=== PATIENT | female | born 1970 | race Caucasian/White ===

== ENCOUNTER 2016-11-01 11:40 | Inpatient (IN) ==
[2016-11-01] MEDS ORDERED: Ondansetron 4 MG/2 ML VIAL IVP PRN (13:09)
[2016-11-01] MEDS ORDERED: Naloxone 0.4 MG/ML INJ IVP PRN (13:14)
[2016-11-01] MEDS: Fenofibrate 54 MG TABLET PO SCH (13:34)
[2016-11-01] MEDS: Nitroglycerin 0.4 MG TAB.SUBL SL PRN ×3 (13:58→21:02)
[2016-11-01] MEDS ORDERED: *HR* Morphine 2 MG/ML SYRINGE IVP ONE (14:39)
--- NOTE | 2016-11-01 14:51 | Internal Med History&Physical ---
<Sandor Gonzalez - Last Filed: 11/01/16 16:11> Date of Encounter: 11/01/16 Time of Encounter: 13:30 Assessment and Plan (1) Unstable angina pectoris Current visit: Yes Status: Acute Patient presents with chief complaint of chest pain. Patient states that she has chest pain daily for the past month that is intermittent and typically relieved with nitroglycerin. She describes it as usually being a dull ache that is central in her chest. This morning, she reports the pain became much worse with one episode of vomiting and she became diaphoretic. She reports taking two aspirin and a nitroglycerin that did not help. She reports the pain does not radiate. She states that the pain is like her previous MIs but is more severe. 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 Troponins trended x3. Continuous cardiac telemetry ordered. Nitroglycerin protocol PRN ordered. EV echocardiogram ordered. Cardiology consult ordered and discussed with Dr. Thompson who will see the patient. We will continue aspirin therapy as well as patient's antihypertensive and anti-hyperlipidemic medications. Patient to be monitored closely. (2) Stool guaiac positive Current visit: Yes Status: Acute Patient presents with report of diarrhea yesterday that she reports was entirely black and watery. Patient's current Hgb is 8.9 and Hct is 29.7. Stool guaiac test positive. Gastroenterology consult ordered and discussed with Dr. Meier who will see the patient. Will monitor patient for signs of bleeding. Will use bilateral SCDs for DVT prophylaxis instead of Heparin. (3) Anemia Current visit: Yes Status: Acute Patient presents with acute anemia and report of episodic diarrhea yesterday with melena. Patient's current Hgb is 8.9 and Hct is 29.7. Type and screen ordered. Fecal occult test is positive for guaiac, but rectal exam is negative for blood. Gastroenterology consult ordered and discussed with Dr. Meier who will see the patient. Will monitor patient's follow-up labs and output for signs of bleeding. Qualifiers: Anemia type: unspecified type Qualified Code(s): D64.9 - Anemia, unspecified (4) Hyperkalemia Current visit: Yes Status: Acute Patient presents with acute hyperkalemia. Potassium level is currently 5.0. Will monitor patient's potassium on follow-up labs and consider administering one-time dose of Lasix to reduce potassium. Patient placed on continuous cardiac telemetry to monitor her rhythm. (5) Leukocytosis Current visit: Yes Status: Acute Patient presents with acute leukocytosis. Patient's current WBC is 16.8. Patient reports she was seen in the [facility] urgent care October 22 and diagnosed with bronchitis and sent home with Z-Sonny, steroid shot, Tessalon Perles, guaifenesin. Patient states symptoms did not resolve. Blood cultures, sputum cultures, and urine cultures ordered. Timed lactic acid ordered. We will monitor patient for increased signs of infection and consider administering IV antibiotics based on results of cultures. Qualifiers: Leukocytosis type: unspecified Qualified Code(s): D72.829 - Elevated white blood cell count, unspecified (6) SOB (shortness of breath) Current visit: Yes Status: Acute Patient presents with acute SOB accompanied by current chest pain. Will continue patient's albuterol sulfate inhaler. Supplemental O2 with titration if SPO2 less than 92% and continuous SPO2 monitoring ordered. DuoNebs Q4 PRN. Continuous cardiac telemetry ordered. (7) COPD (chronic obstructive pulmonary disease) Current visit: Yes Status: Chronic Patient presents with history of chronic obstructive pulmonary disease. Will continue patient's albuterol sulfate inhaler. Supplemental O2 with titration if SPO2 less than 92% and continuous SPO2 monitoring ordered. DuoNebs Q4 PRN. Qualifiers: COPD type: unspecified COPD Qualified Code(s): J44.9 - Chronic obstructive pulmonary disease, unspecified (8) HLD (hyperlipidemia) Current visit: Yes Status: Chronic Patient presents with history of chronic hyperlipidemia. Lipid panel ordered. Will continue patient's Lipitor. Qualifiers: Hyperlipidemia type: pure hypercholesterolemia Qualified Code(s): E78.00 - Pure hypercholesterolemia, unspecified; E78.0 - Pure hypercholesterolemia (9) HTN (hypertension) Current visit: Yes Status: Chronic Patient presents with history of chronic hypertension. Will continue patient's losartan and Lopressor. Monitor patient and vital signs. Qualifiers: Hypertension type: essential hypertension Qualified Code(s): I10 - Essential (primary) hypertension (10) DVT prophylaxis Current visit: Yes Status: Acute Patient be placed on DVT prophylaxis due to admission protocol and current bedrest status. Pharmacologic DVT prophylaxis contraindicated due to patient's report of diarrhea with melena yesterday and positive fecal occult guaiac test. SCDs ordered bilaterally for LEs. Internal Medicine - H&P: HPI Chief complaint: Chest pain Admitted From: Emergency Dept Plans for Post Hospital Care: Home History of present illness: Ms. Finch is a 46 year old female who presents from the ED with chief complaint of chest pain. Patient states that she has chest pain daily for the past month that is intermittent and typically relieved with nitroglycerin. She describes it as usually being a dull ache that is central in her chest. This morning, she reports the pain became much worse with one episode of vomiting and she became diaphoretic. She reports taking two aspirin and a nitroglycerin that did not help. She reports the pain does not radiate. She states that the pain is like her previous MIs but is more severe. 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 She is a current smoker and reports that she smokes 10 cigarettes a day. She states that she is SOB with the pain. She also reports bilateral numbness and tingling in her LEs for the past two weeks when she stands for long periods of time. She also presents with a cough that she states was diagnosed as bronchitis at [facility] urgent care on October 22 and she was sent home with a steroid shot, a Z-Sonny, Tessalon Perles, and guaifenesin. She states her symptoms have not improved regarding the bronchitis and that she produces green sputum early in the a.m. Ms. Finch also reports she was constipated for approximately 4 days and then had watery diarrhea that was black yesterday. Fecal occult test is positive for guaiac but no active bleeding is present on exam in ED.Patient has a medical history of COPD, HLD, HTN, NJ and angioplasty with placement of 4 stents, and GERD. Patient is at high risk for cardiac event based on her history of previous NJ, current angina, and cardiac risk factors of HLD and HTN. She also currently has leukocytosis with WBC of 16.8 from initial labs. She will be admitted as inpatient with orders for nitroglycerin protocol PRN, EKG stat, echocardiogram, troponin trending x3, continuous cardiac telemetry and supplemental O2. Cardiology consult ordered and discussed with Dr. Thompson. Orders also placed for blood, sputum, and urine cultures as well as timed lactic acids to monitor leukocytosis and infection. Gastroenterology consult ordered and discussed with Dr. Meier who will see the patient as well. Type and screen ordered stat. Will also monitor patient for signs of bleeding in stool. Patient to be monitored closely. Time spent with patient >40 minutes. Past Med Surg Social Fam HX - Past Medical History Source: patient Medical history: COPD, hyperlipidemia, hypertension, myocardial infarction Psychiatric history: anxiety - Social History Smoking Status: Current every day smoker Packs per day: 10 cigarettes a day Smokeless Tobacco Status: No Alcohol use: occasionally Drug use: none Occupational status: employed Current living situation: Home, With Family Activity Level: Independent ambulation Recent Out of Country Travel Within the Last 8 Weeks: No Exposure or Possible Exposure to Illness During Travel: No - Family History Mother Adopted: Yes Internal Medicine - H&P: Meds Albuterol Sulfate [Albuterol Inhaler] 1 puff IH PRN PRN 11/01/16 [History] Aspirin [Lo-Dose Aspirin EC] 81 mg PO DAILY 11/01/16 [History] Atorvastatin [Lipitor] 80 mg PO HS 11/01/16 [History] Budesonide/Formoterol 80/4.5 [Symbicort 80/4.5] 1 puff IH BID 11/01/16 [History ] Buspirone HCl [Buspar] 15 mg PO BID 11/01/16 [History] Cetirizine HCl 10 mg PO DAILY 11/01/16 [History] Clopidogrel [Plavix] 75 mg PO DAILY 11/01/16 [History] Diclofenac Sodium [Voltaren] 50 mg PO Q8HR 11/01/16 [History] FLUoxetine HCl [PROzac] 20 mg PO DAILY 11/01/16 [History] Fenofibrate 150 mg PO DAILY 11/01/16 [History] Fluticasone Propionate Nasal [Flonase] 120 spray NS BID 11/01/16 [History] Losartan Potassium [Cozaar] 50 mg PO DAILY 11/01/16 [History] Metoprolol [Lopressor] 25 mg PO DAILY 11/01/16 [History] Allergies Penicillins Adverse Reaction (Verified 02/03/15 08:11) Hives All Systems PM: A 10-system review of systems was performed and is negative for pertinent findings except as documented above in the HPI. - Constitutional Constitutional: no chills, no fever(s), no night sweats - EENT Eyes: no change in vision, no discharge, no pain, no photophobia Ears: no ear discharge, no ear pain, no tinnitus Nose, mouth and throat: no dysphagia, no nasal discharge, no neck pain, no sore throat - Breasts Breasts: as per HPI - Cardiovascular Cardiovascular ROS IM: as per HPI, chest pain, diaphoresis, dyspnea, dyspnea on exertion - Respiratory Respiratory: as per HPI, cough, dyspnea, change in phlegm color (Green in a.m.) - Gastrointestinal Gastrointestinal: as per HPI, diarrhea, melena, no abdominal pain, no hematemesis, no hematochezia, no nausea, no vomiting - Genitourinary Genitourinary: no change in urinary stream, no dysuria, no flank pain, no hematuria Menstruation: as per HPI - Musculoskeletal Musculoskeletal ROS IM: as per HPI, numbness, tingling (LEs bilaterally) - Integumentary Integumentary IM: no rash, no unusual bruising - Neurological Neurological ROS: as per HPI, numbness (Bilateral LEs), tingling, no confusion, no convulsions, no focal weakness, no tremor(s) - Psychiatric Psychiatric: as per HPI - Endocrine Endocrine IM: as per HPI - Hematologic/Lymphatic Hematologic/Lymphatic: as per HPI, other (Recent melena in diarrhea yesterday) - Allergic/Immunologic Allergic/Immunologic: as per HPI - Constitutional Vitals: Temp Pulse Resp BP Pulse Ox 97.7 F 64 17 104/56 94 11/01/16 12:50 11/01/16 12:50 11/01/16 12:50 11/01/16 12:50 11/01/16 12:50 General appearance: Present: cooperative, A&O X 3, pleasant, obese, severe distress, answers questions appropriately - Head Head exam: Present: atraumatic, normocephalic - Eye Eye exam: Present: PERRL, conjuntiva pink, sclera anicteric Pupils: Present: PERRL - ENT ENT exam: Present: normal exam, normal external ear exam - Neck Neck exam general surgery: Present: normal inspection, supple, trachea midline. Absent: lymphadenopathy - Respiratory Respiratory exam: Present: decreased breath sounds, CTAB. Absent: accessory muscle use, rales, rhonchi, wheezes - Cardiovascular Cardiovascular exam: Present: RRR, +S1, +S2. Absent: diastolic murmur, gallop, rubs, systolic murmur - GI/Abdominal GI/Abdominal exam: Present: normal bowel sounds, soft, no peritoneal signs. Absent: distended, tenderness - Rectal Rectal exam: Present: deferred - Additional comments: exam deferred. - Extremities Exam Extremities exam: Present: warm, radial pulses palpable and symetrical. Absent : calf tenderness, cyanotic, pedal edema - Back Exam Back exam: Present: normal inspection - Neurological Exam Neurological exam: Present: CN II-XII intact, oriented X3, no focal deficits. Absent: pronater drift, facial droop, speech deficit - Psychiatric Psychiatric exam: Present: anxious - Skin Skin exam: Present: dry, intact Internal Med - H&P Results - EKG Data EKG shows normal: sinus rhythm Rate: normal - EKG Data Prior EKG available for review: yes When compared to previous EKG: there is no significant change Interpretation IM: normal EKG EKG comments: 11/01/16 15:48 EKG dated 11/01/16 at 14:38:40 shows sinus rhythm and normal ECG. EKG dated 11/01/16 at 14:39:14 shows sinus rhythm and normal ECG. - Diagnostic Studies Chest x-ray Additional comments: 1-View CXR dated 11/01/16 from [facility] shows mild prominence of the pulmonary vasculature could be seen with pulmonary arterial hypertension. <Steven Chauhan - Last Filed: 11/01/16 17:27> Date of Encounter: 11/01/16 Internal Medicine - H&P: HPI History of present illness: Ms. Finch is a 46 year old female All Systems PM: A 10-system review of systems was performed and is negative for pertinent findings except as documented above in the HPI. - Constitutional Vitals: Temp Pulse Resp BP Pulse Ox 97.1 F L 64 16 92/60 93 11/01/16 15:09 11/01/16 15:09 11/01/16 15:09 11/01/16 15:09 11/01/16 15:09 Internal Med - H&P Results - Labs Labs: Cardiac Enzymes 11/01/16 11/01/16 Range/Units 13:20 13:23 Troponin I 0.02 0.02 (0-0.03) ng/mL - Attending Attestation I have seen and examined the patient at around 16:15. I have discussed about the patient with Sandor Gonzalez NP. I have reviewed the orders and the note. Patient is a 46-year-old female with a past history of COPD, hyperlipidemia, hypertension, coronary artery disease status post stents and is also a chronic smoker. Transferred from [place] ED. Patient presents with complaints of upper respiratory symptoms. She will been treated with antibiotics for bronchitis. Patient complaining of worsening cough and also some chest discomfort. Patient also complains of diarrhea and dark stool. She states she also had a dental procedure done recently and seems to have pain and infection at the site. Patient initially presented to [place] ED with chest pain. There was concern for unstable angina. Initial evaluation revealed a normal EKG negative troponin and chest x-ray is also normal. Fecal Hemoccult is positive. Patient does have anemia which seems to be new onset at this time and will need evaluation. GI bleed will need to be investigated further. General surgery consult. I believe patient's primary problem at this time will be GI bleed and anemia. On examination patient is awake and alert. Not in distress. Able to provide HISTORY. No family members at bedside. Patient has been transferred from [facility] for chest pain to rule out ACS. EKG will be repeated and troponin to be trended. Continue current medications. Patient has been explained about her condition and plan of care. Understood and agreed. No one else questions. CODE STATUS full code.
[2016-11-01] MEDS ORDERED: Ipratropium/Albuterol Neb 3 ML IH PRN (15:28)
[2016-11-01] MEDS ORDERED: *HR* Heparin 5,000 UNIT/ML VIAL SQ SCH (16:00)
--- NOTE | 2016-11-01 16:35 | Cardiology Consult Note ---
<Shahida Scott - Last Filed: 11/01/16 17:10> Date of Encounter: 11/01/16 Time of Encounter: 16:20 Assessment and Plan (1) Chest pain Current Visit: Yes Status: Acute Atypical chest pain symptoms--worsens with cough, deep breathing. Troponin negative x3, ECG without ischemic changes. Pain free upon exam. Pain is likely pleuritic in etiology. Known hx of CAD s/p PCI--continue home CV medications. Recommend TTE, if no significant findings anticipate sign-off from Cardiology. Qualifiers: Chest pain type: chest pain on breathing Qualified Code(s): R07.1 - Chest pain on breathing (2) Anemia Current Visit: Yes Status: Acute Reports "dark black" loose stools. Occult blood positive. HgB 8.9. Defer further mgmt to primary service. Qualifiers: Anemia type: unspecified type Qualified Code(s): D64.9 - Anemia, unspecified (3) Stool guaiac positive Current Visit: Yes Status: Acute plan as above. Discussion w patient/family: The assessment and plan as outlined above was discussed with the patient and/or family members who expressed understanding and agreement. All questions were answered. Thank you for involving us in the care of your patient. Please call with any questions. The patient will be discussed and reviewed with Dr. Thompson; changes to be made accordingly. History of Present Illness Consult date: 11/01/16 Requesting physician: Steven Chauhan Consult reason: Chest pain Chief complaint: Fatigue, chest pain History of present illness: Ms. Finch is a 46 year old female with PMHx significant for CAD s/p PCI, tobacco use, HTN, HLD who presented to the ED with 2 week history of worsening URI symptoms. She reports she initially went to urgent care 2 weeks ago and was treated for bronchitis--was given z-pack and steroids. At that time reported right sided chest discomfort that worsened with cough and deep breathing. Symptoms improved for several days until worsened 3-4 days ago. She continued to have right sided pleuritic chest discomfort in addition to GI upset--reports frequent episodes of "dark black stool." This morning she reports chest fullness with severe headache which was similar, not as severe, to prior [place] and then called EMS. She took NTG tabs which did not improve pain. Troponin negative x1 at [place] ED and again negative at [facility]. No ischemic ECG changes noted. Occult stool positive, WBC 16.8, HgB 8.9. Prior CV testing: [facility] 06/2014: s/p successful PTCA/JANELLE to mRCA; otherwise patent stents and mild, non-obstructive CAD TTE 07/11/14: LVEF 60%, inferior wall segmental abnormalities, moderate diastolic dysfunction of the left ventricle with elevated filling pressures, mildly enlarged left atrial size, normal right ventricular size and function, no significant valvular dysfunction although valves were not optimally visualized.The apical inferior, mid inferior septal and basal inferior septal lee were hypokinetic, the mid inferior and basal inferior lee were akinetic. Past Med Surg Social Fam HX - Past Medical History Attestation: Yes The following information was validated with the patient. Source: patient, old records reviewed Medical history: COPD, coronary artery disease, hyperlipidemia, hypertension, myocardial infarction Psychiatric history: anxiety - Past Surgical History Surgical History: angioplasty/stent - Social History Smoking Status: Current every day smoker Packs per day: 10 cigarettes a day Smokeless Tobacco Status: No Alcohol use: occasionally Drug use: none - Family History Mother Adopted: Yes Medications and Allergies Albuterol Sulfate [Albuterol Inhaler] 1 puff IH PRN PRN 11/01/16 [History] Aspirin [Lo-Dose Aspirin EC] 81 mg PO DAILY 11/01/16 [History] Atorvastatin [Lipitor] 80 mg PO HS 11/01/16 [History] Budesonide/Formoterol 80/4.5 [Symbicort 80/4.5] 1 puff IH BID 11/01/16 [History ] Buspirone HCl [Buspar] 15 mg PO BID 11/01/16 [History] Cetirizine HCl 10 mg PO DAILY 11/01/16 [History] Clopidogrel [Plavix] 75 mg PO DAILY 11/01/16 [History] Diclofenac Sodium [Voltaren] 50 mg PO Q8HR 11/01/16 [History] FLUoxetine HCl [PROzac] 20 mg PO DAILY 11/01/16 [History] Fenofibrate 150 mg PO DAILY 11/01/16 [History] Fluticasone Propionate Nasal [Flonase] 120 spray NS BID 11/01/16 [History] Losartan Potassium [Cozaar] 50 mg PO DAILY 11/01/16 [History] Metoprolol [Lopressor] 25 mg PO DAILY 11/01/16 [History] Allergies Penicillins Adverse Reaction (Verified 02/03/15 08:11) Hives All Systems Review: A 10-system review of systems was performed and is negative for pertinent findings except as documented above in the HPI. - Cardiovascular Cardiovascular: as per HPI Physical Examination Vital Signs, Last 4 Hours Temp Pulse Resp BP Pulse Ox 11/01/16 15:09 97.1 F L 64 16 92/60 93 11/01/16 12:50 97.7 F 64 17 104/56 94 General: Conversant, No Apparent Distress, Other (ill appearing) HEENT: Atraumatic, Normocephaly, Mucus Membranes Moist Cardiac: Reg Rate and Rhythm, Normal S1 and S2 Lungs: Normal Breath Sounds Neuro: Alert and responsive Abdomen: Soft Skin: No rashes noted on visualized skin Musculoskeletal: No Chest Wall Tenderness Extremities: Normal Pulses, Other (mild BLE edema, non-pitting) Results Lab Results 11/01/16 11/01/16 11/01/16 13:20 13:23 13:23 Troponin I 0.02 0.02 B-Natriuretic Peptide 321 H Active Medications Albuterol Sulfate (Albuterol Inhaler) 1 puff IH Q6H PRN PRN Reason: short of breat Stop: 05/03/17 13:16 Albuterol/Ipratropium (Duoneb) 3 ml IH [id number] PRN; Protocol PRN Reason: Shortness Of Breath/Wheezing Stop: 05/03/17 15:29 Aspirin (Aspirin) 81 mg PO DAILY [facility] Stop: 05/04/17 09:01 Atorvastatin Calcium (Lipitor) 40 mg PO HS [facility] Stop: 05/03/17 21:01 Atorvastatin Calcium (Lipitor) 80 mg PO HS [facility] Stop: 05/03/17 21:01 Budesonide/Formoterol Fumarate (Symbicort) 1 puff IH BIDR [facility] PRN Reason: Protocol Stop: 05/03/17 22:01 Buspirone HCl (Buspar) 15 mg PO BID [facility] Stop: 05/03/17 21:01 Clopidogrel Bisulfate (Plavix) 75 mg PO DAILY [facility] Stop: 05/03/17 13:16 Last Admin: 11/01/16 13:33 Dose: Not Given Famotidine (Pepcid) 20 mg PO BID [facility] Stop: 05/03/17 21:01 Fenofibrate (Tricor) 162 mg PO DAILY [facility] Stop: 05/03/17 13:16 Last Admin: 11/01/16 13:34 Dose: Not Given Fluoxetine HCl (Prozac) 20 mg PO DAILY [facility] PRN Reason: Protocol Stop: 05/04/17 09:01 Fluticasone Propionate (Flonase) 50 mcg NS BID [facility] PRN Reason: Protocol Stop: 05/03/17 21:01 Losartan Potassium (Cozaar) 50 mg PO DAILY [facility] Stop: 05/04/17 09:01 Metoprolol Tartrate (Lopressor) 25 mg PO DAILY [facility] Stop: 05/04/17 09:01 Morphine Sulfate (Morphine Sulfate) 2 mg IVP Q2H PRN PRN Reason: Chest Pain Stop: 05/03/17 13:10 Naloxone HCl (Narcan) 0.4 mg IVP Q2MIN PRN PRN Reason: Opioid Reversal Stop: 05/03/17 13:15 Nitroglycerin (Nitroglycerin) 0.4 mg SL Q5MIN PRN PRN Reason: Chest Pain Stop: 05/03/17 13:10 Last Admin: 11/01/16 13:58 Dose: 0.4 mg Ondansetron HCl (Zofran) 4 mg IVP Q6HR PRN; Protocol PRN Reason: Nausea Stop: 05/03/17 13:10 Last Admin: 11/01/16 14:40 Dose: 4 mg - Imaging and Cardiology Echo: report reviewed Cardiac cath: report reviewed - EKG Interpretation EKG results cardiology: personally reviewed Consult Discharge Plan - Plan Referrals: Danyell Meek CNP [Primary Care Provider] - <Zaria Thompson - Last Filed: 11/01/16 17:44> Date of Encounter: 11/01/16 Assessment and Plan Discussion w patient/family: The assessment and plan as outlined above was discussed with the patient and/or family members who expressed understanding and agreement. All questions were answered. Thank you for involving us in the care of your patient. Please call with any questions. History of Present Illness History of present illness: Ms. Finch is a 46 year old female All Systems Review: A 10-system review of systems was performed and is negative for pertinent findings except as documented above in the HPI. Physical Examination Vital Signs, Last 4 Hours Temp Pulse Resp BP Pulse Ox 11/01/16 15:09 97.1 F L 64 16 92/60 93 Results Lab Results 11/01/16 11/01/16 11/01/16 13:20 13:23 13:23 Troponin I 0.02 0.02 B-Natriuretic Peptide 321 H - Attending Attestation I examined this patient and my medical decision-making was reviewed with the SKIING INSTRUCTOR/PA/Advanced Practice Nurse/Resident Physician. I agree with the documented findings, disposition and treatment plan. Ms. Finch presents with chest pain thought secondary to bronchitis. Her troponins have been negative and ECG is without concerning findings. Furthermore, she complains of black stools recently and guiac is positive and Hgb is 8.9. Will defer to primary service for management. No further cardiac testing is warranted. Will sign off. Please call with questions.
[2016-11-01] MEDS: Levofloxacin 500 MG/100 ML 500 MG/100 ML BAG IVPB SCH (19:33)
[2016-11-01] MEDS: Budesonide/Formoterol 80/4.5 MDI IH SCH (20:07)
[2016-11-01] MEDS: Ipratropium/Albuterol Neb 3 ML IH SCH (20:07)
[2016-11-01 20:17] LABS: Bilirubin,Urine Small (Negative); Blood,Urine Negative (Negative); Clarity,Urine Cloudy (Clear); Color,Urine Dark Yellow (Yellow); Glucose,Urine (UA) Normal (Normal); Ketones,Urine Negative (Negative); Leukocyte Esterase,Urine Negative (Negative); Nitrite,Urine Negative (Negative); PH,Urine 5.5 pH Units (5.0-8.0); Protein,Urine Trace mg/dL (Neg-Trace); Specific Gravity,Urine 1.022 (1.010-1.025); Urobilinogen,Urine Normal (Normal)
[2016-11-01 20:20] LABS: Bacteria,Urine None Seen per hpf (None-Few); Hyaline Casts,Urine Few per lpf (None-Few); Squamous Epithelial Cell,Urine Many per lpf (None-Few); WBC,Urine 0-3 per hpf (0-3)
[2016-11-01] MEDS: Famotidine 20 MG TABLET PO SCH (20:22)
[2016-11-01 20:23] LABS: Amphetamine Screen,Urine Negative ng/mL (Cutoff=1000); Barbiturate Screen,Urine Negative ng/mL (Cutoff=200); Benzodiazepines Screen,Urine Negative ng/mL (Cutoff=200); Cannabinoid Screen,Urine Positive ng/mL (Cutoff = 50); Cocaine Screen,Urine Negative ng/mL (Cutoff= 300); Opiate Screen,Urine Positive ng/mL (Cutoff=300); Phencyclidine Screen,Urine Negative ng/mL (Cutoff=25)
[2016-11-01] MEDS: Fluticasone Propionate Nasal 50 MCG/SPRAY BOTTLE NS SCH (20:23)
[2016-11-01] MEDS ORDERED: Perflutren Lipid Microsphere 1.3 ML in 0.9 % Sodium Chloride 8.7 ML IVP ONE (21:04)
[2016-11-01] MEDS: Acetaminophen/Butalbital/CaffeineTABLET PO PRN (21:09)
[2016-11-02] MEDS: Ipratropium/Albuterol Neb 3 ML IH SCH ×7 (00:13→23:42)
[2016-11-02 01:12] LABS: Basophils % 0.6 %; Monocytes % 9.8 %
[2016-11-02 01:13] LABS: Basophils # 0.1 K/mcL (0.0-0.2); Eosinophils # 0.2 K/mcL (0.0-0.6); Eosinophils % 1.4 %; Hematocrit 29.8 % (35.3-44.9); Hemoglobin 8.5 g/dL (11.5-15.4); Immature Granulocytes % 2.3 % (0-4); Lymphocytes # 2.2 K/mcL (0.6-4.6); Lymphocytes % 15.2 %; Mean Corpuscular HGB Conc 28.5 g/dL (31.6-35.5); Mean Corpuscular Hemoglobin 26.2 pg (28.0-33.3); Mean Platelet Volume 10.5 fL (9.4-12.4); Monocytes # 1.4 K/mcL (0.0-1.3); Neutrophils # 10.3 K/mcL (1.6-8.9); Nucleated Red Blood Cells 3.4 /100 WBC (0); Platelet Count 338 K/mcL (140-400); Red Blood Count 3.24 M/mcL (3.82-4.97); Red Cell Distribution Width 17.4 % (11.5-14.5); Segmented Neutrophils % 70.7 %
[2016-11-02 01:15] LABS: Alanine Aminotransferase 66 Units/L (0-55); Albumin 2.9 g/dL (3.5-5.0); Albumin/Globulin Ratio 0.7 (1.1-2.2); Alkaline Phosphatase 85 Units/L (38-126); Aspartate Amino Transferase 75 Units/L (5-34); BUN/Creatinine Ratio 25 (6-26); Bilirubin,Total 0.3 mg/dL (0.2-1.2); Blood Urea Nitrogen 19 mg/dL (7-20); Calcium 8.7 mg/dL (8.6-10.8); Carbon Dioxide 30 mEq/L (19-29); Chloride 100 mEq/L (98-109); Globulin 4.2 g/dL (2.4-3.5); Glucose 110 mg/dL (70-99); Magnesium 1.8 mg/dL (1.6-2.6); Osmolality,Calculated 281 (280-300); Potassium 5.2 mEq/L (3.5-4.5); Sodium 134 mEq/L (136-145); Total Protein 7.1 g/dL (6.0-8.3); eGFR For African Americans > 60 (> 60); eGFR For Non-African Americans > 60 (> 60)
[2016-11-02] MEDS: MetroNIDAZOLE 500 MG/100 ML 500 MG/100 ML BAG IVPB SCH ×4 (01:15→22:51)
[2016-11-02] MEDS: Nicotine 14 MG PATCH.TD24 TD SCH ×2 (01:15→08:40)
[2016-11-02 01:31] LABS: Platelet Estimate Normal (Normal); Polychromasia 2+ (Not Present)
[2016-11-02 01:32] LABS: Anisocytosis 1+ (Not Present); Hypochromasia Present (Not Present)
[2016-11-02] MEDS: Nitroglycerin 0.4 MG TAB.SUBL SL PRN ×2 (07:33→07:39)
[2016-11-02] MEDS ORDERED: Nitroglycerin 1 INCH/GM PACKET TP ONE (07:49)
[2016-11-02] MEDS: *HR* Morphine 2 MG/ML SYRINGE IVP PRN (07:53)
[2016-11-02] MEDS ORDERED: GI Cocktail 40 ML EACH PO ONE (07:58)
[2016-11-02] MEDS: Budesonide/Formoterol 80/4.5 MDI IH SCH ×2 (08:23→19:52)
[2016-11-02] MEDS ORDERED: Polyethylene Glycol 3350 255 GM POWDER PO ONE ×2 (08:35→17:00)
[2016-11-02 08:37] LABS: Hematocrit 30.9 % (35.3-44.9); Hemoglobin 8.6 g/dL (11.5-15.4); Immature Platelets 5.5 % (1.1-6.1); Mean Corpuscular HGB Conc 27.8 g/dL (31.6-35.5); Mean Corpuscular Hemoglobin 25.5 pg (28.0-33.3); Mean Corpuscular Volume 91.7 fL (83.0-100.0); Mean Platelet Volume 10.3 fL (9.4-12.4); Red Blood Count 3.37 M/mcL (3.82-4.97); Red Cell Distribution Width 17.4 % (11.5-14.5)
[2016-11-02] MEDS: Famotidine 20 MG TABLET PO SCH ×2 (08:40→21:31)
[2016-11-02] MEDS: Fenofibrate 54 MG TABLET PO SCH (08:40)
[2016-11-02] MEDS: Aspirin 81 MG TAB.CHEW PO SCH (08:40)
[2016-11-02 09:03] LABS: Alanine Aminotransferase 71 Units/L (0-55); Albumin 2.9 g/dL (3.5-5.0); Albumin/Globulin Ratio 0.7 (1.1-2.2); Alkaline Phosphatase 86 Units/L (38-126); Aspartate Amino Transferase 87 Units/L (5-34); BUN/Creatinine Ratio 22 (6-26); Bilirubin,Total 0.3 mg/dL (0.2-1.2); Blood Urea Nitrogen 14 mg/dL (7-20); Calcium 9.1 mg/dL (8.6-10.8); Carbon Dioxide 31 mEq/L (19-29); Chloride 96 mEq/L (98-109); Globulin 4.3 g/dL (2.4-3.5); Glucose 97 mg/dL (70-99); Osmolality,Calculated 278 (280-300); Potassium 4.9 mEq/L (3.5-4.5); Sodium 134 mEq/L (136-145); Total Protein 7.2 g/dL (6.0-8.3); eGFR For African Americans > 60 (> 60); eGFR For Non-African Americans > 60 (> 60)
[2016-11-02] MEDS: FLUoxetine 20 MG CAPSULE PO SCH (09:37)
[2016-11-02] MEDS: Fluticasone Propionate Nasal 50 MCG/SPRAY BOTTLE NS SCH ×2 (10:59→21:58)
[2016-11-02] MEDS: Acetaminophen/Butalbital/CaffeineTABLET PO PRN ×2 (12:35→18:54)
--- NOTE | 2016-11-02 13:05 | Internal Med Progress Note ---
Date of Encounter: 11/02/16 Time of Encounter: 08:00 - Assessment and plan (1) Chest pain Current Visit: Yes Status: Acute Assessment and plan: Pt with significant substernal chest discomfort. Troponin has been negative. EKG now is nonacute. Nitro not a lot of help. Morphine give with some relief. Card at bedside to see. Will give GI cocktail as well. Add PPI. Surg eval for endo. Qualifiers: Chest pain type: precordial pain Qualified Code(s): R07.2 - Precordial pain (2) Anemia Current Visit: Yes Status: Suspected Assessment and plan: Suspect she has chronic bleeding from GI tract (? esophagus). Surg consulted. PPI ordered. Qualifiers: Anemia type: iron deficiency Iron deficiency anemia type: chronic blood loss Qualified Code(s): D50.0 - Iron deficiency anemia secondary to blood loss (chronic) (3) HTN (hypertension) Current Visit: Yes Status: Chronic Assessment and plan: Continue meds to control. Qualifiers: Hypertension type: essential hypertension Qualified Code(s): I10 - Essential (primary) hypertension (4) COPD (chronic obstructive pulmonary disease) Current Visit: Yes Status: Chronic Assessment and plan: Supportive care. Qualifiers: COPD type: emphysema Emphysema type: centrilobular Qualified Code(s): J43.2 - Centrilobular emphysema (5) HLD (hyperlipidemia) Current Visit: Yes Status: Chronic Assessment and plan: Continue meds. Qualifiers: Hyperlipidemia type: pure hypercholesterolemia Qualified Code(s): E78.00 - Pure hypercholesterolemia, unspecified; E78.0 - Pure hypercholesterolemia (6) Leukocytosis Current Visit: Yes Status: Acute Assessment and plan: Most likely reactive. No sign of infection at this time. Qualifiers: Leukocytosis type: leukemoid reaction Qualified Code(s): D72.823 - Leukemoid reaction - Subjective Interval history: Ms. Finch is currently in observation for acute chest pain and anemia. She is moderate to high risk due to potential for worsening cardiac status. Ms. Finch awoke with significant chest discomfort this AM. It was tight in her midchest/epigastrium. Radiated up neck to head. Arms feel tingly. No diarrhea. No dyspnea currently. No fever or chills. - Constitutional Vitals: Temp Pulse Resp BP Pulse Ox 98.2 F 80 16 108/72 90 07/08/17 11:26 11/02/16 11:26 11/02/16 11:26 11/02/16 11:26 11/02/16 11:26 General appearance: Present: cooperative, A&O X 3, pleasant, obese, severe distress, answers questions appropriately Exam: Very uncomfortable and restless in bed. Having a lot of chest discomfort. - Head Head exam: Present: normocephalic - Eye Eye exam: Present: EOMI, conjuntiva pink - ENT ENT exam: Present: mucous membranes moist - Respiratory Respiratory exam: Present: CTAB. Absent: rales, rhonchi, wheezes - Cardiovascular Cardiovascular exam: Present: RRR, systolic murmur. Absent: tachycardia - GI/Abdominal GI/Abdominal exam: Present: soft, tenderness Additional comments: ? epigastric discomfort on exam. No peritoneal signs. - Extremities Exam Extremities exam: Present: warm. Absent: tenderness - Neurological Exam Neurological exam: Present: alert, oriented X3 - Psychiatric Psychiatric exam: Present: anxious - Skin Skin exam: Present: dry, warm. Absent: rash Internal Medicine: Result - Labs CBC & Chem 7: 11/02/16 08:08 11/02/16 08:08 Labs: Short CBC 11/02/16 11/02/16 Range/Units 00:53 08:08 WBC 14.5 H 14.0 H (4.3-11.1) K/mcL Hgb 8.5 L 8.6 L (11.5-15.4) g/dL Hct 29.8 L 30.9 L (35.3-44.9) % Plt Count 338 372 (140-400) K/mcL Neutrophils # 10.3 H (1.6-8.9) K/mcL BMP 11/02/16 11/02/16 00:53 08:08 Sodium 134 L 134 L Potassium 5.2 H 4.9 H Chloride 100 96 L Carbon Dioxide 30 H 31 H BUN 19 14 Creatinine 0.75 0.65 Glucose 110 H 97 Calcium 8.7 9.1 Cardiac Enzymes 11/01/16 11/01/16 11/01/16 Range/Units 13:20 13:23 21:11 Troponin I 0.02 0.02 0.02 (0-0.03) ng/mL 11/02/16 11/02/16 Range/Units 00:53 08:08 Troponin I 0.02 0.03 (0-0.03) ng/mL Liver Function 11/02/16 11/02/16 Range/Units 00:53 08:08 Total Bilirubin 0.3 0.3 (0.2-1.2) mg/dL AST 75 H 87 H (5-34) Units/L ALT 66 H 71 H (0-55) Units/L Alkaline Phosphatase 85 86 (38-126) Units/L Albumin 2.9 L 2.9 L (3.5-5.0) g/dL Urine 11/01/16 Range/Units 20:05 Urine Color Dark Yellow (Yellow) Urine Clarity Cloudy A (Clear) Urine pH 5.5 (5.0-8.0) pH Units Ur Specific [place] 1.022 (1.010-1.025) Urine Protein Trace (Neg-Trace) mg/dL Urine Glucose (UA) Normal (Normal) mg/dL Consult Discharge Plan - Plan Referrals: Danyell Meek, CHRYSTAL [Primary Care Provider] -
--- NOTE | 2016-11-02 13:18 | General Surgery Consult Note ---
Date of Encounter: 11/02/16 Time of Encounter: 11:00 Assessment and Plan (1) Anemia Current Visit: Yes Status: Acute clears today, bowel prep today npo at midnight for egd/colonoscopy tomorrow Qualifiers: Anemia type: other cause Other causes of anemia: other cause, not classified Qualified Code(s): D64.89 - Other specified anemias (2) Hematemesis Current Visit: Yes Status: Acute will plan EGD with anesthesia, risks and benefits discussed and she wishes to proceed Qualifiers: Nausea presence: with nausea Qualified Code(s): K92.0 - Hematemesis; R11.0 - Nausea (3) Melena Current Visit: Yes Status: Acute will plan colonoscopy with anesthesia, risks and benefits discussed and she wishes to proceed History of Present Illness Consult date: 11/02/16 Reason for consult: endoscopy History of present illness: Patient is a 46 yo female who comes in yesterday to the ED with complains of nausea and emesis with dark hematemesis. She also had been constipated about a week ago and then began having black diarrhea stools. She has no abdominal pain but does have epigastric/chest pain. She has been seen by cardiology. She has never had any endoscopy before. No fevers, chills or night sweats. No previous rectal bleeding. She was adopted and therefore doesnt know any family medical history. She denies anything but rare heartburn or reflux. No recent weight loss. She was found to be anemic with a Hb 8.6 Past Med Surg Social [facility] HX - Past Medical History Source: patient Medical history: COPD, coronary artery disease, hyperlipidemia, hypertension, myocardial infarction (x2) Psychiatric history: anxiety - Past Surgical History Surgical History: angioplasty/stent (x4 stents), other (tubal ligation, laparoscopic) - Social History Smoking Status: Current every day smoker Packs per day: 10 cigarettes a day Smokeless Tobacco Status: No Alcohol use: occasionally Drug use: none - Family History Mother Adopted: Yes Medications and Allergies Albuterol Sulfate [Albuterol Inhaler] 1 puff IH PRN PRN 11/01/16 [History] Aspirin [Lo-Dose Aspirin EC] 81 mg PO DAILY 11/01/16 [History] Atorvastatin [Lipitor] 80 mg PO HS 11/01/16 [History] Budesonide/Formoterol 80/4.5 [Symbicort 80/4.5] 1 puff IH BID 11/01/16 [History ] Buspirone HCl [Buspar] 15 mg PO BID 11/01/16 [History] Cetirizine HCl 10 mg PO DAILY 11/01/16 [History] Clopidogrel [Plavix] 75 mg PO DAILY 11/01/16 [History] Diclofenac Sodium [Voltaren] 50 mg PO Q8HR 11/01/16 [History] FLUoxetine HCl [PROzac] 20 mg PO DAILY 11/01/16 [History] Fenofibrate 150 mg PO DAILY 11/01/16 [History] Fluticasone Propionate Nasal [Flonase] 120 spray NS BID 11/01/16 [History] Losartan Potassium [Cozaar] 50 mg PO DAILY 11/01/16 [History] Metoprolol [Lopressor] 25 mg PO DAILY 11/01/16 [History] Allergies Penicillins Adverse Reaction (Verified 02/03/15 08:11) Hives Review of Systems All systems PM: reviewed and no additional remarkable complaints except as stated All systems PM: A 10-system review of systems was performed and is negative for pertinent findings except as documented above in the HPI. General Surgery Exam Initial Vital Signs Temp Pulse Resp BP Pulse Ox 97.7 F 64 17 104/56 94 11/01/16 12:50 11/01/16 12:50 11/01/16 12:50 11/01/16 12:50 11/01/16 12:50 - General physical appearance well developed, well nourished, no distress, obese - Eyes PERRL, normal ocular movement - ENT normal mucosa, normocephalic - Neck trachea midline - Respiratory normal expansion, clear to auscultation - Cardiovascular Cardiovascular exam: Present: RRR, no murmurs/rubs/gallops - Abdomen Abdomen general surgery: Present: bowel sounds present, soft, non tender - Integumentary Integumentary general surgery: Present: warm and dry, no abnormal pigmentation - Neurologic Present: CN 2-12 grossly intact - Musculoskeletal Present: normal gait, normal posture - Psychiatric Psychiatric general surgery: Present: A&Ox3, speech is normal Exam Initial Vital Signs Temp Pulse Resp BP Pulse Ox 97.7 F 64 17 104/56 94 11/01/16 12:50 11/01/16 12:50 11/01/16 12:50 11/01/16 12:50 11/01/16 12:50 Results - Labs 11/02/16 08:08 11/02/16 08:08 Short CBC 11/02/16 11/02/16 Range/Units 08:08 00:53 WBC 14.0 H 14.5 H (4.3-11.1) K/mcL Hgb 8.6 L 8.5 L (11.5-15.4) g/dL Hct 30.9 L 29.8 L (35.3-44.9) % Plt Count 372 338 (140-400) K/mcL Neutrophils # 10.3 H (1.6-8.9) K/mcL BMP 11/02/16 11/02/16 Range/Units 08:08 00:53 Sodium 134 L 134 L (136-145) mEq/L Potassium 4.9 H 5.2 H (3.5-4.5) mEq/L Chloride 96 L 100 (98-109) mEq/L Carbon Dioxide 31 H 30 H (19-29) mEq/L BUN 14 19 (7-20) mg/dL Creatinine 0.65 0.75 (0.57-1.11) mg/dL Glucose 97 110 H (70-99) mg/dL Calcium 9.1 8.7 (8.6-10.8) mg/dL Cardiac Enzymes 11/02/16 11/02/16 11/01/16 Range/Units 08:08 00:53 21:11 Troponin I 0.03 0.02 0.02 (0-0.03) ng/mL 11/01/16 11/01/16 Range/Units 13:23 13:20 Troponin I 0.02 0.02 (0-0.03) ng/mL Liver Function 11/02/16 11/02/16 Range/Units 08:08 00:53 Total Bilirubin 0.3 0.3 (0.2-1.2) mg/dL AST 87 H 75 H (5-34) Units/L ALT 71 H 66 H (0-55) Units/L Alkaline Phosphatase 86 85 (38-126) Units/L Albumin 2.9 L 2.9 L (3.5-5.0) g/dL Urine 11/01/16 Range/Units 20:05 Urine Color Dark Yellow (Yellow) Urine Clarity Cloudy A (Clear) Urine pH 5.5 (5.0-8.0) pH Units Ur Specific [place] 1.022 (1.010-1.025) Urine Protein Trace (Neg-Trace) mg/dL Urine Glucose (UA) Normal (Normal) mg/dL Vital Signs Temp Pulse Resp BP Pulse Ox 11/02/16 11:26 98.2 F 80 16 108/72 90 11/02/16 08:23 16 99 11/02/16 07:21 97.6 F 70 16 137/55 90 11/02/16 04:40 98.4 F 82 16 113/72 95 11/02/16 04:25 16 91 11/02/16 00:14 15 92 11/01/16 23:51 98.2 F 80 16 113/72 93 11/01/16 23:28 98.3 F 83 22 127/80 91 11/01/16 20:07 17 86 11/01/16 19:48 98.0 F 73 15 114/66 94 11/01/16 15:09 97.1 F L 64 16 92/60 93 Intake and Output 11/01/16 11/02/16 11/02/16 23:59 07:59 15:59 Intake Total 100 / 100 Balance 100 / 100 Intake: IV Fluids 100 / 100 Flagyl Premix 500 MG/100 100 / 100 ML 500 mg In 100 ml @ 100 mls/hr IVPB Q8HR FORMERLY [facility], 1928–1983 Rx# :[id number] Other: Weight 95.3 kg Blood Glucose* 100 Consult Discharge Plan - Plan Referrals: Danyell Meek, CHRYSTAL [Primary Care Provider] -
[2016-11-02 14:01] LABS: Hematocrit 28.4 % (35.3-44.9); Hemoglobin 8.3 g/dL (11.5-15.4)
[2016-11-02] MEDS: Levofloxacin 500 MG/100 ML 500 MG/100 ML BAG IVPB SCH (19:23)
[2016-11-02] MEDS ORDERED: Ibuprofen 400 MG TABLET PO ONE (22:15)
[2016-11-03] MEDS: Ipratropium/Albuterol Neb 3 ML IH SCH ×6 (03:25→23:35)
[2016-11-03 03:52] LABS: Hematocrit 30.1 % (35.3-44.9); Hemoglobin 8.3 g/dL (11.5-15.4); Mean Corpuscular HGB Conc 27.6 g/dL (31.6-35.5); Mean Corpuscular Hemoglobin 25.2 pg (28.0-33.3); Mean Corpuscular Volume 91.5 fL (83.0-100.0); Platelet Count 360 K/mcL (140-400); Red Blood Count 3.29 M/mcL (3.82-4.97); Red Cell Distribution Width 17.3 % (11.5-14.5)
[2016-11-03 04:06] LABS: BUN/Creatinine Ratio 16 (6-26); Blood Urea Nitrogen 9 mg/dL (7-20); Calcium 8.7 mg/dL (8.6-10.8); Carbon Dioxide 33 mEq/L (19-29); Chloride 100 mEq/L (98-109); Glucose 83 mg/dL (70-99); Magnesium 1.7 mg/dL (1.6-2.6); Osmolality,Calculated 282 (280-300); Potassium 4.5 mEq/L (3.5-4.5); Sodium 137 mEq/L (136-145); eGFR For African Americans > 60 (> 60); eGFR For Non-African Americans > 60 (> 60)
[2016-11-03] MEDS: Acetaminophen/Butalbital/CaffeineTABLET PO PRN (07:42)
[2016-11-03] MEDS: Nicotine 14 MG PATCH.TD24 TD SCH (07:42)
[2016-11-03] MEDS: Fenofibrate 54 MG TABLET PO SCH (07:42)
[2016-11-03] MEDS: Famotidine 20 MG TABLET PO SCH ×2 (07:42→19:43)
[2016-11-03] MEDS: Aspirin 81 MG TAB.CHEW PO SCH (07:42)
[2016-11-03] MEDS: FLUoxetine 20 MG CAPSULE PO SCH (07:43)
[2016-11-03] MEDS: MetroNIDAZOLE 500 MG/100 ML 500 MG/100 ML BAG IVPB SCH ×2 (07:43→17:25)
[2016-11-03] MEDS: Fluticasone Propionate Nasal 50 MCG/SPRAY BOTTLE NS SCH ×2 (07:43→23:00)
[2016-11-03] MEDS: Budesonide/Formoterol 80/4.5 MDI IH SCH ×2 (07:55→19:48)
[2016-11-03] MEDS ORDERED: Simethicone 40 MG/0.6 ML MLS IR ONE (08:54)
[2016-11-03] MEDS ORDERED: Tetracaine/Benzocaine/Butamben 200MG/SPRAY (100SPY/BOT) MM ONE (08:54)
--- NOTE | 2016-11-03 09:04 | Anesthesia Evaluation PreOp ---
Date of Encounter: 11/03/16 Time of Encounter: 09:00 - Past History Planned Operation: Double Endo Cardiac History: CO, HTN, Hyperlipidemia, Cardiac Stent (Stent X 4 last one 2014 ) Pulmonary History: Smoker, COPD WHEEL ROLLER History: Denies Any Significant HX Other Medical History: Denies Any Significant HX Anesthesia History: No Prior Anesthetic Complications Alcohol Use: occasionally Drug use: none Medications and Allergies Albuterol Sulfate [Albuterol Inhaler] 1 puff IH PRN PRN 11/01/16 [History] Aspirin [Lo-Dose Aspirin EC] 81 mg PO DAILY 11/01/16 [History] Atorvastatin [Lipitor] 80 mg PO HS 11/01/16 [History] Budesonide/Formoterol 80/4.5 [Symbicort 80/4.5] 1 puff IH BID 11/01/16 [History ] Buspirone HCl [Buspar] 15 mg PO BID 11/01/16 [History] Cetirizine HCl 10 mg PO DAILY 11/01/16 [History] Clopidogrel [Plavix] 75 mg PO DAILY 11/01/16 [History] Diclofenac Sodium [Voltaren] 50 mg PO Q8HR 11/01/16 [History] FLUoxetine HCl [PROzac] 20 mg PO DAILY 11/01/16 [History] Fenofibrate 150 mg PO DAILY 11/01/16 [History] Fluticasone Propionate Nasal [Flonase] 120 spray NS BID 11/01/16 [History] Losartan Potassium [Cozaar] 50 mg PO DAILY 11/01/16 [History] Metoprolol [Lopressor] 25 mg PO DAILY 11/01/16 [History] Allergies Penicillins Adverse Reaction (Verified 02/03/15 08:11) Hives - Meds/Allergy Pre-op Review Medications Reviewed: Yes Allergies Reviewed: Yes Beta Blockers on Current Med List: No Anesthesia Results - Labs 11/03/16 03:20 11/03/16 03:20 - Imaging EKG: report reviewed (SR) Additional studies: LVEF 55% Anesthesia Exam O2 Sat Weight 95 kg O2 Sat by Pulse Oximetry 91 O2 Sat by Pulse Oximetry 90 O2 Sat by Pulse Oximetry 92 O2 Sat by Pulse Oximetry 59 O2 Sat by Pulse Oximetry 94 O2 Sat by Pulse Oximetry 96 O2 Sat by Pulse Oximetry 90 O2 Sat by Pulse Oximetry 93 O2 Sat by Pulse Oximetry 96 O2 Sat by Pulse Oximetry 77 O2 Sat by Pulse Oximetry 93 O2 Sat by Pulse Oximetry 90 Vital Signs Temp Pulse Resp BP Pulse Ox 97.7 F 64 17 104/56 94 11/01/16 12:50 11/01/16 12:50 11/01/16 12:50 11/01/16 12:50 11/01/16 12:50 Height: 5'4 Weight: 209 lbs NPO (# of Hours): MN Pain Scale: 0 - HEENT Pupil (Motor): Pupils equal, EOMI Mallampati: III Teeth: Normal Oral Opening: Less than or equal to 3 - WHEEL ROLLER LOC: Oriented WHEEL ROLLER Motor: Normal RUE, Normal LUE, Normal RLE, Normal LLE, Normal Face WHEEL ROLLER Sensory: Normal: RUE, LUE, RLE, LLE, Face - Cardiac Rhythm: Regular Murmur: None JVD: No Carotid Bruit: No - Pulmonary Breath Sounds: bilateral Clear Respiratory Effort: Symmetrical Anesthesia Assess/Plan ASA Score: 3 (CAD COPD) Modified Megan Scale for Level of Consciousness: Cooperative, oriented, and tranquil Anesthetic Plan: MAC Monitoring Plan: Standard Monitors Recovery Plan: Other (Discussed MAC, agrees to proceed)
--- NOTE | 2016-11-03 10:22 | Anesthesia Evaluation Post Op ---
Date of Encounter: 11/03/16 Time of Encounter: 10:25 - Vital Signs Vital Signs: O2 Sat Weight 95 kg O2 Sat by Pulse Oximetry 91 O2 Sat by Pulse Oximetry 91 O2 Sat by Pulse Oximetry 90 O2 Sat by Pulse Oximetry 92 O2 Sat by Pulse Oximetry 59 O2 Sat by Pulse Oximetry 94 O2 Sat by Pulse Oximetry 96 O2 Sat by Pulse Oximetry 90 O2 Sat by Pulse Oximetry 93 O2 Sat by Pulse Oximetry 96 O2 Sat by Pulse Oximetry 77 O2 Sat by Pulse Oximetry 93 O2 Sat by Pulse Oximetry 90 Vital Signs Temp Pulse Resp BP Pulse Ox 97.7 F 64 17 104/56 94 11/01/16 12:50 11/01/16 12:50 11/01/16 12:50 11/01/16 12:50 11/01/16 12:50 - Lungs Lungs: Clear Ascult./Percussion - Airway Airway: Non-obstructed - Cardiovascular Regular Rate - Mental Status Mental Status: Alert & Oriented, Answers Appropriately - Pain Pain Scale: 0 - Nausea Vomiting Nausea Vomiting: Not Present - Hydration Hydration: NPO - Discharge PostOp Status: Transfer Patient to floor
[2016-11-03] MEDS: Sucralfate 1 GM TABLET PO SCH ×2 (11:16→17:25)
[2016-11-03] MEDS: *HR* OxyCODONE/APAP 5/325 TABLET PO PRN ×2 (13:05→19:43)
--- NOTE | 2016-11-03 17:47 | Internal Med Progress Note ---
Date of Encounter: 11/03/16 Time of Encounter: 16:00 - Assessment and plan (1) Acute respiratory failure with hypoxia Current Visit: Yes Status: Acute Assessment and plan: May be due to anemia versus COPD. Currently on oxygen supplementation. Will wean as able. May need transfusion as well. (2) Chest pain Current Visit: Yes Status: Acute Assessment and plan: Appears to be doing better. Continue GI meds. Qualifiers: Chest pain type: precordial pain Qualified Code(s): R07.2 - Precordial pain (3) Ulcerated colon Current Visit: Yes Status: Acute (4) Gastric ulcer Current Visit: Yes Status: Acute Qualifiers: Gastric ulcer chronicity: acute Gastric ulcer complication status: without hemorrhage or perforation Qualified Code(s): K25.3 - Acute gastric ulcer without hemorrhage or perforation (5) Anemia Current Visit: Yes Status: Suspected Assessment and plan: Appears to be do to muliple colon ulcers as well as gastric ulcer. H/H stable but may benefit from transfusion due to hypoxia. Qualifiers: Anemia type: iron deficiency Iron deficiency anemia type: chronic blood loss Qualified Code(s): D50.0 - Iron deficiency anemia secondary to blood loss (chronic) (6) HTN (hypertension) Current Visit: Yes Status: Chronic Assessment and plan: Continue meds to control. Qualifiers: Hypertension type: essential hypertension Qualified Code(s): I10 - Essential (primary) hypertension (7) COPD (chronic obstructive pulmonary disease) Current Visit: Yes Status: Chronic Assessment and plan: Not wheezing but very dyspneic and hypoxic. Continue oxygen. Qualifiers: COPD type: emphysema Emphysema type: centrilobular Qualified Code(s): J43.2 - Centrilobular emphysema (8) HLD (hyperlipidemia) Current Visit: Yes Status: Chronic Assessment and plan: Continue meds. Qualifiers: Hyperlipidemia type: pure hypercholesterolemia Qualified Code(s): E78.00 - Pure hypercholesterolemia, unspecified; E78.0 - Pure hypercholesterolemia (9) Leukocytosis Current Visit: Yes Status: Resolved Assessment and plan: Most likely reactive. No sign of infection at this time. Qualifiers: Leukocytosis type: leukemoid reaction Qualified Code(s): D72.823 - Leukemoid reaction - Subjective Interval history: Ms. Finch is currently in observation for acute chest pain and anemia. She is moderate to high risk due to potential for worsening cardiac status. Ms. Finch was seen post endoscopy. She was found to have multiple ulcerations. Biopsies were taken. She is having some discomfort on the R side near hepatic flexure. Also very dyspneic when up in room and saturation drops. Chest pain appears to have resolved. No diarrhea or bleeding noted. - Constitutional Vitals: Temp Pulse Resp BP Pulse Ox 98.2 F 72 18 126/86 91 11/03/16 09:14 11/03/16 09:14 11/03/16 15:39 11/03/16 09:14 11/03/16 15:39 General appearance: Present: cooperative, A&O X 3, pleasant, obese, answers questions appropriately - Head Head exam: Present: normocephalic - Eye Eye exam: Present: EOMI, conjuntiva pink - ENT ENT exam: Present: mucous membranes moist - Respiratory Respiratory exam: Absent: rales, rhonchi, wheezes - Cardiovascular Cardiovascular exam: Present: RRR, systolic murmur. Absent: tachycardia - GI/Abdominal GI/Abdominal exam: Present: soft, tenderness, no peritoneal signs - Extremities Exam Extremities exam: Present: warm. Absent: tenderness - Neurological Exam Neurological exam: Present: alert, oriented X3, no focal deficits - Psychiatric Psychiatric exam: Present: normal affect, normal mood - Skin Skin exam: Present: dry, warm. Absent: rash Internal Medicine: Result - Labs CBC & Chem 7: 11/03/16 03:20 11/03/16 03:20 Labs: Short CBC 11/03/16 Range/Units 03:20 WBC 11.0 (4.3-11.1) K/mcL Hgb 8.3 L (11.5-15.4) g/dL Hct 30.1 L (35.3-44.9) % Plt Count 360 (140-400) K/mcL BMP 11/03/16 03:20 Sodium 137 Potassium 4.5 Chloride 100 Carbon Dioxide 33 H BUN 9 Creatinine 0.58 Glucose 83 Calcium 8.7 - Impressions Impressions Abdomen/Pelvis CT 11/03/16 12:40 IMPRESSION: Trace right pleural effusion with medial right lower lobe, lingular and right middle lobe airspace disease, atelectasis or pneumonia. Mid to distal transverse colitis, infectious or inflammatory. Trace free fluid in the pelvis. D/ / Rachel Bullard Cha, MD / Rachel Bullard Cha, MD Interpreting Provider: Rachel Bullard Cha, MD Consult Discharge Plan - Plan Referrals: Danyell Meek CNP [Primary Care Provider] -
[2016-11-03] MEDS: Levofloxacin 500 MG/100 ML 500 MG/100 ML BAG IVPB SCH (18:41)
[2016-11-04] MEDS: Ipratropium/Albuterol Neb 3 ML IH SCH ×5 (04:09→19:56)
[2016-11-04] MEDS ORDERED: *HR* Morphine 2 MG/ML SYRINGE IVP ONE (05:12)
[2016-11-04 05:13] LABS: Hematocrit 33.6 % (35.3-44.9); Hemoglobin 9.7 g/dL (11.5-15.4); Mean Corpuscular HGB Conc 28.9 g/dL (31.6-35.5); Mean Corpuscular Hemoglobin 25.8 pg (28.0-33.3); Mean Corpuscular Volume 89.4 fL (83.0-100.0); Mean Platelet Volume 10.2 fL (9.4-12.4); Platelet Count 409 K/mcL (140-400); Red Blood Count 3.76 M/mcL (3.82-4.97); Red Cell Distribution Width 17.2 % (11.5-14.5)
[2016-11-04] MEDS ORDERED: *HR* Morphine 2 MG/ML SYRINGE ONE (05:15)
[2016-11-04] MEDS: MetroNIDAZOLE 500 MG/100 ML 500 MG/100 ML BAG IVPB SCH ×4 (05:20→23:38)
[2016-11-04] MEDS: *HR* Morphine 2 MG/ML SYRINGE IVP PRN ×5 (05:21→23:38)
[2016-11-04] MEDS: Sucralfate 1 GM TABLET PO SCH ×5 (05:21→20:30)
[2016-11-04 05:29] LABS: Alanine Aminotransferase 53 Units/L (0-55); Albumin/Globulin Ratio 0.7 (1.1-2.2); Alkaline Phosphatase 76 Units/L (38-126); Aspartate Amino Transferase 42 Units/L (5-34); BUN/Creatinine Ratio 13 (6-26); Bilirubin,Total 0.4 mg/dL (0.2-1.2); Blood Urea Nitrogen 9 mg/dL (7-20); Calcium 9.4 mg/dL (8.6-10.8); Carbon Dioxide 30 mEq/L (19-29); Chloride 97 mEq/L (98-109); Globulin 4.4 g/dL (2.4-3.5); Glucose 123 mg/dL (70-99); Magnesium 1.7 mg/dL (1.6-2.6); Osmolality,Calculated 280 (280-300); Potassium 3.9 mEq/L (3.5-4.5); Sodium 135 mEq/L (136-145); Total Protein 7.4 g/dL (6.0-8.3); eGFR For African Americans > 60 (> 60); eGFR For Non-African Americans > 60 (> 60)
[2016-11-04] MEDS: Aspirin 81 MG TAB.CHEW PO SCH (08:12)
[2016-11-04] MEDS: FLUoxetine 20 MG CAPSULE PO SCH (08:12)
[2016-11-04] MEDS: Fenofibrate 54 MG TABLET PO SCH (08:12)
[2016-11-04] MEDS: Nicotine 14 MG PATCH.TD24 TD SCH (08:13)
[2016-11-04] MEDS: Famotidine 20 MG TABLET PO SCH (08:13)
[2016-11-04] MEDS: Fluticasone Propionate Nasal 50 MCG/SPRAY BOTTLE NS SCH ×2 (08:14→23:42)
[2016-11-04] MEDS: *HR* OxyCODONE/APAP 5/325 TABLET PO PRN (09:05)
[2016-11-04] MEDS: Budesonide/Formoterol 160/4.5 MDI IH SCH ×2 (11:41→19:56)
--- NOTE | 2016-11-04 13:58 | General Surgery Progress Note ---
<Chacho Friedman - Last Filed: 11/04/16 15:56> Date of Encounter: 11/04/16 Time of Encounter: 13:53 - Assessment and Plan (1) Gastric ulcer Current Visit: Yes Status: Acute Awaiting pathology H. Pylori neg PPI BID for 30 days Carafate Regular diet tolerated well BM noted Pain is well controlled Will follow up with GI upon discharge for management of what is likely Chrons Disease Qualifiers: Gastric ulcer chronicity: acute Gastric ulcer complication status: without hemorrhage or perforation Qualified Code(s): K25.3 - Acute gastric ulcer without hemorrhage or perforation (2) Ulcerated colon Current Visit: Yes Status: Acute See above Subjective Patient reports: no new complaints, feels better (much), voiding w/o difficulty , flatus, bowel movement, afebrile Objective Vital Signs - Last 8 Hours Temp Pulse Resp BP Pulse Ox 11/04/16 11:41 16 95 11/04/16 11:16 97.9 F 79 16 106/58 95 11/04/16 06:59 98.7 F 80 18 136/78 98 Intake and Output 11/03/16 11/04/16 11/04/16 23:59 07:59 15:59 Intake Total 860 / 860 600 / 600 790 / 790 Balance 860 / 860 600 / 600 790 / 790 Intake: IV Fluids 100 / 100 Flagyl Premix 500 MG/100 100 / 100 ML 500 mg In 100 ml @ 100 mls/hr IVPB Q8HR [facility] Rx# :[id number] Oral 360 / 360 600 / 600 790 / 790 Free Water 400 / 400 Other: Meal Dinner Lunch Percent of Meal Consumed 100% 100% # Voids 2 1 Weight 95.6 kg Patient Weight 11/04/16 23:59 Weight 95.6 kg - General physical appearance no distress, obese - Eyes normal ocular movement - ENT normal mucosa - Neck Neck exam: trachea midline - Respiratory normal respiratory effort, clear to auscultation - Cardiovascular Cardiovascular exam: Present: RRR, no murmurs/rubs/gallops - Abdomen Abdomen: Present: bowel sounds present, soft Abdominal Tenderness: epigastic, RUQ, RLQ - Neurologic CN 2-12 grossly intact - Psychiatric oriented to time, oriented to person, oriented to place, speech is normal, memory intact - Labs 11/04/16 04:56 11/04/16 04:56 Short CBC 11/04/16 Range/Units 04:56 WBC 13.9 H (4.3-11.1) K/mcL Hgb 9.7 L (11.5-15.4) g/dL Hct 33.6 L (35.3-44.9) % Plt Count 409 H (140-400) K/mcL BMP 11/04/16 Range/Units 04:56 Sodium 135 L (136-145) mEq/L Potassium 3.9 (3.5-4.5) mEq/L Chloride 97 L (98-109) mEq/L Carbon Dioxide 30 H (19-29) mEq/L BUN 9 (7-20) mg/dL Creatinine 0.70 (0.57-1.11) mg/dL Glucose 123 H (70-99) mg/dL Calcium 9.4 (8.6-10.8) mg/dL Liver Function 11/04/16 Range/Units 04:56 Total Bilirubin 0.4 (0.2-1.2) mg/dL AST 42 H (5-34) Units/L ALT 53 (0-55) Units/L Alkaline Phosphatase 76 (38-126) Units/L Albumin 3.0 L (3.5-5.0) g/dL Vital Signs Temp Pulse Resp BP Pulse Ox 11/04/16 11:41 16 95 11/04/16 11:16 97.9 F 79 16 106/58 95 11/04/16 06:59 98.7 F 80 18 136/78 98 11/04/16 04:30 98.0 F 99 19 146/79 93 11/04/16 04:09 19 82 11/03/16 23:38 98.3 F 84 18 124/70 95 11/03/16 23:35 16 96 11/03/16 19:48 1 94 11/03/16 15:39 18 91 Intake and Output 11/03/16 11/04/16 11/04/16 23:59 07:59 15:59 Intake Total 860 / 860 600 / 600 790 / 790 Balance 860 / 860 600 / 600 790 / 790 Intake: IV Fluids 100 / 100 Flagyl Premix 500 MG/100 100 / 100 ML 500 mg In 100 ml @ 100 mls/hr IVPB Q8HR [facility] Rx# :[id number] Oral 360 / 360 600 / 600 790 / 790 Free Water 400 / 400 Other: Meal Dinner Lunch Percent of Meal Consumed 100% 100% # Voids 2 1 Weight 95.6 kg Patient Weight 11/04/16 23:59 Weight 95.6 kg Consult Discharge Plan - Plan Referrals: Danyell Meek, BELL HOLE DIGGER [Primary Care Provider] - (i was on hold for 15 minutes... nobody berry picker) <Cassie Meier - Last Filed: 11/05/16 23:13> Date of Encounter: 11/05/16 - Assessment and Plan (1) Anemia Current Visit: Yes Status: Acute Qualifiers: Anemia type: other cause Other causes of anemia: other cause, not classified Qualified Code(s): D64.89 - Other specified anemias (2) Hematemesis Current Visit: Yes Status: Acute Qualifiers: Nausea presence: with nausea Qualified Code(s): K92.0 - Hematemesis; R11.0 - Nausea (3) Melena Current Visit: Yes Status: Acute (4) Gastric ulcer Current Visit: Yes Status: Acute Qualifiers: Gastric ulcer chronicity: acute Gastric ulcer complication status: without hemorrhage or perforation Qualified Code(s): K25.3 - Acute gastric ulcer without hemorrhage or perforation (5) Ulcerated colon Current Visit: Yes Status: Acute saccharomyces, ANCA, fecal calprotectin -pending Hb stable Subjective Patient reports: tolerating a regular diet Objective Vital Signs - Last 8 Hours Temp Pulse Resp BP Pulse Ox 11/05/16 23:06 16 95 11/05/16 20:35 16 93 11/05/16 18:50 98.3 F 83 21 136/71 96 11/05/16 15:53 16 94 11/05/16 15:27 97.6 F 81 16 144/76 96 Intake and Output 11/05/16 11/05/16 11/05/16 07:59 15:59 23:59 Intake Total 350 / 350 880 / 880 300 / 300 Balance 350 / 350 880 / 880 300 / 300 Intake: IV Fluids 100 / 100 100 / 100 Flagyl Premix 500 MG/100 100 / 100 100 / 100 ML 500 mg In 100 ml @ 100 mls/hr IVPB Q8HR [facility] Rx# :[id number] Oral 250 / 250 780 / 780 300 / 300 Other: Meal Lunch Dinner Percent of Meal Consumed 100% 100% # Voids 1 Weight 89.539 kg Patient Weight 11/05/16 23:59 Weight 89.539 kg - General physical appearance well developed, well nourished, no distress - Eyes normal ocular movement - ENT normal mucosa, normocephalic - Neck Neck exam: trachea midline - Abdomen Abdomen: Present: bowel sounds present, soft, non tender (minimal) - Integumentary no growths - Neurologic CN 2-12 grossly intact - Musculoskeletal normal posture - Psychiatric oriented to time, oriented to person, memory intact - Labs 11/05/16 04:08 11/05/16 04:08 Diabetes panel 11/05/16 Range/Units 04:08 Sodium 133 L (136-145) mEq/L Potassium 4.5 (3.5-4.5) mEq/L Chloride 97 L (98-109) mEq/L Carbon Dioxide 27 (19-29) mEq/L BUN 12 (7-20) mg/dL Creatinine 0.72 (0.57-1.11) mg/dL Glucose 198 H (70-99) mg/dL Calcium 9.6 (8.6-10.8) mg/dL Calcium panel 11/05/16 Range/Units 04:08 Calcium 9.6 (8.6-10.8) mg/dL Pituitary panel 11/05/16 Range/Units 04:08 Sodium 133 L (136-145) mEq/L Potassium 4.5 (3.5-4.5) mEq/L Chloride 97 L (98-109) mEq/L Carbon Dioxide 27 (19-29) mEq/L BUN 12 (7-20) mg/dL Creatinine 0.72 (0.57-1.11) mg/dL Glucose 198 H (70-99) mg/dL Calcium 9.6 (8.6-10.8) mg/dL Adrenal panel 11/05/16 Range/Units 04:08 Sodium 133 L (136-145) mEq/L Potassium 4.5 (3.5-4.5) mEq/L Chloride 97 L (98-109) mEq/L Carbon Dioxide 27 (19-29) mEq/L BUN 12 (7-20) mg/dL Creatinine 0.72 (0.57-1.11) mg/dL Glucose 198 H (70-99) mg/dL Calcium 9.6 (8.6-10.8) mg/dL - Attending Attestation I examined this patient and my medical decision-making was reviewed with the ENVELOPE MACHINE OPERATOR/PA/Advanced Practice Nurse/Resident Physician. I agree with the documented findings, disposition and treatment plan as described except to the extent set forth below.
--- NOTE | 2016-11-04 14:55 | Internal Med Progress Note ---
Date of Encounter: 11/04/16 Time of Encounter: 09:00 - Assessment and plan (1) Acute respiratory failure with hypoxia Current Visit: Yes Status: Acute Assessment and plan: Continues to have some hypoxia with movement. Continuing to wean as possible. (2) Fracture of rib of right side Current Visit: Yes Status: Acute Assessment and plan: Appears to have acute fracture of R rib 8. Most likely related to coughing. Will need eval for osteoporosis after discharge. Pain control. Qualifiers: Encounter type: initial encounter Rib fracture type: single rib Fracture type: closed Qualified Code(s): S22.31XA - Fracture of one rib, right side, initial encounter for closed fracture (3) Pneumonia Current Visit: Yes Status: Suspected Assessment and plan: Pt with infiltrate R side. On IV abx of Levaquin (and Flagyl for GI) at this time. Qualifiers: Pneumonia type: due to Pneumococcus Laterality: right Lung location: lower lobe of lung Qualified Code(s): J13 - Pneumonia due to Streptococcus pneumoniae (4) Ulcerated colon Current Visit: Yes Status: Acute (5) Gastric ulcer Current Visit: Yes Status: Acute Qualifiers: Gastric ulcer chronicity: acute Gastric ulcer complication status: without hemorrhage or perforation Qualified Code(s): K25.3 - Acute gastric ulcer without hemorrhage or perforation (6) Anemia Current Visit: Yes Status: Suspected Assessment and plan: Most likely related to chronic blood loss. Continue to monitor. Qualifiers: Anemia type: iron deficiency Iron deficiency anemia type: chronic blood loss Qualified Code(s): D50.0 - Iron deficiency anemia secondary to blood loss (chronic) (7) HTN (hypertension) Current Visit: Yes Status: Chronic Assessment and plan: Continue meds to control. Qualifiers: Hypertension type: essential hypertension Qualified Code(s): I10 - Essential (primary) hypertension (8) COPD (chronic obstructive pulmonary disease) Current Visit: Yes Status: Chronic Assessment and plan: Not wheezing but very dyspneic and hypoxic. Continue oxygen. Qualifiers: COPD type: emphysema Emphysema type: centrilobular Qualified Code(s): J43.2 - Centrilobular emphysema (9) HLD (hyperlipidemia) Current Visit: Yes Status: Chronic Assessment and plan: Continue meds. Qualifiers: Hyperlipidemia type: pure hypercholesterolemia Qualified Code(s): E78.00 - Pure hypercholesterolemia, unspecified; E78.0 - Pure hypercholesterolemia - Subjective Interval history: Ms. Finch is currently in observation for acute chest pain and anemia. She is moderate to high risk due to potential for worsening cardiac status. Ms. Finch is still having a lot of pain on her R side. She is coughing more. No fever or chills. No diarrhea. Biopsies are pending. Had shower today and that helped. - Constitutional Vitals: Temp Pulse Resp BP Pulse Ox 97.9 F 79 16 106/58 95 11/04/16 11:16 11/04/16 11:16 11/04/16 11:41 11/04/16 11:16 11/04/16 11:41 General appearance: Present: cooperative, A&O X 3, pleasant, obese, answers questions appropriately - Head Head exam: Present: normocephalic - Eye Eye exam: Present: EOMI, conjuntiva pink - ENT ENT exam: Present: mucous membranes moist - Respiratory Respiratory exam: Present: decreased breath sounds Additional comments: Some scant wheeze and rales heard in R base area. - Cardiovascular Cardiovascular exam: Present: RRR. Absent: tachycardia - GI/Abdominal GI/Abdominal exam: Present: soft, no peritoneal signs. Absent: tenderness - Extremities Exam Extremities exam: Present: warm. Absent: tenderness - Neurological Exam Neurological exam: Present: alert, oriented X3, no focal deficits - Psychiatric Psychiatric exam: Present: normal affect, normal mood - Skin Skin exam: Present: dry, warm. Absent: rash Internal Medicine: Result - Labs CBC & Chem 7: 11/04/16 04:56 11/04/16 04:56 Labs: Short CBC 11/04/16 Range/Units 04:56 WBC 13.9 H (4.3-11.1) K/mcL Hgb 9.7 L (11.5-15.4) g/dL Hct 33.6 L (35.3-44.9) % Plt Count 409 H (140-400) K/mcL BMP 11/04/16 04:56 Sodium 135 L Potassium 3.9 Chloride 97 L Carbon Dioxide 30 H BUN 9 Creatinine 0.70 Glucose 123 H Calcium 9.4 Liver Function 11/04/16 Range/Units 04:56 Total Bilirubin 0.4 (0.2-1.2) mg/dL AST 42 H (5-34) Units/L ALT 53 (0-55) Units/L Alkaline Phosphatase 76 (38-126) Units/L Albumin 3.0 L (3.5-5.0) g/dL - Impressions Impressions Abdomen X-Ray 11/04/16 00:01 IMPRESSION: 1. No pneumoperitoneum. 2. Unremarkable bowel gas pattern. D/ / 11/04/2016 09:01:06 Suze Awan MD / moe Interpreting Provider: Suze Awan MD Ribs X-Ray 11/04/16 00:01 IMPRESSION: Mildly displaced fractures involving the right 8th rib. D/ / Arturo Chester MD / Arturo Chester MD Interpreting Provider: Arturo Chester MD Consult Discharge Plan - Plan Referrals: Danyell Meek, NUTRITION TEACHER [Primary Care Provider] - (i was on hold for 15 minutes... nobody grain picker)
--- NOTE | 2016-11-04 15:56 | Electrocardiograph Report ---
[address] [address] Test Date: 2016-11-01 Pat Name: Anusha Finch Department: 112 Room: 2A Gender: Steaming Cabinet Tender: NORBERTO : 1970 Requested By: Steven Chauhan Order Number: [id number] Reading MD: Xander Meza Measurements Intervals [place] Rate: 64 P: 54 HI: 181 QRS: 30 QRSD: 92 T: 39 QT: 398 QTc: 407 Interpretive Statements SINUS RHYTHM Electronically Signed On 11-04-2016 15:54:20 EDT by Xander Meza
[2016-11-04] MEDS: predniSONE 20 MG TABLET PO SCH (16:35)
[2016-11-04] MEDS: Levofloxacin 500 MG/100 ML 500 MG/100 ML BAG IVPB SCH (17:36)
[2016-11-04] MEDS: *HR* Heparin 5,000 UNIT/ML VIAL SQ SCH (17:37)
[2016-11-05] MEDS: Ipratropium/Albuterol Neb 3 ML IH SCH ×7 (00:45→23:05)
[2016-11-05] MEDS: *HR* Morphine 2 MG/ML SYRINGE IVP PRN ×5 (03:06→19:24)
[2016-11-05 04:23] LABS: Hemoglobin 9.8 g/dL (11.5-15.4)
[2016-11-05 04:24] LABS: Hematocrit 34.6 % (35.3-44.9); Mean Corpuscular HGB Conc 28.3 g/dL (31.6-35.5); Mean Corpuscular Hemoglobin 24.9 pg (28.0-33.3); Nucleated Red Blood Cells 0.8 /100 WBC (0); Platelet Count 488 K/mcL (140-400); Red Blood Count 3.93 M/mcL (3.82-4.97); Red Cell Distribution Width 16.8 % (11.5-14.5)
[2016-11-05 04:35] LABS: BUN/Creatinine Ratio 17 (6-26); Blood Urea Nitrogen 12 mg/dL (7-20); Calcium 9.6 mg/dL (8.6-10.8); Carbon Dioxide 27 mEq/L (19-29); Chloride 97 mEq/L (98-109); Glucose 198 mg/dL (70-99); Osmolality,Calculated 281 (280-300); Potassium 4.5 mEq/L (3.5-4.5); Sodium 133 mEq/L (136-145); eGFR For African Americans > 60 (> 60); eGFR For Non-African Americans > 60 (> 60)
[2016-11-05 05:00] LABS: Monocytes # 0.6 K/mcL (0.0-1.3); Neutrophils # 11.2 K/mcL (1.6-8.9)
[2016-11-05 05:01] LABS: Anisocytosis 1+ (Not Present); Hypochromasia Present (Not Present); Platelet Estimate Increased (Normal)
[2016-11-05] MEDS: *HR* Heparin 5,000 UNIT/ML VIAL SQ SCH ×2 (06:04→17:10)
[2016-11-05] MEDS: Budesonide/Formoterol 160/4.5 MDI IH SCH ×2 (08:00→20:34)
[2016-11-05] MEDS: Fenofibrate 54 MG TABLET PO SCH (08:18)
[2016-11-05] MEDS: predniSONE 20 MG TABLET PO SCH (08:18)
[2016-11-05] MEDS: Aspirin Enteric Coated 81 MG Tablet PO SCH (08:18)
[2016-11-05] MEDS: Nicotine 14 MG PATCH.TD24 TD SCH (08:19)
[2016-11-05] MEDS: FLUoxetine 20 MG CAPSULE PO SCH (08:19)
[2016-11-05] MEDS: Sucralfate 1 GM TABLET PO SCH ×4 (08:19→21:16)
[2016-11-05] MEDS: MetroNIDAZOLE 500 MG/100 ML 500 MG/100 ML BAG IVPB SCH ×3 (08:20→23:43)
[2016-11-05] MEDS: Fluticasone Propionate Nasal 50 MCG/SPRAY BOTTLE NS SCH ×2 (08:23→21:16)
--- NOTE | 2016-11-05 11:09 | General Surgery Progress Note ---
<Jacqueline Erickson Parvez - Last Filed: 11/05/16 11:13> Date of Encounter: 11/05/16 Time of Encounter: 11:00 - Assessment and Plan (1) Ulcerated colon Current Visit: Yes Status: Acute Pathology pending Labs pending for IBD work-up Continue regular diet as tolerated Steroid therapy started per hospitalist IV antibiotics- Levaquin and Flagyl Will need outpatient follow-up with gastroenterology (2) Gastric ulcer Current Visit: Yes Status: Acute Pathology pending H. pylori negative Continue PPI therapy BID for 30 days Continue Carafate QID for 30 days Continue regular diet as tolerated Qualifiers: Gastric ulcer chronicity: acute Gastric ulcer complication status: without hemorrhage or perforation Qualified Code(s): K25.3 - Acute gastric ulcer without hemorrhage or perforation (3) Fracture of rib of right side Current Visit: Yes Status: Acute Qualifiers: Encounter type: initial encounter Rib fracture type: single rib Fracture type: closed Qualified Code(s): S22.31XA - Fracture of one rib, right side, initial encounter for closed fracture (4) COPD (chronic obstructive pulmonary disease) Current Visit: Yes Status: Chronic Management per hospitalist Qualifiers: COPD type: emphysema Emphysema type: centrilobular Qualified Code(s): J43.2 - Centrilobular emphysema (5) Pneumonia Current Visit: Yes Status: Suspected Management per hospitalist IV Antibiotics- Levaquin Qualifiers: Pneumonia type: due to Pneumococcus Laterality: right Lung location: lower lobe of lung Qualified Code(s): J13 - Pneumonia due to Streptococcus pneumoniae Subjective Patient reports: no new complaints, feels better, still having pain, pain is less, tolerating a regular diet, voiding w/o difficulty, flatus, no bowel movement, afebrile Objective Vital Signs - Last 8 Hours Temp Pulse Resp BP Pulse Ox 11/05/16 08:00 18 92 11/05/16 06:58 97.5 F L 90 20 121/69 93 11/05/16 04:35 97.7 F 92 21 121/69 93 11/05/16 03:32 24 93 Intake and Output 11/04/16 11/05/16 11/05/16 23:59 07:59 15:59 Intake Total 780 / 780 350 / 350 540 / 540 Balance 780 / 780 350 / 350 540 / 540 Intake: IV Fluids 100 / 100 100 / 100 Flagyl Premix 500 MG/100 100 / 100 100 / 100 ML 500 mg In 100 ml @ 100 mls/hr IVPB Q8HR [facility] Rx# :[id number] Oral 680 / 680 250 / 250 540 / 540 Other: Meal Dinner Breakfast Percent of Meal Consumed 100% 100% # Voids 1 Weight 89.539 kg Patient Weight 11/05/16 23:59 Weight 89.539 kg - General physical appearance well developed, well nourished, no distress - Eyes normal ocular movement - ENT normal mucosa, atraumatic, normocephalic - Neck Neck exam: trachea midline - Respiratory normal respiratory effort, other (supplemental O2 via nasal cannula) - Cardiovascular Cardiovascular exam: Present: RRR - Abdomen Abdomen: Present: bowel sounds present, soft, tender (mildly) - Neurologic CN 2-12 grossly intact - Musculoskeletal normal gait, normal posture - Psychiatric oriented to time, oriented to person, oriented to place, speech is normal, memory intact - Labs 11/05/16 04:08 11/05/16 04:08 Diabetes panel 11/05/16 Range/Units 04:08 Sodium 133 L (136-145) mEq/L Potassium 4.5 (3.5-4.5) mEq/L Chloride 97 L (98-109) mEq/L Carbon Dioxide 27 (19-29) mEq/L BUN 12 (7-20) mg/dL Creatinine 0.72 (0.57-1.11) mg/dL Glucose 198 H (70-99) mg/dL Calcium 9.6 (8.6-10.8) mg/dL Calcium panel 11/05/16 Range/Units 04:08 Calcium 9.6 (8.6-10.8) mg/dL Pituitary panel 11/05/16 Range/Units 04:08 Sodium 133 L (136-145) mEq/L Potassium 4.5 (3.5-4.5) mEq/L Chloride 97 L (98-109) mEq/L Carbon Dioxide 27 (19-29) mEq/L BUN 12 (7-20) mg/dL Creatinine 0.72 (0.57-1.11) mg/dL Glucose 198 H (70-99) mg/dL Calcium 9.6 (8.6-10.8) mg/dL Adrenal panel 11/05/16 Range/Units 04:08 Sodium 133 L (136-145) mEq/L Potassium 4.5 (3.5-4.5) mEq/L Chloride 97 L (98-109) mEq/L Carbon Dioxide 27 (19-29) mEq/L BUN 12 (7-20) mg/dL Creatinine 0.72 (0.57-1.11) mg/dL Glucose 198 H (70-99) mg/dL Calcium 9.6 (8.6-10.8) mg/dL Consult Discharge Plan - Plan Referrals: Danyell Meek, AVIONICS SYSTEMS REPAIRER [Primary Care Provider] - (i was on hold for 15 minutes... nobody curing pickling packer) - Attending Attestation I examined this patient and my medical decision-making was reviewed with the BUSINESS RULES DEVELOPER/PA/Advanced Practice Nurse/Resident Physician. I agree with the documented findings, disposition and treatment plan as described except to the extent set forth below. <Cassie Meier - Last Filed: 11/05/16 23:14> Date of Encounter: 11/05/16 - Assessment and Plan (1) Anemia Current Visit: Yes Status: Acute Qualifiers: Anemia type: other cause Other causes of anemia: other cause, not classified Qualified Code(s): D64.89 - Other specified anemias (2) Hematemesis Current Visit: Yes Status: Acute Qualifiers: Nausea presence: with nausea Qualified Code(s): K92.0 - Hematemesis; R11.0 - Nausea (3) Melena Current Visit: Yes Status: Acute (4) Gastric ulcer Current Visit: Yes Status: Acute Qualifiers: Gastric ulcer chronicity: acute Gastric ulcer complication status: without hemorrhage or perforation Qualified Code(s): K25.3 - Acute gastric ulcer without hemorrhage or perforation (5) Ulcerated colon Current Visit: Yes Status: Acute Objective Vital Signs - Last 8 Hours Temp Pulse Resp BP Pulse Ox 11/05/16 23:06 16 95 11/05/16 20:35 16 93 11/05/16 18:50 98.3 F 83 21 136/71 96 11/05/16 15:53 16 94 11/05/16 15:27 97.6 F 81 16 144/76 96 Intake and Output 11/05/16 11/05/16 11/05/16 07:59 15:59 23:59 Intake Total 350 / 350 880 / 880 300 / 300 Balance 350 / 350 880 / 880 300 / 300 Intake: IV Fluids 100 / 100 100 / 100 Flagyl Premix 500 MG/100 100 / 100 100 / 100 ML 500 mg In 100 ml @ 100 mls/hr IVPB Q8HR [facility] Rx# :[id number] Oral 250 / 250 780 / 780 300 / 300 Other: Meal Lunch Dinner Percent of Meal Consumed 100% 100% # Voids 1 Weight 89.539 kg Patient Weight 11/05/16 23:59 Weight 89.539 kg - Labs 11/05/16 04:08 11/05/16 04:08 Diabetes panel 11/05/16 Range/Units 04:08 Sodium 133 L (136-145) mEq/L Potassium 4.5 (3.5-4.5) mEq/L Chloride 97 L (98-109) mEq/L Carbon Dioxide 27 (19-29) mEq/L BUN 12 (7-20) mg/dL Creatinine 0.72 (0.57-1.11) mg/dL Glucose 198 H (70-99) mg/dL Calcium 9.6 (8.6-10.8) mg/dL Calcium panel 11/05/16 Range/Units 04:08 Calcium 9.6 (8.6-10.8) mg/dL Pituitary panel 11/05/16 Range/Units 04:08 Sodium 133 L (136-145) mEq/L Potassium 4.5 (3.5-4.5) mEq/L Chloride 97 L (98-109) mEq/L Carbon Dioxide 27 (19-29) mEq/L BUN 12 (7-20) mg/dL Creatinine 0.72 (0.57-1.11) mg/dL Glucose 198 H (70-99) mg/dL Calcium 9.6 (8.6-10.8) mg/dL Adrenal panel 11/05/16 Range/Units 04:08 Sodium 133 L (136-145) mEq/L Potassium 4.5 (3.5-4.5) mEq/L Chloride 97 L (98-109) mEq/L Carbon Dioxide 27 (19-29) mEq/L BUN 12 (7-20) mg/dL Creatinine 0.72 (0.57-1.11) mg/dL Glucose 198 H (70-99) mg/dL Calcium 9.6 (8.6-10.8) mg/dL
--- NOTE | 2016-11-05 15:17 | Internal Med Progress Note ---
<Fletcher Pat - Last Filed: 11/05/16 17:23> Date of Encounter: 11/05/16 Time of Encounter: 09:00 - Assessment and plan (1) Ulcerated colon Current Visit: Yes Status: Acute Assessment and plan: - Colonoscopy on 11/03/16 found multiple ulcers in transverse colon, ascending colon, hepatic flexure, cecum and ileocecal valve. Biopsies taken and pathology report pending. - CT A/P on 11/03/16 found mid to distal transverse colitis, infectious or inflammatory. - Continue prednisone and will add mesalamine for possible Crohn's disease. - Continue Flagyl (since 11/02) for possible GI infection. - Continue to monitor. - Patient will likely need outpatient GI follow-up for further management. (2) Gastric ulcer Current Visit: Yes Status: Acute Assessment and plan: - EGD from 11/03/16 found non-bleeding gastric ulcer. - Maybe secondary to patient's Voltaren use at home. - Continue PPI IV BID and sucralfate. - Avoid NSAIDs use. Qualifiers: Gastric ulcer chronicity: acute Gastric ulcer complication status: without hemorrhage or perforation Qualified Code(s): K25.3 - Acute gastric ulcer without hemorrhage or perforation (3) Pneumonia Current Visit: Yes Status: Suspected Assessment and plan: - CT A?P on 11/03/16 shows trace right pleural effusion with medial right lower lobe, lingular and right middle lobe airspace disease, concerning for pneumonia. - Continue IV Levaquin (since 11/01). Qualifiers: Pneumonia type: due to Pneumococcus Laterality: right Lung location: lower lobe of lung Qualified Code(s): J13 - Pneumonia due to Streptococcus pneumoniae (4) Fracture of rib of right side Current Visit: Yes Status: Acute Assessment and plan: - Ribs X-ray on 11/04/16 shows mildly displaced fracture involving the right 8th rib. - Most likely related to coughing. - Continue prn pain medications. Will add lidocaine patch for more pain control. - Patient will need outpatient work-up for osteoporosis after discharge. Qualifiers: Encounter type: initial encounter Rib fracture type: single rib Fracture type: closed Qualified Code(s): S22.31XA - Fracture of one rib, right side, initial encounter for closed fracture (5) Anemia Current Visit: Yes Status: Suspected Assessment and plan: - Hgb 8.5 on admission. - Likely related to chronic blood loss from GI. - Stable at 9.8 today. - Continue to monitor. Qualifiers: Anemia type: iron deficiency Iron deficiency anemia type: chronic blood loss Qualified Code(s): D50.0 - Iron deficiency anemia secondary to blood loss (chronic) (6) HTN (hypertension) Current Visit: Yes Status: Chronic Assessment and plan: - BP within normal range. - Continue current antihypertensive regimen. Qualifiers: Hypertension type: essential hypertension Qualified Code(s): I10 - Essential (primary) hypertension - Subjective Interval history: No significant event noted overnight. Patient was seen and examined this morning. Patient still has some right rib pain but reports overall feeling and breathing better. Patient denies fever, chills, nausea, vomiting, diarrhea. - Constitutional Vitals: Temp Pulse Resp BP Pulse Ox 97.6 F 82 16 123/72 93 11/05/16 11:24 11/05/16 11:24 11/05/16 11:38 11/05/16 11:24 11/05/16 11:38 General appearance: Present: cooperative, A&O X 3, pleasant, obese, answers questions appropriately - Head Head exam: Present: atraumatic, normocephalic - Eye Eye exam: Present: EOMI, PERRL, conjuntiva pink, sclera anicteric - Neck Neck exam general surgery: Present: supple, trachea midline. Absent: lymphadenopathy - Respiratory Respiratory exam: Present: rales (right basilar), wheezes. Absent: accessory muscle use, rhonchi - Cardiovascular Cardiovascular exam: Present: RRR, +S1, +S2. Absent: diastolic murmur, gallop, rubs, systolic murmur - GI/Abdominal GI/Abdominal exam: Present: normal bowel sounds, soft, no peritoneal signs. Absent: distended, tenderness - Extremities Exam Extremities exam: Present: warm, radial pulses palpable and symetrical. Absent : calf tenderness, cyanotic, pedal edema - Neurological Exam Neurological exam: Present: CN II-XII intact, oriented X3, no focal deficits. Absent: pronater drift, facial droop, speech deficit - Skin Skin exam: Present: dry, intact, warm Internal Medicine: Result - Labs CBC & Chem 7: 11/05/16 04:08 11/05/16 04:08 Labs: Short CBC 11/05/16 Range/Units 04:08 WBC 14.0 H (4.3-11.1) K/mcL Hgb 9.8 L (11.5-15.4) g/dL Hct 34.6 L (35.3-44.9) % Plt Count 488 H (140-400) K/mcL Neutrophils # 11.2 H (1.6-8.9) K/mcL BMP 11/05/16 04:08 Sodium 133 L Potassium 4.5 Chloride 97 L Carbon Dioxide 27 BUN 12 Creatinine 0.72 Glucose 198 H Calcium 9.6 Consult Discharge Plan - Plan Referrals: Danyell Meek, SWIMMING PROFESSOR [Primary Care Provider] - (i was on hold for 15 minutes... nobody merchandise pickup/receiving associate) <Hubert Gaytan - Last Filed: 11/05/16 17:50> Date of Encounter: 11/05/16 - Constitutional Vitals: Temp Pulse Resp BP Pulse Ox 97.6 F 81 16 144/76 94 11/05/16 15:27 11/05/16 15:27 11/05/16 15:53 11/05/16 15:27 11/05/16 15:53 Internal Medicine: Result - Labs CBC & Chem 7: 11/05/16 04:08 11/05/16 04:08 Labs: Short CBC 11/05/16 Range/Units 04:08 WBC 14.0 H (4.3-11.1) K/mcL Hgb 9.8 L (11.5-15.4) g/dL Hct 34.6 L (35.3-44.9) % Plt Count 488 H (140-400) K/mcL Neutrophils # 11.2 H (1.6-8.9) K/mcL BMP 11/05/16 04:08 Sodium 133 L Potassium 4.5 Chloride 97 L Carbon Dioxide 27 BUN 12 Creatinine 0.72 Glucose 198 H Calcium 9.6 - Attending Attestation I examined this patient and my medical decision-making was reviewed with the Resident Physician on 11/05/16. I agree with the documented findings, disposition and treatment plan as described except to the extent set forth below. 41 F with Multiple non-bleeding gastric ulcers, colonic ulcers, Rib fracture and pneumonia In painful distress from Ri fracture, requiring IV opiates Send fasting gastrin level, rule out Z-E syndrome/VIPOmas, send Vit D level, start empiric treatment for Crohns , no GI attending available at this time, surgery is actively following Rest of details as in residents documentation
[2016-11-05] MEDS: Mesalamine 250 MG CAPSULE.ER PO SCH ×2 (15:54→21:16)
[2016-11-05] MEDS: *HR* OxyCODONE/APAP 5/325 TABLET PO PRN ×2 (17:21→23:43)
[2016-11-05] MEDS ORDERED: Levofloxacin 750 MG/150 ML 750 MG/150 ML BAG IVPB SCH (18:00)
[2016-11-06] MEDS: Ipratropium/Albuterol Neb 3 ML IH SCH ×6 (04:18→23:38)
[2016-11-06] MEDS: *HR* Heparin 5,000 UNIT/ML VIAL SQ SCH ×2 (05:31→16:51)
[2016-11-06] MEDS: *HR* Morphine 2 MG/ML SYRINGE IVP PRN ×2 (05:31→20:22)
[2016-11-06 05:55] LABS: Hematocrit 36.3 % (35.3-44.9); Hemoglobin 10.6 g/dL (11.5-15.4); Mean Corpuscular HGB Conc 29.2 g/dL (31.6-35.5); Mean Corpuscular Hemoglobin 25.4 pg (28.0-33.3); Mean Corpuscular Volume 86.8 fL (83.0-100.0); Mean Platelet Volume 10.1 fL (9.4-12.4); Platelet Count 559 K/mcL (140-400); Red Blood Count 4.18 M/mcL (3.82-4.97); Red Cell Distribution Width 17.1 % (11.5-14.5)
[2016-11-06 06:11] LABS: BUN/Creatinine Ratio 21 (6-26); Blood Urea Nitrogen 14 mg/dL (7-20); Calcium 9.5 mg/dL (8.6-10.8); Carbon Dioxide 28 mEq/L (19-29); Chloride 98 mEq/L (98-109); Glucose 140 mg/dL (70-99); Osmolality,Calculated 281 (280-300); Potassium 3.6 mEq/L (3.5-4.5); Sodium 134 mEq/L (136-145); eGFR For African Americans > 60 (> 60); eGFR For Non-African Americans > 60 (> 60)
[2016-11-06] MEDS: Budesonide/Formoterol 160/4.5 MDI IH SCH ×2 (07:49→19:53)
[2016-11-06] MEDS: MetroNIDAZOLE 500 MG/100 ML 500 MG/100 ML BAG IVPB SCH (08:29)
[2016-11-06] MEDS: Fenofibrate 54 MG TABLET PO SCH (08:30)
[2016-11-06] MEDS: Aspirin Enteric Coated 81 MG Tablet PO SCH (08:30)
[2016-11-06] MEDS: Sucralfate 1 GM TABLET PO SCH ×4 (08:30→20:23)
[2016-11-06] MEDS: FLUoxetine 20 MG CAPSULE PO SCH (08:30)
[2016-11-06] MEDS: Mesalamine 250 MG CAPSULE.ER PO SCH ×3 (08:31→16:51)
[2016-11-06] MEDS: Nicotine 14 MG PATCH.TD24 TD SCH (08:32)
[2016-11-06] MEDS: *HR* OxyCODONE/APAP 5/325 TABLET PO PRN ×3 (08:32→21:59)
[2016-11-06] MEDS: Fluticasone Propionate Nasal 50 MCG/SPRAY BOTTLE NS SCH ×2 (08:50→20:23)
[2016-11-06] MEDS ORDERED: *HR* Morphine 2 MG/ML SYRINGE IVP PRN (09:17)
[2016-11-06] MEDS: predniSONE 20 MG TABLET PO SCH (10:00)
[2016-11-06] MEDS ORDERED: Cholecalciferol (D-3) 1,000 UNIT TABLET PO SCH (12:30)
[2016-11-06] MEDS: Cholecalciferol (D-3) 1,000 UNIT TABLET PO SCH (12:54)
[2016-11-06] MEDS ORDERED: 0.9 % Sodium Chloride 500 ML IVC ONE (13:45)
--- NOTE | 2016-11-06 13:45 | Internal Med Progress Note ---
<Fletcher Pat - Last Filed: 11/06/16 14:02> Date of Encounter: 11/06/16 Time of Encounter: 10:30 - Assessment and plan (1) Ulcerated colon Current Visit: Yes Status: Acute Assessment and plan: - Colonoscopy on 11/03/16 found multiple ulcers in transverse colon, ascending colon, hepatic flexure, cecum and ileocecal valve. Biopsies taken and pathology report pending. - Differentials include NSAID use, IBD, infection. - CT A/P on 11/03/16 found mid to distal transverse colitis, infectious or inflammatory. - Continue prednisone and mesalamine for possible IBD. - Continue Flagyl (since 11/02) for possible GI infection. - Colon biopsies found ulcers with acute inflammatory exudate at ileocecal area & hepatic flexure and mild chronic inflammation at cecum. - Negative for MPO (P-ANCA) & SP3 (C-ANCA) antibodies. - Pending fecal calprotectin. - Will check gastrin to evaluate for gastrinonma - Continue to monitor. - Patient will need outpatient GI follow-up for further evaluation and management. (2) Gastric ulcer Current Visit: Yes Status: Acute Assessment and plan: - EGD from 11/03/16 found non-bleeding gastric ulcer. - Maybe secondary to patient's Voltaren use at home. - Negative for H. pylori - Stomach biopsy found mild chronic gastritis, negative for Helicobacter organisms - Continue PPI IV BID and sucralfate. - Avoid NSAIDs use. Qualifiers: Gastric ulcer chronicity: acute Gastric ulcer complication status: without hemorrhage or perforation Qualified Code(s): K25.3 - Acute gastric ulcer without hemorrhage or perforation (3) Vitamin D deficiency Current Visit: Yes Status: Acute Assessment and plan: - Serum 25-OH vitamin D total at 8. - Patient likely has associated osteoporosis which can contribute to patient's current right rib fracture. - Will start high dose vitamin D (50,000 unit/week), which patient will need 8 weeks before changing to vitamin D 1,000 mg daily. - Patient will need outpatient work-up for osteoporosis after discharge. (4) Fracture of rib of right side Current Visit: Yes Status: Acute Assessment and plan: - Ribs X-ray on 11/04/16 shows mildly displaced fracture involving the right 8th rib. - Most likely related to coughing with possible underlying osteoporosis (given significant vitamin D deficiency) - Continue prn pain medications and lidocaine patch. - Patient will need outpatient work-up for osteoporosis after discharge. Qualifiers: Encounter type: initial encounter Rib fracture type: single rib Fracture type: closed Qualified Code(s): S22.31XA - Fracture of one rib, right side, initial encounter for closed fracture (5) Pneumonia Current Visit: Yes Status: Suspected Assessment and plan: - CT A?P on 11/03/16 shows trace right pleural effusion with medial right lower lobe, lingular and right middle lobe airspace disease, concerning for pneumonia. - Continue Levaquin (since 11/01). Qualifiers: Pneumonia type: due to Pneumococcus Laterality: right Lung location: lower lobe of lung Qualified Code(s): J13 - Pneumonia due to Streptococcus pneumoniae (6) Anemia Current Visit: Yes Status: Suspected Assessment and plan: - Hgb 8.5 on admission. - Likely related to chronic blood loss from GI. - Hgb 10.6 today. - Continue to monitor. Qualifiers: Anemia type: iron deficiency Iron deficiency anemia type: chronic blood loss Qualified Code(s): D50.0 - Iron deficiency anemia secondary to blood loss (chronic) (7) HTN (hypertension) Current Visit: Yes Status: Chronic Assessment and plan: - BP within normal range. - Continue current antihypertensive regimen. Qualifiers: Hypertension type: essential hypertension Qualified Code(s): I10 - Essential (primary) hypertension - Subjective Interval history: No significant event noted overnight. Patient was seen and examined this morning. Patient reports more abdominal pain and gas today but denies hematochezia or melena. The lidocaine helps to relieve her right rib pain. Patient denies fever, chills, nausea, vomiting, diarrhea. - Constitutional Vitals: Temp Pulse Resp BP Pulse Ox 97.9 F 81 18 136/85 97 11/06/16 11:26 11/06/16 11:26 11/06/16 11:26 11/06/16 11:26 11/06/16 11:26 General appearance: Present: cooperative, A&O X 3, pleasant, obese, answers questions appropriately - Head Head exam: Present: atraumatic, normocephalic - Eye Eye exam: Present: EOMI, PERRL, conjuntiva pink, sclera anicteric - Neck Neck exam general surgery: Present: supple, trachea midline. Absent: lymphadenopathy - Respiratory Respiratory exam: Present: chest wall tenderness (Right lower rib), CTAB. Absent: accessory muscle use, rales, rhonchi, wheezes - Cardiovascular Cardiovascular exam: Present: RRR, +S1, +S2. Absent: diastolic murmur, gallop, rubs, systolic murmur - GI/Abdominal GI/Abdominal exam: Present: normal bowel sounds, soft, tenderness (Right-sided) , no peritoneal signs. Absent: distended - Extremities Exam Extremities exam: Present: warm, radial pulses palpable and symetrical. Absent : calf tenderness, cyanotic, pedal edema - Neurological Exam Neurological exam: Present: oriented X3, no focal deficits. Absent: pronater drift, facial droop, speech deficit - Skin Skin exam: Present: dry, intact, warm Internal Medicine: Result - Labs CBC & Chem 7: 11/06/16 05:38 11/06/16 05:38 Labs: Short CBC 11/06/16 Range/Units 05:38 WBC 20.5 H (4.3-11.1) K/mcL Hgb 10.6 L (11.5-15.4) g/dL Hct 36.3 (35.3-44.9) % Plt Count 559 H (140-400) K/mcL BMP 11/06/16 05:38 Sodium 134 L Potassium 3.6 Chloride 98 Carbon Dioxide 28 BUN 14 Creatinine 0.68 Glucose 140 H Calcium 9.5 Consult Discharge Plan - Plan Referrals: Danyell Meek, COMPUTER SYSTEMS MANAGER [Primary Care Provider] - 11/08/16 10:15 am () <Hubert Gaytan - Last Filed: 11/06/16 17:21> Date of Encounter: 11/06/16 - Constitutional Vitals: Temp Pulse Resp BP Pulse Ox 97.4 F L 81 20 131/75 93 11/06/16 15:06 11/06/16 15:06 11/06/16 15:27 11/06/16 15:06 11/06/16 15:27 Internal Medicine: Result - Labs CBC & Chem 7: 11/06/16 05:38 11/06/16 05:38 Labs: Short CBC 11/06/16 Range/Units 05:38 WBC 20.5 H (4.3-11.1) K/mcL Hgb 10.6 L (11.5-15.4) g/dL Hct 36.3 (35.3-44.9) % Plt Count 559 H (140-400) K/mcL BMP 11/06/16 05:38 Sodium 134 L Potassium 3.6 Chloride 98 Carbon Dioxide 28 BUN 14 Creatinine 0.68 Glucose 140 H Calcium 9.5 - Attending Attestation I examined this patient and my medical decision-making was reviewed with the Resident Physician on 11/06/16. I agree with the documented findings, disposition and treatment plan as described except to the extent set forth below. 41 F with Multiple non-bleeding gastric ulcers, colonic ulcers, Rib fracture and pneumonia No new complains today, reports improvement in pain and stool consistency has improved She has a worsening WBC today, possibly from steroids, she remains afebrile, she has no worsening respiratory/abdominal symptoms, her stool is formed and not watery. Work up for Crohns disease is negative so far, Negative for MPO (P-ANCA) & SP3 ( C-ANCA) antibodies, Pending fecal calprotectin.awaiting biopsy reports, fasting gastrin level has been sent, she is Vit D deficient Plan: Change antibiotics to oral, taper prednisone and morphine, continue mesalamine, Will need to follow up with GI as out-patient for these work up and biopsy reports Possible discharge a.m Rest of details as in residents documentation
[2016-11-06] MEDS: metroNIDAZOLE 500 MG TABLET PO SCH ×2 (14:49→20:23)
[2016-11-06] MEDS ORDERED: levoFLOXacin 750 MG TABLET PO SCH (18:00)
[2016-11-07] MEDS: *HR* OxyCODONE/APAP 5/325 TABLET PO PRN (05:13)
[2016-11-07] MEDS: *HR* Heparin 5,000 UNIT/ML VIAL SQ SCH (05:13)
[2016-11-07 07:00] LABS: Basophils # 0.1 K/mcL (0.0-0.2); Basophils % 0.6 %; Eosinophils # 0.2 K/mcL (0.0-0.6); Eosinophils % 1.2 %; Hematocrit 36.3 % (35.3-44.9); Hemoglobin 10.6 g/dL (11.5-15.4); Immature Granulocytes % 4.1 % (0-4); Lymphocytes # 3.1 K/mcL (0.6-4.6); Lymphocytes % 16.2 %; Mean Corpuscular HGB Conc 29.2 g/dL (31.6-35.5); Mean Corpuscular Hemoglobin 25.6 pg (28.0-33.3); Mean Corpuscular Volume 87.7 fL (83.0-100.0); Mean Platelet Volume 10.1 fL (9.4-12.4); Monocytes # 2.3 K/mcL (0.0-1.3); Monocytes % 11.8 %; Neutrophils # 12.8 K/mcL (1.6-8.9); Nucleated Red Blood Cells 0.2 /100 WBC (0); Platelet Count 564 K/mcL (140-400); Red Blood Count 4.14 M/mcL (3.82-4.97); Red Cell Distribution Width 17.2 % (11.5-14.5); Segmented Neutrophils % 66.1 %
[2016-11-07 07:17] LABS: BUN/Creatinine Ratio 26 (6-26); Blood Urea Nitrogen 17 mg/dL (7-20); Calcium 9.3 mg/dL (8.6-10.8); Carbon Dioxide 26 mEq/L (19-29); Chloride 100 mEq/L (98-109); Glucose 117 mg/dL (70-99); Osmolality,Calculated 281 (280-300); Potassium 3.4 mEq/L (3.5-4.5); Sodium 134 mEq/L (136-145); eGFR For African Americans > 60 (> 60); eGFR For Non-African Americans > 60 (> 60)
[2016-11-07] MEDS: Ipratropium/Albuterol Neb 3 ML IH SCH ×3 (07:44→11:19)
[2016-11-07] MEDS: Budesonide/Formoterol 160/4.5 MDI IH SCH (07:44)
[2016-11-07 07:46] VITALS: BP 136/76
[2016-11-07] MEDS: Sucralfate 1 GM TABLET PO SCH (08:22)
[2016-11-07] MEDS: Fenofibrate 54 MG TABLET PO SCH (08:22)
[2016-11-07] MEDS: predniSONE 20 MG TABLET PO SCH (08:22)
[2016-11-07] MEDS: FLUoxetine 20 MG CAPSULE PO SCH (08:23)
[2016-11-07] MEDS: Aspirin Enteric Coated 81 MG Tablet PO SCH (08:23)
[2016-11-07] MEDS: Cholecalciferol (D-3) 1,000 UNIT TABLET PO SCH (08:23)
[2016-11-07] MEDS: *HR* Morphine 2 MG/ML SYRINGE IVP PRN (08:23)
[2016-11-07] MEDS: Nicotine 14 MG PATCH.TD24 TD SCH (08:23)
[2016-11-07] MEDS: metroNIDAZOLE 500 MG TABLET PO SCH (08:24)
[2016-11-07] MEDS: Fluticasone Propionate Nasal 50 MCG/SPRAY BOTTLE NS SCH (08:32)
[2016-11-07] MEDS ORDERED: *HR* Propofol 200 MG/20 ML VIAL IVP ONE (09:36)
[2016-11-07] MEDS ORDERED: Lidocaine -MPF 2% 5 ML VIAL INFILT ONE (09:36)
--- NOTE | 2016-11-07 11:17 | Discharge Summary ---
<Fletcher Pat - Last Filed: 11/07/16 16:38> Date of Encounter: 11/07/16 Time of Encounter: 09:00 - Discharge Diagnosis (1) Ulcerated colon Priority: Primary Status: Acute (2) Gastric ulcer Priority: Primary Status: Acute Qualifiers: Gastric ulcer chronicity: acute Gastric ulcer complication status: without hemorrhage or perforation Qualified Code(s): K25.3 - Acute gastric ulcer without hemorrhage or perforation (3) Vitamin D deficiency Priority: Secondary Status: Acute (4) Fracture of rib of right side Priority: Secondary Status: Acute Qualifiers: Encounter type: initial encounter Rib fracture type: single rib Fracture type: closed Qualified Code(s): S22.31XA - Fracture of one rib, right side, initial encounter for closed fracture (5) Pneumonia Priority: Secondary Status: Suspected Qualifiers: Pneumonia type: due to Pneumococcus Laterality: right Lung location: lower lobe of lung Qualified Code(s): J13 - Pneumonia due to Streptococcus pneumoniae (6) Anemia Priority: Secondary Status: Suspected Qualifiers: Anemia type: iron deficiency Iron deficiency anemia type: chronic blood loss Qualified Code(s): D50.0 - Iron deficiency anemia secondary to blood loss (chronic) (7) HTN (hypertension) Priority: Secondary Status: Chronic Qualifiers: Hypertension type: essential hypertension Qualified Code(s): I10 - Essential (primary) hypertension - Discharge Medications Prescriptions: OxyCODONE/APAP 5/325 [Percocet 5/325 MG] 1 each PO Q6HR PRN #27 tab PRN Reason: Moderate Pain (4-6) Ergocalciferol (VITAMIN D2) [Vitamin D2] 50,000 unit PO QWEEK #7 capsule Lidocaine Patch [Lidoderm 5% patch] 1 each TP DAILY #7 patch metroNIDAZOLE [Flagyl] 500 mg PO TID #3 tab Omeprazole [PriLOSEC] 40 mg PO BID #60 cap predniSONE [PredniSONE] See Taper PO DAILY #18 tablet Sucralfate [Carafate] 1 gm PO QIDAC #30 oral.susp Home Medications: Albuterol Sulfate [Albuterol Inhaler] 1 puff IH PRN PRN 11/01/16 [History] Aspirin [Lo-Dose Aspirin EC] 81 mg PO DAILY 11/01/16 [History] Atorvastatin [Lipitor] 80 mg PO HS 11/01/16 [History] Budesonide/Formoterol 80/4.5 [Symbicort 80/4.5] 1 puff IH BID 11/01/16 [History ] Buspirone HCl [Buspar] 15 mg PO BID 11/01/16 [History] Cetirizine HCl 10 mg PO DAILY 11/01/16 [History] Clopidogrel [Plavix] 75 mg PO DAILY 11/01/16 [History] FLUoxetine HCl [Prozac] 20 mg PO DAILY 11/01/16 [History] Fenofibrate 150 mg PO DAILY 11/01/16 [History] Fluticasone Propionate Nasal [Flonase] 120 spray NS BID 11/01/16 [History] Losartan Potassium [Cozaar] 50 mg PO DAILY 11/01/16 [History] Metoprolol [Lopressor] 25 mg PO DAILY 11/01/16 [History] Ergocalciferol (VITAMIN D2) [Vitamin D2] 50,000 unit PO QWEEK #7 capsule [Rx] Lidocaine Patch [Lidoderm 5% patch] 1 each TP DAILY #7 patch 11/07/16 [Rx] Omeprazole [PriLOSEC] 40 mg PO BID #60 cap 11/07/16 [Rx] OxyCODONE/APAP 5/325 [Percocet 5/325 MG] 1 each PO Q6HR PRN #27 tab 11/07/16 [Rx ] Sucralfate [Carafate] 1 gm PO QIDAC #30 oral.susp 11/07/16 [Rx] metroNIDAZOLE [Flagyl] 500 mg PO TID #3 tab 11/07/16 [Rx] predniSONE [PredniSONE] See Taper PO DAILY #18 tablet 11/07/16 [Rx] Allergies/Adverse Reactions: Allergies Penicillins Adverse Reaction (Verified 02/03/15 08:11) Hives Date of admission: 11/04/16 17:18 Primary care physician: Danyell Meek Consults: 11/01/16 13:09 Consult to Cardiology [CONS] Routine Comment: Consulting Provider: Rossana Meadows Reason for Consult: Unstable angina Call Completed: No 11/02/16 08:08 Consult to Surgery [CONS] Routine Consulting Provider: Cassie Meier Reason for Consult: Probable GI bleed Discussed with Dr. Meier by admitting team yesterday and wrong consult put in Call Completed: Yes Discharging clinician: Fletcher Pat Anticipated date of discharge: 11/07/16 - Patient Status Disposition: Home, Self-Care Condition: Fair Functional capacity at discharge: independent ambulation Overall status at discharge: patient is progressing back to baseline - Discharge Instructions Follow Up With: [facility] [Provider Group] (within 2-3 weeks REQUEST SENT. OFFICE WILL CALL YOU.) Danyell Meek CNP [Primary Care Provider] - 11/08/16 10:15 am (Follow up for hospitalization, vitamin D deficiency and possible osteoporosis) Additional Instructions: Please discontinue Voltaren and avoid other NSAIDs such as ibuprofen or naproxen. Please continue prescribed omeprazole and Carafact for your GI ulcers and please follow up with [facility] within 2-3 weeks. Please take prednisone taper (30 mg daily x3, 20 mg daily x3, 10 mg daily x3). Please take prescribed Drisdol 50,000 unit qweek and follow up with your primary care provider within a week regarding your hospitalization, vitamin D deficiency and possible osteoporosis. You can use prescribed Percocet 5/325 (1 tablet q6H prn pain, 27 pills, no refill) and lidocaine patch for right rib pain. - Diet and Activity Activity: increase activity as tolerated Diet: advance to your usual diet Hospital course: Ms. Finch is a 46 year old female with PMH of COPD, HLD, HTN and history of NM s/p 4 stents placed in 2014. Patient presented with complaint of chest pain. Patient was noted to have leukocytosis (16.8), anemia (Hgb 8.9) and positive stool occult test in ED. Patient was admitted on 11/01/16 for concern of unstable angina and acute blood loss anemia from GI bleed. Per cardiology, the chest pain is likely pleuritic and unlikely cardiac given negative troponin x3, no ischemic change on EKG and normal echo (LVEF 55% on 11/01/16). Dr. Meier of [place] [facility] was consulted for scoping. EGD on 11/03/16 found an non-bleeding gastric ulcer and colonoscopy found multiple ulcers in transverse colon, ascending colon , hepatic flexure, cecum and ileocecal valve. PPI IV BID, Carafact and Flagyl were started. MPO (P-ANCA) & SP3 (C-ANCA) antibodies were checked for the concern of IBD but both tests came back negative. Per pathology reports, stomach biopsy has mild chronic gastritis but negative for H. pyroli. Colon ulcer biopsies suggest mostly acute inflammations. Patient likely has NSAID related mucosal injury given her PO Voltaren use at home. Patient was also found to have mildly displaced fracture of right 8th rib per X-ray on 11/04/16. The rib fracture is likely the result of persistent cough in the setting of possible underlying osteoporosis. Subsequent check on serum 25-OH vitamin D total is significantly low (8), suggestive of vitamin D deficiency and vitamin D supplement was initiated. Patient was also on steroid, bronchodilator and levofloxacin. since admission. Patient continues to improve clinically with right chest pain and abdominal pain better controlled. Given patient remains hemodynamically stable and desires to go home, will discharge patient home with one more day of Flagyl and prednisone taper (30 mg daily x3, 20 mg daily x3, 10 mg daily x3). Patient will continue omeprazole and Carafact for her GI ulcers and is instructed to discontinue PO Voltaren & avoid other NSAIDs. Patient will need to follow up with [facility] within 2-3 weeks. Prescription of Drisdol 50, 000 unit qweek is also given to patient and she will need to follow up with her PCP within a week regarding her hospitalization, vitamin D deficiency and possible osteoporosis. Patient can use prescribed Percocet 5/325 (1 tablet q6H prn pain, 27 pills, no refill) and lidocaine patch for right rib pain. Patient verbalized her understanding and agrees with the discharge plan. All questions answered. - Time Spent with Patient Total time spent providing and/or coordinating discharge services: Greater than 30 minutes - Constitutional Vitals: Temp Pulse Resp BP Pulse Ox 98.0 F 88 15 136/76 91 11/07/16 07:45 11/07/16 07:45 11/07/16 07:45 11/07/16 07:45 11/07/16 07:45 General appearance: Present: cooperative, A&O X 3, pleasant, obese, answers questions appropriately - Head Head exam: Present: atraumatic, normocephalic - Eye Eye exam: Present: EOMI, PERRL, conjuntiva pink, sclera anicteric - Neck Neck exam general surgery: Present: supple, trachea midline. Absent: lymphadenopathy - Respiratory Respiratory exam: Present: CTAB. Absent: accessory muscle use, rales, rhonchi, wheezes - Cardiovascular Cardiovascular exam: Present: RRR, +S1, +S2. Absent: diastolic murmur, gallop, rubs, systolic murmur - GI/Abdominal GI/Abdominal exam: Present: normal bowel sounds, soft, no peritoneal signs. Absent: distended, tenderness - Extremities Exam Extremities exam: Present: warm, radial pulses palpable and symetrical. Absent : calf tenderness, cyanotic, pedal edema - Neurological Exam Neurological exam: Present: CN II-XII intact, oriented X3, no focal deficits. Absent: pronater drift, facial droop, speech deficit - Skin Skin exam: Present: dry, intact <Hubert Gaytan T - Last Filed: 11/07/16 17:24> Date of Encounter: 11/07/16 Date of admission: 11/04/16 17:18 Primary care physician: Danyell Meek Consults: 11/01/16 13:09 Consult to Cardiology [CONS] Routine Comment: Consulting Provider: Rossana Meadows Reason for Consult: Unstable angina Call Completed: No 11/02/16 08:08 Consult to Surgery [CONS] Routine Consulting Provider: Cassie Meier Reason for Consult: Probable GI bleed Discussed with Dr. Meier by admitting team yesterday and wrong consult put in Call Completed: Yes Hospital course: Ms. Finch is a 46 year old female - Time Spent with Patient Total time spent providing and/or coordinating discharge services: - Constitutional Vitals: Temp Pulse Resp BP Pulse Ox 98.0 F 88 15 136/76 91 11/07/16 07:45 11/07/16 07:45 11/07/16 07:45 11/07/16 07:45 11/07/16 07:45 - Attending Attestation I examined this patient and my medical decision-making was reviewed with the Resident Physician on 11/07/16. I agree with the documented findings, disposition and treatment plan as described except to the extent set forth below. 41 F with Multiple non-bleeding gastric ulcers, colonic ulcers, Rib fracture and pneumonia No new complains today, reports improvement in pain and stool consistency has improved. Willing to be discharged home Physical exam unremarkable Labs and Imaging reviewed Leukocytosis slightly improved. Work up for Crohns disease is negative so far, Negative for MPO (P-ANCA) & SP3 (C-ANCA) antibodies, Biopsy shows ulcers are acute and possibly due to infection or NSAIDS, Plan: Stable for discharge home with PCP and GI appointments, steroid taper, complete levolfox and flagyl po. Rest of details as in residents documentation
[2016-11-08 08:16] LABS: Saccharomyces cerevisiae IgA 13.4 Units (0.0-24.9)
== END 2016-11-07 12:08 | disposition home or self-care (01) | DRG 254 ==
LOC: 2ANU → SUATTDRO 11-04 17:18
PROVIDERS: ADMIT Internal Medicine; ATTEND Internal Medicine
PROC: ENDOEBX (2016-11-03 09:00)
PROC: ENDOCBX (2016-11-03 09:00)

== ENCOUNTER 2016-12-02 16:21 | Observation (INO) ==
[2016-12-02] MEDS ORDERED: 0.9 % Sodium Chloride 500 ML IVC ONE (17:12)
[2016-12-02] MEDS ORDERED: *HR* Morphine 2 MG/ML SYRINGE IVP ONE (17:37)
[2016-12-02] MEDS ORDERED: Ipratropium/Albuterol Neb 3 ML IH ONE (17:37)
--- NOTE | 2016-12-02 17:39 | Emergency Department Note ---
START Narrative - START START: I examined this patient and my medical decision-making was reviewed with the Resident Physician. I agree with the documented findings, disposition and treatment plan as described except to the extent set forth below. 46-year-old female presents To the emergency room for abdominal pain. Patient states she is recently and diagnosed with colitis. She is unsure if it was also of colitis or Crohn's. She was been unable to see [facility] a doctor's been out of town. We will do a cardiac and GI workup here in the ER. Would need to do a repeat CT scan abdomen and pelvis to see if the colitis has cleared or if it has worsened.
[2016-12-02] MEDS ORDERED: *HR* LORazepam 2 MG/ML VIAL IVP ONE ×2 (17:40→20:36)
[2016-12-02 18:04] LABS: Hemoglobin 10.5 g/dL (11.5-15.4); Immature Granulocytes % 0.5 % (0-4)
[2016-12-02 18:06] LABS: Basophils # 0.1 K/mcL (0.0-0.2); Eosinophils # 0.2 K/mcL (0.0-0.6); Eosinophils % 2.2 %; Lymphocytes # 2.8 K/mcL (0.6-4.6); Lymphocytes % 35.5 %; Mean Corpuscular HGB Conc 28.4 g/dL (31.6-35.5); Mean Corpuscular Hemoglobin 24.8 pg (28.0-33.3); Mean Corpuscular Volume 87.5 fL (83.0-100.0); Mean Platelet Volume 9.9 fL (9.4-12.4); Monocytes # 0.9 K/mcL (0.0-1.3); Monocytes % 11.8 %; Neutrophils # 3.9 K/mcL (1.6-8.9); Nucleated Red Blood Cells 0.9 /100 WBC (0); Platelet Count 220 K/mcL (140-400); Red Blood Count 4.23 M/mcL (3.82-4.97); Red Cell Distribution Width 19.3 % (11.5-14.5)
[2016-12-02 18:16] LABS: BUN/Creatinine Ratio 16 (6-26); Blood Urea Nitrogen 10 mg/dL (7-20); Calcium 9.4 mg/dL (8.6-10.8); Carbon Dioxide 29 mEq/L (19-29); Chloride 101 mEq/L (98-109); Glucose 91 mg/dL (70-99); Osmolality,Calculated 285 (280-300); Potassium 4.2 mEq/L (3.5-4.5); Sodium 138 mEq/L (136-145); eGFR For African Americans > 60 (> 60); eGFR For Non-African Americans > 60 (> 60)
[2016-12-02 18:18] LABS: INR 1.1; Prothrombin Time 11.5 Seconds (9.4-12.1)
[2016-12-02 18:21] LABS: Activated Partial Thrombo Time 27.1 Seconds (26.0-36.0)
[2016-12-02 18:22] LABS: Anisocytosis 2+ (Not Present); Platelet Estimate Normal (Normal)
[2016-12-02 18:51] LABS: Bilirubin,Urine Negative (Negative); Blood,Urine Negative (Negative); Clarity,Urine Clear (Clear); Color,Urine Yellow (Yellow); Glucose,Urine (UA) Normal (Normal); Ketones,Urine Negative (Negative); Leukocyte Esterase,Urine Negative (Negative); Nitrite,Urine Negative (Negative); Protein,Urine 30 mg/dL (Neg-Trace); Specific Gravity,Urine 1.016 (1.010-1.025); Urobilinogen,Urine Normal (Normal)
[2016-12-02 18:54] LABS: Bacteria,Urine None Seen per hpf (None-Few); Hyaline Casts,Urine None Seen per lpf (None-Few); RBC,Urine 0-3 per hpf (0-3); Squamous Epithelial Cell,Urine Few per lpf (None-Few); WBC,Urine 0-3 per hpf (0-3)
--- NOTE | 2016-12-02 19:14 | Emergency Department Note ---
Disposition Clinical Impression: Chest pain at rest, Unstable angina Disposition: Admitted As Inpatient Condition: Fair Time of Disposition: 22:16 Chest Pain HPI - General Chief Complaint: ED Chest Pain Stated Complaint: C/P Time Seen by Provider: 12/02/16 17:06 Source: patient, family Limitations: no limitations Vital Signs Reviewed: Yes Nursing Notes Reviewed: Yes - History of Present Illness HPI Narrative: 46-year-old female complains of abdominal pain 4 days came into the ED via POC. Patient initially complained of chest pain which she has been happening intermittently upon awakening over the past week she takes nitroglycerin as directed. Patient states her pain resolved after nitroglycerin. Patient states that today her pain returned at 3 different time intervals after taken nitroglycerin for her initial pain this morning and prior to coming to the emergency department. She states she has not taken any more nitroglycerin today. Severity scale (1-10): 5 - Related Data Home Medications Medication Instructions Recorded Confirmed Albuterol Sulfate [Albuterol 2 puff IH Q6H PRN 11/01/16 12/02/16 Inhaler] Atorvastatin [Lipitor] 80 mg PO HS 11/01/16 12/02/16 Budesonide/Formoterol 80/4.5 1 puff IH BID 11/01/16 12/02/16 [Symbicort 80/4.5] Buspirone HCl [Buspar] 15 mg PO BID 11/01/16 12/02/16 Cetirizine HCl 10 mg PO DAILY 11/01/16 12/02/16 Clopidogrel [Plavix] 75 mg PO DAILY 11/01/16 12/02/16 FLUoxetine HCl [Prozac] 20 mg PO DAILY 11/01/16 12/02/16 Fluticasone Propionate Nasal 50 mcg NS DAILY 11/01/16 12/02/16 [Flonase] Losartan Potassium [Cozaar] 50 mg PO DAILY 11/01/16 12/02/16 Metoprolol [Lopressor] 25 mg PO DAILY 11/01/16 12/02/16 Albuterol Neb [AccuNeb] 0.63 mg IH Q6H PRN 12/02/16 12/02/16 Fenofibrate Nanocrystallized 145 mg PO DAILY 12/02/16 12/02/16 [Tricor] Nicotine Patch [Nicoderm] 21 mg TD DAILY 12/02/16 12/02/16 Nitroglycerin [Nitrostat] 0.4 mg PO Q5M PRN 12/02/16 12/02/16 Previous Rx's Medication Instructions Recorded Ergocalciferol (VITAMIN D2) 50,000 unit PO QWEEK #7 capsule 11/07/16 [Vitamin D2] Lidocaine Patch [Lidoderm 5% patch] 1 each TP DAILY #7 patch 11/07/16 Omeprazole [PriLOSEC] 40 mg PO BID #60 cap 11/07/16 Allergies Allergy/AdvReac Type Severity Reaction Status Date / Time acetaminophen AdvReac Vomiting Verified 12/02/16 16:29 [From Darvocet-N] Penicillins AdvReac Hives Verified 02/03/15 08:11 propoxyphene AdvReac Vomiting Verified 12/02/16 16:29 [From Darvocet-N] Chest Pain PMH - Past Medical History Medical history: Reports: COPD, coronary artery disease, GI bleed, hyperlipidemia, hypertension, myocardial infarction Surgical history: Reports: angioplasty/stent (x4 stents), other (tubal ligation , laparoscopic) Psychiatric history: Reports: anxiety - Social History Smoking Status: Current every day smoker Alcohol use: Reports: occasionally Drug use: Reports: none Physical Exam Vital Signs Temperature 98.3 F 12/02/16 16:22 Pulse Rate 110 12/02/16 16:22 Respiratory Rate 18 12/02/16 16:22 Blood Pressure 151/89 12/02/16 16:22 O2 Sat by Pulse Oximetry 95 12/02/16 16:22 Temperature 98.3 F 12/02/16 16:22 Pulse Rate 92 12/02/16 19:00 Respiratory Rate 16 12/02/16 19:24 Blood Pressure 150/78 12/02/16 19:00 O2 Sat by Pulse Oximetry 92 12/02/16 19:24 Oxygen Delivery Oxygen Delivery Room Air -General Appearance: Patient is a 46-year-old female who is alert and oriented 3 and in no acute distress. Patient appears uncomfortable secondary to pain, nondiaphoretic -Neurological exam: Cranial nerves II-12 intact, no focal deficits observed, strength equal 5/5 bilaterally in upper and lower extremities, cerebellar motion test negative. Negative loss of sensation - Head Head exam: atraumatic, normocephalic, normal inspection - Eye Eye exam: Present: normal appearance, PERRL, EOMI, negative for scleral icterus negative for conjunctival pallor - ENT ENT exam: normal exam, normal oropharynx, mucous membranes dry, with chelitis - Neck Neck exam: Present: normal inspection, full ROM, trachea midline, negative JVD - Chest Chest inspection: Present: Patient has bilateral equal rise and fall of chest wall. tender to palpation mid sternal - Respiratory Respiratory exam: Clear to auscultation bilaterally without wheezes rales or rhonchi Cardiovascular Cardiovascular exam: Present: Normal rhythm fast rate, EKG shows sinus tachycardia - Abdominal Exam Abdominal exam: Present: soft, nondistended, tender to palpation nonspecific pain pattern, bowel sounds present, non-pulsatile - Extremities Exam Extremities exam: Present: normal inspection, full ROM - Back Exam Back exam: Present: normal inspection, full ROM. Absent: tenderness, CVA tenderness (R), CVA tenderness (L) - Psychiatric Psychiatric exam: Present: normal affect, normal mood - Skin Skin exam: Present: warm, dry, intact, normal color - General Limitations: no limitations General appearance: alert, in no apparent distress Course - Reevaluation(s) Reevaluation #1: Patient given the IV morphine and Zofran for her abdominal pain which seems to be the cor patient's issues at this time Time: 17:40 Reevaluation #2: Patient is down receiving CT abdomen and pelvis, pain levels down from 02/04- 10 Time: 18:45 Reevaluation #3: Patient's hemoglobin level X.5 currently around patient's baseline when compared to previous 3 hemoglobin checks. No other abnormalities seen on chemistries Time: 19:13 Additional Reevaluation(s): Hemoccult test negative. Awaiting nitroglycerin administration, since patient' s chest pain is returning. EKG ordered Vital Signs Temperature 98.3 F 12/02/16 16:22 Pulse Rate 110 12/02/16 16:22 Respiratory Rate 18 12/02/16 16:22 Blood Pressure 151/89 12/02/16 16:22 O2 Sat by Pulse Oximetry 95 12/02/16 16:22 Temperature 98.1 F 12/02/16 21:59 Pulse Rate 99 12/02/16 21:59 Respiratory Rate 16 12/02/16 21:59 Blood Pressure 143/89 12/02/16 21:59 O2 Sat by Pulse Oximetry 93 12/02/16 21:59 Oxygen Delivery Oxygen Delivery Nasal Cannula Chest Pain - MDM Narrative Medical decision making narrative: Patient presents with chest pain, and abdominal pain with recent history of GI bleed is concerning for ACS/VA, aortic dissection, PE, ischemic bowel, colitis, GI bleed upper vs lower. Patient's workup is negative for any abnormalities. Patient's hemoglobin is at patient's baseline at 10.5 when compared to the last 2 previous checks. Patient 's electrolytes are within normal limits. Patient's urine is negative for any abnormalities. Patient's troponin is 0.01. Lactate negative. Awaiting Hemoccult stool test. The patient's chest pain at the lower sternal border is starting to elevate. Will start patient on nitroglycerin sublingual. Will reassess to see if that helps the patient's chest pain. In light of patient's continuation of pain with no clear GI source but a heavy cardiac history and a heartscore of 4, I am inclined to admit patient to hospital for further evaluation or her chest pain. Patient is accepted for admission by Dr. Lombardi the hospitalist. - Medical Records Medical records reviewed: Yes I reviewed the patient's medical records. - Lab Data Lab results reviewed: Yes I reviewed the patient's lab results. Lab results narrative: Short CBC 12/02/16 Range/Units 17:50 WBC 7.9 (4.3-11.1) K/mcL Hgb 10.5 L (11.5-15.4) g/dL Hct 37.0 (35.3-44.9) % Plt Count 220 (140-400) K/mcL Neutrophils # 3.9 (1.6-8.9) K/mcL BMP 12/02/16 Range/Units 17:50 Sodium 138 (136-145) mEq/L Potassium 4.2 (3.5-4.5) mEq/L Chloride 101 (98-109) mEq/L Carbon Dioxide 29 (19-29) mEq/L BUN 10 (7-20) mg/dL Creatinine 0.64 (0.57-1.11) mg/dL Glucose 91 (70-99) mg/dL Calcium 9.4 (8.6-10.8) mg/dL Cardiac Enzymes 12/02/16 Range/Units 17:50 Troponin I 0.01 (0-0.03) ng/mL Urine 12/02/16 Range/Units 18:40 Urine Color Yellow (Yellow) Urine Clarity Clear (Clear) Urine pH 8.0 (5.0-8.0) pH Units Ur Specific [place] 1.016 (1.010-1.025) Urine Protein 30 H (Neg-Trace) mg/dL Urine Glucose (UA) Normal (Normal) mg/dL Result diagrams: 12/02/16 17:50 12/02/16 17:50 Lab Results 12/02/16 12/02/16 12/02/16 Range/Units 17:50 17:50 17:50 WBC 7.9 (4.3-11.1) K/mcL RBC 4.23 (3.82-4.97) M/mcL Hgb 10.5 L (11.5-15.4) g/dL Hct 37.0 (35.3-44.9) % MCV 87.5 (83.0-100.0) fL MCH 24.8 L (28.0-33.3) pg MCHC 28.4 L (31.6-35.5) g/dL RDW 19.3 H (11.5-14.5) % Plt Count 220 (140-400) K/mcL MPV 9.9 (9.4-12.4) fL Immature Gran % 0.5 (0-4) % Seg Neutrophils % 49.0 % Lymphocytes % 35.5 % Monocytes % 11.8 % Eosinophils % 2.2 % Basophils % 1.0 % Neutrophils # 3.9 (1.6-8.9) K/mcL Lymphocytes # 2.8 (0.6-4.6) K/mcL Monocytes # 0.9 (0.0-1.3) K/mcL Eosinophils # 0.2 (0.0-0.6) K/mcL Basophils # 0.1 (0.0-0.2) K/mcL Nucleated RBCs/100 WBC 0.9 H (0) /100 WBC Platelet Estimate Normal (Normal) Anisocytosis 2+ A (Not Present) PT 11.5 (9.4-12.1) Seconds INR 1.1 APTT 27.1 (26.0-36.0) Seconds Sodium 138 (136-145) mEq/L Potassium 4.2 (3.5-4.5) mEq/L Chloride 101 (98-109) mEq/L Carbon Dioxide 29 (19-29) mEq/L BUN 10 (7-20) mg/dL Creatinine 0.64 (0.57-1.11) mg/dL Est GFR ( Amer) > 60 (> 60) Est GFR (Non-Af Amer) > 60 (> 60) BUN/Creatinine Ratio 16 (6-26) Glucose 91 (70-99) mg/dL Calculated Osmolality 285 (280-300) Lactic Acid (0.5-2.2) mmol/L Calcium 9.4 (8.6-10.8) mg/dL Troponin I (0-0.03) ng/mL Urine Color (Yellow) Urine Clarity (Clear) Urine pH (5.0-8.0) pH Units Ur Specific [place] (1.010-1.025) Urine Protein (Neg-Trace) mg/dL Urine Glucose (UA) (Normal) mg/dL Urine Ketones (Negative) mg/dL Urine Blood (Negative) Urine Nitrite (Negative) Urine Bilirubin (Negative) Urine Urobilinogen (Normal) mg/dL Ur Leukocyte Esterase (Negative) Urine Microscopic RBC (0-3) per hpf Urine Microscopic WBC (0-3) per hpf Ur Squamous Epith Cells (None-Few) per lpf Urine Bacteria (None-Few) per hpf Hyaline Casts (None-Few) per lpf Ur Culture Indicated? (NO) 12/02/16 12/02/16 12/02/16 Range/Units 17:50 17:50 18:40 WBC (4.3-11.1) K/mcL RBC (3.82-4.97) M/mcL Hgb (11.5-15.4) g/dL Hct (35.3-44.9) % MCV (83.0-100.0) fL MCH (28.0-33.3) pg MCHC (31.6-35.5) g/dL RDW (11.5-14.5) % Plt Count (140-400) K/mcL MPV (9.4-12.4) fL Immature Gran % (0-4) % Seg Neutrophils % % Lymphocytes % % Monocytes % % Eosinophils % % Basophils % % Neutrophils # (1.6-8.9) K/mcL Lymphocytes # (0.6-4.6) K/mcL Monocytes # (0.0-1.3) K/mcL Eosinophils # (0.0-0.6) K/mcL Basophils # (0.0-0.2) K/mcL Nucleated RBCs/100 WBC (0) /100 WBC Platelet Estimate (Normal) Anisocytosis (Not Present) PT (9.4-12.1) Seconds INR APTT (26.0-36.0) Seconds Sodium (136-145) mEq/L Potassium (3.5-4.5) mEq/L Chloride (98-109) mEq/L Carbon Dioxide (19-29) mEq/L BUN (7-20) mg/dL Creatinine (0.57-1.11) mg/dL Est GFR ( Amer) (> 60) Est GFR (Non-Af Amer) (> 60) BUN/Creatinine Ratio (6-26) Glucose (70-99) mg/dL Calculated Osmolality (280-300) Lactic Acid 1.7 (0.5-2.2) mmol/L Calcium (8.6-10.8) mg/dL Troponin I 0.01 (0-0.03) ng/mL Urine Color Yellow (Yellow) Urine Clarity Clear (Clear) Urine pH 8.0 (5.0-8.0) pH Units Ur Specific [place] 1.016 (1.010-1.025) Urine Protein 30 H (Neg-Trace) mg/dL Urine Glucose (UA) Normal (Normal) mg/dL Urine Ketones Negative (Negative) mg/dL Urine Blood Negative (Negative) Urine Nitrite Negative (Negative) Urine Bilirubin Negative (Negative) Urine Urobilinogen Normal (Normal) mg/dL Ur Leukocyte Esterase Negative (Negative) Urine Microscopic RBC 0-3 (0-3) per hpf Urine Microscopic WBC 0-3 (0-3) per hpf Ur Squamous Epith Cells Few (None-Few) per lpf Urine Bacteria None Seen (None-Few) per hpf Hyaline Casts None Seen (None-Few) per lpf Ur Culture Indicated? NO (NO) - Radiology Data Radiology results reviewed: Yes I reviewed the patient's radiology results. Chest X-Ray 12/02/16 17:12 IMPRESSION: No acute cardiopulmonary disease. D/ / Antonio Michel MD / Antonio Michel MD Interpreting Provider: Antonio Michel MD Abdomen/Pelvis CT 12/02/16 17:39 IMPRESSION: 1. No acute findings in the abdomen or pelvis. 2. Duodenal and colonic diverticula without findings of acute diverticulitis. D/ / Sai Hilario MD / Sai Hilario MD Interpreting Provider: Sai Hilario MD - EKG Data EKG attestation: Yes I reviewed and interpreted this EKG. EKG results narrative: EKG taken 12/02/2016 1627 hrs. shows a sinus tachycardia at a rate of 102 bpm no ischemic changes of ST elevations or depressions in any leads no QRS widening or QT prolongation Repeat EKG taken 12/02/2016 at 2032 hrs. shows sinus rhythm with no acute ST elevations or depressions in leads appears to have T-wave inversion in aVL, inverted P waves and V2 Heart Score - Score History: Slightly Suspicious EKG: Non Specific repolarisation Disturbance Age: 45-65 Risk Factors: Equal/Greater than 3 risk factor or history of atherosclerotic disease Troponin: Less than normal limit HEART Score Total: 4
[2016-12-02] MEDS ORDERED: Nitroglycerin 0.4 MG TAB.SUBL SL PRN ×2 (19:50→23:48)
[2016-12-02] MEDS ORDERED: Albuterol Neb 0.63 MG/3 ML VIAL IH PRN (23:48)
--- NOTE | 2016-12-02 23:54 | Internal Med History&Physical ---
Date of Encounter: 12/02/16 Time of Encounter: 23:52 Assessment and Plan (1) COPD (chronic obstructive pulmonary disease) Current visit: No Status: Chronic Stable no active wheezing. Qualifiers: Qualified Code(s): J44.9 - Chronic obstructive pulmonary disease, unspecified (2) Chest pain Current visit: No Status: Acute Patient presents with episodes of chest pain no relation to exertion. EKG without ischemic changes. Initial troponin normal. Rule out acute coronary syndrome. Telemetry monitoring. He mentioned that she has episodes of small amount of bright red bleeding rectum only with defecation when she is constipated. Stool for occult blood negative in the emergency room. She also describes pain in the epigastric and right upper quadrant area has been afraid to eat. She still has gallbladder. Will check right upper quadrant ultrasound ruled out gallbladder disease. Qualifiers: Qualified Code(s): R07.9 - Chest pain, unspecified Internal Medicine - H&P: HPI Chief complaint: chest pain History of present illness: Ms. Finch is a 46 year old female with past medical history of coronary artery disease presents to the emergency room today with the main complaining of chest pain. Over the past few days patient has been having intermittent episodes of chest pain occasionally when she wakes up in the morning. No clear relation to exertion. She has also been having pain in the right upper quadrant and epigastric area. She has been afraid to eat. She mentioned that she has been having episodes of bright red bleeding rectum small amounts only during defecation while she is constipated. She denies any worsening sputum production fevers or chills. Past Med Surg Social Fam HX - Past Medical History Medical history: COPD, coronary artery disease, GI bleed, hyperlipidemia, hypertension, myocardial infarction Psychiatric history: anxiety - Past Surgical History Surgical History: angioplasty/stent, JOSE/BSO, other - Social History Smoking Status: Current every day smoker Packs per day: 0.3 Smokeless Tobacco Status: No Alcohol use: occasionally Drug use: none - Family History Mother Adopted: Yes Internal Medicine - H&P: Meds Albuterol Sulfate [Albuterol Inhaler] 2 puff IH Q6H PRN 11/01/16 [History] Atorvastatin [Lipitor] 80 mg PO HS 11/01/16 [History] Budesonide/Formoterol 80/4.5 [Symbicort 80/4.5] 1 puff IH BID 11/01/16 [History ] Buspirone HCl [Buspar] 15 mg PO BID 11/01/16 [History] Cetirizine HCl 10 mg PO DAILY 11/01/16 [History] Clopidogrel [Plavix] 75 mg PO DAILY 11/01/16 [History] FLUoxetine HCl [Prozac] 20 mg PO DAILY 11/01/16 [History] Fluticasone Propionate Nasal [Flonase] 50 mcg NS DAILY 11/01/16 [History] Losartan Potassium [Cozaar] 50 mg PO DAILY 11/01/16 [History] Metoprolol [Lopressor] 25 mg PO DAILY 11/01/16 [History] Ergocalciferol (VITAMIN D2) [Vitamin D2] 50,000 unit PO QWEEK #7 capsule [Rx] Lidocaine Patch [Lidoderm 5% patch] 1 each TP DAILY #7 patch 11/07/16 [Rx] Omeprazole [PriLOSEC] 40 mg PO BID #60 cap 11/07/16 [Rx] Albuterol Neb [AccuNeb] 0.63 mg IH Q6H PRN 12/02/16 [History] Fenofibrate Nanocrystallized [Tricor] 145 mg PO DAILY 12/02/16 [History] Nicotine Patch [Nicoderm] 21 mg TD DAILY 12/02/16 [History] Nitroglycerin [Nitrostat] 0.4 mg PO Q5M PRN 12/02/16 [History] Allergies acetaminophen [From Darvocet-N] Adverse Reaction (Verified 12/02/16 16:29) Vomiting Penicillins Adverse Reaction (Verified 02/03/15 08:11) Hives propoxyphene [From Darvocet-N] Adverse Reaction (Verified 12/02/16 16:29) Vomiting All Systems PM: A 10-system review of systems was performed and is negative for pertinent findings except as documented above in the HPI. Review of systems: 10 point review of systems is negative except for HPI - Constitutional Vitals: Temp Pulse Resp BP Pulse Ox 98.1 F 99 16 143/89 93 12/02/16 21:59 12/02/16 21:59 12/02/16 21:59 12/02/16 21:59 12/02/16 21:59 Exam: Gen.: patient is alert oriented times 3 Not in distress cardiac: normal S1 S2 no additional sounds are murmurs chest: clear auscultation abdomen: soft nontender nondistended normal bowel sounds lower extremity lax calf muscles Internal Med - H&P Results - Labs CBC & Chem 7: 12/02/16 17:50 12/02/16 17:50
[2016-12-03 05:15] LABS: Basophils # 0.1 K/mcL (0.0-0.2); Basophils % 0.8 %; Eosinophils # 0.2 K/mcL (0.0-0.6); Eosinophils % 2.9 %; Hematocrit 35.9 % (35.3-44.9); Hemoglobin 9.8 g/dL (11.5-15.4); Immature Granulocytes % 0.8 % (0-4); Lymphocytes # 2.7 K/mcL (0.6-4.6); Lymphocytes % 40.8 %; Mean Corpuscular HGB Conc 27.3 g/dL (31.6-35.5); Mean Corpuscular Hemoglobin 23.9 pg (28.0-33.3); Mean Corpuscular Volume 87.6 fL (83.0-100.0); Mean Platelet Volume 10.2 fL (9.4-12.4); Monocytes # 0.7 K/mcL (0.0-1.3); Neutrophils # 2.9 K/mcL (1.6-8.9); Nucleated Red Blood Cells 0.6 /100 WBC (0); Platelet Count 230 K/mcL (140-400); Red Cell Distribution Width 18.7 % (11.5-14.5); Segmented Neutrophils % 43.7 %
[2016-12-03 05:26] LABS: BUN/Creatinine Ratio 15 (6-26); Blood Urea Nitrogen 10 mg/dL (7-20); Calcium 9.1 mg/dL (8.6-10.8); Carbon Dioxide 28 mEq/L (19-29); Chloride 102 mEq/L (98-109); Glucose 96 mg/dL (70-99); Magnesium 1.9 mg/dL (1.6-2.6); Osmolality,Calculated 283 (280-300); Potassium 3.7 mEq/L (3.5-4.5); Sodium 137 mEq/L (136-145); eGFR For African Americans > 60 (> 60); eGFR For Non-African Americans > 60 (> 60)
[2016-12-03 05:48] LABS: Hypochromasia Present (Not Present); Platelet Estimate Normal (Normal); Polychromasia 1+ (Not Present)
[2016-12-03] MEDS: Budesonide/Formoterol 80/4.5 MDI IH SCH ×2 (08:11→08:12)
[2016-12-03] MEDS ORDERED: Nicotine 21 MG PATCH.TD24 TD SCH (09:00)
[2016-12-03] MEDS ORDERED: Pantoprazole 40 MG VIAL IVP SCH (09:00)
[2016-12-03] MEDS ORDERED: Fluticasone Propionate Nasal 50 MCG/SPRAY BOTTLE NS SCH (09:00)
[2016-12-03] MEDS ORDERED: Fenofibrate 54 MG TABLET PO SCH (09:00)
[2016-12-03] MEDS ORDERED: Loratadine 10 MG TABLET PO SCH (09:00)
[2016-12-03] MEDS ORDERED: FLUoxetine 20 MG CAPSULE PO SCH (09:00)
--- NOTE | 2016-12-03 12:37 | Electrocardiograph Report ---
[address] [address] Test Date: 2016-12-02 Pat Name: Anusha Finch Department: 105 Room: 3B Gender: F Image Archivist: : 1970 Requested By: Jd Burton Order Number: [id number] Reading MD: Jacqueline Meza Measurements Intervals [place] Rate: 102 P: 53 [place]: 157 QRS: -4 QRSD: 98 T: 79 QT: 348 QTc: 407 Interpretive Statements SINUS TACHYCARDIA POSSIBLE LEFT ATRIAL ENLARGEMENT [-0.1mV P WAVE IN V1/V2] ABNORMAL RHYTHM ECG Electronically Signed On 12-03-2016 12:35:42 EDT by Jacqueline Meza
--- NOTE | 2016-12-03 12:39 | Electrocardiograph Report ---
[address] [address] Test Date: 2016-12-02 Pat Name: Anusha Finch Department: 102 Room: 3B Gender: F Applications Analyst: [place] : 1970 Requested By: Jd Burton Order Number: [id number] Reading MD: Jacqueline Meza Measurements Intervals [place] Rate: 99 P: 63 RI: 171 QRS: 5 QRSD: 90 T: 66 QT: 341 QTc: 397 Interpretive Statements SINUS RHYTHM POSSIBLE LEFT ATRIAL ENLARGEMENT [-0.1mV P WAVE IN V1/V2] NONSPECIFIC T-WAVE ABNORMALITY Electronically Signed On 12-03-2016 12:37:58 EDT by Jacqueline Meza
--- NOTE | 2016-12-03 13:36 | Discharge Summary ---
Date of Encounter: 12/03/16 Time of Encounter: 13:30 - Discharge Diagnosis (1) Chest pain Priority: Primary Status: Resolved Qualifiers: Qualified Code(s): R07.9 - Chest pain, unspecified (2) Tobacco dependence Priority: Secondary Status: Chronic (3) CAD (coronary artery disease) Priority: Secondary Status: Chronic Qualifiers: Qualified Code(s): I25.10 - Atherosclerotic heart disease of rob[place] coronary artery without angina pectoris; I25.83 - Coronary atherosclerosis due to lipid rich plaque (4) COPD (chronic obstructive pulmonary disease) Priority: Secondary Status: Chronic Qualifiers: Qualified Code(s): J44.9 - Chronic obstructive pulmonary disease, unspecified (5) HLD (hyperlipidemia) Priority: Secondary Status: Chronic Qualifiers: Hyperlipidemia type: pure hypercholesterolemia Qualified Code(s): E78.00 - Pure hypercholesterolemia, unspecified; E78.0 - Pure hypercholesterolemia (6) HTN (hypertension) Priority: Secondary Status: Chronic Qualifiers: Hypertension type: essential hypertension Qualified Code(s): I10 - Essential (primary) hypertension - Discharge Medications Home Medications: Albuterol Sulfate [Albuterol Inhaler] 2 puff IH Q6H PRN 11/01/16 [History] Atorvastatin [Lipitor] 80 mg PO HS 11/01/16 [History] Budesonide/Formoterol 80/4.5 [Symbicort 80/4.5] 1 puff IH BID 11/01/16 [History ] Buspirone HCl [Buspar] 15 mg PO BID 11/01/16 [History] Cetirizine HCl 10 mg PO DAILY 11/01/16 [History] Clopidogrel [Plavix] 75 mg PO DAILY 11/01/16 [History] FLUoxetine HCl [Prozac] 20 mg PO DAILY 11/01/16 [History] Fluticasone Propionate Nasal [Flonase] 50 mcg NS DAILY 11/01/16 [History] Losartan Potassium [Cozaar] 50 mg PO DAILY 11/01/16 [History] Metoprolol [Lopressor] 25 mg PO DAILY 11/01/16 [History] Ergocalciferol (VITAMIN D2) [Vitamin D2] 50,000 unit PO QWEEK #7 capsule [Rx] Lidocaine Patch [Lidoderm 5% patch] 1 each TP DAILY #7 patch 11/07/16 [Rx] Omeprazole [PriLOSEC] 40 mg PO BID #60 cap 11/07/16 [Rx] Albuterol Neb [AccuNeb] 0.63 mg IH Q6H PRN 12/02/16 [History] Fenofibrate Nanocrystallized [Tricor] 145 mg PO DAILY 12/02/16 [History] Nicotine Patch [Nicoderm] 21 mg TD DAILY 12/02/16 [History] Nitroglycerin [Nitrostat] 0.4 mg PO Q5M PRN 12/02/16 [History] Allergies/Adverse Reactions: Allergies acetaminophen [From Darvocet-N] Adverse Reaction (Verified 12/02/16 16:29) Vomiting Penicillins Adverse Reaction (Verified 02/03/15 08:11) Hives propoxyphene [From Darvocet-N] Adverse Reaction (Verified 12/02/16 16:29) Vomiting Procedures/tests Complete & Pending: Procedures Performed prior 72 hours Category Date Time Status US abdomen limited [US] Routine Exams 12/03/16 08:30 Completed Date of admission: 12/02/16 21:02 Primary care physician: Danyell Meek Consults: 12/02/16 23:46 Consult to Cardiology [CONS] Routine Comment: Consulting Provider: Cardiology Dori Reason for Consult: chest pain Call Completed: No - Patient Status Disposition: Home, Self-Care Condition: Good Overall status at discharge: patient is back to baseline - Discharge Instructions Follow Up With: Danyell Meek CNP [Primary Care Provider] - Additional Instructions: Need to f/u with PCP in one week need to f/u with GI Dr. Reyes in 1-2 weeks need to f/u with Cardiology in 2 weeks Hospital course: Ms. Finch is a 46 year old female with PMHx significant for CAD s/p PCI, tobacco use, HTN, HLD who presented to the ED with RUQ abdominal pain and sub sternal chest pain. 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 No acute EKG changes noticed and her troponins are negative. Also did U /S of Abd which did not show any acute cholecystitis / gallbladder changes. Pt denied any more CP / SOB / Abd pain. Tolerating pO intake well. Recommend to continue her regular cardiac medications and f/u with PCP and Cardiology in 1-2 weeks. She also mentioned ?? Melena, however here her Hb stable @ 9.8. Recommend to f/u with GI as an out pt for possible EGD soon. Due to her CAD with s/p stents she does need to continue her anti platelets. Pt is still smoking, so counseled to quit smoking tobacco. - Time Spent with Patient Total time spent providing and/or coordinating discharge services: - Constitutional Vitals: Temp Pulse Resp BP Pulse Ox 98.3 F 89 15 143/85 90 12/03/16 11:37 12/03/16 11:37 12/03/16 11:37 12/03/16 11:37 12/03/16 11:37 General appearance: Present: A&O X 3, no acute distress - Head Head exam: Present: atraumatic, normal inspection - Respiratory Respiratory exam: Present: decreased breath sounds, wheezes. Absent: rales, respiratory distress, rhonchi - Cardiovascular Cardiovascular exam: Present: RRR, +S1, +S2. Absent: diastolic murmur, gallop, rubs, systolic murmur - GI/Abdominal GI/Abdominal exam: Present: soft, no peritoneal signs. Absent: distended, tenderness - Extremities Exam Extremities exam: Absent: calf tenderness, pedal edema, tenderness - Psychiatric Psychiatric exam: Present: normal affect, normal mood
[2016-12-03 14:34] VITALS: BP 155/81
[2016-12-06 16:29] LABS: CK-MB (CK isoenzymes) 0 % (0-4); CK-MM (CK-isoenzymes) 100 % (96-100)
[2016-12-06 16:29] LABS: CK-MB (CK isoenzymes) 0 % (0-4); CK-MM (CK-isoenzymes) 100 % (96-100)
[2016-12-07 07:11] LABS: CK Total (Ck Isoenzymes) 28 U/L (20-180); CK-BB (CK isoenzymes) 0 % (0-0)
[2016-12-07 07:12] LABS: CK Total (Ck Isoenzymes) 33 U/L (20-180); CK-BB (CK isoenzymes) 0 % (0-0)
== END 2016-12-03 15:57 | disposition home or self-care (01) ==
LOC: EMEROO 16:21 → 3BNU 16:21
PROVIDERS: ADMIT Internal Medicine; ATTEND Registered Nurse

== ENCOUNTER 2017-06-01 14:07 | Inpatient (IN) ==
[2017-06-01] MEDS ORDERED: Heparin 25,000 UNIT/500 ML D5W 25,000 UNIT/500 ML BAG IVC SCH (16:15)
[2017-06-01] MEDS ORDERED: Naloxone 0.4 MG/ML INJ IVP PRN (16:17)
--- NOTE | 2017-06-01 16:30 | Internal Med History&Physical ---
<Caleb Goins J - Last Filed: 06/01/17 22:06> Date of Encounter: 06/01/17 Time of Encounter: 16:27 Assessment and Plan (1) Chest pain Current visit: Yes Status: Resolved Presents today with sharp/stabbing chest pain, diaphoresis, and N/V which began this morning. No EKG changes, troponin elevated at 0.05 History of CAD, prior MIs requiring 3 stents. Additional risk factors include smoker with cessation <3m, age, hx, HLD and HTN. Heart score of 6 Continues to have CP, no improvement with SL nitro. Most recent echocardiogram 11/11 with EF 55% and mild pulmonary hypertension Due to continued chest pain and clinical presentation the patient appears to be having unstable angina however, upon auscultation I also identify a friction rub concerning for pericardial effusion. - Start heparin drip now - Stat TTE - cardiac enzymes x 2 q 6 hr with first one now - EKG now and in AM - ASA - Continue antihypertensives - O2 by NC to keep SpO2 greater than 92% - CBCD, BMP in AM - Cardiology consult Qualifiers: Chest pain type: precordial pain Qualified Code(s): R07.2 - Precordial pain (2) CAD (coronary artery disease) Current visit: Yes Status: Chronic Continue aspirin, statin, Plavix and antihypertensive medications Qualifiers: Coronary Disease-Associated Artery/Lesion type: [place] artery [place] vs. transplanted heart: [place] heart Associated angina: with unstable angina Qualified Code(s): I25.110 - Atherosclerotic heart disease of [place] coronary artery with unstable angina pectoris (3) COPD (chronic obstructive pulmonary disease) Current visit: Yes Status: Chronic Stable, continue bronchodilators Qualifiers: Qualified Code(s): J44.9 - Chronic obstructive pulmonary disease, unspecified (4) HLD (hyperlipidemia) Current visit: Yes Status: Chronic Lipid panel in the morning Qualifiers: Hyperlipidemia type: pure hypercholesterolemia Qualified Code(s): E78.00 - Pure hypercholesterolemia, unspecified; E78.0 - Pure hypercholesterolemia (5) HTN (hypertension) Current visit: Yes Status: Chronic Qualifiers: Hypertension type: essential hypertension Qualified Code(s): I10 - Essential (primary) hypertension (6) Tobacco dependence Current visit: Yes Status: Chronic Reports tobacco cessation approximately 2 weeks ago. (7) DVT prophylaxis Current visit: Yes Status: Acute Heparin drip Internal Medicine - H&P: HPI Chief complaint: chest pain Admitted From: Home Plans for Post Hospital Care: Home History of present illness: Ms. Finch is a 46 year old female with past medical history of CAD, GI bleed , HLD, hypertension and prior UT requiring 3 stents. She presents to [facility] today from [facility] with nonexertional sharp/stabbing chest pain with radiation between the shoulder blades. Associated symptoms include cough, shortness of breath, diaphoresis, nausea and vomiting. She reports the chest pain has been ongoing over the last week. She denies any aggravating or alleviating factors. She reports that she has taken 2 nitroglycerin tablets without any relief at all. Additionally, she reports night sweats for the last 3-4 days. However, she denies any fever, chills, abdominal pain, diarrhea, dysuria, flank pain, extremity swelling/pain, hemoptysis or bleeding. 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 However, due to the intensity of recurrent chest pain she chose to seek care at the ED today. Today reveals a positive troponin of 0.05, chest x-ray negative. She appears to be having unstable angina is being admitted for further observation and rule out ACS. Past Med Surg Social Fam HX - Past Medical History Medical history: coronary artery disease, GI bleed, hyperlipidemia, hypertension , myocardial infarction Psychiatric history: anxiety - Past Surgical History Surgical History: angioplasty/stent, JOSE/BSO, other - Social History Smoking Status: Current every day smoker Smokeless Tobacco Status: No Alcohol use: occasionally Drug use: none - Family History Mother Adopted: Yes Internal Medicine - H&P: Meds Albuterol Sulfate [Albuterol Inhaler] 2 puff IH Q6H PRN 11/01/16 [History] Atorvastatin [Lipitor] 80 mg PO HS 11/01/16 [History] Buspirone HCl [Buspar] 15 mg PO BID 11/01/16 [History] Clopidogrel [Plavix] 75 mg PO DAILY 11/01/16 [History] Fluticasone Propionate Nasal [Flonase] 50 mcg NS DAILY 11/01/16 [History] Ergocalciferol (VITAMIN D2) [Vitamin D2] 50,000 unit PO QWEEK #7 capsule [Rx] Albuterol Neb [AccuNeb] 0.63 mg IH Q6H PRN 12/02/16 [History] Fenofibrate Nanocrystallized [Tricor] 145 mg PO DAILY 12/02/16 [History] Nitroglycerin [Nitrostat] 0.4 mg PO Q5M PRN 12/02/16 [History] Gabapentin [Neurontin] 600 mg PO TID 01/08/17 [History] Mometasone/Formoterol [Dulera 100 Mcg/5 Mcg Inhaler] 13 gm IH DAILY 01/08/17 [ History] Aspirin [Lo-Dose Aspirin EC] 81 mg PO DAILY 04/17/17 [History] Methocarbamol [Robaxin-750] 750 mg PO DAILY 04/17/17 [History] HYDROcodone/Acet 5/325 mg [Jay 5-325 mg] 1 tab PO Q6H PRN #16 tab 04/21/17 [Rx ] Cetirizine HCl 10 mg PO DAILY PRN #0 05/20/17 [Rx] Isosorbide MONOnitrate (24 HR) [Imdur] 60 mg PO DAILY #30 tab.er.24h 05/20/17 [ Rx] Metoprolol XL (24 HR) Succ [Toprol Xl] 50 mg PO DAILY #30 tab.er.24h 05/20/17 [ Rx] Dicyclomine [Bentyl] 20 mg PO QDPC 06/01/17 [History] FLUoxetine HCl [Prozac] 40 mg PO DAILY 06/02/17 [History] Losartan Potassium [Cozaar] 100 mg PO DAILY 06/02/17 [History] Pantoprazole Sodium 40 mg PO DAILY 06/02/17 [History] 3 Allergy/AdvReac Type Severity Reaction Status Date / Time Penicillins AdvReac Hives Verified 06/01/17 12:19 propoxyphene AdvReac Vomiting Verified 06/01/17 12:19 [From Darvocet-N] All Systems PM: A 10-system review of systems was performed and is negative for pertinent findings except as documented above in the HPI. - Constitutional Constitutional: as per HPI - EENT Eyes: no change in vision, no discharge, no pain, no photophobia Ears: no ear discharge, no ear pain, no tinnitus Nose, mouth and throat: no dysphagia, no nasal discharge, no neck pain, no sore throat - Cardiovascular Cardiovascular ROS IM: as per HPI - Respiratory Respiratory: as per HPI, chest congestion, no wheezing, no pain on inspiration, no pain with cough - Gastrointestinal Gastrointestinal: no abdominal pain, no diarrhea, no hematemesis, no hematochezia, no melena, no nausea, no vomiting - Genitourinary Genitourinary: no change in urinary stream, no dysuria, no flank pain, no hematuria - Musculoskeletal Musculoskeletal ROS IM: no numbness, no tingling - Integumentary Integumentary IM: no rash, no unusual bruising - Neurological Neurological ROS: no confusion, no convulsions, no focal weakness, no numbness, no tingling, no tremor(s) - Head Head exam: Present: atraumatic, normocephalic - Eye Eye exam: Present: PERRL, conjuntiva pink, sclera anicteric Pupils: Present: PERRL - Neck Neck exam general surgery: Present: supple, trachea midline. Absent: lymphadenopathy - Respiratory Respiratory exam: Present: decreased breath sounds, CTAB. Absent: accessory muscle use, chest wall tenderness, rales, rhonchi, wheezes - Cardiovascular Cardiovascular exam: Present: +S1, +S2, tachycardia. Absent: diastolic murmur, gallop, irregular rhythm, JVD, rubs, systolic murmur - GI/Abdominal GI/Abdominal exam: Present: normal bowel sounds, soft, no peritoneal signs. Absent: distended, tenderness - Extremities Exam Extremities exam: Present: warm, radial pulses palpable and symmetrical. Absent : calf tenderness, cyanotic, pedal edema - Neurological Exam Neurological exam: Present: CN II-XII intact, oriented X3, no focal deficits. Absent: pronater drift, facial droop, speech deficit - Skin Skin exam: Present: dry, intact Internal Med - H&P Results - Labs CBC & Chem 7: 06/01/17 16:54 - EKG Data -: EKG Interpreted by Myself EKG shows normal: sinus rhythm Rate: bradycardia - EKG Data Prior EKG available for review: yes When compared to previous EKG: there is no significant change - Impressions No acute cardiopulmonary abnormalities noted <Kahlil Horan - Last Filed: 06/02/17 11:38> Date of Encounter: 06/02/17 Internal Medicine - H&P: HPI History of present illness: Ms. Finch is a 46 year old female All Systems PM: A 10-system review of systems was performed and is negative for pertinent findings except as documented above in the HPI. - Constitutional Vitals: Temp Pulse Resp BP Pulse Ox 98.2 F 82 18 163/91 94 06/02/17 07:22 06/02/17 07:22 06/02/17 07:22 06/02/17 07:22 06/02/17 07:22 Internal Med - H&P Results - Labs CBC & Chem 7: 06/02/17 05:27 06/02/17 05:27 Labs: Short CBC 06/01/17 06/02/17 Range/Units 16:54 05:27 WBC 7.7 7.3 (4.3-11.1) K/mcL Hgb 11.0 L 10.9 L (11.5-15.4) g/dL Hct 37.4 38.6 (35.3-44.9) % Plt Count 482 H 445 H (140-400) K/mcL BMP 06/02/17 05:27 Sodium 135 L Potassium 3.9 Chloride 100 Carbon Dioxide 29 BUN 15 Creatinine 0.43 L Glucose 99 Calcium 9.3 Cardiac Enzymes 06/01/17 06/01/17 06/02/17 Range/Units 16:54 23:36 05:27 Troponin I 0.58 H* 4.07 H* 5.35 H* (< 0.04) ng/mL - Impressions ITS Impressions Echocardiogram 06/01/17 16:03 Impressions: LVEF 55%. Indeterminate diastolic function. Normal right ventricular structure and function. No significant valvular dysfunction. No pulmonary hypertension. Ascending aorta is not well visualized. Left Ventricular Wall Motion: Rest Echo Findings The mid anterior septal, mid inferior lateral and basal inferior lateral lee were not visualized. All other wall segments showed normal motion. Findings: Study Quality * Technically adequate exam. ECG Findings * Sinus tachycardia. Left Ventricle * LVEF 55%. * Indeterminate diastolic function. * LV size and wall measurements are not well obtained. Right Ventricle * Normal right ventricular structure and function. Left Atrium * Mildly dilated left atrium. Right Atrium * Normal right atrial size. Aortic Valve * No aortic regurgitation. * Aortic valve not well visualized. * No aortic stenosis. Mitral Valve * Normal mitral valve structure. * No mitral stenosis. * Trace mitral regurgitation. Tricuspid Valve * Tricuspid valve not well visualized. * No tricuspid regurgitation. Pulmonic Valve * Pulmonic valve is not well visualized. * No pulmonic stenosis. * No pulmonic regurgitation. Pulmonary Artery * Pulmonary artery not well visualized. Aorta * Not well visualized. Pericardium * There is no pericardial effusion present. Interatrial Septum * No evidence of PFO by color Doppler. IVC * The IVC is not well evaluated. - Attending Attestation Discussed with SARAH and agree with assessment and plan ACS rule out as above
[2017-06-01 17:07] LABS: Red Cell Distribution Width 17.4 % (11.5-14.5)
[2017-06-01 17:09] LABS: Hematocrit 37.4 % (35.3-44.9); Immature Platelets 2.8 % (1.1-6.1); Mean Corpuscular HGB Conc 29.4 g/dL (31.6-35.5); Mean Corpuscular Hemoglobin 25.7 pg (28.0-33.3); Mean Corpuscular Volume 87.4 fL (83.0-100.0); Mean Platelet Volume 9.5 fL (9.4-12.4); Red Blood Count 4.28 M/mcL (3.82-4.97)
[2017-06-01 17:16] LABS: Prothrombin Time 10.8 Seconds (9.4-12.1)
[2017-06-01 17:19] LABS: Activated Partial Thrombo Time 35.4 Seconds (26.0-36.0)
[2017-06-01] MEDS: Heparin 25,000 UNIT/500 ML D5W 25,000 UNIT/500 ML BAG IVC SCH (17:31)
--- NOTE | 2017-06-01 19:36 | Event Note ---
Date of Encounter: 06/01/17 Time of Encounter: 19:34 I called and spoke with Dr. Meza regarding the patient current clinical presentation, and elevation in troponins. He has agreed to consult on the patient. Continue telemetry, continue to trend cardiac enzymes, morphine for CP , continue nitro paste.
[2017-06-01] MEDS: *HR* Morphine 2 MG/ML SYRINGE IVP PRN (20:01)
[2017-06-01] MEDS: Nitroglycerin 1 INCH/GM PACKET TP SCH (20:46)
[2017-06-01] MEDS: Acetaminophen 325 MG TABLET PO PRN (20:46)
[2017-06-01] MEDS ORDERED: Albuterol Neb 0.63 MG/3 ML VIAL IH PRN (22:00)
[2017-06-01] MEDS ORDERED: Loratadine 10 MG TABLET PO PRN (22:01)
[2017-06-02] MEDS: *HR* Morphine 2 MG/ML SYRINGE IVP PRN ×6 (00:34→19:02)
[2017-06-02] MEDS: Ondansetron 4 MG/2 ML VIAL IVP PRN ×2 (01:06→14:34)
[2017-06-02] MEDS: Acetaminophen 325 MG TABLET PO PRN ×4 (02:43→21:39)
[2017-06-02] MEDS: Nitroglycerin 1 INCH/GM PACKET TP SCH ×2 (05:01→12:49)
[2017-06-02 05:48] LABS: Hematocrit 38.6 % (35.3-44.9); Hemoglobin 10.9 g/dL (11.5-15.4); Mean Corpuscular HGB Conc 28.2 g/dL (31.6-35.5); Mean Corpuscular Hemoglobin 24.9 pg (28.0-33.3); Mean Corpuscular Volume 88.3 fL (83.0-100.0); Mean Platelet Volume 9.7 fL (9.4-12.4); Platelet Count 445 K/mcL (140-400); Red Blood Count 4.37 M/mcL (3.82-4.97); Red Cell Distribution Width 17.5 % (11.5-14.5)
[2017-06-02 06:32] LABS: Chol/HDL Ratio 5.7 (0-4.9); Cholesterol 224 mg/dL (< 200); HDL Cholesterol 39 mg/dL (40-59); Triglycerides 826 mg/dL (< 150)
[2017-06-02 06:35] LABS: BUN/Creatinine Ratio 35 (6-26); Blood Urea Nitrogen 15 mg/dL (6-20); Calcium 9.3 mg/dL (8.6-10.3); Carbon Dioxide 29 mEq/L (23-29); Chloride 100 mEq/L (98-107); Glucose 99 mg/dL (70-105); Osmolality,Calculated 281 (280-300); Potassium 3.9 mEq/L (3.5-5.1); Sodium 135 mEq/L (136-145); eGFR For African Americans > 60 (> 60); eGFR For Non-African Americans > 60 (> 60)
[2017-06-02] MEDS ORDERED: Aspirin Enteric Coated 81 MG Tablet PO SCH (09:00)
[2017-06-02] MEDS ORDERED: Isosorbide MONOnitrate (24 HR) 60 MG TAB.ER.24H PO SCH (09:00)
[2017-06-02] MEDS ORDERED: Metoprolol XL (24 HR) Succ 50 MG TAB.ER.24H PO SCH (09:00)
--- NOTE | 2017-06-02 09:19 | Cardiology Consult Note ---
Date of Encounter: 06/02/17 Time of Encounter: 09:16 Assessment and Plan (1) NSTEMI (non-ST elevated myocardial infarction) Current Visit: Yes Status: Acute Per cardiology: -Admitted with chest pain. -Troponins 0.05, 0.58, 4.07, 5.35. -Currently with active chest pain. -On asa, statin, beta sirisha, plavix, imdur. Currently on heparin drip and has nitro paste to left chest wall. -Hemoglobin 10.9 (baseline 8-10). -Urgent LHC. Risks versus benefits of LHC explained to patient. Patient states understanding and agreeable to proceed. -Further recommendations pending LHC. (2) Chest pain Current Visit: Yes Status: Acute Per cardiology: -Presented with chest pain that occured at rest. -States was relieved by nitro in the ER, however this morning woke up with 8/10 chest pain, non-radiating. -On heparin drip, has nitro paste to left chest wall. -States pain similar to previous [place]. -Stat ECG. -Urgent LHC. Risks versus benefits of LHC explained to patient. Patient states understanding and agrees with plan. -Further recommendations pending LHC. Qualifiers: Chest pain type: chest pain due to myocardial ischemia Ischemic chest pain type: unstable angina pectoris Qualified Code(s): I20.0 - Unstable angina (3) CAD (coronary artery disease) Current Visit: Yes Status: Chronic Per cardiology: -Known CAD s/p [place] 2014 with JANELLE to 100% mid RCA, has remaining 40% mid LAD, 30% diagonal 1, 20% proximal circumflex, 40% mid circumflex, 30% OM1, 30% proximal RCA ISR. -TTE this admission with LVEF 55%, no segmental wall motion abnormalities noted on visualized lee. -On asa, statin, beta sirisha, plavix, imdur. Currenlty on heparin drip. -Plan for urgent LHC for NSTEMI. Qualifiers: Coronary Disease-Associated Artery/Lesion type: [place] artery [place] vs. transplanted heart: [place] heart Associated angina: with unspecified angina Qualified Code(s): I25.119 - Atherosclerotic heart disease of [place] coronary artery with unspecified angina pectoris Discussion w patient/family: The assessment and plan as outlined above was discussed with the patient who expressed understanding and agreement. All questions were answered. Thank you for involving us in the care of your patient. Please call with any questions. Discussed and reviewed with . History of Present Illness Consult date: 06/01/17 Requesting physician: Caleb Goins Consult reason: chest pain, elevated troponin Chief complaint: chest pain History of present illness: Ms. Finch is a 46 year old female with a relevant past medical history of CAD s/p PCI, [place], HTN, hyperlipidemia, nicotine abuse, COPD. Patient presented to [facility] yesterday due to chest pain. Patient states that yesterday she woke up with 8/10 mid sternal chest pain. States pain was relieved by nitroglycerin. Patient states pain is similar to previous angina. Currently patient with active chest pain, rates pain 8/10. States pain midsternal without radiation. Patient currently with nitro paste to left chest wall. Past Med Surg Social Fam HX - Past Medical History Attestation: Yes The following information was validated with the patient. Source: patient, old records reviewed Medical history: coronary artery disease, GI bleed, hyperlipidemia, hypertension , myocardial infarction Psychiatric history: anxiety - Past Surgical History Surgical History: angioplasty/stent, JOSE/BSO, other - Social History Smoking Status: Former smoker Smokeless Tobacco Status: No Alcohol use: occasionally Drug use: none - Family History Mother Adopted: Yes Medications and Allergies Albuterol Sulfate [Albuterol Inhaler] 2 puff IH Q6H PRN 11/01/16 [History] Atorvastatin [Lipitor] 80 mg PO HS 11/01/16 [History] Buspirone HCl [Buspar] 15 mg PO BID 11/01/16 [History] Clopidogrel [Plavix] 75 mg PO DAILY 11/01/16 [History] Fluticasone Propionate Nasal [Flonase] 50 mcg NS DAILY 11/01/16 [History] Ergocalciferol (VITAMIN D2) [Vitamin D2] 50,000 unit PO QWEEK #7 capsule [Rx] Albuterol Neb [AccuNeb] 0.63 mg IH Q6H PRN 12/02/16 [History] Fenofibrate Nanocrystallized [Tricor] 145 mg PO DAILY 12/02/16 [History] Nitroglycerin [Nitrostat] 0.4 mg PO Q5M PRN 12/02/16 [History] Gabapentin [Neurontin] 600 mg PO TID 01/08/17 [History] Mometasone/Formoterol [Dulera 100 Mcg/5 Mcg Inhaler] 13 gm IH DAILY 01/08/17 [ History] Aspirin [Lo-Dose Aspirin EC] 81 mg PO DAILY 04/17/17 [History] Methocarbamol [Robaxin-750] 750 mg PO DAILY 04/17/17 [History] HYDROcodone/Acet 5/325 mg [[place] 5-325 mg] 1 tab PO Q6H PRN #16 tab 04/21/17 [Rx ] Cetirizine HCl 10 mg PO DAILY PRN #0 05/20/17 [Rx] Isosorbide MONOnitrate (24 HR) [Imdur] 60 mg PO DAILY #30 tab.er.24h 05/20/17 [ Rx] Metoprolol XL (24 HR) Succ [Toprol Xl] 50 mg PO DAILY #30 tab.er.24h 05/20/17 [ Rx] Dicyclomine [Bentyl] 20 mg PO QDPC 06/01/17 [History] FLUoxetine HCl [Prozac] 40 mg PO DAILY 06/02/17 [History] Losartan Potassium [Cozaar] 100 mg PO DAILY 06/02/17 [History] Pantoprazole Sodium 40 mg PO DAILY 06/02/17 [History] 3 Allergy/AdvReac Type Severity Reaction Status Date / Time Penicillins AdvReac Hives Verified 06/01/17 12:19 propoxyphene AdvReac Vomiting Verified 06/01/17 12:19 [From BabitaLong] All Systems Review: A 10-system review of systems was performed and is negative for pertinent findings except as documented above in the HPI. - Cardiovascular Cardiovascular: as per HPI, chest pain at rest, chest pain with exertion Physical Examination Vital Signs, Last 4 Hours Temp Pulse Resp BP Pulse Ox 06/02/17 07:22 98.2 F 82 18 163/91 94 General: Conversant, No Apparent Distress HEENT: Atraumatic, Normocephaly, Mucus Membranes Moist Neck: No JVD, Normal carotid pulses Cardiac: Reg Rate and Rhythm, Normal S1 and S2, No Murmur Lungs: Normal Breath Sounds, No Wheeze, Rales, Rhonchi Neuro: Alert and responsive, No focal deficits noted Abdomen: Soft, Non-Tender Skin: No rashes noted on visualized skin Musculoskeletal: Other (Patient with active chest pain. Pain does not increase with chest wall palpation. ) Extremities: No Clubbing, No Cyanosis, No Edema, Normal Pulses Results 06/02/17 05:27 06/02/17 05:27 Lab Results Impressions Echocardiogram 06/01/17 16:03 Impressions: LVEF 55%. Indeterminate diastolic function. Normal right ventricular structure and function. No significant valvular dysfunction. No pulmonary hypertension. Ascending aorta is not well visualized. Left Ventricular Wall Motion: Rest Echo Findings The mid anterior septal, mid inferior lateral and basal inferior lateral lee were not visualized. All other wall segments showed normal motion. Findings: Study Quality * Technically adequate exam. ECG Findings * Sinus tachycardia. Left Ventricle * LVEF 55%. * Indeterminate diastolic function. * LV size and wall measurements are not well obtained. Right Ventricle * Normal right ventricular structure and function. Left Atrium * Mildly dilated left atrium. Right Atrium * Normal right atrial size. Aortic Valve * No aortic regurgitation. * Aortic valve not well visualized. * No aortic stenosis. Mitral Valve * Normal mitral valve structure. * No mitral stenosis. * Trace mitral regurgitation. Tricuspid Valve * Tricuspid valve not well visualized. * No tricuspid regurgitation. Pulmonic Valve * Pulmonic valve is not well visualized. * No pulmonic stenosis. * No pulmonic regurgitation. Pulmonary Artery * Pulmonary artery not well visualized. Aorta * Not well visualized. Pericardium * There is no pericardial effusion present. Interatrial Septum * No evidence of PFO by color Doppler. IVC * The IVC is not well evaluated. Active Medications Acetaminophen (Tylenol) 650 mg PO Q6HR PRN PRN Reason: Fever Stop: 12/01/17 20:18 Last Admin: 06/02/17 09:09 Dose: 650 mg Albuterol Sulfate (Accuneb) 0.63 mg IH [id number] PRN PRN Reason: Shortness Of Breath Stop: 12/01/17 22:01 Albuterol Sulfate (Albuterol Inhaler) 2 puff IH [id number] PRN PRN Reason: Shortness Of Breath Stop: 12/02/17 04:01 Aspirin (Aspirin Ec) 81 mg PO DAILY DESIRAE Stop: 12/02/17 09:01 Atorvastatin Calcium (Lipitor) 80 mg PO HS DESIRAE Stop: 12/01/17 18:38 Last Admin: 06/01/17 22:03 Dose: Not Given Buspirone HCl (Buspar) 15 mg PO BID [facility] Stop: 12/02/17 09:01 Clopidogrel Bisulfate (Plavix) 75 mg PO DAILY [facility] Stop: 12/02/17 09:01 Dicyclomine HCl (Bentyl) 20 mg PO QDPC [facility] Stop: 12/02/17 09:01 Fenofibrate (Tricor) 162 mg PO DAILY DESIRAE Stop: 12/02/17 09:01 Fluoxetine HCl (Prozac) 20 mg PO DAILY DESIRAE PRN Reason: Protocol Stop: 12/02/17 09:01 Fluticasone Propionate (Flonase) 50 mcg NS DAILY [facility] PRN Reason: Protocol Stop: 12/02/17 09:01 Gabapentin (Neurontin) 600 mg PO TID [facility] Stop: 12/02/17 09:01 Heparin Sodium/Dextrose (Heparin 25,000 Unit/500 Ml D5w) 25,000 unit in 500 mls @ 25.274 mls/hr IVC .[id number] DESIRAE; 14 UNIT/KG/HR PRN Reason: Protocol Stop: 12/01/17 16:16 Last Titration: 06/02/17 06:19 Dose: 13.99 unit/kg/hr, 25.274 mls/hr Isosorbide Mononitrate (Imdur) 60 mg PO DAILY [facility] Stop: 12/02/17 09:01 Lidocaine HCl (Lidoderm 5% Patch) 1 each TP DAILY PRN PRN Reason: BACK PAIN Stop: 12/01/17 22:02 Loratadine (Claritin) 10 mg PO DAILY PRN PRN Reason: Allergy Symptoms Losartan Potassium (Cozaar) 50 mg PO DAILY [facility] Stop: 12/02/17 09:01 Methocarbamol (Robaxin) 750 mg PO DAILY [facility] Stop: 12/02/17 09:01 Metoprolol Succinate (Toprol Xl) 50 mg PO DAILY [facility] Stop: 12/02/17 09:01 Morphine Sulfate (Morphine Sulfate) 2 mg IVP Q4H PRN; Protocol PRN Reason: Chest Pain Stop: 12/01/17 18:53 Last Admin: 06/02/17 09:04 Dose: 2 mg Morphine Sulfate (Morphine Sulfate) 2 mg IVP ONCE ONE PRN Reason: Protocol Stop: 06/02/17 10:03 Naloxone HCl (Narcan) 0.4 mg IVP Q2MIN PRN PRN Reason: SEE COMMENTS Stop: 12/01/17 16:18 Nitroglycerin (Nitroglycerin) 0.5 inch TP Q6HNTG DESIRAE Stop: 12/01/17 19:46 Last Admin: 06/02/17 05:01 Dose: 0.5 inch Nitroglycerin (Nitroglycerin) 0.4 mg SL Q5MIN PRN PRN Reason: Chest Pain Stop: 12/02/17 10:01 Ondansetron HCl (Zofran) 4 mg IVP Q8HR PRN; Protocol PRN Reason: Nausea And Vomiting Stop: 12/02/17 00:40 Last Admin: 06/02/17 01:06 Dose: 4 mg Laboratory Tests 11/05/16 12/03/16 04/17/17 04:08 04:36 14:16 Hgb 9.8 L 9.8 L 10.9 L Creatinine Troponin I Triglycerides Cholesterol LDL Cholesterol, Calc HDL Cholesterol 06/01/17 06/01/17 06/01/17 12:45 16:54 16:54 Hgb 11.0 L Creatinine Troponin I 0.05 H* 0.58 H* Triglycerides Cholesterol LDL Cholesterol, Calc HDL Cholesterol 06/01/17 06/02/17 06/02/17 23:36 05:27 05:27 Hgb 10.9 L Creatinine 0.43 L Troponin I 4.07 H* Triglycerides Cholesterol LDL Cholesterol, Calc HDL Cholesterol 06/02/17 06/02/17 05:27 05:27 Hgb Creatinine Troponin I 5.35 H* Triglycerides 826 H Cholesterol 224 H LDL Cholesterol, Calc TNP HDL Cholesterol 39 L - Imaging and Cardiology Chest Xray: report reviewed Echo: report reviewed Cardiac cath: pending, report reviewed - EKG Interpretation EKG results cardiology: personally reviewed (ECG with SR, HR 90.), other ( Telemetry reviewed with average HR previous 12 hours noted to be 90, SR. PVCs and PACs noted.) Consult Discharge Plan - Plan Referrals: Angela Iverson, [employer] [Primary Care Provider] -
[2017-06-02] MEDS ORDERED: Nitroglycerin 0.4 MG TAB.SUBL SL PRN (10:00)
[2017-06-02] MEDS ORDERED: Nitroglycerin 0.4 MG TAB.SUBL SL ONE (10:01)
[2017-06-02] MEDS ORDERED: *HR* Morphine 2 MG/ML SYRINGE IVP ONE (10:02)
[2017-06-02] MEDS ORDERED: Ondansetron 4 MG/2 ML VIAL ONE (10:25)
[2017-06-02] MEDS ORDERED: 0.9 % Sodium Chloride 1,000 ML ONE ×3 (10:25→21:24)
--- NOTE | 2017-06-02 10:28 | Pre-Sedation Evaluation ---
Pre-sedation evaluation - Pre-sedation checklist Date of procedure: 06/02/17 Procedure: C Recent Vitals: Last Vital Signs Temp 98.2 F 06/02/17 07:22 Pulse 82 06/02/17 07:22 Resp 18 06/02/17 07:22 BP 163/91 06/02/17 07:22 Pulse Ox 94 06/02/17 07:22 H&P (including ROS) documented in medical record: Yes Previous reaction to sedatives/anesthetics: No Dietary Status: NPO after Midnight Dentition: No loose teeth or bridges ASA Classification *see protocol: CLASS II-Mild systemic disease Plan of Care: Pt appropriate candidate for procedure/moderate/conscious sedation
[2017-06-02] MEDS ORDERED: Heparin 1,000 UNITS/500 mL 500 ML ONE (10:33)
[2017-06-02] MEDS ORDERED: ISOVUE-370 200 ML INFUS..BTL IV ONE ×2 (10:33→10:52)
[2017-06-02] MEDS ORDERED: Nitroglycerin 1,000 MCG/10 ML VIAL IV ONE (10:33)
[2017-06-02] MEDS ORDERED: *HR* Heparin 10,000 UNIT/10 ML VIAL ONE (10:33)
[2017-06-02] MEDS ORDERED: *HR* Midazolam HCl 2 MG/2 ML VIAL ONE (10:44)
[2017-06-02] MEDS ORDERED: *HR* FentaNYL (PF) 100 MCG/2 ML VIAL ONE (10:45)
[2017-06-02] MEDS ORDERED: Tirofiban 12.5 MG/250ML 12.5 MG/250 ML BAG ONE (10:50)
[2017-06-02] MEDS ORDERED: *HR* Atropine Sulfate 1 MG/10 ML SYRINGE ONE (10:50)
[2017-06-02] MEDS ORDERED: *HR* Labetalol 100 MG/20 ML MDV ONE (11:34)
[2017-06-02] MEDS ORDERED: *HR* Ticagrelor 90 MG TABLET ONE (11:48)
[2017-06-02] MEDS ORDERED: Tirofiban 12.5 MG/250ML 12.5 MG/250 ML BAG IVC SCH (12:00)
--- NOTE | 2017-06-02 12:10 | Invasive Diagnostic Lab Proc ---
Name: Anusha Finch Date of Study: 06/02/2017 Date: 1970 Ht: 64.2in Medical Record#: [id number] Age: 46 Wt: 198.86lb Gender: Female BSA: 1.96 Order #: [id number] BMI: 33.95 Physicians Procedure Physician: Dominic De La Cruz MD Referring MD: Referring MD: Staff Name Position Time In Sites, Leticia RT (R) Monitor 10:47 AM Arturo Martins RT (R) Scrub 10:47 AM Jenniffer Torres RN Shift Supervisor Melting 10:47 AM Suze Schwarz RN Nurse 10:47 AM Indications Indication Unstable Angina Procedures Performed Procedure L HRT ARTERY/VENTRICLE ANGIO PRQ CARD JANELLE STENT W/ANGIO 1 VSL Pre-Procedure Checklist Informed consent is complete signed and on chart. H&P is on chart. ID band is on and ID verified with patient. Patient NPO for procedure The procedure was described for the patient and questions were answered. Blood Pressure: 141/68 ECG is on chart. Rhythm: NSR Plan of Care Patient will tolerate the procedure without complications. Adequate level of comfort will be maintained. Hemodynamics will remain stable Patient will recover from procedure without complications. Respiratory function will be maintained. Cardiac rhythm will remain stable. Patient temperature will be maintained. Patient and/or family have verbalized understanding of the procedure. Patient Education Chief Complaint/Reason for Test: Cardiac Cath Developmental Category: Adult (18-64 years) Developmentally Appropriate for Age: Yes Learning Barriers: None Education Needs: Procedure Education Method: Verbal Information Taught: Cardiac Cath Educational Evaluation: Able to repeat information Intravenous Access Time IV Size Location DC'd Fluid/Drip Rate Units RN 18g 1 /" Patent On Arrival Lt Arm 0.9NaCl 25 ml/hr Jenniffer Torres RN Allergies PCN,VICODIN Vital Signs Time BP (mmHg) HR (bpm) O2 Sat. RR (bpm) LOC 10:47 AM / % 5 = Fully awake and oriented or at pre-proc level 10:47 AM / % 4 = Oriented but drowsy 11:03 AM / % 4 = Oriented but drowsy 11:18 AM / % 4 = Oriented but drowsy 10:45 AM 141 / 68 99 91 % 10:50 AM 133 / 111 94 96 % 19 10:52 AM 102 / 52 87 97 % 23 10:54 AM 102 / 61 91 96 % 13 11:00 AM 138 / 76 97 97 % 13 11:05 AM 151 / 95 97 98 % 13 11:09 AM 151 / 91 96 97 % 16 11:15 AM 163 / 105 98 99 % 18 11:17 AM 156 / 101 98 98 % 13 11:20 AM 152 / 96 95 98 % 15 11:25 AM 166 / 92 100 97 % 20 11:30 AM 167 / 97 99 98 % 24 11:35 AM 160 / 101 100 97 % 10 11:40 AM 112 / 74 96 97 % 18 11:44 AM 121 / 83 89 96 % 25 11:49 AM 114 / 54 88 97 % 15 Procedural Medications Time Medication Dose Units Method Given By 10:47 AM Oxygen 4 L/min nasal cannula Jenniffer Torres RN 10:48 AM Versed 1 mg Intravenous Jenniffer Torres RN 10:48 AM Fentanyl 50 mcg Intravenous Jenniffer Torres RN 10:48 AM Lidocaine 2% 10 ml Subcutaneous Dominic De La Cruz MD 10:57 AM Heparin 4500 units Intravenous Jenniffer Torres RN 10:57 AM Aggrastat Bolus: 46 ml Intravenous Jenniffer Torres RN 10:57 AM Aggrastat 12.5mg/250ml 16.5 ml Intravenous Jenniffer Torres RN 10:59 AM Oxygen 6 L/min nasal cannula Jenniffer Torres RN 11:36 AM Nitroglycerin 200 mcg Intracoronary Laura De La Cruz MD 11:36 AM Nitroglycerin 200 mcg Intravenous Jenniffer Torres RN 11:37 AM Labetolol 10 mg Intravenous Jenniffer Torres RN 11:37 AM Brilinta 180 mg Orally Jenniffer Torres RN ASA Classification: CLASS II- Mild systemic disease (i.e. well-controlled diabetes, hypertension, asthma, cigarette smoking) Ravi Score Preprocedure Postprocedure Activity 2- Moves 4 extremities sustained head lift Activity 2- Moves 4 extremities sustained head lift Circulation 2- SBP +/= 20 points of pre-anesthetic level Circulation 2- SBP +/= 20 points of pre-anesthetic level Consciousness 2- Awake and alert oriented x 3 Consciousness 2- Awake and alert oriented x 3 O2 Saturation 2- Able to maintain O2 satruation of 92% on room air O2 Saturation 2- Able to maintain O2 satruation of 92% on room air Respiratory 2- Able to deep breathe and cough well Respiratory 2- Able to deep breathe and cough well Total Score 10 Total Score 10 Contrast Agent: Isovue Diagnostic Contrast: 242 ml Total Contrast: 242 ml Fluoro Dose: 2687 mGy Procedure Log Time Note Enter By 10:37 AM CathStat 10:44 AM Vitals capture started with the following parameters, Patient=Adult, Interval=5 min, Initial Bbsuwvqc=464 mmHg, Deflation Rate=5 mmHg, Cuff placed on Right Arm 10:44 AM Recorded ECG: HR=99 Condition=Condition 1 10:45 AM HR=99 bpm, KQSU=306/68 mmhg, SpO2=91.0 % 10:46 AM Pt arrived to cath lab tech 2 at 10:46 tsites 10:47 AM Leticia Wallace RT (R) Position: Monitor Time in: 10:47 tsites 10:47 AM Arturo Martins RT (R) Position: Scrub Time in: 10:47 tsites 10:47 AM Jenniffer Torres RN Position: Shift Supervisor Melting Time in: 10:47 tsites 10:47 AM Suze Schwarz RN Position: Nurse Time in: 10:47 tsites 10:47 AM Patient charges- Angio tray pack, Navilyst 3mm J, Pulse Oximetry and ACIST tubing and transducer tsites 10:47 AM Physician arrived 10:47 tsites 10:47 AM Meet and greet completed tsites 10:47 AM Sign in performed according to hospital policy. tsites 10:47 AM Procedure start 10:47 tsites 10:47 AM Case Delayed No tsites 10:47 AM Time: 10:47 Oxygen on at 4 L/min per nasal cannula by Jenniffer Torres RN tsites 10:47 AM Time: 10:47 Patient comfortable and pain free: Yes tsites 10:47 AM Time: 10:47LOC: 5 = Fully awake and oriented or at pre-proc level tsites 10:48 AM Clinical Presentation: Unstable angina tsites 10:48 AM Time: 10:48 Versed 1 mg Intravenous Given by Jenniffer Torres RN tsites 10:48 AM Time: 10:48 Fentanyl 50 mcg Intravenous Given by Jenniffer Torres RN tsites 10:48 AM Time out performed according to hospital policy tsites 10:48 AM Time: 10:48 10 ml Lidocaine 2% to right groin Subcutaneous Given by Dominic De La Cruz MD tsites 10:48 AM Micro-Introducer Kit utilized for sheath placement tsites 10:48 AM 3cc of contrast injected into rt femoral artery tsites 10:49 AM Access obtained by percutaneous puncture. 6Fr 10cm Terumo Osyka sheath placed in right Femoral artery. [id number] tsites 10:49 AM Pressure channel 1 zero failed. 10:49 AM Pressure channel 1 zero failed. 10:49 AM Pressure channel 1 zero failed. 10:49 AM Pressure channel 1 zero failed. 10:49 AM Pressure channel 1 zero failed. 10:50 AM 5Fr FL 4 catheter inserted over the wire DNC tsites 10:50 AM 0.035 145cm Navilyst 3mmJ wire [id number] tsites 10:50 AM Inflation device was opened. tsites 10:50 AM HR=94 bpm, RZZV=629/111 mmhg, SpO2=96.0 %, Resp=19 B/min 10:50 AM LCA angiography performed in multiple views. tsites 10:50 AM Recorded Pressure: Ao, HR=92, Condition=Condition 1 (Aorta) Ao 110/71/89 10:51 AM NIBP STAT measurement started. 10:52 AM wire reinserted catheter removed tsites 10:52 AM HR=87 bpm, KKES=939/52 mmhg, SpO2=97 %, Resp=23 B/min 10:53 AM 6Fr JR 4 Cordis guide catheter was used to cannulate the PCI vessel successfully. reused? No tsites 10:53 AM ACT drawn tsites 10:54 AM RCA angiography performed in multiple views. tsites 10:54 AM HR=91 bpm, XFMP=168/61 mmhg, SpO2=96 %, Resp=13 B/min 10:56 AM PCI Status Urgent tsites 10:56 AM PCI Indication: PCI for high risk Non-STEMI or unstable angina tsites 10:56 AM PCI lesion in Distal RCA. tsites 10:57 AM Time: 10:57 Heparin 4500 units Intravenous Given by Jenniffer Torres RN tsites 10:57 AM Time: 10:57 Aggrastat Bolus: 46 ml Intravenous Given by Jenniffer Torres RN Villagomez pump tsites 10:57 AM Time: 10:57 Aggrastat 12.5mg/250ml 16.5 ml Intravenous Given by Jenniffer Torres RN Villagomez pump tsites 10:57 AM .014 Fielder 180cm guide wire across target lesion- successful. reused? No tsites 10:57 AM 2.0 mm x 12 mm Emerge Monorail balloon across target lesion- successful. reused? No tsites 10:58 AM Recorded Pressure: Ao, HR=95, Condition=Condition 1 (Aorta) Ao 126/88/104 10:58 AM Coronary Dominance: right tsites 10:58 AM Lesion found in Proximal RCA. Pre Stenosis: 50 Pre KORI Flow: tsites 10:58 AM Lesion found in Distal RCA. Pre Stenosis: 100 Pre KORI Flow: 0: No Flow/No perfusion tsites 10:58 AM Right Coronary, Right Posterior Descending Arteries with Right Posterolateral and Acute Marginal branches with 100 % stenosis. If graft is supplying this area, 0 % stenosis tsites 10:59 AM Balloon inflated @ 10 brendon for 6 seconds tsites 10:59 AM Time: 10:59 Oxygen on at 6 L/min per nasal cannula by Jenniffer Torres RN tsites 10:59 AM Balloon inflated @ 10 brendon for 4 seconds tsites 10:59 AM Balloon inflated @ 10 brendon for 6 seconds tsites 11:00 AM HR=97 bpm, FGEB=174/76 mmhg, SpO2=97.0 %, Resp=13 B/min 11:00 AM Balloon inflated @ 10 brendon for 6 seconds tsites 11:01 AM Balloon inflated @ 6 brendon for 2 seconds tsites 11:02 AM Balloon inflated @ 9 brendon for 3 seconds tsites 11:02 AM Recorded Pressure: Ao, HR=97, Condition=Condition 1 (Aorta) Ao 150/84/117 11:03 AM Time: 10:47LOC: 4 = Oriented but drowsy tsites 11:03 AM Time: 10:47 Patient comfortable and pain free: No chest pain 10/05 tsites 11:03 AM 2.5 mm x 12 mm Emerge Monorail balloon across target lesion- successful. reused? No tsites 11:03 AM Balloon catheter removed intact. tsites 11:04 AM Balloon inflated @ 12 brendon for 4 seconds tsites 11:04 AM Balloon inflated @ 12 brendon for 6 seconds tsites 11:05 AM Balloon inflated @ 12 brendon for 5 seconds tsites 11:05 AM HR=97 bpm, IDYW=617/95 mmhg, SpO2=98.0 %, Resp=13 B/min 11:05 AM Balloon inflated @ 6 brendon for 10 seconds tsites 11:05 AM Balloon inflated @ 9 brendon for 6 seconds tsites 11:06 AM Balloon inflated @ 7 brendon for 4 seconds tsites 11:06 AM Balloon inflated @ 9 brendon for 6 seconds tsites 11:07 AM Balloon inflated @ 10 brendon for 7 seconds tsites 11:07 AM Balloon inflated @ 9 brendon for 7 seconds tsites 11:08 AM Balloon catheter removed intact. tsites 11:09 AM HR=96 bpm, MXXO=354/91 mmhg, SpO2=97.0 %, Resp=16 B/min 11:10 AM 2.75mm x 16mm Synergy drug-eluting stent across target lesion- successful Lot #[id number] tsites 11:10 AM Stent deployed @ 11 brendon for 8 seconds tsites 11:10 AM Stent balloon reinflated @ 16 brendon for 12 seconds tsites 11:11 AM Lesion found in Mid RCA. Pre Stenosis: 60 Pre KORI Flow: 3: Complete and Brisk Flow/Perfusion tsites 11:13 AM Stent delivery system removed intact. tsites 11:14 AM .014 BMW [place] 182cm guide wire across target lesion- successful. reused? No tsites 11:14 AM 2.0x12 reinserted onto the bmw wire tsites 11:15 AM Lesion found in Right PDA. Pre Stenosis: 80 Pre KORI Flow: tsites 11:15 AM HR=98 bpm, IBHJ=318/105 mmhg, SpO2=99 %, Resp=18 B/min 11:16 AM NIBP STAT measurement started. 11:16 AM Balloon inflated @ 10 brendon for 12 seconds tsites 11:17 AM Balloon inflated @ 12 brendon for 10 seconds tsites 11:17 AM HR=98 bpm, ZWCE=265/101 mmhg, SpO2=98 %, Resp=13 B/min 11:17 AM Balloon inflated @ 12 brendon for 15 seconds tsites 11:18 AM Time: 11:03 Patient comfortable and pain free: Yes tsites 11:18 AM Time: 11:03LOC: 4 = Oriented but drowsy tsites 11:19 AM Balloon catheter removed intact. tsites 11:20 AM HR=95 bpm, INLS=840/96 mmhg, SpO2=98 %, Resp=15 B/min 11:20 AM 2.5mm x 16mm Synergy drug-eluting stent across target lesion- successful Lot #[id number] tsites 11:23 AM Stent deployed @ 9 brendon for 8 seconds tsites 11:23 AM Stent balloon reinflated @ 14 brendon for 12 seconds tsites 11:24 AM Stent balloon reinflated @ 18 brendon for 8 seconds tsites 11:24 AM Stent balloon reinflated @ 18 brendon for 6 seconds tsites 11:25 AM FS=400 bpm, IPQL=230/92 mmhg, SpO2=97 %, Resp=20 B/min 11:25 AM Stent delivery system removed intact. tsites 11:26 AM 2.0x12 reinserted pda tsites 11:28 AM Balloon inflated @ 12 brendon for 11 seconds tsites 11:29 AM Balloon inflated @ 14 brendon for 10 seconds tsites 11:29 AM Balloon catheter removed intact. tsites 11:29 AM 2.5 mm x 12mm NC Emerge balloon across target lesion- successful. reused? No tsites 11:30 AM HR=99 bpm, QWQI=707/97 mmhg, SpO2=98 %, Resp=24 B/min 11:31 AM Balloon inflated @ 16 brendon for 8 seconds tsites 11:31 AM Balloon inflated @ 16 brendon for 6 seconds tsites 11:31 AM Balloon inflated @ 18 brendon for 4 seconds tsites 11:32 AM Balloon catheter removed intact. tsites 11:33 AM Time: 11:18LOC: 4 = Oriented but drowsy tsites 11:33 AM Time: 11:18 Patient comfortable and pain free: Yes tsites 11:34 AM 3.0 mm x 12mm NC Trek Rx balloon across target lesion- successful. reused? No tsites 11:35 AM TL=985 bpm, DKZX=353/101 mmhg, SpO2=97 %, Resp=10 B/min 11:35 AM Balloon inflated @ 18 brendon for 5 seconds tsites 11:35 AM Balloon inflated @ 18 brendon for 4 seconds tsites 11:36 AM Balloon catheter removed intact. tsites 11:36 AM Time: 11:36 Nitroglycerin 200 mcg Intracoronary Given by Laura De La Cruz MD tsites 11:37 AM Time: 11:36 Nitroglycerin 200 mcg Intravenous Given by Jenniffer Torres RN tsites 11:37 AM Time: 11:37 Labetolol 10 mg Intravenous Given by Jenniffer Torres RN tsites 11:37 AM Time: 11:37 Brilinta 180 mg Orally Given by Jenniffer Torres RN tsites 11:38 AM Recorded Pressure: Ao, HR=99, Condition=Condition 1 (Aorta) Ao 151/102/122 11:39 AM wire reinserted catheter removed tsites 11:39 AM 5Fr Pigtail catheter inserted over the wire DNC tsites 11:39 AM Catheter selectively placed in left ventricle tsites 11:40 AM HR=96 bpm, TESK=943/74 mmhg, SpO2=97 %, Resp=18 B/min 11:40 AM Recorded Pressure: LV, HR=98, Condition=Condition 1 (Left Ventricle) LV 210/93/131 11:40 AM Bolus angiogram of left Ventricle complete: 10 ml/sec for a total of 25 mls tsites 11:42 AM Catheter removed tsites 11:42 AM Bolus angiogram of right Femoral complete: 2 ml/sec for a total of 4 mls tsites 11:42 AM Recorded Pressure: Ao, HR=96, Condition=Condition 1 (Aorta) Ao 144/85/109 11:44 AM HR=89 bpm, UCRV=747/83 mmhg, SpO2=96 %, Resp=25 B/min 11:45 AM Procedure completed at 11:45 tsites 11:45 AM Did you address KORI flow and Dominance? Yes tsites 11:45 AM Sign out completed: Radiation Dose 2687 mGy Fluoro Time: 15.9 Isovue 370 - 200ml contrast 242 ml given by Dominic De La Cruz MD. Complications: NoneCardiac Rehab Consult needed: YesConfirmed administered medications: Yes tsites 11:47 AM Isovue 370 - 200ml,2 Bottle(s) used. tsites 11:47 AM Arterial sheath pulled, Angio-seal closure device used and was Successful S/N. tsites 11:47 AM Estimated Blood Loss: less than 50cc tsites 11:47 AM Post ECG NSR tsites 11:47 AM Post Blood Pressure 121/83 tsites 11:47 AM 11:47 Post Pulses Bilateral DP & PT 1+ tsites 11:47 AM Information taught Cardiac Cath, PCI, and Angioseal tsites 11:48 AM Education needs Procedure, Plan of Care, and Responsibilities of Patient in Care tsites 11:48 AM Learning barriers :None tsites 11:48 AM Education Methods Verbal tsites 11:48 AM Education evaluation Able to repeat information tsites 11:48 AM Site status No bleeding/hematoma - Rt Groin as reported by Arturo Martins RT (R) at 11:48 tsites 11:48 AM Plavix, Effient or Brilinta given Yes tsites 11:48 AM Delay to floor No tsites 11:49 AM HR=88 bpm, NNAN=961/54 mmhg, SpO2=97 %, Resp=15 B/min 11:53 AM Report given to jak BRAVO Pt taken to Room #48. 11:53 tsites 11:53 AM Patient out of room: 11:53 tsites 11:53 AM no family at this time tsites Complications Complication None Hemodynamics Pressures Site Systolic/A Wave Diastolic/V Wave Mean AO 110 71 89 AO 126 88 104 AO 150 84 117 AO 151 102 122 LV 210 93 131 AO 144 85 109 Post Procedure Information Blood Pressure: 121/83 mmHg Rhythm: NSR Post procedural instructions were given Closure Device Time Device Success/Fail 06/02/2017 11:53:00 AM Angio-Seal VIP Successful Site Checks Time Location Status Staff Sheath In? Note 11:48 AM Rt Groin No bleeding/hematoma Arturo Martins RT (R) Pulses Time Site Pre-Procedure Post-Procedure Note 11:47:00 AM Bilateral DP & PT 1+ Updated by Leticia Wallace RT (R) on 06/02/2017 12:03:51 PM Leticia Wallace RT electronically signed on 06/02/2017 12:04:15 PM with status of Final
[2017-06-02] MEDS: FLUoxetine 20 MG CAPSULE PO SCH (12:47)
[2017-06-02] MEDS: Gabapentin 300 MG CAPSULE PO SCH ×3 (12:48→21:40)
[2017-06-02] MEDS: Fluticasone Propionate Nasal 50 MCG/SPRAY BOTTLE NS SCH (12:48)
[2017-06-02] MEDS: Fenofibrate 54 MG TABLET PO SCH (12:48)
[2017-06-02] MEDS: Methocarbamol 750 MG TABLET PO SCH (12:48)
--- NOTE | 2017-06-02 17:16 | Electrocardiograph Report ---
[address] [address] Test Date: 2017-06-01 Pat Name: Anusha Finch Department: [id number] Room: [facility] [place] Gender: F Strap Buckler: [id number] : 1970 Requested By: Caleb Goins Order Number: [id number] Reading MD: Zaria Thompson Measurements Intervals [place] Rate: 102 P: 68 OR: 196 QRS: 13 QRSD: 96 T: 74 QT: 343 QTc: 402 Interpretive Statements SINUS TACHYCARDIA POSSIBLE LEFT ATRIAL ENLARGEMENT NONSPECIFIC ST & T-WAVE ABNORMALITY ABNORMAL RHYTHM ECG Electronically Signed On 06-02-2017 17:14:32 EST by Zaria Thompson
--- NOTE | 2017-06-02 20:10 | Internal Med Progress Note ---
Date of Encounter: 06/02/17 Time of Encounter: 09:00 - Assessment and plan (1) NSTEMI (non-ST elevated myocardial infarction) Current Visit: Yes Status: Acute Assessment and plan: Patient admitted with chest pain troponins trended up through the night initial was 0.05, 0.58 4.07 5.35 patient was having active chest pain during assessment Dr. Cowan was at bedside patient for urgent heart catheter- ,, (2) CAD (coronary artery disease) Current Visit: Yes Status: Chronic Assessment and plan: Known CAD status post NM 2014 drug-eluting stent mid RCA-patient states she has 4 stents altogether TTE this admission EF 55% 10 units with aspirin and statin beta sirisha Plavix Imdur Qualifiers: Coronary Disease-Associated Artery/Lesion type: [place] artery [place] vs. transplanted heart: [place] heart Associated angina: with unspecified angina Qualified Code(s): I25.119 - Atherosclerotic heart disease of [place] coronary artery with unspecified angina pectoris (3) COPD (chronic obstructive pulmonary disease) Current Visit: Yes Status: Chronic Assessment and plan: Presently stable Continue with bronchodilators oxygen as needed She recently quit smoking 2 weeks ago Qualifiers: COPD type: unspecified COPD Qualified Code(s): J44.9 - Chronic obstructive pulmonary disease, unspecified (4) HTN (hypertension) Current Visit: Yes Status: Chronic Assessment and plan: We will continue with home medication Qualifiers: Hypertension type: essential hypertension Qualified Code(s): I10 - Essential (primary) hypertension (5) DVT prophylaxis Current Visit: Yes Status: Acute Assessment and plan: Patient's on heparin drip - Time Spent With Patient less than 15 minutes - Subjective Interval history: Patient was seen earlier today. Notify per nursing staff patient having active chest pain 10 out of 10 did order some morphine of note that patient's troponin had trended up overnight 4.07- 5.35 on a heparin drip. Dr. Cowan at bedside to see patient and patient is taken to catheter lab - Constitutional Vitals: Temp Pulse Resp BP Pulse Ox 97.8 F 104 17 99/61 90 06/02/17 19:22 06/02/17 19:22 06/02/17 19:22 06/02/17 19:22 06/02/17 19:22 General appearance: Present: A&O X 3, severe distress - Head Head exam: Present: atraumatic, normocephalic - Eye Eye exam: Present: PERRL, conjuntiva pink, sclera anicteric Pupils: Present: PERRL - Neck Neck exam general surgery: Present: supple, trachea midline. Absent: lymphadenopathy - Respiratory Respiratory exam: Present: CTAB. Absent: accessory muscle use, rales, rhonchi, wheezes - Cardiovascular Cardiovascular exam: Present: RRR, +S1, +S2. Absent: diastolic murmur, gallop, rubs, systolic murmur - GI/Abdominal GI/Abdominal exam: Present: normal bowel sounds, soft, no peritoneal signs. Absent: distended, tenderness - Extremities Exam Extremities exam: Present: warm, radial pulses palpable and symmetrical. Absent : calf tenderness, cyanotic, pedal edema - Neurological Exam Neurological exam: Present: CN II-XII intact, oriented X3, no focal deficits. Absent: pronater drift, facial droop, speech deficit - Skin Skin exam: Present: dry, intact Internal Medicine: Result - Labs CBC & Chem 7: 06/02/17 05:27 06/02/17 05:27 Labs: Short CBC 06/02/17 Range/Units 05:27 WBC 7.3 (4.3-11.1) K/mcL Hgb 10.9 L (11.5-15.4) g/dL Hct 38.6 (35.3-44.9) % Plt Count 445 H (140-400) K/mcL BMP 06/02/17 05:27 Sodium 135 L Potassium 3.9 Chloride 100 Carbon Dioxide 29 BUN 15 Creatinine 0.43 L Glucose 99 Calcium 9.3 Cardiac Enzymes 06/01/17 06/02/17 Range/Units 23:36 05:27 Troponin I 4.07 H* 5.35 H* (< 0.04) ng/mL - ABG Interpretation ABG results: PT/INR, D-dimer PT 10.8 Seconds (9.4-12.1) 06/01/17 16:54 - Impressions Impressions Echocardiogram 06/01/17 16:03 Impressions: LVEF 55%. Indeterminate diastolic function. Normal right ventricular structure and function. No significant valvular dysfunction. No pulmonary hypertension. Ascending aorta is not well visualized. Left Ventricular Wall Motion: Rest Echo Findings The mid anterior septal, mid inferior lateral and basal inferior lateral lee were not visualized. All other wall segments showed normal motion. Findings: Study Quality * Technically adequate exam. ECG Findings * Sinus tachycardia. Left Ventricle * LVEF 55%. * Indeterminate diastolic function. * LV size and wall measurements are not well obtained. Right Ventricle * Normal right ventricular structure and function. Left Atrium * Mildly dilated left atrium. Right Atrium * Normal right atrial size. Aortic Valve * No aortic regurgitation. * Aortic valve not well visualized. * No aortic stenosis. Mitral Valve * Normal mitral valve structure. * No mitral stenosis. * Trace mitral regurgitation. Tricuspid Valve * Tricuspid valve not well visualized. * No tricuspid regurgitation. Pulmonic Valve * Pulmonic valve is not well visualized. * No pulmonic stenosis. * No pulmonic regurgitation. Pulmonary Artery * Pulmonary artery not well visualized. Aorta * Not well visualized. Pericardium * There is no pericardial effusion present. Interatrial Septum * No evidence of PFO by color Doppler. IVC * The IVC is not well evaluated. Consult Discharge Plan - Plan Referrals: Angela Iverson, CHRYSTAL [Primary Care Provider] -
[2017-06-02] MEDS ORDERED: 0.9 % Sodium Chloride 1,000 ML IVC ONE ×2 (21:11→21:31)
[2017-06-02] MEDS: *HR* Ticagrelor 90 MG TABLET PO SCH (21:39)
[2017-06-02] MEDS: *HR* Morphine 2 MG/ML SYRINGE IVP SCH (21:43)
[2017-06-02] MEDS ORDERED: Nitroglycerin 25 MG/250 ML INFUS..BTL IVC SCH (21:45)
[2017-06-02] MEDS ORDERED: Heparin 25,000 UNIT/500 ML D5W 25,000 UNIT/500 ML BAG IVC SCH (21:45)
[2017-06-02 22:16] LABS: Hemoglobin 9.7 g/dL (11.5-15.4); Mean Platelet Volume 9.2 fL (9.4-12.4); Red Cell Distribution Width 17.7 % (11.5-14.5)
[2017-06-02 22:18] LABS: Hematocrit 33.5 % (35.3-44.9); Mean Corpuscular Hemoglobin 25.6 pg (28.0-33.3); Mean Corpuscular Volume 88.4 fL (83.0-100.0); Platelet Count 409 K/mcL (140-400); Red Blood Count 3.79 M/mcL (3.82-4.97)
[2017-06-02 22:22] LABS: INR 1.1; Prothrombin Time 11.3 Seconds (9.4-12.1)
[2017-06-02 22:26] LABS: Activated Partial Thrombo Time 27.5 Seconds (26.0-36.0)
[2017-06-03] MEDS: *HR* Morphine 2 MG/ML SYRINGE IVP SCH (01:08)
[2017-06-03] MEDS: *HR* Morphine 2 MG/ML SYRINGE IVP PRN ×2 (04:40→08:22)
[2017-06-03] MEDS: Nitroglycerin 1 INCH/GM PACKET TP SCH (05:29)
[2017-06-03 06:21] LABS: Hematocrit 34.7 % (35.3-44.9); Hemoglobin 9.6 g/dL (11.5-15.4)
[2017-06-03] MEDS: Acetaminophen 325 MG TABLET PO PRN ×3 (06:48→20:53)
[2017-06-03 06:51] LABS: BUN/Creatinine Ratio 20 (6-26); Blood Urea Nitrogen 9 mg/dL (6-20); eGFR For African Americans > 60 (> 60); eGFR For Non-African Americans > 60 (> 60)
[2017-06-03] MEDS ORDERED: *HR* Heparin 5,000 UNIT/ML VIAL ONE ×2 (07:12→20:50)
[2017-06-03] MEDS: Heparin 25,000 UNIT/500 ML D5W 25,000 UNIT/500 ML BAG IVC SCH (08:13)
[2017-06-03] MEDS: Fluticasone Propionate Nasal 50 MCG/SPRAY BOTTLE NS SCH (08:47)
[2017-06-03] MEDS ORDERED: *HR* LORazepam 2 MG/ML VIAL IVP STA (08:58)
[2017-06-03] MEDS ORDERED: Isosorbide MONOnitrate (24 HR) 30 MG TAB.ER.24H PO SCH (09:00)
[2017-06-03] MEDS: Gabapentin 300 MG CAPSULE PO SCH ×3 (09:44→20:48)
[2017-06-03] MEDS: FLUoxetine 20 MG CAPSULE PO SCH (09:44)
[2017-06-03] MEDS: Methocarbamol 750 MG TABLET PO SCH (09:45)
[2017-06-03] MEDS: Aspirin 81 MG TAB.CHEW PO SCH (09:45)
[2017-06-03] MEDS: Fenofibrate 54 MG TABLET PO SCH (09:45)
[2017-06-03] MEDS: *HR* Ticagrelor 90 MG TABLET PO SCH ×2 (09:45→20:48)
[2017-06-03] MEDS: Metoprolol XL (24 HR) Succ 50 MG TAB.ER.24H PO SCH (09:46)
--- NOTE | 2017-06-03 11:22 | Cardiology Progress Note ---
Date of Encounter: 06/03/17 Time of Encounter: 08:00 Assessment and Plan (1) NSTEMI (non-ST elevated myocardial infarction) Current Visit: Yes Status: Acute Per cardiology: -Admitted with chest pain. -Troponins 0.05, 0.58, 4.07, 5.35, 11.18. 7.16. -s/p [facility] yesterday with JANELLE x2 placed to RCA. -ON asa, brilinta, beta blokcer, statin, tricor, imdur. -Educated on importance of dual antiplatelet therapy uninterrupted for at least one year. Pateint states understanding. -Admits to current chest pain 7/10. On heparin drip and nitro drip. -Chest pain reproduceable with palpation. -BP hypertensive with SBP 170s. -Toprol and imdur increased. -titrate nitro drip. (2) Chest pain Current Visit: Yes Status: Acute Per cardiology: -Presented with chest pain that occured at rest. -S/p [facility] with PCI. -On heparin drip and nitro drip. -States woke up today with 7/10 chest pain. -Chest pain reproduceable with palpation. -BP hypertensive with SBP 170s. -Stat ECG reviewed with , no acute ischemic changes noted. -Will increase toprol and imdur. -Titrate nitro drip. Qualifiers: Chest pain type: chest pain due to myocardial ischemia Ischemic chest pain type: unstable angina pectoris Qualified Code(s): I20.0 - Unstable angina (3) CAD (coronary artery disease) Current Visit: Yes Status: Chronic Per cardiology: -Known CAD s/p [place] 2014 with JANELLE to 100% mid RCA, has remaining 40% mid LAD, 30% diagonal 1, 20% proximal circumflex, 40% mid circumflex, 30% OM1, 30% proximal RCA ISR. -TTE this admission with LVEF 55%, no segmental wall motion abnormalities noted on visualized lee. -On asa, statin, beta sirisha, brilinta, imdur. Currenlty on heparin drip. -S/p [facility] yesterday with JANELLE to RCA. Qualifiers: Coronary Disease-Associated Artery/Lesion type: [place] artery [place] vs. transplanted heart: [place] heart Associated angina: with unspecified angina Qualified Code(s): I25.119 - Atherosclerotic heart disease of [place] coronary artery with unspecified angina pectoris Discussion w patient/family: The assessment and plan as outlined above was discussed with the patient who expressed understanding and agreement. All questions were answered. Thank you for involving us in the care of your patient. Please call with any questions. Discussed and reviewed with . Subjective Principal diagnosis: NSTEMI Interval history: Called to patient's room this morning for chest pain. Patient is s/p [facility] with PCI. Pateint reports 7/10 chest pain. Chest pain reproduceable with palpation. ECG this am with no acute changes. BP hypertensive. Objective Vital Signs, Last 4 Hours Temp Pulse Resp BP Pulse Ox 06/03/17 11:16 85 16 124/70 98 06/03/17 10:36 98.0 F 93 18 145/94 97 06/03/17 09:41 95 16 145/94 94 06/03/17 09:19 100 16 145/91 96 06/03/17 09:05 95 16 152/93 95 06/03/17 08:50 96 18 163/92 96 06/03/17 08:36 92 18 144/94 98 06/03/17 08:24 94 20 177/93 96 06/03/17 07:34 98.8 F 97 18 135/80 98 General: Conversant, No Apparent Distress HEENT: Atraumatic, Normocephaly, Mucus Membranes Moist Neck: No JVD, Normal carotid pulses Cardiac: Reg Rate and Rhythm, Normal S1 and S2, No Murmur Lungs: Normal Breath Sounds, No Wheeze, Rales, Rhonchi Neuro: Alert and responsive, No focal deficits noted Abdomen: Soft, Non-Tender Skin: No rashes noted on visualized skin Musculoskeletal: Other (Chest pain reproduceable with palpation. ) Extremities: No Clubbing, No Cyanosis, No Edema, Normal Pulses Results 06/03/17 05:40 06/03/17 05:40 Lab Results Impressions Chest X-Ray 06/03/17 10:07 IMPRESSION: Cardiomegaly and pulmonary vascular congestion. D/ / Jaqui Lacey MD / Jaqui Lacey MD Interpreting Provider: Jaqui Lacey MD Active Medications Acetaminophen (Tylenol) 650 mg PO Q6HR PRN PRN Reason: Fever Stop: 12/01/17 20:18 Last Admin: 06/03/17 06:48 Dose: 650 mg Albuterol Sulfate (Accuneb) 0.63 mg IH [id number] PRN PRN Reason: Shortness Of Breath Stop: 12/01/17 22:01 Albuterol Sulfate (Albuterol Inhaler) 2 puff IH [id number] PRN PRN Reason: Shortness Of Breath Stop: 12/02/17 04:01 Aspirin (Aspirin) 81 mg PO DAILY DESIRAE Stop: 12/03/17 09:01 Last Admin: 06/03/17 09:45 Dose: 81 mg Atorvastatin Calcium (Lipitor) 80 mg PO HS DESIRAE Stop: 12/01/17 18:38 Last Admin: 06/02/17 21:39 Dose: 80 mg Buspirone HCl (Buspar) 15 mg PO BID DESIRAE Stop: 12/02/17 09:01 Last Admin: 06/03/17 09:45 Dose: 15 mg Dicyclomine HCl (Bentyl) 20 mg PO QDPC DESIRAE Stop: 12/02/17 09:01 Last Admin: 06/03/17 09:44 Dose: 20 mg Fenofibrate (Tricor) 162 mg PO DAILY DESIRAE Stop: 12/02/17 09:01 Last Admin: 06/03/17 09:45 Dose: 162 mg Fluoxetine HCl (Prozac) 20 mg PO DAILY DESIRAE PRN Reason: Protocol Stop: 12/02/17 09:01 Last Admin: 06/03/17 09:44 Dose: 20 mg Fluticasone Propionate (Flonase) 50 mcg NS DAILY DESIRAE PRN Reason: Protocol Stop: 12/02/17 09:01 Last Admin: 06/03/17 08:47 Dose: Not Given Gabapentin (Neurontin) 600 mg PO TID DESIRAE Stop: 12/02/17 09:01 Last Admin: 06/03/17 09:44 Dose: 600 mg Nitroglycerin (Nitroglycerin Premix 25 Mg/250 Ml) 25 mg in 250 mls @ 3 mls/hr IVC .Q24H DESIRAE; 5 MCG/MIN PRN Reason: Protocol Stop: 12/02/17 21:46 Last Titration: 06/03/17 08:30 Dose: 20 mcg/min, 12 mls/hr Isosorbide Mononitrate (Imdur) 90 mg PO DAILY [facility] Stop: 12/03/17 09:01 Last Admin: 06/03/17 09:45 Dose: 90 mg Lidocaine HCl (Lidoderm 5% Patch) 1 each TP DAILY PRN PRN Reason: BACK PAIN Stop: 12/01/17 22:02 Loratadine (Claritin) 10 mg PO DAILY PRN PRN Reason: Allergy Symptoms Losartan Potassium (Cozaar) 50 mg PO DAILY DESIRAE Stop: 12/02/17 09:01 Last Admin: 06/03/17 09:43 Dose: 50 mg Methocarbamol (Robaxin) 750 mg PO DAILY [facility] Stop: 12/02/17 09:01 Last Admin: 06/03/17 09:45 Dose: 750 mg Metoprolol Succinate (Toprol Xl) 75 mg PO DAILY [facility] Stop: 12/03/17 09:01 Last Admin: 06/03/17 09:46 Dose: 75 mg Morphine Sulfate (Morphine Sulfate) 2 mg IVP Q4H PRN; Protocol PRN Reason: Chest Pain Stop: 12/01/17 18:53 Last Admin: 06/03/17 08:22 Dose: 2 mg Naloxone HCl (Narcan) 0.4 mg IVP Q2MIN PRN PRN Reason: SEE COMMENTS Stop: 12/01/17 16:18 Nitroglycerin (Nitroglycerin) 0.4 mg SL Q5MIN PRN PRN Reason: Chest Pain Stop: 12/02/17 10:01 Ondansetron HCl (Zofran) 4 mg IVP Q8HR PRN; Protocol PRN Reason: Nausea And Vomiting Stop: 12/02/17 00:40 Last Admin: 06/02/17 14:34 Dose: 4 mg Ticagrelor (Brilinta) 90 mg PO BID [facility] Stop: 12/02/17 21:01 Last Admin: 06/03/17 09:45 Dose: 90 mg Laboratory Tests 06/03/17 06/03/17 05:40 05:40 Hgb 9.6 L Creatinine 0.45 L - Imaging and Cardiology Chest Xray: report reviewed Echo: report reviewed Cardiac cath: report reviewed - EKG Interpretation EKG results cardiology: personally reviewed (ECG this am with SR, HR 97.), other (Telemetry reviewed with average HR previous 12 hours noted to be 100, SR. PVCs and PACs noted.) Consult Discharge Plan - Plan Referrals: Angela Iverson CNP [Primary Care Provider] - 06/10/17 4:00 pm
--- NOTE | 2017-06-03 19:39 | Electrocardiograph Report ---
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
--- NOTE | 2017-06-03 20:16 | Internal Med Progress Note ---
Date of Encounter: 06/03/17 Time of Encounter: 10:30 - Assessment and plan (1) NSTEMI (non-ST elevated myocardial infarction) Status: Acute Assessment and plan: admitted with chest pain; troponins trended up through the night initial was 0.05, 0.58 4.07 5.35. [facility] 06/02/17 with JANELLE x2 placed to RCA. Will need dual antiplatelet therapy uninterrupted for at least one year. With recurrent chest pain on 06/03/17 that is reproducible with palpation. Toprol and imdur increased per Cardiology. (2) CAD (coronary artery disease) Status: Acute Assessment and plan: known CAD. S/p [facility] 06/02/17 with JANELLE as noted as above. TTE this admission with LVEF 55%, no segmental wall motion abnormalities noted on visualized lee. On asa, statin, beta sirisha, brilinta, imdur. Qualifiers: Coronary Disease-Associated Artery/Lesion type: [place] artery [place] vs. transplanted heart: [place] heart Associated angina: with unspecified angina Qualified Code(s): I25.119 - Atherosclerotic heart disease of [place] coronary artery with unspecified angina pectoris (3) COPD (chronic obstructive pulmonary disease) Status: Acute Assessment and plan: Presently stable Continue with bronchodilators oxygen as needed She recently quit smoking 2 weeks ago Qualifiers: COPD type: unspecified COPD Qualified Code(s): J44.9 - Chronic obstructive pulmonary disease, unspecified (4) HTN (hypertension) Status: Chronic Assessment and plan: We will continue with home medication Qualifiers: Hypertension type: essential hypertension Qualified Code(s): I10 - Essential (primary) hypertension (5) DVT prophylaxis Status: Deleted Assessment and plan: Patient's on heparin drip - Subjective Interval history: Seen and examined at bedside. She is still having intermittent chest pain that is worse with inspiration. No SOB. Says she does not want to go home today. - Constitutional Vitals: Temp Pulse Resp BP Pulse Ox 97.8 F 86 14 116/73 95 06/03/17 19:02 06/03/17 19:02 06/03/17 19:02 06/03/17 19:02 06/03/17 19:02 General appearance: Present: A&O X 3, morbidly obese, severe distress - Head Head exam: Present: atraumatic, normocephalic - Eye Eye exam: Present: PERRL, conjuntiva pink, sclera anicteric Pupils: Present: PERRL - Neck Neck exam general surgery: Present: supple, trachea midline. Absent: lymphadenopathy - Respiratory Respiratory exam: Present: CTAB. Absent: accessory muscle use, rales, rhonchi, wheezes - Cardiovascular Cardiovascular exam: Present: RRR, +S1, +S2. Absent: diastolic murmur, gallop, rubs, systolic murmur - GI/Abdominal GI/Abdominal exam: Present: normal bowel sounds, soft, no peritoneal signs. Absent: distended, tenderness - Extremities Exam Extremities exam: Present: warm, radial pulses palpable and symmetrical. Absent : calf tenderness, cyanotic, pedal edema - Neurological Exam Neurological exam: Present: CN II-XII intact, oriented X3, no focal deficits. Absent: pronater drift, facial droop, speech deficit - Skin Skin exam: Present: dry, intact Internal Medicine: Result - Labs CBC & Chem 7: 06/04/17 15:05 06/04/17 15:05 Labs: Short CBC 06/02/17 06/03/17 Range/Units 22:08 05:40 WBC 9.4 (4.3-11.1) K/mcL Hgb 9.7 L 9.6 L (11.5-15.4) g/dL Hct 33.5 L 34.7 L (35.3-44.9) % Plt Count 409 H 395 (140-400) K/mcL BMP 06/03/17 05:40 BUN 9 Creatinine 0.45 L Cardiac Enzymes 06/02/17 06/03/17 Range/Units 20:06 05:40 Troponin I 11.18 H* 7.16 H* (< 0.04) ng/mL - ABG Interpretation ABG results: PT/INR, D-dimer PT 11.3 Seconds (9.4-12.1) 06/02/17 22:08 - Impressions Impressions Chest X-Ray 06/03/17 10:07 IMPRESSION: Cardiomegaly and pulmonary vascular congestion. D/ / Jaqui Lacey MD / Jaqui Lacey MD Interpreting Provider: Jaqui Lacey MD Consult Discharge Plan - Plan Instructions: Metoprolol (By mouth), Hydrocodone/Acetaminophen (By mouth), Prednisone (By mouth), Influenza Virus Vaccine (Injection), Azithromycin (By mouth), Isosorbide Mononitrate (By mouth), Ranolazine (By mouth), Ticagrelor ( By mouth), Myocardial Infarction (DC), Coronary Artery Disease (DC), Right Heart Catheterization (DC), Chronic Obstructive Pulmonary Disease (DC) Referrals: Angela Iverson, CHRYSTAL [Primary Care Provider] - 06/10/17 4:00 pm Prescriptions: Azithromycin [Azithromycin 6-Tab Pack] 250 mg PO PER PKG DI #6 tab HYDROcodone/Acet 5/325 mg [[place] 5-325 mg] 1 tab PO Q6H PRN 7 Days #28 tab PRN Reason: Pain Isosorbide MONOnitrate (24 HR) [Imdur] 60 mg PO DAILY #30 tab.er.24h Metoprolol XL (24 HR) Succ [Toprol Xl] 75 mg PO DAILY #120 tab.er.24h predniSONE [PredniSONE] 40 mg PO DAILY #6 tablet Ranolazine [Ranexa] 500 mg PO BID #60 tab.er.12h Ticagrelor [Brilinta] 90 mg PO BID #30 tablet
--- NOTE | 2017-06-03 20:55 | Electrocardiograph Report ---
[address] [place] [address] Test Date: 2017-06-02 Pat Name: Anusha Finch Department: 113 Room: 3B Gender: Proced Tech: CHE : 1970 Requested By: Sulma Richard Order Number: [id number] Reading MD: Isaiah Cowan MD Measurements Intervals [place] Rate: 98 P: 50 [place]: 144 QRS: -2 QRSD: 85 T: 23 QT: 367 QTc: 422 Interpretive Statements SINUS RHYTHM INFERIOR MYOCARDIAL INFARCTION, OF INDETERMINATE AGE Electronically Signed On 06-03-2017 20:54:15 EST by Isaiah Cowan MD
[2017-06-03] MEDS: *HR* Heparin 5,000 UNIT/ML VIAL SQ SCH (20:57)
--- NOTE | 2017-06-03 21:01 | Electrocardiograph Report ---
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
[2017-06-04] MEDS: Acetaminophen 325 MG TABLET PO PRN (00:20)
[2017-06-04] MEDS: *HR* Morphine 2 MG/ML SYRINGE IVP PRN ×3 (04:08→21:20)
[2017-06-04 05:05] LABS: Hematocrit 36.6 % (35.3-44.9); Hemoglobin 10.1 g/dL (11.5-15.4)
[2017-06-04] MEDS: *HR* Heparin 5,000 UNIT/ML VIAL SQ SCH ×3 (05:52→21:16)
[2017-06-04] MEDS: Isosorbide MONOnitrate (24 HR) 30 MG TAB.ER.24H PO SCH ×2 (05:52→07:59)
[2017-06-04] MEDS: Aspirin 81 MG TAB.CHEW PO SCH (07:56)
[2017-06-04] MEDS: Fenofibrate 54 MG TABLET PO SCH (07:56)
[2017-06-04] MEDS: *HR* Ticagrelor 90 MG TABLET PO SCH ×2 (07:56→21:15)
[2017-06-04] MEDS: Metoprolol XL (24 HR) Succ 50 MG TAB.ER.24H PO SCH (07:57)
[2017-06-04] MEDS: Gabapentin 300 MG CAPSULE PO SCH ×3 (07:58→21:15)
[2017-06-04] MEDS: Methocarbamol 750 MG TABLET PO SCH (07:58)
[2017-06-04] MEDS: FLUoxetine 20 MG CAPSULE PO SCH (07:58)
[2017-06-04] MEDS: Fluticasone Propionate Nasal 50 MCG/SPRAY BOTTLE NS SCH (08:04)
--- NOTE | 2017-06-04 12:44 | Electrocardiograph Report ---
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
--- NOTE | 2017-06-04 14:05 | Discharge Summary ---
Date of Encounter: 06/04/17 Time of Encounter: 10:30 - Discharge Diagnosis (1) NSTEMI (non-ST elevated myocardial infarction) Priority: Primary Status: Acute Comments: admitted with chest pain; serial troponins 0.05, 0.58 4.[address] [facility] 06/02/17 with JANELLE x2 placed to RCA. With persistent chest pain post heart cath despite increase in BB and nitrate. Cardiology re-consulted. Will need dual antiplatelet therapy uninterrupted for at least one year. Cont ASA, brilinta, Toprol and imdur. (2) CAD (coronary artery disease) Priority: Primary Status: Chronic Comments: known CAD. S/p [facility] 06/02/17 with JANELLE as noted as above. TTE this admission with LVEF 55%, no segmental wall motion abnormalities noted on visualized lee. On asa, statin, beta sirisha, brilinta, imdur. Qualifiers: Coronary Disease-Associated Artery/Lesion type: [place] artery [place] vs. transplanted heart: [place] heart Associated angina: with unspecified angina Qualified Code(s): I25.119 - Atherosclerotic heart disease of [place] coronary artery with unspecified angina pectoris (3) COPD (chronic obstructive pulmonary disease) Priority: Primary Status: Chronic Comments: per hx. recently quit smoking. No evidence of COPD exacerbation. Continue home inhalers Qualifiers: COPD type: unspecified COPD Qualified Code(s): J44.9 - Chronic obstructive pulmonary disease, unspecified (4) HTN (hypertension) Priority: Primary Status: Chronic Comments: per hx. BP controlled. Cont home BP medication Qualifiers: Hypertension type: essential hypertension Qualified Code(s): I10 - Essential (primary) hypertension - Discharge Medications Prescriptions: HYDROcodone/Acet 5/325 mg [[place] 5-325 mg] 1 tab PO Q6H PRN 7 Days #28 tab PRN Reason: Pain Isosorbide MONOnitrate (24 HR) [Imdur] 60 mg PO DAILY #30 tab.er.24h Metoprolol XL (24 HR) Succ [Toprol Xl] 75 mg PO DAILY #120 tab.er.24h Ticagrelor [Brilinta] 90 mg PO BID #30 tablet Home Medications: Albuterol Sulfate [Albuterol Inhaler] 2 puff IH Q6H PRN 11/01/16 [History] Atorvastatin [Lipitor] 80 mg PO HS 11/01/16 [History] Buspirone HCl [Buspar] 15 mg PO BID 11/01/16 [History] Fluticasone Propionate Nasal [Flonase] 50 mcg NS DAILY 11/01/16 [History] Ergocalciferol (VITAMIN D2) [Vitamin D2] 50,000 unit PO QWEEK #7 capsule [Rx] Albuterol Neb [AccuNeb] 0.63 mg IH Q6H PRN 12/02/16 [History] Fenofibrate Nanocrystallized [Tricor] 145 mg PO DAILY 12/02/16 [History] Nitroglycerin [Nitrostat] 0.4 mg PO Q5M PRN 12/02/16 [History] Gabapentin [Neurontin] 600 mg PO TID 01/08/17 [History] Mometasone/Formoterol [Dulera 100 Mcg/5 Mcg Inhaler] 13 gm IH DAILY 01/08/17 [ History] Aspirin [Lo-Dose Aspirin EC] 81 mg PO DAILY 04/17/17 [History] Methocarbamol [Robaxin-750] 750 mg PO DAILY 04/17/17 [History] Cetirizine HCl 10 mg PO DAILY PRN #0 05/20/17 [Rx] Dicyclomine [Bentyl] 20 mg PO QDPC 06/01/17 [History] FLUoxetine HCl [Prozac] 40 mg PO DAILY 06/02/17 [History] Losartan Potassium [Cozaar] 100 mg PO DAILY 06/02/17 [History] Pantoprazole Sodium 40 mg PO DAILY 06/02/17 [History] HYDROcodone/Acet 5/325 mg [[place] 5-325 mg] 1 tab PO Q6H PRN 7 Days #28 tab 06/04 [Rx] Isosorbide MONOnitrate (24 HR) [Imdur] 60 mg PO DAILY #30 tab.er.24h 06/04/17 [ Rx] Metoprolol XL (24 HR) Succ [Toprol Xl] 75 mg PO DAILY #120 tab.er.24h 06/04/17 [ Rx] Ticagrelor [Brilinta] 90 mg PO BID #30 tablet 06/04/17 [Rx] Allergies/Adverse Reactions: 3 Allergy/AdvReac Type Severity Reaction Status Date / Time Penicillins AdvReac Hives Verified 06/01/17 12:19 propoxyphene AdvReac Vomiting Verified 06/01/17 12:19 [From Helder-N] Procedures/tests Complete & Pending: Procedures Performed prior 72 hours Category Date Time Status CL Cardiac Catheterization [CL] Routine [place] 06/02/17 10:02 Completed ECG 12 lead ECG [ECG] AM 0600 Y 06/03/17 06:00 Completed ECG 12 lead ECG [ECG] Stat Y 06/02/17 10:01 Completed ECG 12 lead ECG [ECG] Stat Y 06/02/17 11:56 Completed ECG 12 lead ECG [ECG] Stat Y 06/03/17 08:20 Completed EKG [ECG 12 lead ECG] [ECG] Stat Y 06/01/17 22:27 Completed EKG [ECG 12 lead ECG] [ECG] Stat Y 06/02/17 19:13 Completed EKG [ECG 12 lead ECG] [ECG] Stat Y 06/02/17 20:43 Completed EKG [ECG 12 lead ECG] [ECG] Stat Y 06/03/17 08:21 Ordered EKG [ECG 12 lead ECG] [ECG] Stat Y 06/04/17 04:33 Completed EV echocardiogram Stat Y 06/01/17 16:03 Completed Date of admission: 06/02/17 14:24 Primary care physician: Angela Iverson CNP Consults: 06/01/17 19:33 Consult to Cardiology [CONS] Routine Comment: Consulting Provider: Cardiology Dori Reason for Consult: CP, elevated troponin, prior ND Time Notified: 19:34 Call Completed: Yes 06/01/17 22:20 Consult to Staffing Branch Manager [CONS] Routine Reason for SW Consult: Financial concerns 06/02/17 11:56 Consult to Cardiac Rehabilitation-Phase1 [CONS] Routine Comment: Reason for Consult: post op PCI Call Completed: Yes Discharging clinician: Berna Mcgregor Anticipated date of discharge: 06/04/17 - Patient Status Disposition: Home, Self-Care Condition: Good Functional capacity at discharge: independent ambulation Overall status at discharge: patient is back to baseline - Discharge Instructions Follow Up With: Angela Iverson CNP [Primary Care Provider] - 06/10/17 4:00 pm Hospital course: Ms. Finch is a 46 year old female - Time Spent with Patient Total time spent providing and/or coordinating discharge services: - Constitutional Vitals: Temp Pulse Resp BP Pulse Ox 99.1 F 79 16 121/77 98 06/04/17 11:26 06/04/17 11:26 06/04/17 13:39 06/04/17 11:26 06/04/17 13:39 General appearance: Present: A&O X 3, morbidly obese, severe distress - Head Head exam: Present: atraumatic, normocephalic - Eye Eye exam: Present: PERRL, conjuntiva pink, sclera anicteric Pupils: Present: PERRL - Neck Neck exam general surgery: Present: supple, trachea midline. Absent: lymphadenopathy - Respiratory Respiratory exam: Present: CTAB. Absent: accessory muscle use, rales, rhonchi, wheezes - Cardiovascular Cardiovascular exam: Present: RRR, +S1, +S2. Absent: diastolic murmur, gallop, rubs, systolic murmur - GI/Abdominal GI/Abdominal exam: Present: normal bowel sounds, soft, no peritoneal signs. Absent: distended, tenderness - Extremities Exam Extremities exam: Present: warm, radial pulses palpable and symmetrical. Absent : calf tenderness, cyanotic, pedal edema - Neurological Exam Neurological exam: Present: CN II-XII intact, oriented X3, no focal deficits. Absent: pronater drift, facial droop, speech deficit - Skin Skin exam: Present: dry, intact
--- NOTE | 2017-06-04 15:05 | Cardiology Progress Note ---
Date of Encounter: 06/04/17 Time of Encounter: 14:45 Assessment and Plan (1) NSTEMI (non-ST elevated myocardial infarction) Current Visit: Yes Status: Acute -Troponins peaked at 11.18. -s/p [facility] with JANELLE x2 placed to RCA and PTCA to PDA from 80% to 40%. 50% stenosis in the pRCA remaining. -ON asa, brilinta, beta sirisha, statin, tricor, imdur. Start ranexa -Educated on importance of dual antiplatelet therapy uninterrupted for at least one year. Patient states understanding. Noted to have recurrent chest pain since [facility]. Moderate non-obstructive CAD remaining. EKG shows SR with no acute ST changes. Atypical chest pain that increases with deep breaths and on palpation. Will add ranexa. Discussed with primary team- r/o non-cardiac causes also. We will continue to monitor. Discussion w patient/family: The assessment and plan as outlined above was discussed with the patient and/or family members who expressed understanding and agreement. All questions were answered. Thank you for involving us in the care of your patient. Please call with any questions. Subjective Principal diagnosis: NSTEMI Interval history: Cardiology consulted for recurrent chest pain. Objective Vital Signs, Last 4 Hours Temp Pulse Resp BP Pulse Ox 06/04/17 13:39 16 98 06/04/17 11:26 99.1 F 79 16 121/77 97 General: Conversant, No Apparent Distress HEENT: Atraumatic, Normocephaly, Mucus Membranes Moist Neck: No JVD, Normal carotid pulses Cardiac: Reg Rate and Rhythm, Normal S1 and S2, No Murmur Lungs: Normal Breath Sounds, No Wheeze, Rales, Rhonchi Neuro: Alert and responsive, No focal deficits noted Abdomen: Soft, Non-Tender Skin: No rashes noted on visualized skin Musculoskeletal: No Chest Wall Tenderness Extremities: No Clubbing, No Cyanosis, No Edema, Normal Pulses Results 06/04/17 04:32 06/03/17 05:40 Lab Results 06/04/17 04:32 Hgb 10.1 L Hct 36.6 - Imaging and Cardiology Echo: report reviewed Cardiac cath: report reviewed - EKG Interpretation EKG results cardiology: personally reviewed Consult Discharge Plan - Plan Referrals: Angela Iverson CNP [Primary Care Provider] - 06/10/17 4:00 pm Prescriptions: HYDROcodone/Acet 5/325 mg [[place] 5-325 mg] 1 tab PO Q6H PRN 7 Days #28 tab PRN Reason: Pain Isosorbide MONOnitrate (24 HR) [Imdur] 60 mg PO DAILY #30 tab.er.24h Metoprolol XL (24 HR) Succ [Toprol Xl] 75 mg PO DAILY #120 tab.er.24h Ticagrelor [Brilinta] 90 mg PO BID #30 tablet
[2017-06-04 15:15] LABS: Red Blood Count 3.86 M/mcL (3.82-4.97)
[2017-06-04 15:17] LABS: Hematocrit 34.9 % (35.3-44.9); Hemoglobin 10.1 g/dL (11.5-15.4); Mean Corpuscular HGB Conc 28.9 g/dL (31.6-35.5); Mean Corpuscular Hemoglobin 26.2 pg (28.0-33.3); Mean Corpuscular Volume 90.4 fL (83.0-100.0); Mean Platelet Volume 9.2 fL (9.4-12.4); Platelet Count 382 K/mcL (140-400); Red Cell Distribution Width 17.9 % (11.5-14.5)
[2017-06-04 15:30] LABS: BUN/Creatinine Ratio 22 (6-26); Blood Urea Nitrogen 11 mg/dL (6-20); Calcium 9.5 mg/dL (8.6-10.3); Carbon Dioxide 33 mEq/L (23-29); Chloride 98 mEq/L (98-107); Glucose 132 mg/dL (70-105); Osmolality,Calculated 285 (280-300); Potassium 4.2 mEq/L (3.5-5.1); Sodium 137 mEq/L (136-145); eGFR For African Americans > 60 (> 60); eGFR For Non-African Americans > 60 (> 60)
[2017-06-04 16:39] LABS: Hemoglobin A1C 5.9 %
--- NOTE | 2017-06-04 17:02 | Electrocardiograph Report ---
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
[2017-06-04] MEDS: Ranolazine 500 MG TAB.ER.12H PO SCH (21:15)
[2017-06-05] MEDS: *HR* Morphine 2 MG/ML SYRINGE IVP PRN ×2 (01:40→09:18)
[2017-06-05] MEDS: *HR* Heparin 5,000 UNIT/ML VIAL SQ SCH ×3 (05:35→22:16)
[2017-06-05] MEDS: Ranolazine 500 MG TAB.ER.12H PO SCH ×2 (09:19→20:42)
[2017-06-05] MEDS: Isosorbide MONOnitrate (24 HR) 30 MG TAB.ER.24H PO SCH (09:19)
[2017-06-05] MEDS: Aspirin 81 MG TAB.CHEW PO SCH (09:19)
[2017-06-05] MEDS: Fenofibrate 54 MG TABLET PO SCH (09:20)
[2017-06-05] MEDS: Gabapentin 300 MG CAPSULE PO SCH ×3 (09:20→20:43)
[2017-06-05] MEDS: FLUoxetine 20 MG CAPSULE PO SCH (09:21)
[2017-06-05] MEDS: *HR* Ticagrelor 90 MG TABLET PO SCH ×2 (09:21→20:43)
[2017-06-05] MEDS: Methocarbamol 750 MG TABLET PO SCH (09:24)
[2017-06-05] MEDS: Metoprolol XL (24 HR) Succ 50 MG TAB.ER.24H PO SCH (09:25)
[2017-06-05] MEDS: Fluticasone Propionate Nasal 50 MCG/SPRAY BOTTLE NS SCH (09:26)
--- NOTE | 2017-06-05 10:33 | Cardiology Progress Note ---
Date of Encounter: 06/05/17 Time of Encounter: 10:00 Assessment and Plan (1) NSTEMI (non-ST elevated myocardial infarction) Current Visit: Yes Status: Acute -Troponins peaked at 11.18. -s/p [facility] with JANELLE x2 placed to RCA and PTCA to PDA from 80% to 40%. 50% stenosis in the pRCA remaining. -ON asa, brilinta, beta sirisha, statin, tricor, imdur, started on ranexa. -Educated on importance of dual antiplatelet therapy uninterrupted for at least one year. Patient states understanding. -Noted to have recurrent chest pain since [facility]. Moderate non-obstructive CAD remaining. -EKG shows SR with no acute ST changes. -Atypical chest pain that increases with deep breaths, coughing, and on palpation. -Discussed with primary team- r/o non-cardiac causes also. -We will continue to monitor. Discussion w patient/family: The assessment and plan as outlined above was discussed with the patient who expressed understanding and agreement. All questions were answered. Thank you for involving us in the care of your patient. Please call with any questions. Discussed and reviewed with . Subjective Principal diagnosis: NSTEMI Interval history: Patient states has chest pain 7/10 currently. Reports pain is worse with coughing and deep inspiration. Objective Vital Signs, Last 4 Hours Temp Pulse Resp BP Pulse Ox 06/05/17 07:22 98.0 F 77 18 135/54 98 General: Conversant, No Apparent Distress HEENT: Atraumatic, Normocephaly, Mucus Membranes Moist Neck: No JVD, Normal carotid pulses Cardiac: Reg Rate and Rhythm, Normal S1 and S2, No Murmur Lungs: Other (Inspiratory wheezes noted. ) Neuro: Alert and responsive, No focal deficits noted Abdomen: Soft, Non-Tender Skin: No rashes noted on visualized skin Musculoskeletal: No Chest Wall Tenderness Extremities: No Clubbing, No Cyanosis, No Edema, Normal Pulses Results 06/04/17 15:05 06/04/17 15:05 Lab Results Impressions Chest CTA 06/05/17 09:03 IMPRESSION: 1. No acute pulmonary embolism. 2. Mild atelectatic changes in the lingula and right middle lobe. 3. Coronary artery atherosclerosis. D/ / Rakesh Molina MD / Rakesh Molina MD Interpreting Provider: Rakesh Molina MD Active Medications Acetaminophen (Tylenol) 650 mg PO Q6HR PRN PRN Reason: Fever Stop: 12/01/17 20:18 Last Admin: 06/04/17 00:20 Dose: 650 mg Albuterol Sulfate (Accuneb) 0.63 mg IH [id number] PRN PRN Reason: Shortness Of Breath Stop: 12/01/17 22:01 Last Admin: 06/04/17 11:55 Dose: 0.63 mg Albuterol Sulfate (Albuterol Inhaler) 2 puff IH [id number] PRN PRN Reason: Shortness Of Breath Stop: 12/02/17 04:01 Aspirin (Aspirin) 81 mg PO DAILY DESIRAE Stop: 12/03/17 09:01 Last Admin: 06/05/17 09:19 Dose: 81 mg Atorvastatin Calcium (Lipitor) 80 mg PO HS DESIRAE Stop: 12/01/17 18:38 Last Admin: 06/04/17 21:15 Dose: 80 mg Buspirone HCl (Buspar) 15 mg PO BID DESIRAE Stop: 12/02/17 09:01 Last Admin: 06/05/17 09:20 Dose: 15 mg Dicyclomine HCl (Bentyl) 20 mg PO QDPC DESIRAE Stop: 12/02/17 09:01 Last Admin: 06/05/17 09:20 Dose: 20 mg Fenofibrate (Tricor) 162 mg PO DAILY DESIRAE Stop: 12/02/17 09:01 Last Admin: 06/05/17 09:20 Dose: 162 mg Fluoxetine HCl (Prozac) 20 mg PO DAILY DESIRAE PRN Reason: Protocol Stop: 12/02/17 09:01 Last Admin: 06/05/17 09:21 Dose: 20 mg Fluticasone Propionate (Flonase) 50 mcg NS DAILY DESIRAE PRN Reason: Protocol Stop: 12/02/17 09:01 Last Admin: 06/05/17 09:26 Dose: 50 mcg Gabapentin (Neurontin) 600 mg PO TID DESIRAE Stop: 12/02/17 09:01 Last Admin: 06/05/17 09:20 Dose: 600 mg Heparin Sodium (Porcine) (Heparin) 5,000 unit SQ Q8HCO [facility] Stop: 12/03/17 22:01 Last Admin: 06/05/17 05:35 Dose: 5,000 unit Isosorbide Mononitrate (Imdur) 120 mg PO DAILY [facility] Stop: 12/04/17 04:46 Last Admin: 06/05/17 09:19 Dose: 120 mg Lidocaine HCl (Lidoderm 5% Patch) 1 each TP DAILY PRN PRN Reason: BACK PAIN Stop: 12/01/17 22:02 Loratadine (Claritin) 10 mg PO DAILY PRN PRN Reason: Allergy Symptoms Losartan Potassium (Cozaar) 50 mg PO DAILY [facility] Stop: 12/02/17 09:01 Last Admin: 06/05/17 09:18 Dose: 50 mg Methocarbamol (Robaxin) 750 mg PO DAILY [facility] Stop: 12/02/17 09:01 Last Admin: 06/05/17 09:24 Dose: 750 mg Metoprolol Succinate (Toprol Xl) 75 mg PO DAILY [facility] Stop: 12/03/17 09:01 Last Admin: 06/05/17 09:25 Dose: 75 mg Morphine Sulfate (Morphine Sulfate) 2 mg IVP Q4H PRN; Protocol PRN Reason: Chest Pain Stop: 12/01/17 18:53 Last Admin: 06/05/17 09:18 Dose: 2 mg Naloxone HCl (Narcan) 0.4 mg IVP Q2MIN PRN PRN Reason: SEE COMMENTS Stop: 12/01/17 16:18 Nitroglycerin (Nitroglycerin) 0.4 mg SL Q5MIN PRN PRN Reason: Chest Pain Stop: 12/02/17 10:01 Ondansetron HCl (Zofran) 4 mg IVP Q8HR PRN; Protocol PRN Reason: Nausea And Vomiting Stop: 12/02/17 00:40 Last Admin: 06/02/17 14:34 Dose: 4 mg Ranolazine (Ranexa) 500 mg PO BID [facility] Stop: 12/04/17 21:01 Last Admin: 06/05/17 09:19 Dose: 500 mg Ticagrelor (Brilinta) 90 mg PO BID [facility] Stop: 12/02/17 21:01 Last Admin: 06/05/17 09:21 Dose: 90 mg Laboratory Tests 06/04/17 06/04/17 04:32 15:05 Hgb 10.1 L Creatinine 0.49 L - Imaging and Cardiology Chest Xray: report reviewed Echo: report reviewed Cardiac cath: report reviewed - EKG Interpretation EKG results cardiology: other (Telemetry reviewed with average HR previous 12 hours noted to be 74, SR. PVCs and PACs noted.) Consult Discharge Plan - Plan Referrals: Angela Iverson, CHRYSTAL [Primary Care Provider] - 06/10/17 4:00 pm Prescriptions: HYDROcodone/Acet 5/325 mg [[place] 5-325 mg] 1 tab PO Q6H PRN 7 Days #28 tab PRN Reason: Pain Isosorbide MONOnitrate (24 HR) [Imdur] 60 mg PO DAILY #30 tab.er.24h Metoprolol XL (24 HR) Succ [Toprol Xl] 75 mg PO DAILY #120 tab.er.24h Ticagrelor [Brilinta] 90 mg PO BID #30 tablet
[2017-06-05] MEDS: predniSONE 20 MG TABLET PO SCH (14:33)
[2017-06-05] MEDS: Azithromycin 500 MG in D5% in Water 250 ML IVPB SCH (14:33)
[2017-06-05] MEDS: Acetaminophen 325 MG TABLET PO PRN ×2 (17:02→23:15)
--- NOTE | 2017-06-05 17:30 | Internal Med Progress Note ---
Date of Encounter: 06/05/17 Time of Encounter: 14:00 - Assessment and plan (1) NSTEMI (non-ST elevated myocardial infarction) Current Visit: Yes Status: Acute Assessment and plan: admitted with chest pain; troponins trended up through the night initial was 0.05, 0.58 [address] [facility] 06/02/17 with JANELLE x2 placed to RCA. Will need dual antiplatelet therapy uninterrupted for at least one year. With recurrent chest pain on 06/03/17 that is reproducible with palpation. Toprol and imdur increased per Cardiology. With recurrent and persistent chest pain; has been reevaluated by cardiology multiple times. Do not suspect cardiac source, likely secondary to COPD exacerbation as noted below. (2) COPD (chronic obstructive pulmonary disease) Current Visit: Yes Status: Chronic Assessment and plan: per hx. recently quit smoking. Suspect COPD exacerbation with scattered wheezing, rhonchi and increased sputum production. Suspect COPD exacerbation is causing recurrent chest pain. Start azithromycin, steroid burst. Qualifiers: COPD type: unspecified COPD Qualified Code(s): J44.9 - Chronic obstructive pulmonary disease, unspecified (3) CAD (coronary artery disease) Current Visit: Yes Status: Chronic Assessment and plan: known CAD. S/p [facility] 06/02/17 with JANELLE as noted as above. TTE this admission with LVEF 55%, no segmental wall motion abnormalities noted on visualized lee. On asa, statin, beta sirisha, brilinta, imdur. Qualifiers: Coronary Disease-Associated Artery/Lesion type: [place] artery [place] vs. transplanted heart: [place] heart Associated angina: with unspecified angina Qualified Code(s): I25.119 - Atherosclerotic heart disease of [place] coronary artery with unspecified angina pectoris (4) HTN (hypertension) Current Visit: Yes Status: Chronic Assessment and plan: We will continue with home medication Qualifiers: Hypertension type: essential hypertension Qualified Code(s): I10 - Essential (primary) hypertension - Subjective Interval history: Seen and cemented at bedside. She still with persistent and intermittent chest pain. Chest pain worse with exertion and inspiration. Patient thinks chest pain secondary to her breathing. Chest pain is reproducible on exam. Patient reports increase in wheezing and sputum production. - Constitutional Vitals: Temp Pulse Resp BP Pulse Ox 97.8 F 84 18 99/62 95 06/05/17 16:18 06/05/17 16:18 06/05/17 16:18 06/05/17 16:18 06/05/17 16:18 General appearance: Present: A&O X 3, morbidly obese, severe distress - Head Head exam: Present: atraumatic, normocephalic - Eye Eye exam: Present: PERRL, conjuntiva pink, sclera anicteric Pupils: Present: PERRL - Neck Neck exam general surgery: Present: supple, trachea midline. Absent: lymphadenopathy - Respiratory Respiratory exam: Present: CTAB. Absent: accessory muscle use, rales, rhonchi, wheezes - Cardiovascular Cardiovascular exam: Present: RRR, +S1, +S2. Absent: diastolic murmur, gallop, rubs, systolic murmur - GI/Abdominal GI/Abdominal exam: Present: normal bowel sounds, soft, no peritoneal signs. Absent: distended, tenderness - Extremities Exam Extremities exam: Present: warm, radial pulses palpable and symmetrical. Absent : calf tenderness, cyanotic, pedal edema - Neurological Exam Neurological exam: Present: CN II-XII intact, oriented X3, no focal deficits. Absent: pronater drift, facial droop, speech deficit - Skin Skin exam: Present: dry, intact Internal Medicine: Result - Labs CBC & Chem 7: 06/04/17 15:05 06/04/17 15:05 - ABG Interpretation ABG results: PT/INR, D-dimer PT 11.3 Seconds (9.4-12.1) 06/02/17 22:08 - Impressions Impressions Chest CTA 06/05/17 09:03 IMPRESSION: 1. No acute pulmonary embolism. 2. Mild atelectatic changes in the lingula and right middle lobe. 3. Coronary artery atherosclerosis. D/ / Rakesh Molina MD / Rakesh Molina MD Interpreting Provider: Rakesh Molina MD Consult Discharge Plan - Plan Referrals: Angela Iverson, CHRYSTAL [Primary Care Provider] - 06/10/17 4:00 pm Prescriptions: HYDROcodone/Acet 5/325 mg [[place] 5-325 mg] 1 tab PO Q6H PRN 7 Days #28 tab PRN Reason: Pain Isosorbide MONOnitrate (24 HR) [Imdur] 60 mg PO DAILY #30 tab.er.24h Metoprolol XL (24 HR) Succ [Toprol Xl] 75 mg PO DAILY #120 tab.er.24h Ticagrelor [Brilinta] 90 mg PO BID #30 tablet
[2017-06-05] MEDS ORDERED: Albuterol 2.5 MG/3 ML NEBULIZER IH PRN (20:05)
[2017-06-05 20:23] LABS: Adenovirus Not Detected (Not Detect); Bordetella Pertussis Not Detected (Not Detect); Chlamydophila pneumoniae Not Detected (Not Detect); Coronavirus 229E Not Detected (Not Detect); Coronavirus HKU1 Not Detected (Not Detect); Coronavirus NL63 Not Detected (Not Detect); Coronavirus OC43 Not Detected (Not Detect); Human Metapneumovirus Not Detected (Not Detect); Human Rhinovirus/Enterovirus Not Detected (Not Detect); Influenza A Subtype 2009 H1 Not Detected (Not Detect); Influenza A Untypeable Not Detected (Not Detect); Influenza B Not Detected (Not Detect); Mycoplasma pneumoniae Not Detected (Not Detect); Parainfluenza Virus 1 Not Detected (Not Detect); Parainfluenza Virus 2 Not Detected (Not Detect); Parainfluenza Virus 3 Not Detected (Not Detect); Parainfluenza Virus 4 Not Detected (Not Detect); Respiratory Syncytial Virus Not Detected (Not Detect)
[2017-06-05] MEDS: *HR* HYDROcodone/Acet 5/325 mg TABLET PO PRN (20:43)
[2017-06-05] MEDS: Ipratropium/Albuterol Neb 3 ML IH SCH (23:08)
[2017-06-06] MEDS: Ipratropium/Albuterol Neb 3 ML IH SCH ×3 (03:17→15:36)
[2017-06-06] MEDS: *HR* HYDROcodone/Acet 5/325 mg TABLET PO PRN ×2 (04:01→13:00)
[2017-06-06] MEDS: *HR* Heparin 5,000 UNIT/ML VIAL SQ SCH ×2 (05:50→12:59)
[2017-06-06] MEDS: Acetaminophen 325 MG TABLET PO PRN (06:53)
[2017-06-06] MEDS ORDERED: FLUoxetine 20 MG CAPSULE PO SCH (09:00)
[2017-06-06] MEDS: Isosorbide MONOnitrate (24 HR) 30 MG TAB.ER.24H PO SCH (10:00)
[2017-06-06] MEDS: predniSONE 20 MG TABLET PO SCH (10:00)
[2017-06-06] MEDS: Gabapentin 300 MG CAPSULE PO SCH ×2 (10:00→17:49)
[2017-06-06] MEDS ORDERED: Budesonide/Formoterol 80/4.5 MDI IH SCH (10:00)
[2017-06-06] MEDS: Ranolazine 500 MG TAB.ER.12H PO SCH (10:01)
[2017-06-06] MEDS: Fenofibrate 54 MG TABLET PO SCH (10:01)
[2017-06-06] MEDS: Aspirin 81 MG TAB.CHEW PO SCH (10:02)
[2017-06-06] MEDS: *HR* Ticagrelor 90 MG TABLET PO SCH (10:02)
[2017-06-06] MEDS: Fluticasone Propionate Nasal 50 MCG/SPRAY BOTTLE NS SCH (10:02)
[2017-06-06] MEDS: Methocarbamol 750 MG TABLET PO SCH (10:02)
[2017-06-06] MEDS: FLUoxetine 20 MG CAPSULE PO SCH (10:03)
[2017-06-06] MEDS: Metoprolol XL (24 HR) Succ 50 MG TAB.ER.24H PO SCH (10:03)
[2017-06-06 10:59] VITALS: BP 158/80
--- NOTE | 2017-06-06 12:46 | Cardiology Progress Note ---
Date of Encounter: 06/06/17 Time of Encounter: 09:30 Assessment and Plan (1) NSTEMI (non-ST elevated myocardial infarction) Current Visit: Yes Status: Acute Per cardiology: -Troponins peaked at 11.18., down trended -s/p [facility] with JANELLE x2 placed to RCA and PTCA to PDA from 80% to 40%. 50% stenosis in the pRCA remaining. -ON asa, brilinta, beta sirisha, statin, tricor, imdur, started on ranexa. -Educated on importance of dual antiplatelet therapy uninterrupted for at least one year. Patient states understanding. -Noted to have recurrent chest pain since [facility]. Moderate non-obstructive CAD remaining. -EKG shows SR with no acute ST changes. -Atypical chest pain that increases with deep breaths, coughing, and on palpation. Patient reports chest pain is improving. -Discussed with primary team- r/o non-cardiac causes also. -Cardiology will sign off and will follow in outpatient setting. Follow up set. Discussion w patient/family: The assessment and plan as outlined above was discussed with the patient who expressed understanding and agreement. All questions were answered. Thank you for involving us in the care of your patient. Please call with any questions. Discussed and reviewed with . Subjective Principal diagnosis: NSTEMI Interval history: Patient states has chest pain 4/10 currently. Reports pain is worse with coughing and deep inspiration. Pateint states pain is improving. Objective Vital Signs, Last 4 Hours Temp Pulse Resp BP Pulse Ox 06/06/17 10:48 97.9 F 70 18 158/80 98 06/06/17 10:31 18 98 General: Conversant, No Apparent Distress HEENT: Atraumatic, Normocephaly, Mucus Membranes Moist Neck: No JVD, Normal carotid pulses Cardiac: Reg Rate and Rhythm, Normal S1 and S2, No Murmur Lungs: Normal Breath Sounds, No Wheeze, Rales, Rhonchi Neuro: Alert and responsive, No focal deficits noted Abdomen: Soft, Non-Tender Skin: No rashes noted on visualized skin Musculoskeletal: Other (Chest pain reproduceable with palpation. ) Extremities: No Clubbing, No Cyanosis, No Edema, Normal Pulses Results 06/04/17 15:05 06/04/17 15:05 Active Medications Acetaminophen (Tylenol) 650 mg PO Q6HR PRN PRN Reason: Fever Stop: 12/01/17 20:18 Last Admin: 06/06/17 06:53 Dose: 650 mg Hydrocodone Bitart/Acetaminophen ([place] 5-325 Mg) 1 tab PO Q8HR PRN PRN Reason: Pain Stop: 12/05/17 20:07 Last Admin: 06/06/17 04:01 Dose: 1 tab Albuterol Sulfate (Accuneb) 0.63 mg IH [id number] PRN PRN Reason: Shortness Of Breath Stop: 12/01/17 22:01 Last Admin: 06/04/17 11:55 Dose: 0.63 mg Albuterol Sulfate (Albuterol Inhaler) 2 puff IH [id number] DESIRAE Stop: 12/05/17 14:01 Last Admin: 06/06/17 10:24 Dose: 2 puff Albuterol Sulfate (Proventil Neb) 2.5 mg IH Q2H PRN; Protocol PRN Reason: Shortness Of Breath/Wheezing Stop: 12/05/17 20:06 Albuterol/Ipratropium (Duoneb) 3 ml IH [id number] DESIRAE Stop: 12/05/17 22:01 Last Admin: 06/06/17 10:27 Dose: Not Given Aspirin (Aspirin) 81 mg PO DAILY DESIRAE Stop: 12/03/17 09:01 Last Admin: 06/06/17 10:02 Dose: 81 mg Atorvastatin Calcium (Lipitor) 80 mg PO HS DESIRAE Stop: 12/01/17 18:38 Last Admin: 06/05/17 20:42 Dose: 80 mg Budesonide/Formoterol Fumarate (Symbicort) 2 puff IH DAILYR DESIRAE Stop: 12/06/17 10:01 Last Admin: 06/06/17 10:25 Dose: 2 puff Buspirone HCl (Buspar) 15 mg PO BID DESIRAE Stop: 12/02/17 09:01 Last Admin: 06/06/17 10:01 Dose: 15 mg Dicyclomine HCl (Bentyl) 20 mg PO QDPC DESIRAE Stop: 12/02/17 09:01 Last Admin: 06/06/17 10:01 Dose: 20 mg Fenofibrate (Tricor) 162 mg PO DAILY DESIRAE Stop: 12/02/17 09:01 Last Admin: 06/06/17 10:01 Dose: 162 mg Fluoxetine HCl (Prozac) 40 mg PO DAILY [facility] Stop: 12/06/17 09:01 Last Admin: 06/06/17 10:02 Dose: 40 mg Fluticasone Propionate (Flonase) 50 mcg NS DAILY DESIRAE PRN Reason: Protocol Stop: 12/02/17 09:01 Last Admin: 06/06/17 10:02 Dose: 50 mcg Gabapentin (Neurontin) 600 mg PO TID [facility] Stop: 12/02/17 09:01 Last Admin: 06/06/17 10:00 Dose: 600 mg Guaifenesin (Mucinex) 600 mg PO BID [facility] Stop: 12/06/17 10:31 Last Admin: 06/06/17 11:08 Dose: 600 mg Heparin Sodium (Porcine) (Heparin) 5,000 unit SQ Q8HCO [facility] Stop: 12/03/17 22:01 Last Admin: 06/06/17 05:50 Dose: 5,000 unit Azithromycin 500 mg/ Dextrose 250 mls @ 252 mls/hr IVPB Q24H [facility] Stop: 12/05/17 14:01 Last Admin: 06/05/17 14:33 Dose: 252 mls/hr Isosorbide Mononitrate (Imdur) 120 mg PO DAILY [facility] Stop: 12/04/17 04:46 Last Admin: 06/06/17 10:00 Dose: 120 mg Lidocaine HCl (Lidoderm 5% Patch) 1 each TP DAILY PRN PRN Reason: BACK PAIN Stop: 12/01/17 22:02 Last Admin: 06/06/17 10:20 Dose: 1 each Loratadine (Claritin) 10 mg PO DAILY PRN PRN Reason: Allergy Symptoms Last Admin: 06/05/17 23:15 Dose: 10 mg Losartan Potassium (Cozaar) 50 mg PO DAILY [facility] Stop: 12/02/17 09:01 Last Admin: 06/06/17 10:01 Dose: 50 mg Methocarbamol (Robaxin) 750 mg PO DAILY [facility] Stop: 12/02/17 09:01 Last Admin: 06/06/17 10:02 Dose: 750 mg Metoprolol Succinate (Toprol Xl) 75 mg PO DAILY [facility] Stop: 12/03/17 09:01 Last Admin: 06/06/17 10:03 Dose: 75 mg Morphine Sulfate (Morphine Sulfate) 2 mg IVP Q4H PRN; Protocol PRN Reason: Chest Pain Stop: 12/01/17 18:53 Last Admin: 06/05/17 09:18 Dose: 2 mg Naloxone HCl (Narcan) 0.4 mg IVP Q2MIN PRN PRN Reason: SEE COMMENTS Stop: 12/01/17 16:18 Nitroglycerin (Nitroglycerin) 0.4 mg SL Q5MIN PRN PRN Reason: Chest Pain Stop: 12/02/17 10:01 Ondansetron HCl (Zofran) 4 mg IVP Q8HR PRN; Protocol PRN Reason: Nausea And Vomiting Stop: 12/02/17 00:40 Last Admin: 06/02/17 14:34 Dose: 4 mg Prednisone (Prednisone) 40 mg PO DAILY [facility] Stop: 12/05/17 13:46 Last Admin: 06/06/17 10:00 Dose: 40 mg Ranolazine (Ranexa) 500 mg PO BID [facility] Stop: 12/04/17 21:01 Last Admin: 06/06/17 10:01 Dose: 500 mg Ticagrelor (Brilinta) 90 mg PO BID [facility] Stop: 12/02/17 21:01 Last Admin: 06/06/17 10:02 Dose: 90 mg - Imaging and Cardiology Chest Xray: report reviewed Echo: report reviewed Cardiac cath: report reviewed - EKG Interpretation EKG results cardiology: other (Telemetry reviewed with average HR previous 12 hours noted to be 91, SR.) Consult Discharge Plan - Plan Referrals: Angela Iverson, CHRYSTAL [Primary Care Provider] - 06/10/17 4:00 pm Prescriptions: HYDROcodone/Acet 5/325 mg [[place] 5-325 mg] 1 tab PO Q6H PRN 7 Days #28 tab PRN Reason: Pain Isosorbide MONOnitrate (24 HR) [Imdur] 60 mg PO DAILY #30 tab.er.24h Metoprolol XL (24 HR) Succ [Toprol Xl] 75 mg PO DAILY #120 tab.er.24h Ticagrelor [Brilinta] 90 mg PO BID #30 tablet
[2017-06-06] MEDS: Azithromycin 500 MG in D5% in Water 250 ML IVPB SCH (12:58)
--- NOTE | 2017-06-06 13:59 | Discharge Summary ---
Date of Encounter: 06/06/17 Time of Encounter: 13:00 - Discharge Diagnosis (1) NSTEMI (non-ST elevated myocardial infarction) Priority: Primary Status: Acute Comments: admitted with chest pain; troponins trended up through the night initial was 0.05, 0.58 4.07 5.35. [facility] 06/02/17 with JANELLE x2 placed to RCA. Had multiple episodes of recurrent chest pain; was reevaluated by cardiology multiple times who did no not feel chest pain was cardiac source. Chest CTA negative for pulmonary embolism. Recurrent chest pain possibly secondary to COPD exacerbation. Will need dual antiplatelet therapy uninterrupted for at least one year. Continue home ASA, brilinta, BB, statin. Follow-up with cardiology (2) COPD (chronic obstructive pulmonary disease) Priority: Primary Status: Acute Comments: per hx. recently quit smoking. Suspect COPD exacerbation with scattered wheezing, rhonchi and increased sputum production. Suspect COPD exacerbation is contributing to recurrent chest pain. Z-Paks, steroid burst at discharge. Recommend follow-up with PCP within 1-2 weeks. Qualifiers: COPD type: unspecified COPD Qualified Code(s): J44.9 - Chronic obstructive pulmonary disease, unspecified (3) CAD (coronary artery disease) Priority: Primary Status: Acute Comments: known CAD. S/p [facility] 06/02/17 with JANELLE as noted as above. TTE this admission with LVEF 55%, no segmental wall motion abnormalities noted on visualized lee. On asa, statin, beta sirisha, brilinta, imdur. Qualifiers: Coronary Disease-Associated Artery/Lesion type: [place] artery [place] vs. transplanted heart: [place] heart Associated angina: with unspecified angina Qualified Code(s): I25.119 - Atherosclerotic heart disease of [place] coronary artery with unspecified angina pectoris (4) HTN (hypertension) Priority: Secondary Status: Chronic Comments: per hx. BP controlled. Cont home BP medications. Qualifiers: Hypertension type: essential hypertension Qualified Code(s): I10 - Essential (primary) hypertension - Discharge Medications Prescriptions: Azithromycin [Azithromycin 6-Tab Pack] 250 mg PO PER PKG DI #6 tab HYDROcodone/Acet 5/325 mg [[place] 5-325 mg] 1 tab PO Q6H PRN 7 Days #28 tab PRN Reason: Pain Isosorbide MONOnitrate (24 HR) [Imdur] 60 mg PO DAILY #30 tab.er.24h Metoprolol XL (24 HR) Succ [Toprol Xl] 75 mg PO DAILY #120 tab.er.24h predniSONE [PredniSONE] 40 mg PO DAILY #6 tablet Ranolazine [Ranexa] 500 mg PO BID #60 tab.er.12h Ticagrelor [Brilinta] 90 mg PO BID #30 tablet Home Medications: Albuterol Sulfate [Albuterol Inhaler] 2 puff IH Q6H PRN 11/01/16 [History] Atorvastatin [Lipitor] 80 mg PO HS 11/01/16 [History] Buspirone HCl [Buspar] 15 mg PO BID 11/01/16 [History] Fluticasone Propionate Nasal [Flonase] 50 mcg NS DAILY 11/01/16 [History] Ergocalciferol (VITAMIN D2) [Vitamin D2] 50,000 unit PO QWEEK #7 capsule [Rx] Albuterol Neb [AccuNeb] 0.63 mg IH Q6H PRN 12/02/16 [History] Fenofibrate Nanocrystallized [Tricor] 145 mg PO DAILY 12/02/16 [History] Nitroglycerin [Nitrostat] 0.4 mg PO Q5M PRN 12/02/16 [History] Gabapentin [Neurontin] 600 mg PO TID 01/08/17 [History] Mometasone/Formoterol [Dulera 100 Mcg/5 Mcg Inhaler] 13 gm IH DAILY 01/08/17 [ History] Aspirin [Lo-Dose Aspirin EC] 81 mg PO DAILY 04/17/17 [History] Methocarbamol [Robaxin-750] 750 mg PO DAILY 04/17/17 [History] Cetirizine HCl 10 mg PO DAILY PRN #0 05/20/17 [Rx] Dicyclomine [Bentyl] 20 mg PO QDPC 06/01/17 [History] FLUoxetine HCl [Prozac] 40 mg PO DAILY 06/02/17 [History] Losartan Potassium [Cozaar] 100 mg PO DAILY 06/02/17 [History] Pantoprazole Sodium 40 mg PO DAILY 06/02/17 [History] HYDROcodone/Acet 5/325 mg [[place] 5-325 mg] 1 tab PO Q6H PRN 7 Days #28 tab 06/04 [Rx] Isosorbide MONOnitrate (24 HR) [Imdur] 60 mg PO DAILY #30 tab.er.24h 06/04/17 [ Rx] Metoprolol XL (24 HR) Succ [Toprol Xl] 75 mg PO DAILY #120 tab.er.24h 06/04/17 [ Rx] Ticagrelor [Brilinta] 90 mg PO BID #30 tablet 06/04/17 [Rx] Azithromycin [Azithromycin 6-Tab Pack] 250 mg PO PER PKG DI #6 tab 06/06/17 [Rx] Ranolazine [Ranexa] 500 mg PO BID #60 tab.er.12h 06/06/17 [Rx] predniSONE [PredniSONE] 40 mg PO DAILY #6 tablet 06/06/17 [Rx] Allergies/Adverse Reactions: 3 Allergy/AdvReac Type Severity Reaction Status Date / Time Penicillins AdvReac Hives Verified 06/01/17 12:19 propoxyphene AdvReac Vomiting Verified 06/01/17 12:19 [From [facility]] Procedures/tests Complete & Pending: Procedures Performed prior 72 hours Category Date Time Status CTA chest [CT angio chest] [CT] Stat Cat Scan 06/05/17 09:03 Completed EKG [ECG 12 lead ECG] [ECG] Stat Y 06/04/17 04:33 Completed EKG [ECG 12 lead ECG] [ECG] Stat Y 06/04/17 14:39 Completed Date of admission: 06/02/17 14:24 Primary care physician: Angela Iverson CNP Consults: 06/01/17 19:33 Consult to Cardiology [CONS] Routine Comment: Consulting Provider: Cardiology Dori Reason for Consult: CP, elevated troponin, prior NE Time Notified: 19:34 Call Completed: Yes 06/01/17 22:20 Consult to Research And Development Scientist [CONS] Routine Reason for SW Consult: Financial concerns 06/02/17 11:56 Consult to Cardiac Rehabilitation-Phase1 [CONS] Routine Comment: Reason for Consult: post op PCI Call Completed: Yes Discharging clinician: Berna Mcgregor Anticipated date of discharge: 06/06/17 - Patient Status Disposition: Home, Self-Care Condition: Good Functional capacity at discharge: independent ambulation Overall status at discharge: patient is back to baseline - Discharge Instructions Instructions: Coronary Artery Disease (DC), Ticagrelor (By mouth), Chronic Obstructive Pulmonary Disease (DC), Azithromycin (By mouth), Prednisone (By mouth) Follow Up With: Angela Iverson CNP [Primary Care Provider] - 06/10/17 4:00 pm - Diet and Activity Activity: increase activity as tolerated Diet: low fat, low cholesterol Interval History: Seen and examined at bedside. She still with mild chest pain but overall improved. She would like to go home today if possible. Advised her that if chest pain worsened or recurred she would have to come back to the hospital, she verbalizes understanding. Hospital course: See assessment and plan for hospital course - Time Spent with Patient Total time spent providing and/or coordinating discharge services: - Constitutional Vitals: Temp Pulse Resp BP Pulse Ox 97.9 F 70 18 158/80 98 06/06/17 10:48 06/06/17 10:48 06/06/17 10:48 06/06/17 10:48 06/06/17 10:48 General appearance: Present: A&O X 3, morbidly obese, severe distress - Head Head exam: Present: atraumatic, normocephalic - Eye Eye exam: Present: PERRL, conjuntiva pink, sclera anicteric Pupils: Present: PERRL - Neck Neck exam general surgery: Present: supple, trachea midline. Absent: lymphadenopathy - Respiratory Respiratory exam: Present: CTAB. Absent: accessory muscle use, rales, rhonchi, wheezes - Cardiovascular Cardiovascular exam: Present: RRR, +S1, +S2. Absent: diastolic murmur, gallop, rubs, systolic murmur - GI/Abdominal GI/Abdominal exam: Present: normal bowel sounds, soft, no peritoneal signs. Absent: distended, tenderness - Extremities Exam Extremities exam: Present: warm, radial pulses palpable and symmetrical. Absent : calf tenderness, cyanotic, pedal edema - Neurological Exam Neurological exam: Present: CN II-XII intact, oriented X3, no focal deficits. Absent: pronater drift, facial droop, speech deficit - Skin Skin exam: Present: dry, intact
[2017-06-06] MEDS ORDERED: FLUARIX QUAD 2017-18 36MOS UP/PF 0.5 ML SYRINGE IM ONE (17:04)
== END 2017-06-06 18:07 | disposition home or self-care (01) | DRG 174 ==
LOC: 3BNU
PROVIDERS: ADMIT Registered Nurse; ATTEND Registered Nurse

== ENCOUNTER 2017-07-24 02:35 | Observation (INO) ==
[2017-07-24] MEDS ORDERED: Loratadine 10 MG TABLET PO PRN (07:36)
[2017-07-24] MEDS ORDERED: Nitroglycerin 0.4 MG TAB.SUBL SL PRN (07:36)
[2017-07-24] MEDS ORDERED: *HR* Morphine 2 MG/ML SYRINGE IVP PRN (07:43)
[2017-07-24] MEDS ORDERED: Ondansetron 4 MG/2 ML VIAL IVP PRN (07:43)
--- NOTE | 2017-07-24 07:52 | Internal Med History&Physical ---
Date of Encounter: 07/24/17 Time of Encounter: 07:34 Assessment and Plan (1) NSTEMI (non-ST elevated myocardial infarction) Current visit: Yes Status: Acute Patient has CAD status post stents in05/2017, presented with chest pain and the troponin elevation. We will continue heparin drip I called the nuclear fuel enrichment technician, Dr Thompson she will see the patient. (2) COPD (chronic obstructive pulmonary disease) Current visit: Yes Status: Acute Patient has chronic COPD on 3 L nasal cannula at home, she just quit his smoking 7 days ago. We will continue home medications, will add on antibiotics and steroids Qualifiers: COPD type: COPD with acute exacerbation Qualified Code(s): J44.1 - Chronic obstructive pulmonary disease with (acute) exacerbation (3) HLD (hyperlipidemia) Current visit: Yes Status: Chronic Continue home meds Qualifiers: Hyperlipidemia type: pure hypercholesterolemia Qualified Code(s): E78.00 - Pure hypercholesterolemia, unspecified; E78.0 - Pure hypercholesterolemia (4) HTN (hypertension) Current visit: Yes Status: Chronic Qualifiers: Hypertension type: essential hypertension Qualified Code(s): I10 - Essential (primary) hypertension (5) CAD (coronary artery disease) Current visit: Yes Status: Chronic Qualifiers: Coronary Disease-Associated Artery/Lesion type: [place] artery [place] vs. transplanted heart: [place] heart Associated angina: with unspecified angina Qualified Code(s): I25.119 - Atherosclerotic heart disease of [place] coronary artery with unspecified angina pectoris (6) Congestive heart failure Current visit: Yes Status: Chronic Possible diastolic dysfunction was BMP 1933, will give a dose of Lasix Qualifiers: Heart failure type: diastolic Heart failure chronicity: unspecified Qualified Code(s): I50.30 - Unspecified diastolic (congestive) heart failure Internal Medicine - H&P: HPI Chief complaint: chest pain Admitted From: Home Plans for Post Hospital Care: Home History of present illness: Ms. Finch is a 47 year old female who has history of COPD CAD status post stents in 05/2017, hypertension hyperlipidemia depression presented to [facility] for chest pain. Chest pain started yesterday morning, located in the mid of chest constant and sharp 8 out of 10, sometimes pressure associated with his dizziness diaphoresis. Pain also radiating to the left arm and the neck. The first troponin is 0.07. Patient is transferred here for possible non-STEMI was heparin drip. WBC 15.4 PCO2 76 pH 7.3 to BNP 1972. Patient was just a discharge on 27 after pneumonia treatment. She is on 3 L nasal cannula for COPD. #1 non-STEMI #2 COPD exacerbation #3 CAD state opposes stents #4 hypertension # 5 hyperlipidemia #6 chronic hypercapnic respiratory failure with CO2 75 Past Med Surg Social Fam HX - Past Medical History Medical history: coronary artery disease, GI bleed, hyperlipidemia, hypertension , myocardial infarction Psychiatric history: anxiety - Past Surgical History Surgical History: angioplasty/stent, JOSE/BSO, other - Social History Smoking Status: Former smoker Smokeless Tobacco Status: No Alcohol use: occasionally Drug use: none - Family History Mother Adopted: Yes Internal Medicine - H&P: Meds Albuterol Sulfate [Albuterol Inhaler] 2 puff IH Q6H PRN 11/01/16 [History] Atorvastatin [Lipitor] 80 mg PO HS 11/01/16 [History] Buspirone HCl [Buspar] 15 mg PO BID 11/01/16 [History] Fluticasone Propionate Nasal [Flonase] 50 mcg NS DAILY 11/01/16 [History] Ergocalciferol (VITAMIN D2) [Vitamin D2] 50,000 unit PO QWEEK #7 capsule [Rx] Fenofibrate Nanocrystallized [Tricor] 145 mg PO DAILY 12/02/16 [History] Nitroglycerin [Nitrostat] 0.4 mg PO Q5M PRN 12/02/16 [History] Gabapentin [Neurontin] 600 mg PO TID 01/08/17 [History] Mometasone/Formoterol [Dulera 100 Mcg/5 Mcg Inhaler] 13 gm IH DAILY 01/08/17 [ History] Aspirin [Lo-Dose Aspirin EC] 81 mg PO DAILY 04/17/17 [History] Methocarbamol [Robaxin-750] 750 mg PO DAILY 04/17/17 [History] Cetirizine HCl 10 mg PO DAILY PRN #0 05/20/17 [Rx] FLUoxetine HCl [Prozac] 40 mg PO DAILY 06/02/17 [History] Losartan Potassium [Cozaar] 100 mg PO DAILY 06/02/17 [History] Pantoprazole Sodium 40 mg PO DAILY 06/02/17 [History] HYDROcodone/Acet 5/325 mg [[place] 5-325 mg] 1 tab PO Q6H PRN 7 Days #28 tab 06/04 [Rx] Ticagrelor [Brilinta] 90 mg PO BID #30 tablet 06/04/17 [Rx] Ranolazine [Ranexa] 500 mg PO BID #60 tab.er.12h 06/06/17 [Rx] Budesonide/Formoterol 160/4.5 [Symbicort 160/4.5] 1 puff IH BID 07/20/17 [ History] hydroCHLOROthiazide [Hydrochlorothiazide] 25 mg PO DAILY 07/23/17 [History] Isosorbide MONOnitrate (24 HR) [Imdur] 30 mg PO DAILY 07/24/17 [History] LORazepam [Ativan] 1 mg PO TID 07/24/17 [History] Metoprolol [Lopressor] 50 mg PO BID 07/24/17 [History] 3 Allergy/AdvReac Type Severity Reaction Status Date / Time Penicillins AdvReac Hives Verified 06/11/17 10:31 propoxyphene AdvReac Vomiting Verified 06/11/17 10:31 [From Darvocet-N] All Systems PM: A 10-system review of systems was performed and is negative for pertinent findings except as documented above in the HPI. - Constitutional Vitals: Temp Pulse Resp BP Pulse Ox 98.2 F 91 19 156/91 92 07/24/17 04:54 07/24/17 04:54 07/24/17 04:54 07/24/17 04:54 07/24/17 04:54 General appearance: Present: A&O X 3, morbidly obese, pleasant Exam: CONSTITUTIONAL: Patient appears as an age appropriate [default value] well developed, in no acute distress. EYES Clear sclerae, bilateral pupils are equal, reactive to light and accommodation. Extraocular movements are intact RESPIRATORY: No accessory muscle use, bilateral scant wheezing, no crackles/ rales. CARDIOVASCULAR: Regular heart rate, normal S1 and S2, no murmurs GASTROINTESTINAL: bowel sounds present, soft, no tenderness. No hepatosplenomegaly. No bilateral CVA tenderness MUSCULOSKELETAL: Joints in normal range of motion, no clubbing, no edema, no cyanosis. Bilateral peripheral pulses 2+ LYMPHATIC no lymphadenopathy in neck, groin and axilla bilaterally, no thyromegaly. NEUROLOGIC: CN II to XII are grossly intact, no focal neurological deficit. Deep tendon reflexes 2+ bilaterally. Normal light touch sensation to upper and lower extremity PSYCHIATRIC: Oriented x3, with good insight, mood is euthymic. No hallucinations or delusions. SKIN: Skin warm and dry, no rashes, no open wound.
[2017-07-24] MEDS ORDERED: *HR* Heparin 5,000 UNIT/ML VIAL IVP PRN ×4 (08:02→13:00)
[2017-07-24] MEDS ORDERED: *HR* Heparin 5,000 UNIT/ML VIAL IVP ONE (08:02)
[2017-07-24] MEDS ORDERED: Heparin 25,000 UNIT/500 ML D5W 25,000 UNIT/500 ML BAG IVC SCH ×2 (08:15→13:00)
[2017-07-24] MEDS: Budesonide/Formoterol 160/4.5 MDI IH SCH ×2 (08:30→20:32)
[2017-07-24 08:51] LABS: Hematocrit 33.7 % (35.3-44.9); Hemoglobin 9.8 g/dL (11.5-15.4); Mean Corpuscular HGB Conc 29.1 g/dL (31.6-35.5); Mean Corpuscular Hemoglobin 27.1 pg (28.0-33.3); Mean Corpuscular Volume 93.4 fL (83.0-100.0); Platelet Count 215 K/mcL (140-400); Red Blood Count 3.61 M/mcL (3.82-4.97); Red Cell Distribution Width 20.6 % (11.5-14.5)
[2017-07-24 08:54] LABS: INR 1.2
[2017-07-24] MEDS ORDERED: *HR* LORazepam 1 MG TABLET PO SCH (09:00)
[2017-07-24] MEDS ORDERED: Isosorbide MONOnitrate (24 HR) 30 MG TAB.ER.24H PO SCH (09:00)
[2017-07-24] MEDS ORDERED: predniSONE 20 MG TABLET PO SCH (09:00)
[2017-07-24] MEDS ORDERED: Budesonide/Formoterol 80/4.5 MDI IH SCH (09:00)
--- NOTE | 2017-07-24 10:23 | Cardiology Consult Note ---
<Shahida Scott Yomi - Last Filed: 07/24/17 10:33> Date of Encounter: 07/24/17 Time of Encounter: 10:00 Assessment and Plan (1) Elevated troponin Current Visit: Yes Status: Acute Mild, adynamic troponin elevation in the setting of acute hypoxic respiratory failure d/t accidental overdose. (0.06, 0.07, 0.06) This likely reflects demand ischemia. Also recently diagnosed with COPD exacerbation and bilateral PNA. No significant ischemic ECG changes from prior. Patient did report an episode of midsternal chest discomfort, however mild. Pain free upon exam. Recent [facility] 2017 (NSTEMI, trop >11) s/p PCI to mid and distal RCA, existing 50% ISR of pRCA. Otherwise no significant CAD. TTE showed preserved LVEF, 55%. Continue medical management including asa, statin, BB, nitrates, and ranexa. Will increase imdur to 60 mg daily. No indication for cardiac rehab. Emphasized the importance of uninterrupted DAPT (asa + brilinta) for a minimum of 1 year following JANELLE. Risk factor modification emphasized. (2) CAD (coronary artery disease) Current Visit: Yes Status: Chronic Plan as above. Recent NSTEMI s/p PCI to RCA. Asa, statin, BB. Qualifiers: Coronary Disease-Associated Artery/Lesion type: creek artery [place] vs. transplanted heart: creek heart Associated angina: with stable angina Qualified Code(s): I25.118 - Atherosclerotic heart disease of creek coronary artery with other forms of angina pectoris (3) Acute respiratory failure with hypoxia Current Visit: Yes Status: Acute Mgmt per primary service. (4) Anemia Current Visit: No Status: Acute Hx of GI bleed d/t gastric ulcers. H/H appear stable. Continue uninterrupted DAPT (asa + brilinta). Qualifiers: Anemia type: unspecified type Qualified Code(s): D64.9 - Anemia, unspecified Discussion w patient/family: The assessment and plan as outlined above was discussed with the patient and/or family members who expressed understanding and agreement. All questions were answered. Thank you for involving us in the care of your patient. Please call with any questions. The patient will be discussed and reviewed with Dr. Thompson; changes to be made accordingly. History of Present Illness Consult date: 07/24/17 Requesting physician: Jesus Hurt Consult reason: Elevated troponin Chief complaint: Shortness of breath History of present illness: Ms. Finch is a 47 year old female with PMHx significant for HTN, HLD, MS s/p PCI, and tobacco abuse who presented to the ED as transfer from [facility] with complaints of shortness of breath. Reports accidentally took too many pain pills --oxycodone. Positive for opiates and marijuana upon arrival. Associated symptoms include persistent cough for the past 3-4 weeks. Of note, recent discharge from inpatient [facility] for COPD exacerbation d/t bilateral PNA. She also reports midsternal chest discomfort, similar to prior MS but mild. ABG completed at [facility] and PO2 was 65 and PC02 was 76. Recent admission for NSTEMI early 2016 with Troponin 11 s/p PCI (see below) . Prior CV testing: [facility] 06/02/17: s/p PTCA,JANELLE to mid and distal RCA; existing 50% ISR of RCA, otherwise no significant CAD TTE 06/01/17: EF 55%, no significant valvular dysfunction Past Med Surg Social Fam HX - Past Medical History Attestation: Yes The following information was validated with the patient. Medical history: coronary artery disease, GI bleed, hyperlipidemia, hypertension , myocardial infarction Psychiatric history: anxiety - Past Surgical History Surgical History: angioplasty/stent, JOSE/BSO, other - Social History Smoking Status: Former smoker Smokeless Tobacco Status: No Alcohol use: occasionally Drug use: none - Family History Mother Adopted: Yes Medications and Allergies Albuterol Sulfate [Albuterol Inhaler] 2 puff IH Q6H PRN 11/01/16 [History] Atorvastatin [Lipitor] 80 mg PO HS 11/01/16 [History] Buspirone HCl [Buspar] 15 mg PO BID 11/01/16 [History] Fluticasone Propionate Nasal [Flonase] 50 mcg NS DAILY 11/01/16 [History] Ergocalciferol (VITAMIN D2) [Vitamin D2] 50,000 unit PO QWEEK #7 capsule [Rx] Fenofibrate Nanocrystallized [Tricor] 145 mg PO DAILY 12/02/16 [History] Nitroglycerin [Nitrostat] 0.4 mg PO Q5M PRN 12/02/16 [History] Gabapentin [Neurontin] 600 mg PO TID 01/08/17 [History] Mometasone/Formoterol [Dulera 100 Mcg/5 Mcg Inhaler] 13 gm IH DAILY 01/08/17 [ History] Aspirin [Lo-Dose Aspirin EC] 81 mg PO DAILY 04/17/17 [History] Methocarbamol [Robaxin-750] 750 mg PO DAILY 04/17/17 [History] Cetirizine HCl 10 mg PO DAILY PRN #0 05/20/17 [Rx] FLUoxetine HCl [Prozac] 40 mg PO DAILY 06/02/17 [History] Losartan Potassium [Cozaar] 100 mg PO DAILY 06/02/17 [History] Pantoprazole Sodium 40 mg PO DAILY 06/02/17 [History] HYDROcodone/Acet 5/325 mg [[place] 5-325 mg] 1 tab PO Q6H PRN 7 Days #28 tab 06/04 [Rx] Ticagrelor [Brilinta] 90 mg PO BID #30 tablet 06/04/17 [Rx] Ranolazine [Ranexa] 500 mg PO BID #60 tab.er.12h 06/06/17 [Rx] Budesonide/Formoterol 160/4.5 [Symbicort 160/4.5] 1 puff IH BID 07/20/17 [ History] hydroCHLOROthiazide [Hydrochlorothiazide] 25 mg PO DAILY 07/23/17 [History] Isosorbide MONOnitrate (24 HR) [Imdur] 30 mg PO DAILY 07/24/17 [History] LORazepam [Ativan] 1 mg PO TID 07/24/17 [History] Metoprolol [Lopressor] 50 mg PO BID 07/24/17 [History] 3 Allergy/AdvReac Type Severity Reaction Status Date / Time Penicillins AdvReac Hives Verified 06/11/17 10:31 propoxyphene AdvReac Vomiting Verified 06/11/17 10:31 [From Mildred] All Systems Review: The remainder of the systems were reviewed and are negative - Cardiovascular Cardiovascular: as per HPI Physical Examination Vital Signs, Last 4 Hours Temp Pulse Resp BP Pulse Ox 07/24/17 08:30 18 95 07/24/17 07:57 98.0 F 92 15 148/88 94 General: Conversant, Other (appears ill) HEENT: Atraumatic, Normocephaly Cardiac: Reg Rate and Rhythm, Normal S1 and S2 Lungs: Other (Decreased) Neuro: Alert and responsive Abdomen: Soft Skin: No rashes noted on visualized skin Musculoskeletal: No Chest Wall Tenderness Extremities: No Edema, Normal Pulses Results 07/24/17 08:11 Lab Results 07/24/17 07/24/17 07/24/17 08:11 08:11 08:11 WBC 10.4 Hgb 9.8 L Hct 33.7 L Plt Count 215 INR APTT 58.3 H D Troponin I 0.06 H* 07/24/17 08:11 WBC Hgb Hct Plt Count INR 1.2 APTT Troponin I Active Medications Hydrocodone Bitart/Acetaminophen ([place] 5-325 Mg) 1 tab PO Q6H PRN PRN Reason: Pain Stop: 01/23/18 07:37 Albuterol Sulfate (Albuterol Inhaler) 2 puff IH Q6H PRN PRN Reason: Shortness Of Breath Stop: 01/23/18 07:37 Last Admin: 07/24/17 08:30 Dose: 2 puff Aspirin (Aspirin Ec) 81 mg PO DAILY [facility] Stop: 01/23/18 09:01 Atorvastatin Calcium (Lipitor) 80 mg PO HS [facility] Stop: 01/23/18 21:01 Budesonide/Formoterol Fumarate (Symbicort) 1 puff IH BIDR [facility] PRN Reason: Protocol Stop: 01/23/18 10:01 Last Admin: 07/24/17 08:30 Dose: 1 puff Budesonide/Formoterol Fumarate (Symbicort) 2 puff IH DAILY [facility] Stop: 01/23/18 09:01 Last Admin: 07/24/17 08:31 Dose: Not Given Buspirone HCl (Buspar) 15 mg PO BID [facility] Stop: 01/23/18 09:01 Fenofibrate (Tricor) 135 mg PO DAILY [facility] Stop: 01/23/18 09:01 Fluoxetine HCl (Prozac) 40 mg PO DAILY [facility] Stop: 01/23/18 09:01 Fluticasone Propionate (Flonase) 50 mcg NS DAILY [facility] PRN Reason: Protocol Stop: 01/23/18 09:01 Gabapentin (Neurontin) 600 mg PO TID [facility] Stop: 01/23/18 09:01 Heparin Sodium (Porcine) (Heparin) 4,000 unit IVP Q6HR PRN PRN Reason: SEE COMMENTS Stop: 01/23/18 08:03 Heparin Sodium (Porcine) (Heparin) 2,000 unit IVP Q6H PRN PRN Reason: SEE COMMENTS Stop: 01/23/18 08:03 Hydrochlorothiazide (Hydrochlorothiazide) 25 mg PO DAILY [facility] PRN Reason: Protocol Stop: 01/23/18 09:01 Heparin Sodium/Dextrose (Heparin 25,000 Unit/500 Ml D5w) 25,000 unit in 500 mls @ 19.999 mls/hr IVC .Q24H [facility]; 10.214 UNIT/KG/HR PRN Reason: Protocol Stop: 01/23/18 08:16 Last Admin: 07/24/17 09:50 Dose: 11.84 unit/kg/hr, 23.2 mls/hr Isosorbide Mononitrate (Imdur) 30 mg PO DAILY [facility] Stop: 01/23/18 09:01 Levofloxacin (Levaquin) 500 mg PO DAILY [facility] PRN Reason: Protocol Stop: 01/23/18 09:01 Loratadine (Claritin) 10 mg PO DAILY PRN PRN Reason: Allergy Symptoms Lorazepam (Ativan) 1 mg PO TID [facility] Stop: 01/23/18 09:01 Losartan Potassium (Cozaar) 100 mg PO DAILY [facility] Stop: 01/23/18 09:01 Methocarbamol (Robaxin) 750 mg PO DAILY [facility] Stop: 01/23/18 09:01 Metoprolol Tartrate (Lopressor) 50 mg PO BID [facility] Stop: 01/23/18 09:01 Morphine Sulfate (Morphine Sulfate) 2 mg IVP Q2H PRN PRN Reason: Chest Pain Stop: 01/23/18 07:44 Nitroglycerin (Nitroglycerin) 0.4 mg SL Q5M PRN PRN Reason: Chest Pain Stop: 01/23/18 07:37 Omeprazole (Prilosec) 20 mg PO DAILY [facility] Stop: 01/23/18 09:01 Prednisone (Prednisone) 40 mg PO DAILY [facility] Stop: 01/23/18 09:01 Ranolazine (Ranexa) 500 mg PO BID [facility] Stop: 01/23/18 09:01 Ticagrelor (Brilinta) 90 mg PO BID [facility] Stop: 01/23/18 09:01 Vitamin D (Vitamin D) 1,000 unit PO DAILY [facility] Stop: 01/23/18 09:01 - Imaging and Cardiology Echo: report reviewed Cardiac cath: report reviewed Other Results: 12 hour tele: avg HR=95 SR. - EKG Interpretation EKG results cardiology: personally reviewed Consult Discharge Plan - Plan Referrals: Angela Iverson, [employer] [Primary Care Provider] - <Zaria Thompson - Last Filed: 07/24/17 16:57> Date of Encounter: 07/24/17 - Attending Attestation I examined this patient and my medical decision-making was reviewed with the [employer]. I agree with the documented findings, disposition and treatment plan as described. Ms. Finch presents with mild, adynamic troponin elevation in the setting of acute hypoxic respiratory failure thought secondary to accidental overdose of narcotic medication. ECG demonstrates no changes from prior ECG. Patient without current chest pain. Denies missing any doses of antiplatelet therapy. Recommend repeat echo for evaluation of LV wall motion. Otherwise, continue medical management at this time including antiplatelet agent, statin, beta sirisha, nitrates and Ranexa. Assessment and Plan Discussion w patient/family: The assessment and plan as outlined above was discussed with the patient and/or family members who expressed understanding and agreement. All questions were answered. Thank you for involving us in the care of your patient. Please call with any questions. History of Present Illness History of present illness: Ms. Finch is a 47 year old female All Systems Review: The remainder of the systems were reviewed and are negative Physical Examination Vital Signs, Last 4 Hours Temp Pulse Resp BP Pulse Ox 07/24/17 15:59 97.8 F 85 15 132/74 100 07/24/17 15:40 98.2 F 81 15 134/80 99 07/24/17 14:36 78 131/88 Results 07/24/17 08:11 Lab Results 07/24/17 07/24/17 07/24/17 08:11 08:11 08:11 WBC 10.4 Hgb 9.8 L Hct 33.7 L Plt Count 215 INR APTT 58.3 H D Troponin I 0.06 H* 07/24/17 07/24/17 08:11 13:37 WBC Hgb Hct Plt Count INR 1.2 APTT Troponin I 0.06 H*
[2017-07-24] MEDS: Gabapentin 300 MG CAPSULE PO SCH ×3 (10:43→21:07)
[2017-07-24] MEDS: *HR* Ticagrelor 90 MG TABLET PO SCH ×2 (12:30→21:07)
[2017-07-24] MEDS: Fluticasone Propionate Nasal 50 MCG/SPRAY BOTTLE NS SCH (12:31)
[2017-07-24] MEDS: levoFLOXacin 500 MG TABLET PO SCH (12:31)
[2017-07-24] MEDS: FLUoxetine 20 MG CAPSULE PO SCH (12:32)
[2017-07-24] MEDS: Fenofibrate 54 MG TABLET PO SCH (12:32)
[2017-07-24] MEDS: Ranolazine 500 MG TAB.ER.12H PO SCH ×2 (12:32→21:07)
[2017-07-24] MEDS: hydroCHLOROthiazide 25 MG TABLET PO SCH (12:34)
[2017-07-24] MEDS: methylPREDNISolone 125 MG/2 ML VIAL IVP SCH ×2 (12:39→18:59)
[2017-07-24] MEDS: Aspirin Enteric Coated 81 MG Tablet PO SCH (12:53)
[2017-07-24] MEDS: Cholecalciferol (D-3) 1,000 UNIT TABLET PO SCH (12:53)
[2017-07-24] MEDS: Methocarbamol 750 MG TABLET PO SCH (14:23)
[2017-07-24] MEDS: Acetaminophen 325 MG TABLET PO PRN (15:06)
--- NOTE | 2017-07-24 16:57 | Electrocardiograph Report ---
[address] [address] Test Date: 2017-07-24 Pat Name: Anusha Finch Department: 111 Room: 2N3 Gender: F [place] Filler: : 1970 Requested By: Jesus Hurt Order Number: [id number] Reading MD: Erik Villalba Measurements Intervals [place] Rate: 93 P: 61 IA: 156 QRS: 12 QRSD: 99 T: 4 QT: 342 QTc: 392 Interpretive Statements SINUS RHYTHM WITH FREQUENT VENTRICULAR PREMATURE COMPLEXES POSSIBLE LEFT ATRIAL ENLARGEMENT NONSPECIFIC T-WAVE ABNORMALITY Electronically Signed On 07-24-2017 16:55:39 EDT by Erik Villalba
[2017-07-24] MEDS: *HR* LORazepam 1 MG TABLET PO SCH (21:07)
[2017-07-24] MEDS ORDERED: Perflutren Lipid Microsphere 1.3 ML in 0.9 % Sodium Chloride 8.7 ML IVP ONE (21:11)
[2017-07-25] MEDS: methylPREDNISolone 125 MG/2 ML VIAL IVP SCH ×3 (00:52→11:57)
[2017-07-25 05:52] LABS: Basophils % 0.1 %; Hematocrit 32.8 % (35.3-44.9); Hemoglobin 9.6 g/dL (11.5-15.4); Immature Granulocytes % 2.6 % (0-4); Lymphocytes # 0.8 K/mcL (0.6-4.6); Lymphocytes % 9.2 %; Mean Corpuscular HGB Conc 29.3 g/dL (31.6-35.5); Mean Corpuscular Hemoglobin 26.7 pg (28.0-33.3); Mean Corpuscular Volume 91.1 fL (83.0-100.0); Mean Platelet Volume 9.7 fL (9.4-12.4); Monocytes # 0.4 K/mcL (0.0-1.3); Monocytes % 4.5 %; Platelet Count 195 K/mcL (140-400); Red Cell Distribution Width 19.7 % (11.5-14.5); Segmented Neutrophils % 83.6 %
[2017-07-25 06:03] LABS: INR 1.2; Prothrombin Time 12.9 Seconds (9.4-12.1)
[2017-07-25 06:06] LABS: Activated Partial Thrombo Time 62.3 Seconds (26.0-36.0)
[2017-07-25 06:54] LABS: Alanine Aminotransferase 51 Units/L (7-52); Albumin 3.5 g/dL (3.5-5.7); Albumin/Globulin Ratio 1.2 (1.1-2.2); Alkaline Phosphatase 115 Units/L (34-104); Aspartate Amino Transferase 33 Units/L (13-39); BUN/Creatinine Ratio 28 (6-26); Bilirubin,Total 0.5 mg/dL (0.3-1.0); Blood Urea Nitrogen 11 mg/dL (6-20); Calcium 9.3 mg/dL (8.6-10.3); Carbon Dioxide 38 mEq/L (23-29); Chloride 91 mEq/L (98-107); Glucose 173 mg/dL (70-105); Magnesium 1.9 mg/dL (1.6-2.6); Osmolality,Calculated 288 (280-300); Potassium 3.9 mEq/L (3.5-5.1); Sodium 137 mEq/L (136-145); Total Protein 6.5 g/dL (6.4-8.9); eGFR For African Americans > 60 (> 60); eGFR For Non-African Americans > 60 (> 60)
[2017-07-25] MEDS: Budesonide/Formoterol 160/4.5 MDI IH SCH ×2 (07:55→20:09)
--- NOTE | 2017-07-25 08:33 | Internal Med Progress Note ---
<Julio C Steele - Last Filed: 07/25/17 11:59> Date of Encounter: 07/25/17 Time of Encounter: 08:31 - Assessment and plan (1) Elevated troponin Current Visit: Yes Status: Acute Assessment and plan: Adynamic troponin elevation in the setting of acute hypoxic respiratory failure 2/2 accidental overdose. (0.06, 0.07, 0.06) This likely reflects demand ischemia EKG unremarkable [facility] 06/02/17: s/p PTCA,JANELLE to mid and distal RCA; existing 50% ISR of RCA, otherwise no significant CAD TTE 06/01/17: EF 55%, no significant valvular dysfunction Per cardiology, continue medical management -Imdur 60 mg by mouth daily -Heparin drip -ASA 81 mg by mouth daily -Brilinta 90 mg by mouth twice a day (2) Acute respiratory failure with hypoxia Current Visit: Yes Status: Acute Assessment and plan: Presented with shortness of breath Patient has had persistent cough for last 3-4 weeks Recent discharge from [facility] for COPD exacerbation in setting of bilateral pneumonia Plan: -Albuterol nebs 2 puffs inhaled every 6 when necessary -Symbicort 1 puff inhale twice a day -Levaquin 500 mg by mouth daily -Solu-Medrol 60 mg IV every 6 (3) HTN (hypertension) Current Visit: Yes Status: Chronic Assessment and plan: -Cozaar 100 mg by mouth daily -HCTZ 25 mg by mouth daily -Metoprolol 50 mg by mouth twice a day -Cardiac diet Qualifiers: Hypertension type: essential hypertension Qualified Code(s): I10 - Essential (primary) hypertension (4) Anemia Current Visit: No Status: Acute Assessment and plan: Hx of GI bleed d/t gastric ulcers. -H/H appear stable. -Continue uninterrupted DAPT (asa + brilinta) Qualifiers: Anemia type: unspecified type Qualified Code(s): D64.9 - Anemia, unspecified (5) HLD (hyperlipidemia) Current Visit: Yes Status: Chronic Assessment and plan: -Lipitor 80 mg by mouth at bedtime -TriCor 135 mg by mouth daily Qualifiers: Hyperlipidemia type: pure hypercholesterolemia Qualified Code(s): E78.00 - Pure hypercholesterolemia, unspecified; E78.0 - Pure hypercholesterolemia - Subjective Interval history: 47 year old female. Presented to ED as a transfer from [facility] with the chief complaint of shortness of breath. Reported taking too many pills of oxycodone by accident. Positive for opiates and marijuana on arrival. Patient complained of a persistent cough for the last 3-4 weeks. Recent discharge from inpatient [facility] for COPD exacerbation due to bilateral pneumonia. Also reported midsternal chest discomfort, which was mild but similar in character to prior [place]. ABG at [facility] demonstrated PaO2 of 65 and a PCO2 of 76. Patient seen and examined at bedside this morning. Currently on oxygen via nasal cannula. Is experiencing some shortness of breath, but denies having any chest discomfort. Reports that her condition is improved since admission. - Constitutional Vitals: Temp Pulse Resp BP Pulse Ox 98.6 F 77 15 156/78 95 07/25/17 07:31 07/25/17 07:31 07/25/17 07:31 07/25/17 07:31 07/25/17 07:31 General appearance: Present: A&O X 3, morbidly obese, pleasant - Head Head exam: Present: atraumatic, normocephalic - Eye Eye exam: Present: PERRL, conjuntiva pink, sclera anicteric Pupils: Present: PERRL - Neck Neck exam general surgery: Present: supple, trachea midline. Absent: lymphadenopathy - Respiratory Respiratory exam: Present: decreased breath sounds, rales, wheezes. Absent: accessory muscle use, rhonchi - Cardiovascular Cardiovascular exam: Present: RRR, +S1, +S2. Absent: diastolic murmur, gallop, rubs, systolic murmur - Extremities Exam Extremities exam: Present: warm, radial pulses palpable and symmetrical. Absent : calf tenderness, cyanotic, pedal edema - Neurological Exam Neurological exam: Present: CN II-XII intact, oriented X3, no focal deficits. Absent: pronater drift, facial droop, speech deficit - Skin Skin exam: Present: dry, intact Internal Medicine: Result - Labs CBC & Chem 7: 07/25/17 05:01 07/25/17 05:01 Labs: Short CBC 07/24/17 07/25/17 Range/Units 08:11 05:01 WBC 10.4 8.4 (4.3-11.1) K/mcL Hgb 9.8 L 9.6 L (11.5-15.4) g/dL Hct 33.7 L 32.8 L (35.3-44.9) % Plt Count 215 195 (140-400) K/mcL Neutrophils # 7.0 (1.6-8.9) K/mcL BMP 07/25/17 05:01 Sodium 137 Potassium 3.9 Chloride 91 L Carbon Dioxide 38 H BUN 11 Creatinine 0.40 L Glucose 173 H Calcium 9.3 Cardiac Enzymes 07/24/17 07/24/17 07/24/17 Range/Units 08:11 13:37 19:12 Troponin I 0.06 H* 0.06 H* 0.05 H* (< 0.04) ng/mL Liver Function 07/25/17 Range/Units 05:01 Total Bilirubin 0.5 (0.3-1.0) mg/dL AST 33 (13-39) Units/L ALT 51 (7-52) Units/L Alkaline Phosphatase 115 H (34-104) Units/L Albumin 3.5 (3.5-5.7) g/dL - ABG Interpretation ABG results: PT/INR, D-dimer PT 12.9 Seconds (9.4-12.1) H 07/25/17 05:01 - VTE Documentation of Mechanical Device: Intermittent pneumatic compression device Consult Discharge Plan - Plan Referrals: Angela Iverson, CHRYSTAL [Primary Care Provider] - <Luke Spivey H - Last Filed: 07/25/17 15:36> Date of Encounter: 07/25/17 - Constitutional Vitals: Temp Pulse Resp BP Pulse Ox 97.8 F 70 18 115/72 99 07/25/17 15:12 07/25/17 15:12 07/25/17 15:12 07/25/17 15:12 07/25/17 15:12 Internal Medicine: Result - Labs CBC & Chem 7: 07/25/17 05:01 07/25/17 05:01 Labs: Short CBC 07/25/17 Range/Units 05:01 WBC 8.4 (4.3-11.1) K/mcL Hgb 9.6 L (11.5-15.4) g/dL Hct 32.8 L (35.3-44.9) % Plt Count 195 (140-400) K/mcL Neutrophils # 7.0 (1.6-8.9) K/mcL BMP 07/25/17 05:01 Sodium 137 Potassium 3.9 Chloride 91 L Carbon Dioxide 38 H BUN 11 Creatinine 0.40 L Glucose 173 H Calcium 9.3 Cardiac Enzymes 07/24/17 Range/Units 19:12 Troponin I 0.05 H* (< 0.04) ng/mL Liver Function 07/25/17 Range/Units 05:01 Total Bilirubin 0.5 (0.3-1.0) mg/dL AST 33 (13-39) Units/L ALT 51 (7-52) Units/L Alkaline Phosphatase 115 H (34-104) Units/L Albumin 3.5 (3.5-5.7) g/dL - ABG Interpretation ABG results: PT/INR, D-dimer PT 12.9 Seconds (9.4-12.1) H 07/25/17 05:01 - Impressions Impressions Echocardiogram Limited Views 07/24/17 11:11 Impressions: LVEF 50-55%. Normal LV chamber size and wall thickness. Mild segmental left ventricular systolic dysfunction. Left Ventricular Wall Motion: Rest Echo Findings The basal inferior wall was hypokinetic. All other wall segments showed normal motion. Findings: Study Quality * Technically adequate exam. ECG Findings * Normal sinus rhythm. Left Ventricle * LVEF 50-55%. * Normal LV chamber size and wall thickness. * Mild segmental left ventricular systolic dysfunction. Right Ventricle * Normal right ventricular structure and function. Left Atrium * Moderately dilated left atrium. Right Atrium * Mildly dilated right atrium. Aorta * Normally sized aortic root. Pericardium * The pericardium appears normal. - Attending Attestation Acute on chronic hypoxic hypercapnic respiratory failure secondary to acute COPD exacerbation due to acute bacterial bronchitis levaquin day #2 solumedrol O2 BiPAP qualification Major depression, order psychiatry evaluation Elevated troponins likely secondary to hypoxia/demand ischemia, discontinue heparin drip CT scan of the chest showed: No evidence of pulmonary embolism or acute pulmonary abnormality. I examined this patient and my medical decision-making was reviewed with the Resident Physician. I agree with the documented findings, disposition and treatment plan as described except to the extent set forth below.
[2017-07-25] MEDS: Fenofibrate 54 MG TABLET PO SCH (09:48)
[2017-07-25] MEDS: Gabapentin 300 MG CAPSULE PO SCH ×3 (09:49→21:27)
[2017-07-25] MEDS: *HR* Ticagrelor 90 MG TABLET PO SCH ×2 (09:49→21:27)
[2017-07-25] MEDS: Isosorbide MONOnitrate (24 HR) 60 MG TAB.ER.24H PO SCH (09:49)
[2017-07-25] MEDS: *HR* HYDROcodone/Acet 5/325 mg TABLET PO PRN ×3 (09:50→22:38)
[2017-07-25] MEDS: hydroCHLOROthiazide 25 MG TABLET PO SCH (09:50)
[2017-07-25] MEDS: *HR* LORazepam 1 MG TABLET PO SCH (09:50)
[2017-07-25] MEDS: Ranolazine 500 MG TAB.ER.12H PO SCH ×2 (09:50→21:27)
[2017-07-25] MEDS: levoFLOXacin 500 MG TABLET PO SCH (09:50)
[2017-07-25] MEDS: Aspirin Enteric Coated 81 MG Tablet PO SCH (09:50)
[2017-07-25] MEDS: FLUoxetine 20 MG CAPSULE PO SCH (09:50)
[2017-07-25] MEDS: Methocarbamol 750 MG TABLET PO SCH (09:50)
[2017-07-25] MEDS: Fluticasone Propionate Nasal 50 MCG/SPRAY BOTTLE NS SCH (09:51)
[2017-07-25] MEDS: Cholecalciferol (D-3) 1,000 UNIT TABLET PO SCH (09:59)
--- NOTE | 2017-07-25 11:16 | Event Note ---
Date of Encounter: 07/25/17 Time of Encounter: 11:00 - Cardiology Event Note No significant changes from previous. Hx of NSTEMI 2017 s/p PCI to RCA. SWMA consistent with history/coronary anatomy. No further inpatient testing recommended. Continue current CV medications including uninterrupted DAPT (asa + brilinta), stating, BB, nitrates, and ranexa. Cardiology will sign-off. Discussed and reviewed with Dr. Thompson who agrees with plan as stated above. Echocardiogram Limited Views 07/24/17 11:11 Impressions: LVEF 50-55%. Normal LV chamber size and wall thickness. Mild segmental left ventricular systolic dysfunction. Left Ventricular Wall Motion: Rest Echo Findings The basal inferior wall was hypokinetic. All other wall segments showed normal motion. Findings: Study Quality * Technically adequate exam. ECG Findings * Normal sinus rhythm. Left Ventricle * LVEF 50-55%. * Normal LV chamber size and wall thickness. * Mild segmental left ventricular systolic dysfunction. Right Ventricle * Normal right ventricular structure and function. Left Atrium * Moderately dilated left atrium. Right Atrium * Mildly dilated right atrium. Aorta * Normally sized aortic root. Pericardium * The pericardium appears normal.
[2017-07-25] MEDS: Acetaminophen 325 MG TABLET PO PRN ×2 (11:57→21:33)
[2017-07-25] MEDS: *HR* LORazepam 1 MG TABLET PO PRN (15:06)
[2017-07-25] MEDS: MethylPREDNISolone 40 MG/ML VIAL IVP SCH (16:08)
[2017-07-26] MEDS: MethylPREDNISolone 40 MG/ML VIAL IVP SCH ×2 (05:23→17:24)
[2017-07-26 05:31] LABS: ABG Base Excess 18 mEq/L (-2 to 3); ABG HCO3 45 mEq/L (21-27); ABG Oxygen Saturation 94 % (95-98); ABG PCO2 69 mmHg (35-45); ABG PH 7.42 pH Units (7.32-7.45); ABG PO2 75 mmHg (85-104); ABG TCO2 47 mEq/L (20-26)
[2017-07-26 05:58] LABS: Basophils % 0.1 %
[2017-07-26 06:00] LABS: Hematocrit 34.8 % (35.3-44.9); Immature Granulocytes % 1.9 % (0-4); Lymphocytes # 1.1 K/mcL (0.6-4.6); Lymphocytes % 7.8 %; Mean Corpuscular HGB Conc 28.7 g/dL (31.6-35.5); Mean Corpuscular Hemoglobin 26.7 pg (28.0-33.3); Mean Platelet Volume 10.7 fL (9.4-12.4); Monocytes # 1.5 K/mcL (0.0-1.3); Neutrophils # 11.1 K/mcL (1.6-8.9); Nucleated Red Blood Cells 1.9 /100 WBC (0); Platelet Count 227 K/mcL (140-400); Red Blood Count 3.74 M/mcL (3.82-4.97); Red Cell Distribution Width 19.9 % (11.5-14.5); Segmented Neutrophils % 79.2 %
[2017-07-26 06:21] LABS: Anisocytosis 2+ (Not Present); Hypochromasia Present (Not Present); Poikilocytosis 1+ (Not Present)
[2017-07-26 06:22] LABS: Hypersegmented Neutrophils Present (Not Present); Platelet Estimate Normal (Normal); Reactive Lymphocytes Present (Not Present); Toxic Granulation Present (Not Present)
[2017-07-26 06:23] LABS: Spherocytes 1+ (Not Present)
[2017-07-26 06:26] LABS: BUN/Creatinine Ratio 36 (6-26); Blood Urea Nitrogen 17 mg/dL (6-20); Calcium 9.4 mg/dL (8.6-10.3); Carbon Dioxide 41 mEq/L (23-29); Chloride 93 mEq/L (98-107); Glucose 136 mg/dL (70-105); Osmolality,Calculated 290 (280-300); Potassium 4.1 mEq/L (3.5-5.1); Sodium 138 mEq/L (136-145); eGFR For African Americans > 60 (> 60); eGFR For Non-African Americans > 60 (> 60)
[2017-07-26] MEDS: Budesonide/Formoterol 160/4.5 MDI IH SCH ×2 (07:40→22:41)
[2017-07-26] MEDS: FLUoxetine 20 MG CAPSULE PO SCH (08:37)
[2017-07-26] MEDS: levoFLOXacin 500 MG TABLET PO SCH (08:37)
[2017-07-26] MEDS: Isosorbide MONOnitrate (24 HR) 60 MG TAB.ER.24H PO SCH (08:37)
[2017-07-26] MEDS: Methocarbamol 750 MG TABLET PO SCH (08:37)
[2017-07-26] MEDS: Gabapentin 300 MG CAPSULE PO SCH ×3 (08:37→22:16)
[2017-07-26] MEDS: Ranolazine 500 MG TAB.ER.12H PO SCH ×2 (08:38→22:17)
[2017-07-26] MEDS: Fenofibrate 54 MG TABLET PO SCH (08:38)
[2017-07-26] MEDS: *HR* Ticagrelor 90 MG TABLET PO SCH ×2 (08:38→22:17)
[2017-07-26] MEDS: hydroCHLOROthiazide 25 MG TABLET PO SCH (08:38)
[2017-07-26] MEDS: Aspirin Enteric Coated 81 MG Tablet PO SCH (08:38)
--- NOTE | 2017-07-26 09:02 | Consult Note ---
Date of Encounter: 07/26/17 Time of Encounter: 08:30 Assessment & Recommendation (1) Grieving Current visit: Yes Status: Acute Assessment & Recommendation: patient at present grieving for her significant other will benefit from counselling. referral needed. (2) Depressive disorder, not elsewhere classified Current visit: Yes Status: Chronic Assessment & Recommendation: will start lexapro 10 mg and continue buspar , referral for outpatient psych. History of Present Illness Patient: new to practice Requesting Physician: Duy Manzo MD Reason for consult: recently passed and depress and anxious. History of present illness: Ms. Finch is a 47 year old female consulted today for depression and anxiety. She was seen at her bed side , she is cooperative and able to give history. She states her significant other of 29 years passed and was buried on her birthday [birth year]. she is tearful thru the session , states has been on prozac for 3 months from PCP but not doing any thing and she has not felt any change , lack of motivation , crying spells, sleep off and on AND feeling unable to handle the stress , also has financial and health issues. denies si/hi , denies sharon . She lives by herself , has 3 sons and young son visits her frequently. past psych She has h/o past and recent depression for 3-4 months since her significant other was dx with cancer. denies h/o drug use but in last month has used marijuana to relieve her pain and as per her did not benefit. She has multiple medical illness Obesity , CHF,HTN , Copd. A/P greiving/Depression and anxiety DC prozac as no benefit at all and increase dose will not benefit. Start lexapro 10 mg , continue buspar for anxiety. social service please have counselling and out patient psychiatric referal. At present patient not in dangeer to self/others. will benefit with out patient. Thank you for consult will sign off. CC: Duy Manzo MD Past Med Surg Social Fam HX - Past Medical History Medical history: coronary artery disease, GI bleed, hyperlipidemia, hypertension , myocardial infarction - Past Psychiatric History Psychiatric history: Reports: depression Family psychiatric history: No Family History of Suicide: Unknown - Past Surgical History Surgical History: angioplasty/stent, JOSE/BSO, other - Social History Smoking Status: Former smoker Smokeless Tobacco Status: No Alcohol use: occasionally Drug use: none - Family History Mother Adopted: Yes Medications & Allergies Albuterol Sulfate [Albuterol Inhaler] 2 puff IH Q6H PRN 11/01/16 [History] Atorvastatin [Lipitor] 80 mg PO HS 11/01/16 [History] Buspirone HCl [Buspar] 15 mg PO BID 11/01/16 [History] Fluticasone Propionate Nasal [Flonase] 50 mcg NS DAILY 11/01/16 [History] Ergocalciferol (VITAMIN D2) [Vitamin D2] 50,000 unit PO QWEEK #7 capsule [Rx] Fenofibrate Nanocrystallized [Tricor] 145 mg PO DAILY 12/02/16 [History] Nitroglycerin [Nitrostat] 0.4 mg PO Q5M PRN 12/02/16 [History] Gabapentin [Neurontin] 600 mg PO TID 01/08/17 [History] Mometasone/Formoterol [Dulera 100 Mcg/5 Mcg Inhaler] 13 gm IH DAILY 01/08/17 [ History] Aspirin [Lo-Dose Aspirin EC] 81 mg PO DAILY 04/17/17 [History] Methocarbamol [Robaxin-750] 750 mg PO DAILY 04/17/17 [History] Cetirizine HCl 10 mg PO DAILY PRN #0 05/20/17 [Rx] FLUoxetine HCl [Prozac] 40 mg PO DAILY 06/02/17 [History] Losartan Potassium [Cozaar] 100 mg PO DAILY 06/02/17 [History] Pantoprazole Sodium 40 mg PO DAILY 06/02/17 [History] HYDROcodone/Acet 5/325 mg [[place] 5-325 mg] 1 tab PO Q6H PRN 7 Days #28 tab 06/04 [Rx] Ticagrelor [Brilinta] 90 mg PO BID #30 tablet 06/04/17 [Rx] Ranolazine [Ranexa] 500 mg PO BID #60 tab.er.12h 06/06/17 [Rx] Budesonide/Formoterol 160/4.5 [Symbicort 160/4.5] 1 puff IH BID 07/20/17 [ History] hydroCHLOROthiazide [Hydrochlorothiazide] 25 mg PO DAILY 07/23/17 [History] Isosorbide MONOnitrate (24 HR) [Imdur] 30 mg PO DAILY 07/24/17 [History] LORazepam [Ativan] 1 mg PO TID 07/24/17 [History] Metoprolol [Lopressor] 50 mg PO BID 07/24/17 [History] 3 Allergy/AdvReac Type Severity Reaction Status Date / Time Penicillins AdvReac Hives Verified 06/11/17 10:31 propoxyphene AdvReac Vomiting Verified 06/11/17 10:31 [From Mildred] Review of Systems Psychiatric: Reports: depression, anxiety Psychiatry Exam - Constitutional Vitals: Temp Pulse Resp BP Pulse Ox 97.8 F 69 16 152/99 97 07/26/17 06:40 07/26/17 06:40 07/26/17 07:40 07/26/17 06:40 07/26/17 07:40 General appearance: age & developmentally appropriate - Musculoskeletal Gait: normal Station: relaxed Strength & Tone: normal for patient - Psychiatric Patient Orientation: Yes Person, Yes Time, Yes Place, Yes Circumstance Level of alertness: Alert Behavior: cooperative Psychomotor activity: Normal Eye Contact: Maintains Eye Contact Mood Description: Depressed, Anxious Affect description: congruent with mood, tearful Speech Volume: Normal Speech pattern: normal rate, normal rhythm, normal tone, fluent, spontaneous Language & Vocabulary: consistent with education Thought Process: Linear, Goal Oriented Thought Content: No Suicidal ideation, No Homicidal ideation, No Overt delusions Perceptual Disturbances: No Auditory hallucinations, No Visual hallucinations Attention Span Ability: Capable of Focused Attention Memory Description: Grossly Intact Patient Reliability: Reliable Historian Fund of knowledge: Yes average Intelligence Estimate: Average Judgment: Good Insight: Full Results - Labs Labs: Laboratory Last Values WBC 14.0 K/mcL (4.3-11.1) H D 07/26/17 05:21 RBC 3.74 M/mcL (3.82-4.97) L 07/26/17 05:21 Hgb 10.0 g/dL (11.5-15.4) L 07/26/17 05:21 Hct 34.8 % (35.3-44.9) L 07/26/17 05:21 MCV 93.0 fL (83.0-100.0) 07/26/17 05:21 MCH 26.7 pg (28.0-33.3) L 07/26/17 05:21 MCHC 28.7 g/dL (31.6-35.5) L 07/26/17 05:21 RDW 19.9 % (11.5-14.5) H 07/26/17 05:21 Plt Count 227 K/mcL (140-400) 07/26/17 05:21 MPV 10.7 fL (9.4-12.4) 07/26/17 05:21 Immature Gran % 1.9 % (0-4) 07/26/17 05:21 Seg Neutrophils % 79.2 % 07/26/17 05:21 Lymphocytes % 7.8 % 07/26/17 05:21 Monocytes % 11.0 % 07/26/17 05:21 Eosinophils % 0.0 % 07/26/17 05:21 Basophils % 0.1 % 07/26/17 05:21 Neutrophils # 11.1 K/mcL (1.6-8.9) H 07/26/17 05:21 Lymphocytes # 1.1 K/mcL (0.6-4.6) 07/26/17 05:21 Monocytes # 1.5 K/mcL (0.0-1.3) H 07/26/17 05:21 Eosinophils # 0.0 K/mcL (0.0-0.6) 07/26/17 05:21 Basophils # 0.0 K/mcL (0.0-0.2) 07/26/17 05:21 Nucleated RBCs/100 WBC 1.9 /100 WBC (0) H 07/26/17 05:21 Hypersegmented Neuts Present (Not Present) A 07/26/17 05:21 Reactive Lymphocytes Present (Not Present) A 07/26/17 05:21 Toxic Granulation Present (Not Present) A 07/26/17 05:21 Platelet Estimate Normal (Normal) 07/26/17 05:21 Hypochromasia Present (Not Present) A 07/26/17 05:21 Poikilocytosis 1+ (Not Present) A 07/26/17 05:21 Anisocytosis 2+ (Not Present) A 07/26/17 05:21 Spherocytes 1+ (Not Present) A 07/26/17 05:21 PT 12.9 Seconds (9.4-12.1) H 07/25/17 05:01 INR 1.2 07/25/17 05:01 APTT 62.3 Seconds (26.0-36.0) H 07/25/17 05:01 Sample Site R Radial 07/26/17 05:28 ABG pH 7.42 pH Units (7.32-7.45) 07/26/17 05:28 ABG pCO2 69 mmHg (35-45) H 07/26/17 05:28 ABG pO2 75 mmHg (85-104) L 07/26/17 05:28 ABG HCO3 45 mEq/L (21-27) H 07/26/17 05:28 ABG Total CO2 47 mEq/L (20-26) H 07/26/17 05:28 ABG O2 Saturation 94 % (95-98) L 07/26/17 05:28 ABG Base Excess 18 mEq/L (-2 to 3) H 07/26/17 05:28 Tyler Test Positive 07/26/17 05:28 O2 Delivery Device Cannula 07/26/17 05:28 Inspired O2 28.0 (1-15=lpm [id number]=%) 07/26/17 05:28 Sodium 138 mEq/L (136-145) 07/26/17 05:21 Potassium 4.1 mEq/L (3.5-5.1) 07/26/17 05:21 Chloride 93 mEq/L (98-107) L 07/26/17 05:21 Carbon Dioxide 41 mEq/L (23-29) H* 07/26/17 05:21 BUN 17 mg/dL (6-20) 07/26/17 05:21 Creatinine 0.47 mg/dL (0.60-1.20) L 07/26/17 05:21 Est GFR ( Amer) > 60 (> 60) 07/26/17 05:21 Est GFR (Non-Af Amer) > 60 (> 60) 07/26/17 05:21 BUN/Creatinine Ratio 36 (6-26) H 07/26/17 05:21 Glucose 136 mg/dL (70-105) H 07/26/17 05:21 Calculated Osmolality 290 (280-300) 07/26/17 05:21 Calcium 9.4 mg/dL (8.6-10.3) 07/26/17 05:21 Magnesium 1.9 mg/dL (1.6-2.6) 07/25/17 05:01 Total Bilirubin 0.5 mg/dL (0.3-1.0) 07/25/17 05:01 AST 33 Units/L (13-39) 07/25/17 05:01 ALT 51 Units/L (7-52) 07/25/17 05:01 Alkaline Phosphatase 115 Units/L (34-104) H 07/25/17 05:01 Troponin I 0.05 ng/mL (< 0.04) H* 07/24/17 19:12 Serum Total Protein 6.5 g/dL (6.4-8.9) 07/25/17 05:01 Albumin 3.5 g/dL (3.5-5.7) 07/25/17 05:01 Globulin 3.0 g/dL (2.4-3.5) 07/25/17 05:01 Albumin/Globulin Ratio 1.2 (1.1-2.2) 07/25/17 05:01 - Impressions Impressions Echocardiogram Limited Views 07/24/17 11:11 Impressions: LVEF 50-55%. Normal LV chamber size and wall thickness. Mild segmental left ventricular systolic dysfunction. Left Ventricular Wall Motion: Rest Echo Findings The basal inferior wall was hypokinetic. All other wall segments showed normal motion. Findings: Study Quality * Technically adequate exam. ECG Findings * Normal sinus rhythm. Left Ventricle * LVEF 50-55%. * Normal LV chamber size and wall thickness. * Mild segmental left ventricular systolic dysfunction. Right Ventricle * Normal right ventricular structure and function. Left Atrium * Moderately dilated left atrium. Right Atrium * Mildly dilated right atrium. Aorta * Normally sized aortic root. Pericardium * The pericardium appears normal. Consult Discharge Plan - Plan Referrals: Angela Iverson, TEST DECK SUPERVISOR [Primary Care Provider] -
[2017-07-26] MEDS: Acetaminophen 325 MG TABLET PO PRN (09:04)
[2017-07-26] MEDS: Fluticasone Propionate Nasal 50 MCG/SPRAY BOTTLE NS SCH (09:05)
[2017-07-26] MEDS: *HR* HYDROcodone/Acet 5/325 mg TABLET PO PRN ×2 (09:10→15:19)
[2017-07-26] MEDS: Cholecalciferol (D-3) 1,000 UNIT TABLET PO SCH (10:11)
--- NOTE | 2017-07-26 10:39 | Internal Med Progress Note ---
<Julio C Steele - Last Filed: 07/26/17 13:27> Date of Encounter: 07/26/17 Time of Encounter: 10:37 - Assessment and plan (1) Elevated troponin Current Visit: Yes Status: Acute Assessment and plan: Adynamic troponin elevation in the setting of acute hypoxic respiratory failure 2/2 accidental overdose. (0.06, 0.07, 0.06) This likely reflects demand ischemia EKG unremarkable [facility] 06/02/17: s/p PTCA,JANELLE to mid and distal RCA; existing 50% ISR of RCA, otherwise no significant CAD TTE 06/01/17: EF 55%, no significant valvular dysfunction Per cardiology, continue medical management -Imdur 60 mg by mouth daily -Heparin drip -ASA 81 mg by mouth daily -Brilinta 90 mg by mouth twice a day (2) Acute respiratory failure with hypoxia Current Visit: Yes Status: Acute Assessment and plan: Presented with shortness of breath Patient has had persistent cough for last 3-4 weeks Recent discharge from [place] for COPD exacerbation in setting of bilateral pneumonia Plan: -Albuterol nebs 2 puffs inhaled every 6 when necessary -Symbicort 1 puff inhale twice a day -Levaquin 500 mg by mouth daily -Solu-Medrol 60 mg IV every 6 (3) Depression Current Visit: Yes Status: Acute Assessment and plan: Patient is currently grieving the loss of her significant other. Psychiatry was consulted yesterday. Per psychiatry, start Lexapro 10 mg and continue BuSpar, referral for outpatient psych will be necessary. Psychiatry has signed off Qualifiers: Qualified Code(s): F32.9 - Major depressive disorder, single episode, unspecified (4) HTN (hypertension) Current Visit: Yes Status: Chronic Assessment and plan: -Cozaar 100 mg by mouth daily -HCTZ 25 mg by mouth daily -Metoprolol 50 mg by mouth twice a day -Cardiac diet Qualifiers: Hypertension type: essential hypertension Qualified Code(s): I10 - Essential (primary) hypertension (5) Anemia Current Visit: No Status: Acute Assessment and plan: Hx of GI bleed d/t gastric ulcers. -H/H appear stable. -Continue uninterrupted DAPT (asa + brilinta) Qualifiers: Anemia type: unspecified type Qualified Code(s): D64.9 - Anemia, unspecified (6) HLD (hyperlipidemia) Current Visit: Yes Status: Chronic Assessment and plan: -Lipitor 80 mg by mouth at bedtime -TriCor 135 mg by mouth daily Qualifiers: Hyperlipidemia type: pure hypercholesterolemia Qualified Code(s): E78.00 - Pure hypercholesterolemia, unspecified; E78.0 - Pure hypercholesterolemia - Subjective Interval history: Patient seen and examined at bedside this morning. Currently on oxygen via nasal cannula. Is experiencing some shortness of breath, but denies having any chest discomfort. Reports that her condition is improved since admission. - Constitutional Vitals: Temp Pulse Resp BP Pulse Ox 97.8 F 69 16 152/99 97 07/26/17 06:40 07/26/17 06:40 07/26/17 07:40 07/26/17 06:40 07/26/17 07:40 General appearance: Present: A&O X 3, morbidly obese, pleasant - Head Head exam: Present: atraumatic, normocephalic - Eye Eye exam: Present: PERRL, conjuntiva pink, sclera anicteric Pupils: Present: PERRL - Neck Neck exam general surgery: Present: supple, trachea midline. Absent: lymphadenopathy - Respiratory Respiratory exam: Present: decreased breath sounds, prolonged expiratory phase, rales, wheezes. Absent: accessory muscle use, rhonchi - Cardiovascular Cardiovascular exam: Present: RRR, +S1, +S2. Absent: diastolic murmur, gallop, rubs, systolic murmur - Extremities Exam Extremities exam: Present: warm, radial pulses palpable and symmetrical. Absent : calf tenderness, cyanotic, pedal edema - Neurological Exam Neurological exam: Present: CN II-XII intact, oriented X3, no focal deficits. Absent: pronater drift, facial droop, speech deficit - Skin Skin exam: Present: dry, intact Internal Medicine: Result - Labs CBC & Chem 7: 07/26/17 05:21 07/26/17 05:21 Labs: Short CBC 07/26/17 Range/Units 05:21 WBC 14.0 H D (4.3-11.1) K/mcL Hgb 10.0 L (11.5-15.4) g/dL Hct 34.8 L (35.3-44.9) % Plt Count 227 (140-400) K/mcL Neutrophils # 11.1 H (1.6-8.9) K/mcL BMP 07/26/17 05:21 Sodium 138 Potassium 4.1 Chloride 93 L Carbon Dioxide 41 H* BUN 17 Creatinine 0.47 L Glucose 136 H Calcium 9.4 - ABG Interpretation ABG results: ABG ABG pH 7.42 pH Units (7.32-7.45) 07/26/17 05:28 ABG pCO2 69 mmHg (35-45) H 07/26/17 05:28 ABG pO2 75 mmHg (85-104) L 07/26/17 05:28 ABG O2 Saturation 94 % (95-98) L 07/26/17 05:28 PT/INR, D-dimer PT 12.9 Seconds (9.4-12.1) H 07/25/17 05:01 - VTE Documentation of Mechanical Device: Intermittent pneumatic compression device Consult Discharge Plan - Plan Referrals: Angela Iverson, SLIP CASTER [Primary Care Provider] - <Luke Spivey H - Last Filed: 07/26/17 13:45> Date of Encounter: 07/26/17 - Constitutional Vitals: Temp Pulse Resp BP Pulse Ox 97.9 F 72 18 159/83 97 07/26/17 11:46 07/26/17 11:46 07/26/17 11:46 07/26/17 11:46 07/26/17 11:46 Internal Medicine: Result - Labs CBC & Chem 7: 07/26/17 05:21 07/26/17 05:21 Labs: Short CBC 07/26/17 Range/Units 05:21 WBC 14.0 H D (4.3-11.1) K/mcL Hgb 10.0 L (11.5-15.4) g/dL Hct 34.8 L (35.3-44.9) % Plt Count 227 (140-400) K/mcL Neutrophils # 11.1 H (1.6-8.9) K/mcL BMP 07/26/17 05:21 Sodium 138 Potassium 4.1 Chloride 93 L Carbon Dioxide 41 H* BUN 17 Creatinine 0.47 L Glucose 136 H Calcium 9.4 - ABG Interpretation ABG results: ABG ABG pH 7.42 pH Units (7.32-7.45) 07/26/17 05:28 ABG pCO2 69 mmHg (35-45) H 07/26/17 05:28 ABG pO2 75 mmHg (85-104) L 07/26/17 05:28 ABG O2 Saturation 94 % (95-98) L 07/26/17 05:28 PT/INR, D-dimer PT 12.9 Seconds (9.4-12.1) H 07/25/17 05:01 - Attending Attestation Acute on chronic hypoxic hypercapnic respiratory failure secondary to acute COPD exacerbation due to acute bacterial bronchitis levaquin day #3 Continue solumedrol, O2 The patient qualified for BiPAP , latest ABG shows a pH of 7.42 PCO2 of 69 and a PO2 of 75 on 2 L of nasal cannula Major depression, psychiatry recommended to stop Prozac, start Lexapro and continue BuSpar for anxiety Elevated troponins likely secondary to hypoxia/demand ischemia, discontinue heparin drip CT scan of the chest showed: No evidence of pulmonary embolism or acute pulmonary abnormality. I examined this patient and my medical decision-making was reviewed with the Resident Physician. I agree with the documented findings, disposition and treatment plan as described except to the extent set forth below.
[2017-07-26] MEDS: *HR* LORazepam 1 MG TABLET PO PRN (15:20)
[2017-07-27] MEDS: *HR* HYDROcodone/Acet 5/325 mg TABLET PO PRN ×2 (00:14→07:38)
[2017-07-27] MEDS: *HR* LORazepam 1 MG TABLET PO PRN ×2 (00:14→08:14)
[2017-07-27] MEDS: MethylPREDNISolone 40 MG/ML VIAL IVP SCH (04:56)
[2017-07-27 07:35] LABS: Basophils % 0.1 %
[2017-07-27 07:37] LABS: Hematocrit 35.7 % (35.3-44.9); Hemoglobin 10.4 g/dL (11.5-15.4); Immature Granulocytes % 1.4 % (0-4); Lymphocytes # 1.3 K/mcL (0.6-4.6); Lymphocytes % 6.8 %; Mean Corpuscular HGB Conc 29.1 g/dL (31.6-35.5); Mean Corpuscular Hemoglobin 27.5 pg (28.0-33.3); Mean Corpuscular Volume 94.4 fL (83.0-100.0); Mean Platelet Volume 10.5 fL (9.4-12.4); Monocytes # 1.1 K/mcL (0.0-1.3); Monocytes % 6.1 %; Platelet Count 262 K/mcL (140-400); Red Blood Count 3.78 M/mcL (3.82-4.97); Red Cell Distribution Width 19.9 % (11.5-14.5); Segmented Neutrophils % 85.6 %
[2017-07-27 07:48] VITALS: BP 170/99
[2017-07-27 07:51] LABS: BUN/Creatinine Ratio 41 (6-26); Blood Urea Nitrogen 21 mg/dL (6-20); Calcium 9.6 mg/dL (8.6-10.3); Carbon Dioxide 38 mEq/L (23-29); Chloride 92 mEq/L (98-107); Glucose 163 mg/dL (70-105); Osmolality,Calculated 287 (280-300); Potassium 4.8 mEq/L (3.5-5.1); Sodium 135 mEq/L (136-145); eGFR For African Americans > 60 (> 60); eGFR For Non-African Americans > 60 (> 60)
[2017-07-27] MEDS: Budesonide/Formoterol 160/4.5 MDI IH SCH (07:58)
[2017-07-27] MEDS: Gabapentin 300 MG CAPSULE PO SCH (08:14)
[2017-07-27] MEDS: Methocarbamol 750 MG TABLET PO SCH (08:14)
[2017-07-27] MEDS: levoFLOXacin 500 MG TABLET PO SCH (08:14)
[2017-07-27] MEDS: Isosorbide MONOnitrate (24 HR) 60 MG TAB.ER.24H PO SCH (08:14)
[2017-07-27] MEDS: Aspirin Enteric Coated 81 MG Tablet PO SCH (08:14)
[2017-07-27] MEDS: *HR* Ticagrelor 90 MG TABLET PO SCH (08:14)
[2017-07-27] MEDS: Fenofibrate 54 MG TABLET PO SCH (08:14)
[2017-07-27] MEDS: Ranolazine 500 MG TAB.ER.12H PO SCH (08:15)
[2017-07-27] MEDS: Fluticasone Propionate Nasal 50 MCG/SPRAY BOTTLE NS SCH (08:15)
[2017-07-27] MEDS: hydroCHLOROthiazide 25 MG TABLET PO SCH (08:15)
[2017-07-27] MEDS: Cholecalciferol (D-3) 1,000 UNIT TABLET PO SCH (08:17)
[2017-07-27 08:39] LABS: Anisocytosis 1+ (Not Present); Platelet Estimate Normal (Normal); Polychromasia 1+ (Not Present)
[2017-07-27 08:41] LABS: Hypersegmented Neutrophils Present (Not Present); Hypochromasia Present (Not Present)
--- NOTE | 2017-07-27 09:26 | Discharge Summary ---
<Julio C Steele - Last Filed: 07/27/17 10:10> Date of Encounter: 07/27/17 Time of Encounter: 09:24 - Discharge Diagnosis (1) Elevated troponin Priority: Primary Status: Acute (2) Acute respiratory failure with hypoxia Priority: Secondary Status: Acute (3) Depression Priority: Secondary Status: Acute (4) HTN (hypertension) Priority: Secondary Status: Chronic Qualifiers: Hypertension type: essential hypertension Qualified Code(s): I10 - Essential (primary) hypertension (5) Anemia Status: Acute Qualifiers: Anemia type: unspecified type Qualified Code(s): D64.9 - Anemia, unspecified (6) HLD (hyperlipidemia) Priority: Secondary Status: Chronic Qualifiers: Hyperlipidemia type: pure hypercholesterolemia Qualified Code(s): E78.00 - Pure hypercholesterolemia, unspecified; E78.0 - Pure hypercholesterolemia Hospital course: Ms. Finch is a 47 year old female who presented to [facility] as a transfer from [place] with the chief complaint of shortness of breath. Patient had reportedly taken too many pills of oxycodone by accident. On arrival, patient was positive for both opiates and marijuana. She complained of having a persistent cough over the last 3-4 weeks. She was a recent discharge from inpatient [facility] for COPD exacerbation for bilateral pneumonia. Upon arrival, patient reported having some midsternal chest discomfort, which was mild, but was similar in character to her prior NV. An arterial blood gas performed at [facility] demonstrated a PO2 of 65 and a PCO2 of 76. Laboratory analysis demonstrated an elevated troponin at 0.06. Cardiology was consulted. There were no significant ischemic EKG changes from prior. Patient denied having any chest pain or discomfort after her initial admission. Patient was started on Levaquin, Solu-Medrol, albuterol, and Symbicort. Her condition gradually improved. Upon interviewing patient initially, she reported having depression due to a recent loss of her significant other. Psychiatry was consulted. Psychiatry recommended starting Lexapro 10 mg and continuing BuSpar during her stay in the hospital. Subsequently, patient began to feel better. Patient was seen and examined bedside on the date of discharge. She reports feeling much better today than she did on admission. Patient will be discharged on 4 more days of Levaquin 500 mg by mouth daily; she will also be given a prednisone taper: 40 mg for 4 days, 30 mg for 4 days, 20 mg for 4 days, 10 mg for 4 days. She will also be sent home on oxygen. Prozac will be discontinued, and Lexapro 10 mg will be started. - Time Spent with Patient Total time spent providing and/or coordinating discharge services: Greater than 30 minutes (41 minutes) - Discharge Medications Prescriptions: Escitalopram [Lexapro] 10 mg PO DAILY #30 tablet Levofloxacin [Levaquin] 500 mg PO DAILY #5 tablet PredniSONE [Jailene] See Taper PO DAILY #40 tablet.dr Home Medications: Albuterol Sulfate [Albuterol Inhaler] 2 puff IH Q6H PRN 11/01/16 [History] Atorvastatin [Lipitor] 80 mg PO HS 11/01/16 [History] Buspirone HCl [Buspar] 15 mg PO BID 11/01/16 [History] Fluticasone Propionate Nasal [Flonase] 50 mcg NS DAILY 11/01/16 [History] Ergocalciferol (VITAMIN D2) [Vitamin D2] 50,000 unit PO QWEEK #7 capsule [Rx] Fenofibrate Nanocrystallized [Tricor] 145 mg PO DAILY 12/02/16 [History] Nitroglycerin [Nitrostat] 0.4 mg PO Q5M PRN 12/02/16 [History] Gabapentin [Neurontin] 600 mg PO TID 01/08/17 [History] Mometasone/Formoterol [Dulera 100 Mcg/5 Mcg Inhaler] 13 gm IH DAILY 01/08/17 [ History] Aspirin [Lo-Dose Aspirin EC] 81 mg PO DAILY 04/17/17 [History] Methocarbamol [Robaxin-750] 750 mg PO DAILY 04/17/17 [History] Cetirizine HCl 10 mg PO DAILY PRN #0 05/20/17 [Rx] Losartan Potassium [Cozaar] 100 mg PO DAILY 06/02/17 [History] Pantoprazole Sodium 40 mg PO DAILY 06/02/17 [History] HYDROcodone/Acet 5/325 mg [[place] 5-325 mg] 1 tab PO Q6H PRN 7 Days #28 tab 06/04 [Rx] Ticagrelor [Brilinta] 90 mg PO BID #30 tablet 06/04/17 [Rx] Ranolazine [Ranexa] 500 mg PO BID #60 tab.er.12h 06/06/17 [Rx] Budesonide/Formoterol 160/4.5 [Symbicort 160/4.5] 1 puff IH BID 07/20/17 [ History] hydroCHLOROthiazide [Hydrochlorothiazide] 25 mg PO DAILY 07/23/17 [History] Isosorbide MONOnitrate (24 HR) [Imdur] 30 mg PO DAILY 07/24/17 [History] LORazepam [Ativan] 1 mg PO TID 07/24/17 [History] Metoprolol [Lopressor] 50 mg PO BID 07/24/17 [History] Escitalopram [Lexapro] 10 mg PO DAILY #30 tablet 07/27/17 [Rx] Levofloxacin [Levaquin] 500 mg PO DAILY #5 tablet 07/27/17 [Rx] PredniSONE [Jailene] See Taper PO DAILY #40 tablet. 07/27/17 [Rx] Allergies/Adverse Reactions: 3 Allergy/AdvReac Type Severity Reaction Status Date / Time Penicillins AdvReac Hives Verified 06/11/17 10:31 propoxyphene AdvReac Vomiting Verified 06/11/17 10:31 [From Darvocet-N] Date of admission: 07/24/17 04:50 Primary care physician: Angela Iverson CNP Consults: 07/24/17 07:43 Consult to Cardiology [CONS] Stat Comment: Consulting Provider: Cardiology [place] Reason for Consult: chest pain Call Completed: Yes 07/24/17 13:06 Consult to [employer] [CONS] Routine Reason for SW Consult: Multiple social issues including financial; positive for opiates and marijuana; admitted for overdose 07/25/17 14:07 Consult to Psychiatry [CONS] Routine Consulting Provider: Psychiatry [place] Reason for Consult: recently . Pt has been depressed & anxious also admits doesn't know what to do. Appreciate psychiastric evaluation and assistance. Call Completed: Yes Discharging clinician: Julio C Steele Anticipated date of discharge: 07/27/17 - Constitutional Vitals: Temp Pulse Resp BP Pulse Ox 97.8 F 68 18 170/99 92 07/27/17 07:45 07/27/17 07:45 07/27/17 08:00 07/27/17 07:45 07/27/17 08:00 General appearance: Present: A&O X 3, morbidly obese, pleasant - Head Head exam: Present: atraumatic, normocephalic - Eye Eye exam: Present: PERRL, conjuntiva pink, sclera anicteric Pupils: Present: PERRL - Neck Neck exam general surgery: Present: supple, trachea midline. Absent: lymphadenopathy - Respiratory Respiratory exam: Present: decreased breath sounds, prolonged expiratory phase, rales, wheezes. Absent: accessory muscle use, rhonchi - Cardiovascular Cardiovascular exam: Present: RRR, +S1, +S2. Absent: diastolic murmur, gallop, rubs, systolic murmur - Extremities Exam Extremities exam: Present: warm, radial pulses palpable and symmetrical. Absent : calf tenderness, cyanotic, pedal edema - Neurological Exam Neurological exam: Present: CN II-XII intact, oriented X3, no focal deficits. Absent: pronater drift, facial droop, speech deficit - Skin Skin exam: Present: dry, intact - Patient Status Disposition: Home, Self-Care Condition: Good Overall status at discharge: patient is progressing back to baseline - Discharge Instructions Follow Up With: Angela Iverson CNP [Primary Care Provider] - - Diet and Activity Activity: increase activity as tolerated Diet: advance to your usual diet - VTE Documentation of Mechanical Device: Intermittent pneumatic compression device <Luke Spivey - Last Filed: 07/27/17 10:37> Date of Encounter: 07/27/17 Hospital course: Ms. Finch is a 47 year old female - Time Spent with Patient Total time spent providing and/or coordinating discharge services: Date of admission: 07/24/17 04:50 Primary care physician: Angela Iverson CNP Consults: 07/24/17 07:43 Consult to Cardiology [CONS] Stat Comment: Consulting Provider: Cardiology [place] Reason for Consult: chest pain Call Completed: Yes 07/24/17 13:06 Consult to [employer] [CONS] Routine Reason for SW Consult: Multiple social issues including financial; positive for opiates and marijuana; admitted for overdose 07/25/17 14:07 Consult to Psychiatry [CONS] Routine Consulting Provider: Psychiatry [place] Reason for Consult: recently . Pt has been depressed & anxious also admits doesn't know what to do. Appreciate psychiastric evaluation and assistance. Call Completed: Yes - Constitutional Vitals: Temp Pulse Resp BP Pulse Ox 97.8 F 68 18 170/99 92 07/27/17 07:45 07/27/17 07:45 07/27/17 08:00 07/27/17 07:45 07/27/17 08:00 - Attending Attestation Acute on chronic hypoxic hypercapnic respiratory failure secondary to acute COPD exacerbation due to acute bacterial bronchitis Complete doses of Levaquin and taper prednisone as described above The patient qualified for BiPAP , latest ABG shows a pH of 7.42 PCO2 of 69 and a PO2 of 75 on 2 L of nasal cannula Major depression, psychiatry recommended to stop Prozac, start Lexapro and continue BuSpar for anxiety Elevated troponins likely secondary to hypoxia/demand ischemia, discontinue heparin drip CT scan of the chest showed: No evidence of pulmonary embolism or acute pulmonary abnormality. I examined this patient and my medical decision-making was reviewed with the Resident Physician. I agree with the documented findings, disposition and treatment plan as described except to the extent set forth below.
[2017-07-27] MEDS: Acetaminophen 325 MG TABLET PO PRN (11:48)
--- NOTE | 2017-07-27 13:00 | Physician Discharge Referral ---
Home Health/Hosp Referral Info Transfer to: Home Health Provider in Charge Post Discharge: PCP - Diagnosis (1) Elevated troponin Priority: Primary Status: Acute (2) Acute respiratory failure with hypoxia Priority: Secondary Status: Acute (3) Depression Priority: Secondary Status: Acute (4) HTN (hypertension) Priority: Secondary Status: Chronic (5) Anemia Priority: Secondary Status: Acute (6) HLD (hyperlipidemia) Priority: Secondary Status: Chronic - Respiratory Orders Oxygen / L per min Smoking Cessation: Smoking cessation has been advised. For more information, call the [place] Tobacco Quit Line at 0-196-JXIM-NOW. - Transfer Medications Prescriptions: Escitalopram [Lexapro] 10 mg PO DAILY #30 tablet Levofloxacin [Levaquin] 500 mg PO DAILY #5 tablet PredniSONE [Jailene] See Taper PO DAILY #40 tablet.dr Home Medications: Albuterol Sulfate [Albuterol Inhaler] 2 puff IH Q6H PRN 11/01/16 [History] Atorvastatin [Lipitor] 80 mg PO HS 11/01/16 [History] Buspirone HCl [Buspar] 15 mg PO BID 11/01/16 [History] Fluticasone Propionate Nasal [Flonase] 50 mcg NS DAILY 11/01/16 [History] Ergocalciferol (VITAMIN D2) [Vitamin D2] 50,000 unit PO QWEEK #7 capsule [Rx] Fenofibrate Nanocrystallized [Tricor] 145 mg PO DAILY 12/02/16 [History] Nitroglycerin [Nitrostat] 0.4 mg PO Q5M PRN 12/02/16 [History] Gabapentin [Neurontin] 600 mg PO TID 01/08/17 [History] Mometasone/Formoterol [Dulera 100 Mcg/5 Mcg Inhaler] 13 gm IH DAILY 01/08/17 [ History] Aspirin [Lo-Dose Aspirin EC] 81 mg PO DAILY 04/17/17 [History] Methocarbamol [Robaxin-750] 750 mg PO DAILY 04/17/17 [History] Cetirizine HCl 10 mg PO DAILY PRN #0 05/20/17 [Rx] Losartan Potassium [Cozaar] 100 mg PO DAILY 06/02/17 [History] Pantoprazole Sodium 40 mg PO DAILY 06/02/17 [History] HYDROcodone/Acet 5/325 mg [[place] 5-325 mg] 1 tab PO Q6H PRN 7 Days #28 tab 06/04 [Rx] Ticagrelor [Brilinta] 90 mg PO BID #30 tablet 06/04/17 [Rx] Ranolazine [Ranexa] 500 mg PO BID #60 tab.er.12h 06/06/17 [Rx] Budesonide/Formoterol 160/4.5 [Symbicort 160/4.5] 1 puff IH BID 07/20/17 [ History] hydroCHLOROthiazide [Hydrochlorothiazide] 25 mg PO DAILY 07/23/17 [History] Isosorbide MONOnitrate (24 HR) [Imdur] 30 mg PO DAILY 07/24/17 [History] LORazepam [Ativan] 1 mg PO TID 07/24/17 [History] Metoprolol [Lopressor] 50 mg PO BID 07/24/17 [History] Escitalopram [Lexapro] 10 mg PO DAILY #30 tablet 07/27/17 [Rx] Levofloxacin [Levaquin] 500 mg PO DAILY #5 tablet 07/27/17 [Rx] PredniSONE [Jailene] See Taper PO DAILY #40 tablet. 07/27/17 [Rx] Allergies/Adverse Reactions: 3 Allergy/AdvReac Type Severity Reaction Status Date / Time Penicillins AdvReac Hives Verified 06/11/17 10:31 propoxyphene AdvReac Vomiting Verified 06/11/17 10:31 [From Mildred] Certification: Further, I certify that my clinical findings support that this patient is homebound (i.e. absences from home require considerable and taxing effort and are for medical reasons or worship services or infrequently or short duration when for other reasons) because: Homebound Reason: Patient requires assistance of a person or device to safely leave home Attestation: My signature below is to certify that this patient is under my care and that I, or nurse practitioner, or a physician's drug safety assistant working with me, has a face-to -face encounter with this patient.
== END 2017-07-27 13:24 | disposition home or self-care (01) ==
LOC: 2NENU → PREINTOOBSV 07-25 12:04
PROVIDERS: ADMIT Internal Medicine Nephrology; ATTEND Internal Medicine

== ENCOUNTER 2018-09-14 02:54 | Inpatient (IN) ==
[2018-09-14] MEDS ORDERED: Isovue-370 500 ML BOTTLE IVP ONE ×2 (05:45→15:40)
[2018-09-14] MEDS ORDERED: Naloxone 0.4 MG/ML INJ IVP PRN (05:46)
--- NOTE | 2018-09-14 06:19 | Internal Med History&Physical ---
Date of Encounter: 09/14/18 Time of Encounter: 05:00 Internal Medicine - H&P: HPI Chief complaint: Chest Pain Admitted From: Hospital to Hospital Transfer Plans for Post Hospital Care: Home History of present illness: Ms. Finch is a 48 year old female with past medical history significant for CAD with stents x7, [place] x4, CHF, DVT, COPD, hypertension, hyperlipidemia, anxiety, depression, panic disorder, and tobacco abuse who presents as hospital transfer from [facility] ER for complaints of worsening shortness of breath over past 2 days and substernal chest pain starting yesterday. Pain was described as sharp and rated at 7/10 at its worst. Pain did not radiate but was associated with a headache which she states is similar to her past presentation of NJ. Pain was associated with shortness of breath, nausea, and diaphoresis. Took nitro x2 at home without relief and decided to go to ER for further evaluation. Sending ER administered nitro paste which patient reports has improved her pain and associated symptoms. Pain is now only an ache and rated at 4/10 and continues to improve. Denies any fever, chills, productive cough, numbness, tingling, abdominal pain, bowel or bladder changes. Sending ER also administered aspirin and lasix. Sending ER reported EKG as sinus tachycardia, intermittent PVC's, nonspecific T changes anteriorly, with no acute ischemia noted. Sending ER also obtained chest xray which showed cardiomegaly with findings suggesting mild pulmonary edema. Patient underwent recent excision of infected subareolar duct of her right breast on 08/10/18 with wound vac placement that was removed last week. Reports had been healing well but a few days ago had some drainage from site, but reports it appears to continue to heal well since, and had recent follow up with Dr Quinteros office last week as well. Follows regularly with [facility] and recently had a cardiac catheterization showing 50% EF and had 2 stents placed in April 2018. Also follows regularly with her PCP every three months. Reports running out of her Brilinta prescription recently and reports last dose was taken Friday. Checks blood pressures regularly at home and reports systolic has been averaging in the 140's. Wears 2lpm nasal canula continuously at home and reports oxygen saturation averages in low 90's. Reports recently starting smoking again after previously quitting. Past Med Surg Social Fam HX - Past Medical History Medical history: CHF, COPD, coronary artery disease, DVT, hyperlipidemia, hypertension, myocardial infarction Additional medical history: Home 02 2lpm. mi x4 Psychiatric history: anxiety, depression, panic disorder - Past Surgical History Surgical History: angioplasty/stent, JOSE/BSO, other Additional surgical history: EGD/Colonoscopy. X7 stents. blood clot 2008 - Social History Smoking Status: Current every day smoker Smokeless Tobacco Status: No Alcohol use: none Drug use: none - Family History Mother Adopted: Yes Internal Medicine - H&P: Meds Albuterol Sulfate [Albuterol Inhaler] 2 puff IH Q6H PRN 11/01/16 [History] Atorvastatin [Lipitor] 80 mg PO HS 11/01/16 [History] Fluticasone Propionate Nasal [Flonase] 1 spr NS DAILY 11/01/16 [History] Fenofibrate Nanocrystallized [Tricor] 145 mg PO DAILY 12/02/16 [History] Nitroglycerin [Nitrostat] 0.4 mg PO Q5M PRN 12/02/16 [History] Gabapentin [Neurontin] 600 mg PO TID 01/08/17 [History] Mometasone/Formoterol [Dulera 100 Mcg/5 Mcg Inhaler] 2 puff IH BID 01/08/17 [History] Aspirin [Lo-Dose Aspirin EC] 81 mg PO DAILY 04/17/17 [History] Pantoprazole Sodium 40 mg PO DAILY 06/02/17 [History] Ticagrelor [Brilinta] 90 mg PO BID #30 tablet 06/04/17 [Rx] Ranolazine [Ranexa] 500 mg PO BID #60 tab.er.12h 06/06/17 [Rx] Benzonatate [Tessalon] 100 mg PO TID PRN 05/22/18 [History] Cetirizine HCl 10 mg PO DAILY 05/22/18 [History] Cholecalciferol (Vitamin D3) [Vitamin D3] 5,000 unit PO MO 05/22/18 [History] Cyclobenzaprine [Flexeril] 10 mg PO TID PRN 05/22/18 [History] Ferrous Sulfate [Iron] 325 mg PO DAILY 05/22/18 [History] Ondansetron HCl [Zofran] 4 mg PO Q6H PRN 05/22/18 [History] Spironolactone [Aldactone] 25 mg PO DAILY 05/22/18 [History] Tiotropium [place] [Spiriva Respimat] 2 puff IH DAILY 05/22/18 [History] Amitriptyline [Elavil] 25 mg PO DAILY 08/10/18 [History] BuPROPion [Wellbutrin] 150 mg PO BID 08/10/18 [History] Buspirone HCl [Buspar] 5 mg PO TID 08/10/18 [History] Isosorbide MONOnitrate [Isosorbide Mononitrate ER] 120 mg PO DAILY 08/10/18 [History] Losartan Potassium [Cozaar] 100 mg PO DAILY 08/10/18 [History] Tramadol HCl [Ultram] 50 mg PO TID 08/10/18 [History] hydrOXYzine HCl [Hydroxyzine HCl] 10 mg PO BID 08/10/18 [History] Buspirone HCl [Buspar HCl] 10 mg PO BID 09/14/18 [History] Carvedilol [Coreg] 25 mg PO DAILY 09/14/18 [History] Lidocaine Patch [Lidoderm 5% patch] 1 each TP DAILY 09/14/18 [History] Allergy/AdvReac Type Severity Reaction Status Date / Time hydromorphone [From Dilaudid] AdvReac Confusion Verified 05/22/18 21:33 Penicillins AdvReac Hives Verified 05/22/18 21:33 propoxyphene AdvReac Vomiting Verified 05/22/18 21:33 [From Darvocet-N] All Systems PM: A 10-system review of systems was performed and is negative for pertinent findings except as documented above in the HPI. - Constitutional Vitals: Temp Pulse Resp BP Pulse Ox 97.4 F L 101 20 111/68 90 09/14/18 04:26 09/14/18 04:26 09/14/18 04:26 09/14/18 04:26 09/14/18 04:43 Exam: General: Alert and oriented. Skin:Normal color, no rash, no lesions. HEENT:Pupils equal, round and reactive. Cardiovascular:Heart sounds distant, no rubs, murmurs or gallops. No JVD. Pulse regular. Lungs:Breath sounds decreased, no crackles. Wheezes noted. Abdomen:Soft, non-tender, no rigidity. Extremities:No deformity, no edema or tenderness, no joint swelling or clubbing. Neurological:Normal cognition and motor skills. Pulses:Carotid and radial pulses normal +2. Rest of the physical exam is non contributory. - Assessment and Plan (1) Chest pain Current Visit: No Status: Acute Assessment and plan: Nearly resolved following SL nitro x2 and nitro paste. Initial troponin at sending ER negative, serial troponins ordered. Continuous cardiac monitoring. Cardiology consult ordered, will need called in a.m. Qualifiers: Chest pain type: unspecified Qualified Code(s): R07.9 - Chest pain, unspecified (2) Shortness of breath Current Visit: Yes Status: Acute Assessment and plan: Acute on chronic. Requiring increased oxygen, titrate down as tolerated to maintain saturations in low 90's which is her baseline. Likely secondary to chest pain and pulmonary edema. Due to recent surgery, history of DVT, increased oxygen requirements, and tachycardia will obtain CTA chest to rule out PE. (3) Congestive heart failure Current Visit: No Status: Acute Assessment and plan: Acute on chronic. Sending ER chest xray showed cardiomegaly with findings suggesting mild pulmonary edema. Received 40mg IV lasix at sending ER. Resume home medications once verified. Qualifiers: Heart failure type: unspecified Heart failure chronicity: unspecified Qualified Code(s): I50.9 - Heart failure, unspecified (4) COPD (chronic obstructive pulmonary disease) Current Visit: No Status: Chronic Assessment and plan: Continue home medications once verified. Duonebs as needed. Qualifiers: COPD type: unspecified COPD Qualified Code(s): J44.9 - Chronic obstructive pulmonary disease, unspecified (5) Surgical wound present Current Visit: Yes Status: Chronic Assessment and plan: Status post excision of infected subareolar duct abscess of right breast 08/10/18. Monitor site for signs of infection. Continue outpatient site instructions. (6) Hypertension Current Visit: Yes Status: Chronic Assessment and plan: Continue home medications once verified. Qualifiers: Hypertension type: unspecified Qualified Code(s): I10 - Essential (primary) hypertension (7) Anxiety and depression Current Visit: Yes Status: Chronic Assessment and plan: Continue home medications once verified. (8) Tobacco abuse Current Visit: Yes Status: Chronic Assessment and plan: Cessation strongly encouraged. (9) DVT prophylaxis Current Visit: Yes Status: Acute Assessment and plan: Resume home Brilinta now. - Time Spent With Patient Total time spent is greater than 50% in coordination of care (as documented) at patient's floor/unit and/or counseling patient:
[2018-09-14] MEDS: *HR* Ticagrelor 90 MG TABLET PO SCH ×2 (06:51→21:24)
[2018-09-14] MEDS ORDERED: *HR* Ticagrelor 90 MG TABLET PO SCH (09:00)
[2018-09-14 09:31] LABS: BUN/Creatinine Ratio 24 (6-26); Blood Urea Nitrogen 16 mg/dL (6-20); Calcium 9.4 mg/dL (8.6-10.3); Carbon Dioxide 33 mEq/L (23-29); Chloride 89 mEq/L (98-107); Glucose 221 mg/dL (70-105); Osmolality,Calculated 282 (280-300); Potassium 3.8 mEq/L (3.5-5.1); Sodium 132 mEq/L (136-145); eGFR For Non-African Americans > 60 (> 60)
[2018-09-14 09:35] LABS: Basophils # 0.1 K/mcL (0.0-0.2); Basophils % 0.9 %; Eosinophils # 0.1 K/mcL (0.0-0.6); Eosinophils % 1.3 %; Hematocrit 50.2 % (35.3-44.9); Hemoglobin 15.9 g/dL (11.5-15.4); Immature Granulocytes % 1.8 % (0-4); Lymphocytes # 1.5 K/mcL (0.6-4.6); Lymphocytes % 21.8 %; Mean Corpuscular HGB Conc 31.7 g/dL (31.6-35.5); Mean Corpuscular Hemoglobin 30.7 pg (28.0-33.3); Mean Corpuscular Volume 96.9 fL (83.0-100.0); Mean Platelet Volume 10.5 fL (9.4-12.4); Monocytes # 0.9 K/mcL (0.0-1.3); Monocytes % 12.7 %; Neutrophils # 4.2 K/mcL (1.6-8.9); Nucleated Red Blood Cells 1.6 /100 WBC (0); Platelet Count 220 K/mcL (140-400); Red Blood Count 5.18 M/mcL (3.82-4.97); Red Cell Distribution Width 14.1 % (11.5-14.5); Segmented Neutrophils % 61.5 %
--- NOTE | 2018-09-14 10:13 | Cardiology Consult Note ---
Date of Encounter: 09/14/18 Time of Encounter: 10:09 Assessment and Plan (1) Chest pain Current Visit: Yes Status: Acute Presents with worsening shortness of breath and substernal chest pain similar to her prior anginal equivalent. ER administered nitro paste which patient reports has improved her pain. Currently reports a "lingering soreness". Troponins negative x 2. ECG with new ST depression in aVL and mild elevation is aVF. [facility] 05/22/2018 pLAD 30% stenosis, mid 40% stenosis. D1 50% stenosis. pLCx 80% stenosis, JANELLE placed. OM1 80% stenosis, JANELLE placed. RCA proximal 80% ISR, PTCA performed, final stenosis 0%. mRCA 40% ISR, dRCA 50% ISR. EF 50%. Presentation is concerning for unstable angina. Recommend [facility] to further evaluate. R/B/A discussed. Pt agrees to proceed. Qualifiers: Chest pain type: unspecified Qualified Code(s): R07.9 - Chest pain, unspecified (2) CAD (coronary artery disease) Current Visit: No Status: Chronic S/P PCI 04/2018 to pLCx, OM. PTCA to ISR of previous stent in pRCA. ASA, Brilinta, Statin, BB, nitrates. Qualifiers: Coronary Disease-Associated Artery/Lesion type: [place] artery [place] vs. transplanted heart: k[place] heart Associated angina: without angina Qualified Code(s): I25.10 - Atherosclerotic heart disease of k[place] coronary artery without angina pectoris Discussion w patient/family: The assessment and plan as outlined above was discussed with the patient and/or family members who expressed understanding and agreement. All questions were answered. Thank you for involving us in the care of your patient. Please call with any questions. I will discuss all the above with Dr. Villalba and make changes as necessary. History of Present Illness Consult date: 09/14/18 Consult reason: Chest pain Chief complaint: chest pain History of present illness: Ms. Finch is a 48 year old female with PMH of CAD, prior PCI, HTN and supplemental oxygen-dependent COPD. She presented as hospital transfer from [facility] ER for complaints of worsening shortness of breath over past 2 days and substernal chest pain described as sharp with radiation to right arm, similar to her prior anginal equivalent. Associated shortness of breath, nausea, and diaphoresis. Took nitro x2 at home without relief. ER administered nitro paste which patient reports has improved her pain. Currently reports a "lingering soreness". Troponins negative x 2. Previous testing: [facility] 05/22/2018: Left main normal. LAD proximal 30% stenosis, mid 40% stenosis. D1 50% stenosis. Circumflex proximal 80% stenosis, JANELLE placed. OM1 80% stenosis, JANELLE placed. RCA proximal 80% in-stent restenosis, PTCA performed, final stenosis 0%. Mid RCA 40% in-stent restenosis, distal RCA 50% in-stent restenosis. EF 50%. Limited TTE 07/24/2017: LVEF 50-55%. Basal inferior hypokinesis. [facility] 06/02/2017: EF 50%. Left main normal. LAD, D1 normal. Circumflex, OM1 normal. RCA proximal 50% stenosis, mid 60% stenosis (JANELLE placed. Distal RCA 100% stenosis, JANELLE placed. RPDA 80% stenosis PTCA performed, final stenosis 40%. Past Med Surg Social Fam HX - Past Medical History Medical history: CHF, COPD, coronary artery disease, DVT, hyperlipidemia, hypertension, myocardial infarction Additional medical history: Home 02 2lpm. mi x4 Psychiatric history: anxiety, depression, panic disorder - Past Surgical History Surgical History: angioplasty/stent, JOSE/BSO, other Additional surgical history: EGD/Colonoscopy. X7 stents. blood clot 2008 - Social History Smoking Status: Current every day smoker Smokeless Tobacco Status: No Alcohol use: none Drug use: none - Family History Mother Adopted: Yes Medications and Allergies Albuterol Sulfate [Albuterol Inhaler] 2 puff IH Q6H PRN 11/01/16 [History] Atorvastatin [Lipitor] 80 mg PO HS 11/01/16 [History] Fluticasone Propionate Nasal [Flonase] 1 spr NS DAILY 11/01/16 [History] Fenofibrate Nanocrystallized [Tricor] 145 mg PO DAILY 12/02/16 [History] Nitroglycerin [Nitrostat] 0.4 mg PO Q5M PRN 12/02/16 [History] Gabapentin [Neurontin] 600 mg PO TID 01/08/17 [History] Mometasone/Formoterol [Dulera 100 Mcg/5 Mcg Inhaler] 2 puff IH BID 01/08/17 [History] Aspirin [Lo-Dose Aspirin EC] 81 mg PO DAILY 04/17/17 [History] Pantoprazole Sodium 40 mg PO DAILY 06/02/17 [History] Ticagrelor [Brilinta] 90 mg PO BID #30 tablet 06/04/17 [Rx] Ranolazine [Ranexa] 500 mg PO BID #60 tab.er.12h 06/06/17 [Rx] Benzonatate [Tessalon] 100 mg PO TID PRN 05/22/18 [History] Cetirizine HCl 10 mg PO DAILY 05/22/18 [History] Cholecalciferol (Vitamin D3) [Vitamin D3] 5,000 unit PO MO 05/22/18 [History] Cyclobenzaprine [Flexeril] 10 mg PO TID PRN 05/22/18 [History] Ferrous Sulfate [Iron] 325 mg PO DAILY 05/22/18 [History] Ondansetron HCl [Zofran] 4 mg PO Q6H PRN 05/22/18 [History] Spironolactone [Aldactone] 25 mg PO DAILY 05/22/18 [History] Tiotropium [place] [Spiriva Respimat] 2 puff IH DAILY 05/22/18 [History] Amitriptyline [Elavil] 25 mg PO DAILY 08/10/18 [History] BuPROPion [Wellbutrin] 150 mg PO BID 08/10/18 [History] Buspirone HCl [Buspar] 5 mg PO TID 08/10/18 [History] Isosorbide MONOnitrate [Isosorbide Mononitrate ER] 120 mg PO DAILY 08/10/18 [History] Losartan Potassium [Cozaar] 100 mg PO DAILY 08/10/18 [History] Tramadol HCl [Ultram] 50 mg PO TID 08/10/18 [History] hydrOXYzine HCl [Hydroxyzine HCl] 10 mg PO BID 08/10/18 [History] Buspirone HCl [Buspar HCl] 10 mg PO BID 09/14/18 [History] Carvedilol [Coreg] 25 mg PO DAILY 09/14/18 [History] Lidocaine Patch [Lidoderm 5% patch] 1 each TP DAILY 09/14/18 [History] 3 Allergy/AdvReac Type Severity Reaction Status Date / Time hydromorphone [From Dilaudid] AdvReac Confusion Verified 05/22/18 21:33 Penicillins AdvReac Hives Verified 05/22/18 21:33 propoxyphene AdvReac Vomiting Verified 05/22/18 21:33 [From Darvocet-N] All Systems Review: The remainder of the systems were reviewed and are negative - Cardiovascular Cardiovascular: as per HPI, chest pain at rest, chest pain with exertion, diaphoresis, dyspnea at rest, dyspnea on exertion, radiating jaw, neck or arm p ain - Respiratory Respiratory: dyspnea - Gastrointestinal Gastrointestinal: nausea Physical Examination Vital Signs, Last 4 Hours Temp Pulse Resp BP Pulse Ox 09/14/18 08:12 98.0 F 103 18 123/75 96 Vital Signs Temp Pulse Resp BP Pulse Ox 09/14/18 08:12 98.0 F 103 18 123/75 96 09/14/18 04:43 90 09/14/18 04:26 97.4 F L 101 20 111/68 91 Intake and Output 09/13/18 09/14/18 09/14/18 23:59 07:59 15:59 Other: Weight 107.4 kg Patient Weight 09/14/18 23:59 Weight 107.4 kg General: Conversant, No Apparent Distress HEENT: Atraumatic, Normocephaly, Mucus Membranes Moist Neck: No JVD, Normal carotid pulses Cardiac: Reg Rate and Rhythm, Normal S1 and S2, No Murmur Lungs: Other (mild wheezes) Neuro: Alert and responsive, No focal deficits noted Abdomen: Soft, Non-Tender Skin: No rashes noted on visualized skin Musculoskeletal: No Chest Wall Tenderness Extremities: No Clubbing, No Cyanosis, No Edema, Normal Pulses Results 09/14/18 07:51 09/14/18 07:51 Lab Results 09/14/18 09/14/18 07:51 07:51 WBC 6.9 Hgb 15.9 H Hct 50.2 H Plt Count 220 Sodium 132 L Potassium 3.8 Chloride 89 L Carbon Dioxide 33 H BUN 16 Creatinine 0.68 Glucose 221 H Calcium 9.4 Short CBC 09/14/18 Range/Units 07:51 WBC 6.9 (4.3-11.1) K/mcL Hgb 15.9 H (11.5-15.4) g/dL Hct 50.2 H (35.3-44.9) % Plt Count 220 (140-400) K/mcL Neutrophils # 4.2 (1.6-8.9) K/mcL BMP 09/14/18 Range/Units 07:51 Sodium 132 L (136-145) mEq/L Potassium 3.8 (3.5-5.1) mEq/L Chloride 89 L (98-107) mEq/L Carbon Dioxide 33 H (23-29) mEq/L BUN 16 (6-20) mg/dL Creatinine 0.68 (0.60-1.20) mg/dL Glucose 221 H (70-105) mg/dL Calcium 9.4 (8.6-10.3) mg/dL Cardiac Enzymes 09/14/18 Range/Units 07:51 Troponin I 0.03 (< 0.04) ng/mL Impressions Chest CTA 09/14/18 05:45 IMPRESSION: Coronary artery disease There is poor contrast opacification of a small portion of the anterior branch right lower lobe pulmonary artery, as seen on images 99 through 104. This is favored to represent respiratory motion artifact rather than very tiny pulmonary embolus. No central pulmonary embolus identified Bandlike opacities in the right middle lobe and lingula either atelectasis or pneumonia. New ground-glass nodules in lung bases, likely postinflammatory-infectious RECOMMENDATIONS: Fleischner Society guidelines for follow-up and management of incidentally detected pulmonary nodules: Multiple Solid Nodules: Nodule size equals 6-8 mm In a low-risk patient, CT at 3-6 months, then consider CT at 18-24 months. In a high-risk patient, CT at 3-6 months, then CT at 18-24 months. - Low risk patients include individuals with minimal or absent history of smoking and other known risk factors. - High risk patients include individuals with a history or smoking or known risk factors. Radiology 2017 http://pubs.rsna.org/doi/full/10.1148/radiol.5346291501 D/ / Jose Enrique Sotelo MD / Jose Enrique Sotelo MD Interpreting Provider: Jose Enrique Sotelo MD Active Medications Acetaminophen (Tylenol) 650 mg PO Q6HR PRN PRN Reason: Pain Stop: 03/16/19 06:03 Albuterol/Ipratropium (Duoneb) 3 ml IH [id number] PRN PRN Reason: Shortness Of Breath/Wheezing Stop: 03/16/19 05:53 Naloxone HCl (Narcan) 0.4 mg IVP Q2MPRN PRN PRN Reason: SEE COMMENTS Stop: 03/16/19 05:47 Ticagrelor (Brilinta) 90 mg PO BID DESIRAE Stop: 03/16/19 05:58 Last Admin: 09/14/18 06:51 Dose: 90 mg Documented by: - Imaging and Cardiology Stress Test: report reviewed Echo: report reviewed Cardiac cath: report reviewed - EKG Interpretation EKG results cardiology: personally reviewed (SR, changes in aVL and aVF noted), other (12 hr tele AVG HR 101, 3 beat run NSVT) Consult Discharge Plan - Plan Referrals: Severo Ruelas, [employer] [Primary Care Provider] -
--- NOTE | 2018-09-14 11:40 | Event Note ---
Date of Encounter: 09/14/18 Time of Encounter: 11:39 Patient seen and examined this afternoon at bedside after LHC. Patient denies any chest pain or difficulty breathing but complains of significant back pain. Has any tingling numbness in her lower extremity. Lying flat on back post LHC. General: In mild distress due to back pain Respiratory exam: CTAB. no accessory muscle use, rales, rhonchi, wheezes Cardiovascular exam: RRR, +S1, +S2. no murmur, gallop, rubs. GI/Abdominal exam: Obese, non-tender, Non-distended, normal bowel sounds, soft, no peritoneal signs. Has Rt groin access in. Extremities exam: no pedal edema, pulses palpable in b/l lower extremities. no calf tenderness Neurological exam: CN II-XII intact, AO X3, no focal deficits within limited exam. Skin exam: No skin rash A/P - came with unstable angina. s/p LHC with PTCA/JANELLE in mid LAD adn PTCA/JANELLE in ostial/proximal RCA. Previously with stents placed on 05/22/18 to pLCX and OM1. - complain on back pain post cath. CT ordered by cardiology to evaluate for possible bleed. - c/w aspirin, brilinta, statin, imdur and BB.
--- NOTE | 2018-09-14 11:46 | Pre-Sedation Evaluation ---
Pre-sedation evaluation - Pre-sedation checklist Date of procedure: 09/14/18 Procedure: left heart cath Recent Vitals: Last Vital Signs Temp 98.4 F 09/14/18 11:34 Pulse 100 09/14/18 11:34 Resp 18 09/14/18 11:34 BP 124/74 09/14/18 11:34 Pulse Ox 91 09/14/18 11:34 H&P (including ROS) documented in medical record: No Previous reaction to sedatives/anesthetics: No Dietary Status: NPO after Midnight Dentition: No loose teeth or bridges ASA Classification *see protocol: CLASS II-Mild systemic disease Plan of Care: Pt appropriate candidate for procedure/moderate/conscious sedation, Risks/benefits of procedure/sedation discussed w/ patient/family Cardiac Registry (Cardio Only) - Functional Capacity Functional Capacity: >=4 METS with symptoms - Clincal Frailty Scale Clinical Frailty Scale: Managing Well
[2018-09-14] MEDS: Aspirin 81 MG TAB.CHEW PO SCH (12:20)
[2018-09-14] MEDS ORDERED: Nitroglycerin 1,000 MCG/10 ML VIAL IV ONE (12:43)
[2018-09-14] MEDS ORDERED: Heparin 1,000 UNITS/500 mL 500 ML ONE (12:43)
[2018-09-14] MEDS ORDERED: 0.9 % Sodium Chloride 1,000 ML ONE ×2 (12:43→12:51)
[2018-09-14] MEDS ORDERED: ISOVUE-370 200 ML INFUS..BTL ONE ×2 (12:43→13:39)
[2018-09-14] MEDS ORDERED: *HR* Heparin 10,000 UNIT/10 ML VIAL ONE ×2 (12:43→14:31)
[2018-09-14] MEDS ORDERED: *HR* Midazolam HCl 2 MG/2 ML VIAL ONE ×2 (13:08→13:15)
[2018-09-14] MEDS ORDERED: *HR* FentaNYL (PF) 100 MCG/2 ML VIAL ONE (13:08)
[2018-09-14] MEDS ORDERED: *HR* Ticagrelor 90 MG TABLET ONE (14:10)
[2018-09-14] MEDS ORDERED: Ondansetron 4 MG/2 ML VIAL IVP PRN (14:33)
--- NOTE | 2018-09-14 14:50 | Invasive Diagnostic Lab Proc ---
Name: Anusha Finch Date of Study: 09/14/2018 Date: 1970 Ht: 64.2in Medical Record#: [id number] Age: 48 Wt: 235.89lb Gender: Female BSA: 2.1 Order #: [id number] BMI: 40.27 Physicians Procedure Physician: Isaiah Cowan MD, FACC Referring MD: Referring MD: Staff Name Position Time In Jenniffer Torres RN Account Director 01:03 PM [place] Irene RN Monitor 01:03 PM Lisa Parnell RT Scrub 01:03 PM Indications Indication Unstable Angina Procedures Performed Procedure L HRT ARTERY/VENTRICLE ANGIO PRQ CARD JANELLE STENT W/ANGIO 1 VSL PRQ CARD JANELLE STENT W/ANGIO 1 VSL IV Doppler BLD Flow 1st Vessel Pre-Procedure Checklist Informed consent is complete signed and on chart. H&P is on chart. ID band is on and ID verified with patient. Patient NPO for procedure The procedure was described for the patient and questions were answered. ECG is on chart. Plan of Care Patient will tolerate the procedure without complications. Adequate level of comfort will be maintained. Hemodynamics will remain stable Patient will recover from procedure without complications. Respiratory function will be maintained. Cardiac rhythm will remain stable. Patient temperature will be maintained. Patient and/or family have verbalized understanding of the procedure. Patient Education Chief Complaint/Reason for Test: Cardiac Cath Developmental Category: Adult (18-64 years) Developmentally Appropriate for Age: Yes Learning Barriers: None Education Needs: Procedure Education Method: Verbal Information Taught: Cardiac Cath Educational Evaluation: Able to repeat information Intravenous Access Time IV Size Location DC'd Fluid/Drip Rate Units RN 12:48 PM 20g 1 1/4" Patent On Arrival Lt Antecubital Allergies Penicillins propoxyphene PCN,VICODIN hydromorphone Vital Signs Time BP (mmHg) HR (bpm) O2 Sat. RR (bpm) LOC 01:10 PM / % 5 = Fully awake and oriented or at pre-proc level 01:10 PM / % 4 = Oriented but drowsy 01:25 PM / % 4 = Oriented but drowsy 01:54 PM 117 / 71 98 97 % 20 01:58 PM 125 / 87 96 95 % 21 02:04 PM 129 / 71 99 97 % 02:09 PM 123 / 73 100 95 % 12 02:14 PM 133 / 71 100 95 % 13 01:09 PM 132 / 65 101 97 % 0 01:13 PM 129 / 69 105 % 18 01:19 PM 114 / 37 100 79 % 01:23 PM 125 / 74 100 91 % 01:29 PM 123 / 62 102 93 % 01:34 PM 104 / 49 102 94 % 28 01:38 PM 117 / 60 100 95 % 22 01:44 PM 111 / 54 99 96 % 18 01:49 PM 117 / 61 97 98 % 20 Procedural Medications Time Medication Dose Units Method Given By 01:09 PM Oxygen 6 L/min Oxy Mask Jenniffer Torres RN 01:09 PM Versed 2 mg Intravenous Jenniffer Torres RN 01:09 PM Fentanyl 50 mcg Intravenous Jenniffer Torres RN 01:15 PM Versed 1 mg Intravenous Jenniffer Torres RN 01:17 PM Versed 1 mg Intravenous Jenniffer Torres RN 01:17 PM Lidocaine 2% 20 ml Subcutaneous Isaiah Cowan MD, FAC 01:35 PM Heparin 4000 units Intravenous Jenniffer Torres RN 01:39 PM Nitroglycerin 150 mcg Intracoronary Isaiah Cowan MD 01:39 PM 90mg Adenosine in 90 ml 0.9 NS 898 ml/hr Intravenous Jenniffer Torres RN 02:14 PM Brilinta 90 mg Orally Jenniffer Torres RN 02:29 PM Heparin 1000 units Intravenous Jenniffer Torres RN ASA Classification: CLASS II- Mild systemic disease (i.e. well-controlled diabetes, hypertension, asthma, cigarette smoking) Ravi Score Preprocedure Postprocedure Activity 2- Moves 4 extremities sustained head lift Activity 2- Moves 4 extremities sustained head lift Circulation 2- SBP +/= 20 points of pre-anesthetic level Circulation 2- SBP +/= 20 points of pre-anesthetic level Consciousness 2- Awake and alert oriented x 3 Consciousness 2- Awake and alert oriented x 3 O2 Saturation 2- Able to maintain O2 satruation of 92% on room air O2 Saturation 2- Able to maintain O2 satruation of 92% on room air Respiratory 2- Able to deep breathe and cough well Respiratory 2- Able to deep breathe and cough well Total Score 10 Total Score 10 Contrast Agent: Isovue Diagnostic Contrast: 207 ml Total Contrast: 207 ml Fluoro Dose: 47 mGy Activated Clotting Time Time Seconds to Clot 01:51 PM 02:29 PM 159 Procedure Log Time Note Enter By 12:50 PM CathStat 01:02 PM Pt arrived to r&d lab technician 2 at 13:02 kkallner : PM Jenniffer Torres RN Position: Account Director Time in: : kkner :03 PM [place] Irene RN Position: Monitor Time in: : kk:03 PM Lisa Parnell Position: Scrub Time in: 13: kkner :03 PM Patient charges- Angio tray pack, Navilyst 3mm J, Pulse Oximetry and ACIST tubing and transducer kkallner : PM Case Delayed No kkallner : PM Physician arrived 13:: PM Meet and greet completed : PM Sign in performed according to hospital policy. Informed consent was obtained. kk: PM Procedure start ::08 PM Vitals capture started with the following parameters, Patient=Adult, Interval=5 min, Initial Yzbxfovo=654 mmHg, Deflation Rate=5 mmHg, Cuff placed on Left Arm : PM WL=501 bpm, WJJY=491/65 mmhg, SpO2=97 %, Resp=0 B/min : PM Time: 13:09 Oxygen on at 6 L/min per Oxy Mask by Jenniffer Torres RN leon : PM Time: 13: Versed 2 mg Intravenous [facility] : PM Time: 13:09 Fentanyl 50 mcg Intravenous [facility] PM Recorded ECG: CR=095 Condition=Condition 1 : PM Case Start : PM ASA Class CLASS II- Mild systemic disease (i.e. well-controlled diabetes, hypertension, asthma, cigarette smoking) cedwards :10 PM Time: 13:10 Patient comfortable and pain free: Yes ced:10 PM Time: 13:10LOC: 5 = Fully awake and oriented or at pre-proc level cedwards :10 PM Clinical Presentation: Unstable angina cedwards :13 PM DO=791 bpm, VLTE=698/69 mmhg, Resp=18 B/min, Comment=NSR 01:14 PM Time out was performed according to hospital policy. Conscious sedation and anesthesia was achieved (see medication log with in this report above) cedwards 01:15 PM Time: 13:15 Versed 1 mg Intravenous Given by Jenniffer Torres RN ced:17 PM Time: 13:17 Versed 1 mg Intravenous Given by Jenniffer Torres RN cedwards :17 PM Recorded ECG: HR=98 Condition=Condition 1 01:18 PM Time: 13:17 20 ml Lidocaine 2% to right groin Subcutaneous Given by Isaiah Cowan MD, [facility] ced:18 PM Access obtained by percutaneous puncture. 5Fr 10cm Terumo [place] sheath placed in right Femoral artery. [id number] cedwards :19 PM 0.035 145cm Navilyst 3mmJ wire [id number] cedwards :19 PM MH=903 bpm, BGOJ=154/37 mmhg, SpO2=79.0 %, Comment=NSR 01:19 PM 5Fr FL 4 catheter inserted over the wire [facility] ced:20 PM Recorded Pressure: Ao, FP=680, Condition=Condition 1 (Aorta) Ao 95/54/74 01:23 PM Recorded Pressure: Ao, HR=97, Condition=Condition 1 (Aorta) Ao 100/56/77 01:23 PM VY=696 bpm, XDVT=696/74 mmhg, SpO2=91.0 %, Comment=NSR :25 PM Time: 13:10 Patient comfortable and pain free: Yes ced:25 PM Time: 13:10LOC: 4 = Oriented but drowsy cedwards : PM LCA angiography performed in multiple views. ced: PM 5Fr FR 4 catheter inserted over the wire [facility] ced: PM RCA angiography performed in multiple views. cedwards :29 PM PA=941 bpm, SRTS=977/62 mmhg, SpO2=93.0 %, Comment=NSR 01:30 PM Catheter removed ced: PM 5Fr Pigtail catheter inserted over the wire [facility] ced: PM Catheter crossed the aortic valve and was selectively placed in the left ventricle. Pressures recorded on pullback for left heart catheterization. cedwards :32 PM Bolus angiogram of left Ventricle complete: 10 ml/sec for a total of 30 mls cedwards :32 PM Pressure channel 1 zero failed. :32 PM Pressure channel 1 zeroed. 01:32 PM Recorded Pressure: LV, IT=401, Condition=Condition 1 (Left Ventricle) LV 130/0/14 01:33 PM Recorded Pressure: LV, Ao, SX=748, Condition=Condition 1 (Left Ventricle) LV 132/3/16, (Aorta) Ao 106/53/78 01:33 PM Catheter removed cedwards 01:34 PM IP=389 bpm, RIGZ=285/49 mmhg, SpO2=94.0 %, Resp=28 B/min 01:34 PM 6Fr CLS 3.5 Runway guide catheter was used to cannulate the PCI vessel successfully. reused? No cedwards 01:35 PM Time: 13:35 Heparin 4000 units Intravenous Given by Jenniffer Torres RN cedwards 01:38 PM .014 PT Graphix 182cm guide wire across target lesion- successful. reused? No cedwards 01:38 PM Pressure channel 4 zeroed. 01:38 PM Asist FFR Catheter advanced to target lesion. MID LAD. cedwards 01:38 PM VQ=505 bpm, HWGM=139/60 mmhg, SpO2=95 %, Resp=22 B/min 01:39 PM Time: 13:39 Nitroglycerin 150 mcg Intracoronary Given by Isaiah Cowan MD cedwards 01:39 PM Pressure channel 4 equalized to channel 1. 01:40 PM Time: 13:39 90mg Adenosine in 90 ml 0.9 NS 898 ml/hr Intravenous Given by Jenniffer Torres RN Villagomez pump cedwards 01:40 PM FFR: Value=0.68, Site=LAD Mid, Condition=Condition 1, Device=VOLCANO PRIME WIRE 01:40 PM Recorded Pressure: Ao, PV1, FFR=0.68, HR=94, Condition=Condition 1 (Aorta) Ao 103/61/80, (Portal Vein) PV1 87/89/59 01:40 PM Time: 13:25LOC: 4 = Oriented but drowsy cedwards 01:41 PM Time: 13:25 Patient comfortable and pain free: Yes cedwards 01:43 PM Adenosine stopped cedwards 01:43 PM Flow Wire/Catheter removed intact cedwards 01:43 PM Inflation device was opened. cedwards 01:43 PM FFR Measurement: 0.68 cedwards 01:43 PM 2.5 mm x 12 mm Emerge Monorail balloon across target lesion- successful. reused? No cedwards 01:44 PM HR=99 bpm, FMCK=657/54 mmhg, SpO2=96.0 %, Resp=18 B/min, Comment=NSR 01:44 PM Balloon inflated @ 12 brendon for 12 seconds cedwards 01:45 PM Balloon catheter removed intact. cedwards 01:47 PM 3.5mm x 16mm Synergy drug-eluting stent across target lesion- successful Lot #[id number] cedwards 01:49 PM HR=97 bpm, PVTN=207/61 mmhg, SpO2=98.0 %, Resp=20 B/min, Comment=NSR 01:49 PM Stent deployed @ 12 brendon for 15 seconds cedwards 01:50 PM Recorded Pressure: Ao, HR=98, Condition=Condition 1 (Aorta) Ao 113/68/90 01:50 PM Stent delivery system removed intact. cedwards 01:50 PM 3.5 mm x 8mm NC Trek Rx balloon across target lesion- successful. reused? No cedwards 01:51 PM At 13:51 the ACT was >400 seconds. cedwards 01:51 PM Recorded Pressure: Ao, HR=98, Condition=Condition 1 (Aorta) Ao 110/80/95 01:51 PM Balloon inflated @ 16 brendon for 20 seconds cedwards 01:52 PM Balloon inflated @ 18 brendon for 15 seconds cedwards 01:53 PM Balloon catheter removed intact. cedwards 01:53 PM Guide wire removed intact. cedwards 01:53 PM Guide catheter removed intact. cedwards 01:54 PM HR=98 bpm, CODO=713/71 mmhg, SpO2=97.0 %, Resp=20 B/min, Comment=NSR 01:54 PM Recorded Pressure: Ao, HR=97, Condition=Condition 1 (Aorta) Ao 113/70/90 01:56 PM 6Fr 3DRC Cordis guide catheter was used to cannulate the PCI vessel successfully. reused? No cedwards 01:57 PM .014 PT Graphix 182cm guide wire across target lesion- successful. reused? No cedwards 01:58 PM 2.5 mm x 12 mm Emerge Monorail balloon across target lesion- successful. reused? No cedwards 01:58 PM HR=96 bpm, PGAV=366/87 mmhg, SpO2=95.0 %, Resp=21 B/min, Comment=NSR 02:00 PM Balloon inflated @ 10 brendon for 14 seconds cedwards 02:01 PM Balloon catheter removed intact. cedwards 02:01 PM Recorded Pressure: Ao, QO=136, Condition=Condition 1 (Aorta) Ao 127/80/101 02:02 PM 3.5mm x 12mm Synergy drug-eluting stent across target lesion- successful Lot #[id number] cedwards 02:03 PM Coronary Dominance: right cedwards 02:03 PM Lesion found in Mid LAD. Pre Stenosis: 70 Pre KORI Flow: 3: Complete and Brisk Flow/Perfusion cedwards 02:04 PM HR=99 bpm, LKHW=924/71 mmhg, SpO2=97.0 % 02:04 PM Lesion found in Proximal LMCA. Pre Stenosis: 30 Pre KORI Flow: cedwards 02:05 PM Stent deployed @ 16 brendon for 14 seconds cedwards 02:06 PM Stent balloon reinflated @ 16 brendon for 12 seconds cedwards 02:06 PM Recorded Pressure: Ao, LT=203, Condition=Condition 1 (Aorta) Ao 119/88/103 02:06 PM Stent delivery system removed intact. cedwards 02:09 PM KN=952 bpm, JLKM=716/73 mmhg, SpO2=95.0 %, Resp=12 B/min, Comment=NSR 02:10 PM 4.0 mm x 8mm NC Emerge balloon across target lesion- successful. reused? No cedwards 02:11 PM Balloon inflated @ 16 brendon for 12 seconds cedwards 02:12 PM Balloon inflated @ 20 brendon for 20 seconds cedwards 02:14 PM ML=940 bpm, FLPH=160/71 mmhg, SpO2=95.0 %, Resp=13 B/min, Comment=NSR 02:14 PM Balloon catheter removed intact. cedwards 02:14 PM Time: 14:14 Brilinta 90 mg Orally Given by Jenniffer Torres RN cedwards 02:14 PM Recorded Pressure: Ao, DN=620, Condition=Condition 1 (Aorta) Ao 125/67/90 02:21 PM Lesion found in Proximal RCA. Pre Stenosis: 80 Pre KORI Flow: 3: Complete and Brisk Flow/Perfusion cedwards 02:25 PM Procedure completed at 14:25 09/14/2018 cedwards 02:25 PM Did you address KORI flow and Dominance? YesCoronary Dominance: right cedwards 02:26 PM Sign out completed: Radiation Dose 542.26 mGy, 47.4 Gy/cm2 Fluoro Time: 12.8 Isovue 370 - 200ml contrast 207 ml given by Isaiah Cowan MD, [facility]. Complications: None. The patient was discharged out of the [facility] in stable condition. Sedation minutes 60. Cardiac Rehab Consult needed: Yes. Confirmed administered medications: cedwards 02:27 PM At 14:29 the ACT was 159 seconds. cedwards 02:29 PM Sheath left in place to be pulled on floor/holding areaV+Pad cedwards 02:29 PM Time: 14:29 Heparin 1000 units Intravenous Given by Jenniffer Torres RN cedwards 02:30 PM Isovue 370 - 200ml,1 Bottle(s) used. cedwards 02:30 PM Estimated Blood Loss: minimal cedwards 02:30 PM Post ECG NSR cedwards 02:30 PM Post Blood Pressure 124/74 cedwards 02:30 PM Information taught Cardiac Cath, PCI, and IVUS/Flowire cedwards 02:30 PM Education needs Procedure, Plan of Care, and Disease Process cedwards 02:31 PM Learning barriers :None cedwards 02:31 PM Education Methods Verbal cedwards 02:31 PM Education evaluation Able to repeat information cedwards 02:31 PM Site status No bleeding/hematoma - Rt Groin as reported by Lisa Parnell at 14:31 cedwards 02:31 PM Opsite applied cedwards 02:31 PM Report given to Marybel BRAVO Pt taken to 2N Room #9. 14:31 cedwards 02:31 PM Plavix, Effient or Brilinta given Yes cedwards 02:31 PM Family placed in consult room. cedwards 02:31 PM Complications: None cedwards 02:31 PM Patient out of room: 14:31 cedwards Complications Complication None None Hemodynamics Pressures Site Systolic/A Wave Diastolic/V Wave Mean AO 95 54 74 AO 100 56 77 LV 130 0 14 LV 132 3 16 AO 106 53 78 AO 103 61 80 PV1 87 89 59 AO 113 68 90 AO 110 80 95 AO 113 70 90 AO 127 80 101 AO 119 88 103 AO 125 67 90 Post Procedure Information Blood Pressure: 124/74 mmHg Rhythm: NSR Post procedural instructions were given Site Checks Time Location Status Staff Sheath In? Note 02:31 PM Rt Groin No bleeding/hematoma Lisa Parnell Pulses Time Site Pre-Procedure Post-Procedure Note 09/14/2018 12:48:00 PM Bilateral DP & PT 1+ 1+ 09/14/2018 12:49:00 PM Bilateral radial 2+ 2+ Updated by RT Meryl (R) on 09/14/2018 2:40:21 PM electronically signed on 09/14/2018 2:41:16 PM with status of Final
[2018-09-14] MEDS ORDERED: *HR* Morphine 2 MG/ML SYRINGE IVP ONE (14:58)
[2018-09-14] MEDS: *HR* OxyCODONE/APAP 5/325 TABLET PO PRN ×2 (16:00→21:25)
[2018-09-14] MEDS ORDERED: *HR* FentaNYL (PF) 100 MCG/2 ML VIAL IVP ONE (16:51)
[2018-09-14] MEDS: *HR* FentaNYL (PF) 100 MCG/2 ML VIAL IVP PRN (18:49)
[2018-09-14] MEDS: Ipratropium/Albuterol Neb 3 ML IH PRN (22:25)
[2018-09-15] MEDS: Acetaminophen 325 MG TABLET PO PRN (00:49)
[2018-09-15] MEDS: *HR* OxyCODONE/APAP 5/325 TABLET PO PRN ×4 (01:39→20:04)
[2018-09-15] MEDS: Ipratropium/Albuterol Neb 3 ML IH PRN (03:32)
[2018-09-15] MEDS: *HR* FentaNYL (PF) 100 MCG/2 ML VIAL IVP PRN ×3 (08:10→15:56)
[2018-09-15] MEDS: Isosorbide MONOnitrate (24 HR) 60 MG TAB.ER.24H PO SCH (08:11)
[2018-09-15] MEDS: Aspirin 81 MG TAB.CHEW PO SCH (08:11)
[2018-09-15] MEDS: *HR* Ticagrelor 90 MG TABLET PO SCH ×2 (08:11→21:44)
[2018-09-15] MEDS ORDERED: predniSONE 20 MG TABLET PO SCH (09:00)
--- NOTE | 2018-09-15 09:28 | Cardiology Progress Note ---
Date of Encounter: 09/15/18 Time of Encounter: 09:25 Assessment and Plan (1) Unstable angina Current Visit: Yes Status: Resolved LHC yesterday for unstable angina. Negative troponins. There is severe 2V CAD. EF 50% Patient had successful PTCA/Drug-Eluting Stent placement in the mid LAD. Patient had successful PTCA/Drug-Eluting Stent placement in the Ostial/Proximal RCA. FFR Measurement: 0.68 mLAD DAPT (ASA and Brilinta) uninterrupted x 1 year. Pt verbalizes understanding. Continue BB, Statin, Nitrates. Righ femoral access site healing well. No bleeding or hematoma. Mild ecchymosis. ABD/Pelvis CT ordered s/p LHC for back pain. No evidence for discrete right groin hematoma or pseudoaneurysm in the right groin. Mild subcutaneous fat infiltration along the course of the right femoral catheter and the femoral artery in the groin consistent with procedure related changes. Cardiac rehab ordered. Cardiology signing off. Reconsult PRN. Will coordinate outpt follow-up in 3-4 weeks. (2) CAD (coronary artery disease) Current Visit: No Status: Chronic ASA, Brilinta, Statin, BB, nitrates. Qualifiers: Coronary Disease-Associated Artery/Lesion type: [place] artery [place] vs. transplanted heart: [place] heart Associated angina: without angina Qualified Code(s): I25.10 - Atherosclerotic heart disease of [place] coronary artery without angina pectoris Discussion w patient/family: The assessment and plan as outlined above was discussed with the patient and/or family members who expressed understanding and agreement. All questions were answered. Thank you for involving us in the care of your patient. Please call with any questions. I will discuss all the above with Dr. Villalba and make changes as necessary. Subjective Principal diagnosis: Unstable angina, CAD Interval history: S/P LHC yesterday with PCI to RCA and LAD. CP improved, reports mild lingering CP and right arm pain /10. Objective Vital Signs, Last 4 Hours Temp Pulse Resp BP Pulse Ox 09/15/18 08:18 98.8 F 98 18 155/98 92 Vital Signs Temp Pulse Resp BP Pulse Ox 09/15/18 08:18 98.8 F 98 18 155/98 92 09/15/18 03:32 15 91 09/15/18 03:25 98.4 F 82 16 112/64 90 09/14/18 23:31 98.1 F 96 20 147/80 89 09/14/18 23:15 96 147/80 89 09/14/18 22:45 94 115/82 87 09/14/18 22:25 16 89 09/14/18 22:15 97 136/88 92 09/14/18 21:45 93 138/75 89 09/14/18 21:15 94 133/87 89 09/14/18 21:00 94 138/96 89 09/14/18 20:45 92 136/107 89 09/14/18 20:29 87 20 125/85 89 09/14/18 20:25 86 20 110/62 88 09/14/18 20:20 86 20 108/74 87 09/14/18 20:15 86 20 102/67 87 09/14/18 20:10 89 20 115/68 88 09/14/18 20:05 89 18 128/89 90 09/14/18 19:54 89 18 120/78 90 09/14/18 15:11 98.3 F 96 18 126/74 94 09/14/18 11:34 98.4 F 100 18 124/74 91 Intake and Output 09/14/18 09/15/18 09/15/18 23:59 07:59 15:59 Intake Total 120 / 120 Balance 120 / 120 Intake: Oral 120 / 120 Other: Meal NPO Percent of Meal Consumed 0% Weight 103.5 kg 103.1 kg Patient Weight 09/15/18 23:59 Weight 103.1 kg General: Conversant, No Apparent Distress HEENT: Atraumatic, Normocephaly, Mucus Membranes Moist Neck: No JVD, Normal carotid pulses Cardiac: Reg Rate and Rhythm, Normal S1 and S2, No Murmur Lungs: Normal Breath Sounds, No Wheeze, Rales, Rhonchi Neuro: Alert and responsive, No focal deficits noted Abdomen: Soft, Non-Tender Skin: Other (right femoral access site healing well. No bleeding, hematoma or ecchymosis noted.) Musculoskeletal: No Chest Wall Tenderness Extremities: No Clubbing, No Cyanosis, No Edema, Normal Pulses Results 09/14/18 07:51 09/14/18 07:51 Lab Results 09/14/18 09/14/18 09/14/18 07:51 07:51 07:51 WBC 6.9 Hgb 15.9 H Hct 50.2 H Plt Count 220 Sodium 132 L Potassium 3.8 Chloride 89 L Carbon Dioxide 33 H BUN 16 Creatinine 0.68 Glucose 221 H Calcium 9.4 Troponin I 0.03 Short CBC 09/14/18 Range/Units 07:51 WBC 6.9 (4.3-11.1) K/mcL Hgb 15.9 H (11.5-15.4) g/dL Hct 50.2 H (35.3-44.9) % Plt Count 220 (140-400) K/mcL Neutrophils # 4.2 (1.6-8.9) K/mcL BMP 09/14/18 Range/Units 07:51 Sodium 132 L (136-145) mEq/L Potassium 3.8 (3.5-5.1) mEq/L Chloride 89 L (98-107) mEq/L Carbon Dioxide 33 H (23-29) mEq/L BUN 16 (6-20) mg/dL Creatinine 0.68 (0.60-1.20) mg/dL Glucose 221 H (70-105) mg/dL Calcium 9.4 (8.6-10.3) mg/dL Cardiac Enzymes 09/14/18 Range/Units 07:51 Troponin I 0.03 (< 0.04) ng/mL Impressions Abdomen/Pelvis CT 09/14/18 15:40 IMPRESSION: 1. There is no evidence for discrete right groin hematoma or pseudoaneurysm in the right groin. 2. There is a right femoral artery catheter terminating in the distal portion of the right sternal iliac artery. 3. Mild subcutaneous fat infiltration along the course of the right femoral catheter and the femoral artery in the groin consistent with procedure related changes. No discrete fluid collection. 4. Hepatomegaly and severe hepatic steatosis unchanged. D/ / Paul Bedoya MD / Paul Bedoya MD Interpreting Provider: Paul Bedoya MD Active Medications Acetaminophen (Tylenol) 650 mg PO Q6HR PRN PRN Reason: Pain Stop: 03/16/19 06:03 Last Admin: 09/15/18 00:49 Dose: 650 mg Documented by: Albuterol/Ipratropium (Duoneb) 3 ml IH [id number] PRN PRN Reason: Shortness Of Breath/Wheezing Stop: 03/16/19 05:53 Last Admin: 09/15/18 03:32 Dose: 3 ml Documented by: Albuterol/Ipratropium (Duoneb) 3 ml IH [id number] [facility] Stop: 03/17/19 10:01 Aspirin (Aspirin) 81 mg PO DAILY [facility] Stop: 03/16/19 11:01 Last Admin: 09/15/18 08:11 Dose: 81 mg Documented by: Atorvastatin Calcium (Lipitor) 80 mg PO HS [facility] Stop: 03/16/19 21:01 Last Admin: 09/14/18 21:24 Dose: 80 mg Documented by: Carvedilol (Coreg) 25 mg PO BIDWM [facility]; Protocol Stop: 03/16/19 17:01 Last Admin: 09/15/18 08:11 Dose: 25 mg Documented by: Fentanyl Citrate (Fentanyl (Pf)) 25 mcg IVP Q8HR PRN PRN Reason: Breakthrough Pain Stop: 03/16/19 18:20 Last Admin: 09/15/18 08:10 Dose: 25 mcg Documented by: Isosorbide Mononitrate (Imdur) 120 mg PO DAILY [facility] Stop: 03/17/19 09:01 Last Admin: 09/15/18 08:11 Dose: 120 mg Documented by: Naloxone HCl (Narcan) 0.4 mg IVP Q2MPRN PRN PRN Reason: SEE COMMENTS Stop: 03/16/19 05:47 Ondansetron HCl (Zofran) 4 mg IVP Q6HR PRN; Protocol PRN Reason: Nausea And Vomiting Stop: 03/16/19 14:34 Last Admin: 09/14/18 20:15 Dose: 4 mg Documented by: Oxycodone/Acetaminophen (Percocet 5/325) 1 each PO Q4HR PRN PRN Reason: Pain Stop: 03/16/19 15:00 Last Admin: 09/15/18 09:14 Dose: 1 each Documented by: Prednisone (Prednisone) 40 mg PO DAILY [facility] Stop: 03/17/19 09:01 Last Admin: 09/15/18 09:14 Dose: 40 mg Documented by: Ticagrelor (Brilinta) 90 mg PO BID [facility] Stop: 03/16/19 05:58 Last Admin: 09/15/18 08:11 Dose: 90 mg Documented by: - Imaging and Cardiology Cardiac cath: report reviewed - EKG Interpretation EKG results cardiology: other (12 hr tele AVG HR 95, SR) Consult Discharge Plan - Plan Additional Instructions: RISK FACTORS: STOP SMOKING: If you smoke, STOP. Smoking or tobacco use significantly increases your risk of heart disease because nicotine causes the arteries to narrow or constrict. It also causes fats to stick to the artery. Your chances of having a heart attack are greatly increased if you continue to smoke. For more information, call the education line for smoking cessation 7-598-HCZEJJG EAT A LOW FAT/CHOLESTEROL/SODIUM DIET: This diet may help reduce your chances of having a heart attack. LIFTING: Avoid lifting anything more than 10 pounds for 5-7 days Prior to straining, laughing, sneezing and/or coughing, apply manual pressure directly over insertion site. ACTIVITY: You may walk or climb stairs as tolerated You can resume sexual activity as tolerated In general, you are encouraged to engage in a minimum of 30 minutes or more of moderate intensity physical activity, such as brisk walking, daily or at least 3-4 times weekly BATHING Do not submerge the site into water (bath tub, hot tub, swimming pool) for 1 week. This can be a source for infection into the blood stream. You may shower after 24 hours SITE CARE: After 24 hours, you may remove the dressing and leave the site open to air. Keep the site clean and dry. Clean gently and pat dry. You can expect bruising and tenderness that gradually resolve within a week or two. Return to work as instructed per your physician Resume driving as instructed per physician Keep all scheduled follow up appointments Resume medications as instructed IMPORTANT: If prescribed a Platelet Aggregation Inhibitor such as, Plavix, Brilinta or Effient: Duration of therapy is minimum one year These medications are often used in combination with Aspirin in prevention of future heart attacks Never discontinue unless consult with your Silk Weaver STROKE (CVA) Risk factors for a stroke are: Age, cigarette smoking, diabetes, excessive alcohol consumption, family history, high blood pressure, overweight, physical inactivity, prior stroke, heart attack, diagnosis of carotid artery stenosis or other artery disease. Warning signs: Sudden numbness or weakness of the face, arm or leg; especially on one side of the body, sudden confusion, trouble speaking or understanding, sudden trouble seeing in one or both eyes, sudden trouble walking, dizziness, loss of balance or coordination, sudden severe headache with no cause. Call 911 or go to the Emergency Room. CONGESTIVE HEART FAILURE: If you have been diagnosed with Congestive Heart Failure (CHF) and your symptoms return, make an appointment with your physician Weigh yourself daily. Notify your physician if you have a weight gain of two or more pounds in one day or five or more pounds in one week. If you experience any difficulty breathing, please call 911 BLEEDING: Although the risk of bleeding is minimal, it can happen. If you have any bleeding from the site, apply firm pressure above the puncture site for 10-15 minutes. If the bleeding does not stop, continue manual pressure and call 911 Contact your physician if: You develop a fever greater than 101 degrees Fahrenheit Your site becomes reddened or has any drainage You have an increase in pain or burning at the site or if a large knot forms at the site. If you experience chest pain, shortness of breath, dizziness, or extreme tiredness, stop the activity and rest. Please notify your physicians office if you experience any of these symptoms and they are not relieved by rest please call 911! Referrals: Severo Ruelas, CHRYSTAL [Primary Care Provider] -
[2018-09-15 10:16] LABS: BUN/Creatinine Ratio 24 (6-26); Blood Urea Nitrogen 14 mg/dL (6-20); Calcium 9.6 mg/dL (8.6-10.3); Carbon Dioxide 34 mEq/L (23-29); Chloride 91 mEq/L (98-107); Glucose 205 mg/dL (70-105); Osmolality,Calculated 276 (280-300); Potassium 4.2 mEq/L (3.5-5.1); Sodium 130 mEq/L (136-145); eGFR For Non-African Americans > 60 (> 60)
--- NOTE | 2018-09-15 10:29 | Internal Med Progress Note ---
Hospitalist Progress Note - Encounter Date of Encounter: 09/15/18 Time of Encounter: 08:25 - Subjective Interval History: Patient seen and examined this morning at bedside. No acute overnight events. Patient feeling some shortness of breath. Denies any chest pain. Back pain improved. Saturation dropped without oxygen were critically as per the nurse currently needing 5 L nasal cannula. Uses 2 L at home. Denies any diarrhea or urinary difficulties. - Exam Vitals: Temp Pulse Resp BP Pulse Ox 98.8 F 98 18 155/98 92 09/15/18 08:18 09/15/18 08:18 09/15/18 08:18 09/15/18 08:18 09/15/18 08:18 Exam: General: In no acute distress. Obese Respiratory exam: mild accessory muscle use. diffuse rhonchi noted Cardiovascular exam: RRR, +S1, +S2. no murmur, gallop, rubs. GI/Abdominal exam: Non-tender, Non-distended, normal bowel sounds, soft, no peritoneal signs. Extremities exam: no pedal edema, pulses palpable in b/l lower extremities. no calf tenderness. Rt groin without any signs of bleeding or hematoma. Neurological exam: CN II-XII intact, AO X3, no focal deficits. Skin exam: No skin rash - Assessment and Plan (1) COPD (chronic obstructive pulmonary disease) Current Visit: No Status: Chronic (2) Chest pain Current Visit: Yes Status: Acute (3) Congestive heart failure Current Visit: No Status: Acute (4) Shortness of breath Current Visit: Yes Status: Acute (5) Tobacco abuse Current Visit: Yes Status: Chronic (6) Hypertension Current Visit: Yes Status: Chronic (7) Anxiety and depression Current Visit: Yes Status: Chronic (8) Surgical wound present Current Visit: Yes Status: Chronic (9) DVT prophylaxis Current Visit: Yes Status: Acute - Summary of Assessment and Plan Summary of Assessment and Plan: Assessment Unstable angina CAD COPD exacerbation DVT HLD anxiety, depression panic disorder smoker Plan - s/p [facility] with PTCA/JANELLE in mid LAD adn PTCA/JANELLE in ostial/proximal RCA. Previously with stents placed on 05/22/18 to pLCX and OM1. - c/w aspirin, brilinta for atleast 1 year. c/w statin, imdur and BB. - Had some back pain post cath. CT abd/pelvis without evidence of hematoma or pseudoaneurysm. Cardiology signed off. - Patient with COPD exacerbation. She was not getting breathing treatment and not on home inhalers. Start schedule bronchodilators and steroids. Start home inhalers with steroids - resume home psychitry medication, coreg and spironolactone - Time Spent with Patient Total time spent is greater than 50% in coordination of care (as documented) at patient's floor/unit and/or counseling patient: Internal Medicine: Result - Labs CBC & Chem 7: 09/14/18 07:51 09/15/18 06:33 Labs: BMP 09/15/18 06:33 Sodium 130 L Potassium 4.2 Chloride 91 L Carbon Dioxide 34 H BUN 14 Creatinine 0.58 L Glucose 205 H Calcium 9.6 - Impressions Impressions Abdomen/Pelvis CT 09/14/18 15:40 IMPRESSION: 1. There is no evidence for discrete right groin hematoma or pseudoaneurysm in the right groin. 2. There is a right femoral artery catheter terminating in the distal portion of the right sternal iliac artery. 3. Mild subcutaneous fat infiltration along the course of the right femoral catheter and the femoral artery in the groin consistent with procedure related changes. No discrete fluid collection. 4. Hepatomegaly and severe hepatic steatosis unchanged. D/ / Paul Bedoya MD / Paul Bedoya MD Interpreting Provider: Paul Bedoya MD Consult Discharge Plan - Plan Additional Instructions: RISK FACTORS: STOP SMOKING: If you smoke, STOP. Smoking or tobacco use significantly increases your risk of heart disease because nicotine causes the arteries to narrow or constrict. It also causes fats to stick to the artery. Your chances of having a heart attack are greatly increased if you continue to smoke. For more information, call the education line for smoking cessation 1-391-VORATYS EAT A LOW FAT/CHOLESTEROL/SODIUM DIET: This diet may help reduce your chances of having a heart attack. LIFTING: Avoid lifting anything more than 10 pounds for 5-7 days Prior to straining, laughing, sneezing and/or coughing, apply manual pressure directly over insertion site. ACTIVITY: You may walk or climb stairs as tolerated You can resume sexual activity as tolerated In general, you are encouraged to engage in a minimum of 30 minutes or more of moderate intensity physical activity, such as brisk walking, daily or at least 3-4 times weekly BATHING Do not submerge the site into water (bath tub, hot tub, swimming pool) for 1 week. This can be a source for infection into the blood stream. You may shower after 24 hours SITE CARE: After 24 hours, you may remove the dressing and leave the site open to air. Keep the site clean and dry. Clean gently and pat dry. You can expect bruising and tenderness that gradually resolve within a week or two. Return to work as instructed per your physician Resume driving as instructed per physician Keep all scheduled follow up appointments Resume medications as instructed IMPORTANT: If prescribed a Platelet Aggregation Inhibitor such as, Plavix, Brilinta or Effient: Duration of therapy is minimum one year These medications are often used in combination with Aspirin in prevention of future heart attacks Never discontinue unless consult with your [employer] [facility] Manager STROKE (CVA) Risk factors for a stroke are: Age, cigarette smoking, diabetes, excessive alcohol consumption, family history, high blood pressure, overweight, physical inactivity, prior stroke, heart attack, diagnosis of carotid artery stenosis or other artery disease. Warning signs: Sudden numbness or weakness of the face, arm or leg; especially on one side of the body, sudden confusion, trouble speaking or understanding, sudden trouble seeing in one or both eyes, sudden trouble walking, dizziness, loss of balance or coordination, sudden severe headache with no cause. Call 911 or go to the Emergency Room. CONGESTIVE HEART FAILURE: If you have been diagnosed with Congestive Heart Failure (CHF) and your symptoms return, make an appointment with your physician Weigh yourself daily. Notify your physician if you have a weight gain of two or more pounds in one day or five or more pounds in one week. If you experience any difficulty breathing, please call 911 BLEEDING: Although the risk of bleeding is minimal, it can happen. If you have any bleeding from the site, apply firm pressure above the puncture site for 10-15 minutes. If the bleeding does not stop, continue manual pressure and call 911 Contact your physician if: You develop a fever greater than 101 degrees Fahrenheit Your site becomes reddened or has any drainage You have an increase in pain or burning at the site or if a large knot forms at the site. If you experience chest pain, shortness of breath, dizziness, or extreme tiredness, stop the activity and rest. Please notify your physicians office if you experience any of these symptoms and they are not relieved by rest please call 911! Referrals: Severo Ruelas NEWSPAPER DELIVERY COUNSELOR [Primary Care Provider] - 09/22/18 9:45 am (1) COPD (chronic obstructive pulmonary disease) Qualifiers: COPD type: unspecified COPD Qualified Code(s): J44.9 - Chronic obstructive pulmonary disease, unspecified (2) Chest pain Qualifiers: Chest pain type: unspecified Qualified Code(s): R07.9 - Chest pain, unspecified (3) Congestive heart failure Qualifiers: Heart failure type: unspecified Heart failure chronicity: unspecified Qualified Code(s): I50.9 - Heart failure, unspecified (6) Hypertension Qualifiers: Hypertension type: unspecified Qualified Code(s): I10 - Essential (primary) hypertension
[2018-09-15] MEDS: Ipratropium/Albuterol Neb 3 ML IH SCH ×3 (11:36→22:21)
[2018-09-15] MEDS: Gabapentin 300 MG CAPSULE PO SCH ×2 (14:16→21:44)
[2018-09-15] MEDS: BUSPIRONE HCL 10 MG TABLET PO SCH ×2 (14:16→21:44)
[2018-09-15] MEDS: hydrOXYzine pamoate 25 MG CAPSULE PO PRN (15:55)
[2018-09-15] MEDS: Budesonide/Formoterol 80/4.5 MDI IH SCH (22:21)
[2018-09-16] MEDS: Ipratropium/Albuterol Neb 3 ML IH SCH ×4 (03:52→22:07)
[2018-09-16 06:33] LABS: Basophils % 0.5 %; Eosinophils # 0.1 K/mcL (0.0-0.6); Eosinophils % 0.9 %; Hematocrit 47.5 % (35.3-44.9); Hemoglobin 15.1 g/dL (11.5-15.4); Immature Granulocytes % 1.1 % (0-4); Lymphocytes # 1.7 K/mcL (0.6-4.6); Lymphocytes % 23.4 %; Mean Corpuscular HGB Conc 31.8 g/dL (31.6-35.5); Mean Corpuscular Hemoglobin 30.6 pg (28.0-33.3); Mean Corpuscular Volume 96.3 fL (83.0-100.0); Mean Platelet Volume 10.2 fL (9.4-12.4); Monocytes # 0.9 K/mcL (0.0-1.3); Monocytes % 11.4 %; Neutrophils # 4.7 K/mcL (1.6-8.9); Platelet Count 202 K/mcL (140-400); Red Blood Count 4.93 M/mcL (3.82-4.97); Red Cell Distribution Width 13.9 % (11.5-14.5); Segmented Neutrophils % 62.7 %
[2018-09-16 06:54] LABS: BUN/Creatinine Ratio 30 (6-26); Blood Urea Nitrogen 18 mg/dL (6-20); Calcium 9.8 mg/dL (8.6-10.3); Carbon Dioxide 36 mEq/L (23-29); Chloride 91 mEq/L (98-107); Glucose 278 mg/dL (70-105); Osmolality,Calculated 292 (280-300); Potassium 3.9 mEq/L (3.5-5.1); Sodium 135 mEq/L (136-145); eGFR For Non-African Americans > 60 (> 60)
[2018-09-16] MEDS: Spironolactone 25 MG TABLET PO SCH (08:15)
[2018-09-16] MEDS: Aspirin 81 MG TAB.CHEW PO SCH (08:15)
[2018-09-16] MEDS: *HR* Ticagrelor 90 MG TABLET PO SCH ×2 (08:15→20:50)
[2018-09-16] MEDS: BUSPIRONE HCL 10 MG TABLET PO SCH ×3 (08:15→20:49)
[2018-09-16] MEDS: Fenofibrate 54 MG TABLET PO SCH (08:16)
[2018-09-16] MEDS: Gabapentin 300 MG CAPSULE PO SCH ×3 (08:16→20:50)
[2018-09-16] MEDS: Isosorbide MONOnitrate (24 HR) 60 MG TAB.ER.24H PO SCH (08:16)
[2018-09-16] MEDS: *HR* OxyCODONE/APAP 5/325 TABLET PO PRN ×3 (09:59→21:58)
[2018-09-16] MEDS: methylPREDNISolone 125 MG/2 ML VIAL IVP SCH ×2 (10:00→20:50)
[2018-09-16] MEDS: Azithromycin 500 MG in D5% in Water 250 ML IVPB SCH (10:02)
[2018-09-16] MEDS ORDERED: Benzonatate 100 MG CAPSULE PO PRN (10:15)
--- NOTE | 2018-09-16 10:16 | Internal Med Progress Note ---
Hospitalist Progress Note - Encounter Date of Encounter: 09/16/18 Time of Encounter: 07:15 - Subjective Interval History: Patient seen and examined this morning at bedside. No acute overnight events. Denies new complaints. Denies any chest pain. Breathing same as yesterday. Complains of cough and some chest soreness after coughing. Nonproductive. Afebrile. Hemodynamically stable. Still needing 4 L of nasal cannula to keep saturation at 92-94. - Exam Vitals: Temp Pulse Resp BP Pulse Ox 98.4 F 91 18 131/81 94 09/16/18 07:15 09/16/18 07:15 09/16/18 07:15 09/16/18 07:15 09/16/18 07:15 Exam: General: In no acute distress. Obese Respiratory exam: mild accessory muscle use. diffuse rhonchi noted. Better air entry Cardiovascular exam: RRR, +S1, +S2. no murmur, gallop, rubs. GI/Abdominal exam: Non-tender, Non-distended, normal bowel sounds, soft, no peritoneal signs. Extremities exam: no pedal edema, pulses palpable in b/l lower extremities. no calf tenderness. Rt groin without any signs of bleeding or hematoma. Neurological exam: CN II-XII intact, AO X3, no focal deficits. Skin exam: No skin rash - Assessment and Plan (1) COPD (chronic obstructive pulmonary disease) Current Visit: No Status: Chronic (2) Chest pain Current Visit: Yes Status: Acute (3) Congestive heart failure Current Visit: No Status: Acute (4) Shortness of breath Current Visit: Yes Status: Acute (5) Tobacco abuse Current Visit: Yes Status: Chronic (6) Hypertension Current Visit: Yes Status: Chronic (7) Anxiety and depression Current Visit: Yes Status: Chronic (8) Surgical wound present Current Visit: Yes Status: Chronic (9) DVT prophylaxis Current Visit: Yes Status: Acute - Summary of Assessment and Plan Summary of Assessment and Plan: Assessment Unstable angina CAD COPD exacerbation DVT HLD anxiety, depression panic disorder smoker Plan - s/p [facility] om 09/14/18 with PTCA/JANELEL in mid LAD adn PTCA/JANELLE in ostial/proximal RCA. Previously with stents placed on 05/22/18 to pLCX and OM1. - c/w aspirin, brilinta for atleast 1 year. c/w statin, imdur and BB. - Had some back pain post cath. CT abd/pelvis without evidence of hematoma or pseudoaneurysm. Cardiology signed off. - Patient now with COPD exacerbation. Slightly improved but not ready for discharged. c/w bronchodilators and increase steroids dose and start azithromycin. - Continue supplemental oxygen for now. Patient on 2 L at home. - resume home psychitry medication, coreg and spironolactone. - Patient may have sleep apnea/Obesity hypoventilation component. Will defer further studies as outpatient for now. - Time Spent with Patient Total time spent is greater than 50% in coordination of care (as documented) at patient's floor/unit and/or counseling patient: Internal Medicine: Result - Labs CBC & Chem 7: 09/16/18 05:42 09/16/18 05:42 Labs: Short CBC 09/16/18 Range/Units 05:42 WBC 7.4 (4.3-11.1) K/mcL Hgb 15.1 (11.5-15.4) g/dL Hct 47.5 H (35.3-44.9) % Plt Count 202 (140-400) K/mcL Neutrophils # 4.7 (1.6-8.9) K/mcL BMP 09/15/18 09/16/18 06:33 05:42 Sodium 130 L 135 L Potassium 4.2 3.9 Chloride 91 L 91 L Carbon Dioxide 34 H 36 H BUN 14 18 Creatinine 0.58 L 0.60 Glucose 205 H 278 H Calcium 9.6 9.8 Consult Discharge Plan - Plan Additional Instructions: RISK FACTORS: STOP SMOKING: If you smoke, STOP. Smoking or tobacco use significantly increases your risk of heart disease because nicotine causes the arteries to narrow or constrict. It also causes fats to stick to the artery. Your chances of having a heart attack are greatly increased if you continue to smoke. For more information, call the education line for smoking cessation 3-547-ESLETMS EAT A LOW FAT/CHOLESTEROL/SODIUM DIET: This diet may help reduce your chances of having a heart attack. LIFTING: Avoid lifting anything more than 10 pounds for 5-7 days Prior to straining, laughing, sneezing and/or coughing, apply manual pressure directly over insertion site. ACTIVITY: You may walk or climb stairs as tolerated You can resume sexual activity as tolerated In general, you are encouraged to engage in a minimum of 30 minutes or more of moderate intensity physical activity, such as brisk walking, daily or at least 3-4 times weekly BATHING Do not submerge the site into water (bath tub, hot tub, swimming pool) for 1 week. This can be a source for infection into the blood stream. You may shower after 24 hours SITE CARE: After 24 hours, you may remove the dressing and leave the site open to air. Keep the site clean and dry. Clean gently and pat dry. You can expect bruising and tenderness that gradually resolve within a week or two. Return to work as instructed per your physician Resume driving as instructed per physician Keep all scheduled follow up appointments Resume medications as instructed IMPORTANT: If prescribed a Platelet Aggregation Inhibitor such as, Plavix, Brilinta or Effient: Duration of therapy is minimum one year These medications are often used in combination with Aspirin in prevention of future heart attacks Never discontinue unless consult with your Foot Specialist STROKE (CVA) Risk factors for a stroke are: Age, cigarette smoking, diabetes, excessive alcohol consumption, family history, high blood pressure, overweight, physical inactivity, prior stroke, heart attack, diagnosis of carotid artery stenosis or other artery disease. Warning signs: Sudden numbness or weakness of the face, arm or leg; especially on one side of the body, sudden confusion, trouble speaking or understanding, sudden trouble seeing in one or both eyes, sudden trouble walking, dizziness, loss of balance or coordination, sudden severe headache with no cause. Call 911 or go to the Emergency Room. CONGESTIVE HEART FAILURE: If you have been diagnosed with Congestive Heart Failure (CHF) and your symptoms return, make an appointment with your physician Weigh yourself daily. Notify your physician if you have a weight gain of two or more pounds in one day or five or more pounds in one week. If you experience any difficulty breathing, please call 911 BLEEDING: Although the risk of bleeding is minimal, it can happen. If you have any bleeding from the site, apply firm pressure above the puncture site for 10-15 minutes. If the bleeding does not stop, continue manual pressure and call 911 Contact your physician if: You develop a fever greater than 101 degrees Fahrenheit Your site becomes reddened or has any drainage You have an increase in pain or burning at the site or if a large knot forms at the site. If you experience chest pain, shortness of breath, dizziness, or extreme tiredness, stop the activity and rest. Please notify your physicians office if you experience any of these symptoms and they are not relieved by rest please call 911! Referrals: Severo Ruelas CNP [Primary Care Provider] - 09/22/18 9:45 am (1) COPD (chronic obstructive pulmonary disease) Qualifiers: COPD type: unspecified COPD Qualified Code(s): J44.9 - Chronic obstructive pulmonary disease, unspecified (2) Chest pain Qualifiers: Chest pain type: unspecified Qualified Code(s): R07.9 - Chest pain, unspecified (3) Congestive heart failure Qualifiers: Heart failure type: unspecified Heart failure chronicity: unspecified Qualified Code(s): I50.9 - Heart failure, unspecified (6) Hypertension Qualifiers: Hypertension type: unspecified Qualified Code(s): I10 - Essential (primary) hypertension
[2018-09-16] MEDS: Budesonide/Formoterol 80/4.5 MDI IH SCH ×2 (10:52→22:06)
--- NOTE | 2018-09-16 13:26 | Electrocardiograph Report ---
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
[2018-09-16] MEDS ORDERED: Adenosine 90 MG/30 ML MLS IV ONE (16:44)
[2018-09-16] MEDS: Ranolazine 500 MG TAB.ER.12H PO SCH (20:49)
[2018-09-16] MEDS: hydrOXYzine pamoate 25 MG CAPSULE PO PRN (20:54)
[2018-09-17] MEDS: *HR* FentaNYL (PF) 100 MCG/2 ML VIAL IVP PRN ×3 (00:01→20:22)
[2018-09-17] MEDS ORDERED: Nitroglycerin 0.4 MG TAB.SUBL SL ONE (00:18)
[2018-09-17] MEDS: Nitroglycerin 0.4 MG TAB.SUBL SL PRN ×6 (00:22→06:40)
[2018-09-17] MEDS: Ipratropium/Albuterol Neb 3 ML IH SCH ×4 (04:17→22:20)
[2018-09-17] MEDS: *HR* Heparin 5,000 UNIT/ML VIAL SQ SCH ×2 (05:12→17:08)
[2018-09-17] MEDS: *HR* OxyCODONE/APAP 5/325 TABLET PO PRN ×4 (06:53→20:21)
[2018-09-17] MEDS: methylPREDNISolone 125 MG/2 ML VIAL IVP SCH (08:45)
[2018-09-17] MEDS: BUSPIRONE HCL 10 MG TABLET PO SCH ×3 (08:46→20:22)
[2018-09-17] MEDS: *HR* Ticagrelor 90 MG TABLET PO SCH ×2 (08:46→20:22)
[2018-09-17] MEDS: Spironolactone 25 MG TABLET PO SCH (08:46)
[2018-09-17] MEDS: Aspirin 81 MG TAB.CHEW PO SCH (08:46)
[2018-09-17] MEDS: Isosorbide MONOnitrate (24 HR) 60 MG TAB.ER.24H PO SCH (08:46)
[2018-09-17] MEDS: Gabapentin 300 MG CAPSULE PO SCH ×3 (08:46→20:22)
[2018-09-17] MEDS: Ranolazine 500 MG TAB.ER.12H PO SCH ×2 (08:46→20:22)
[2018-09-17] MEDS: Fenofibrate 54 MG TABLET PO SCH (08:47)
[2018-09-17] MEDS: Azithromycin 500 MG in D5% in Water 250 ML IVPB SCH (08:55)
--- NOTE | 2018-09-17 09:31 | Electrocardiograph Report ---
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
--- NOTE | 2018-09-17 09:38 | Electrocardiograph Report ---
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
[2018-09-17] MEDS: Budesonide/Formoterol 80/4.5 MDI IH SCH ×2 (11:00→22:20)
[2018-09-17] MEDS: Fluticasone Propionate Nasal 50 MCG/SPRAY BOTTLE NS SCH (12:23)
[2018-09-17] MEDS: Acetaminophen 325 MG TABLET PO PRN (14:49)
--- NOTE | 2018-09-17 16:03 | Internal Med Progress Note ---
Hospitalist Progress Note - Encounter Date of Encounter: 09/17/18 Time of Encounter: 12:01 - Subjective Interval History: Patient seen and examined this morning at bedside. No acute overnight events. Complains of nasal congestion. Breathing improved. Had occasional twinge of chest pain yesterday night improving nitroglycerin glycerin. Currently denies any chest pain. Denies any constipation diarrhea or urinary complaints. - Exam Vitals: Temp Pulse Resp BP Pulse Ox 97.6 F 86 18 154/92 90 09/17/18 15:42 09/17/18 15:42 09/17/18 15:42 09/17/18 15:42 09/17/18 15:42 Exam: General: In no acute distress. Obese Respiratory exam: no accessory muscle use.CTAB, Better air entry Cardiovascular exam: RRR, +S1, +S2. no murmur, gallop, rubs. GI/Abdominal exam: Non-tender, Non-distended, normal bowel sounds, soft, no peritoneal signs. Extremities exam: no pedal edema, no calf tenderness. Rt groin without any signs of bleeding or hematoma. Neurological exam: CN II-XII intact, AO X3, no focal deficits. Skin exam: Has Rt breast induration medial to nipple without cellulitis or purulent drainage - Assessment and Plan (1) COPD (chronic obstructive pulmonary disease) Current Visit: No Status: Chronic (2) Chest pain Current Visit: Yes Status: Acute (3) Congestive heart failure Current Visit: No Status: Acute (4) Shortness of breath Current Visit: Yes Status: Acute (5) Tobacco abuse Current Visit: Yes Status: Chronic (6) Hypertension Current Visit: Yes Status: Chronic (7) Anxiety and depression Current Visit: Yes Status: Chronic (8) Surgical wound present Current Visit: Yes Status: Chronic (9) DVT prophylaxis Current Visit: Yes Status: Acute - Summary of Assessment and Plan Summary of Assessment and Plan: Assessment Acute Unstable angina CAD COPD exacerbation Chronic h/o breast abscess DVT prophylaxis HLD anxiety, depression panic disorder smoker Plan - s/p [facility] on 09/14/18 with PTCA/JANELLE in mid LAD adn PTCA/JANELLE in ostial/proximal RCA. Previously with stents placed on 05/22/18 to pLCX and OM1. - c/w aspirin, brilinta for atleast 1 year. c/w statin, imdur and BB. - Had some back pain post cath. CT abd/pelvis without evidence of hematoma or pseudoaneurysm. Cardiology signed off. - Patient now with COPD exacerbation. Improved however with nasal congestion. Started home flonase for allergy. c/w bronchodilators and taper steroids dose and c/w azithromycin for 5 days - Patient on 2 L at home. Needed high oxygen with ambulation and o2 dropped to 86 on 6 Lit. Will c/w COPD treatment and flonase and plan for DC tomorrow. will need to qualify for oxygen after ambulation before discharge - resume home psychitry medication, coreg and spironolactone. - Patient may have sleep apnea/Obesity hypoventilation component. Will defer further studies as outpatient for now. - Has h/o breast abscess recently treated healing well. No indication for antibiotics. will need outpatient surgery follow up which she is aware. She also requested pain medication for back pain on discharge for 2-3 days until seen by pain management. - Time Spent with Patient Total time spent is greater than 50% in coordination of care (as documented) at patient's floor/unit and/or counseling patient: Internal Medicine: Result - Labs CBC & Chem 7: 09/16/18 05:42 09/16/18 05:42 Labs: Cardiac Enzymes 09/17/18 Range/Units 07:04 Troponin I 0.03 (< 0.04) ng/mL Consult Discharge Plan - Plan Additional Instructions: RISK FACTORS: STOP SMOKING: If you smoke, STOP. Smoking or tobacco use significantly increases your risk of heart disease because nicotine causes the arteries to narrow or constrict. It also causes fats to stick to the artery. Your chances of having a heart attack are greatly increased if you continue to smoke. For more information, call the education line for smoking cessation 1-584-PSIFAML EAT A LOW FAT/CHOLESTEROL/SODIUM DIET: This diet may help reduce your chances of having a heart attack. LIFTING: Avoid lifting anything more than 10 pounds for 5-7 days Prior to straining, laughing, sneezing and/or coughing, apply manual pressure directly over insertion site. ACTIVITY: You may walk or climb stairs as tolerated You can resume sexual activity as tolerated In general, you are encouraged to engage in a minimum of 30 minutes or more of moderate intensity physical activity, such as brisk walking, daily or at least 3-4 times weekly BATHING Do not submerge the site into water (bath tub, hot tub, swimming pool) for 1 week. This can be a source for infection into the blood stream. You may shower after 24 hours SITE CARE: After 24 hours, you may remove the dressing and leave the site open to air. Keep the site clean and dry. Clean gently and pat dry. You can expect bruising and tenderness that gradually resolve within a week or two. Return to work as instructed per your physician Resume driving as instructed per physician Keep all scheduled follow up appointments Resume medications as instructed IMPORTANT: If prescribed a Platelet Aggregation Inhibitor such as, Plavix, Brilinta or Effient: Duration of therapy is minimum one year These medications are often used in combination with Aspirin in prevention of future heart attacks Never discontinue unless consult with your Time Study Technician STROKE (CVA) Risk factors for a stroke are: Age, cigarette smoking, diabetes, excessive alcohol consumption, family history, high blood pressure, overweight, physical inactivity, prior stroke, heart attack, diagnosis of carotid artery stenosis or other artery disease. Warning signs: Sudden numbness or weakness of the face, arm or leg; especially on one side of the body, sudden confusion, trouble speaking or understanding, sudden trouble seeing in one or both eyes, sudden trouble walking, dizziness, loss of balance or coordination, sudden severe headache with no cause. Call 911 or go to the Emergency Room. CONGESTIVE HEART FAILURE: If you have been diagnosed with Congestive Heart Failure (CHF) and your symptoms return, make an appointment with your physician Weigh yourself daily. Notify your physician if you have a weight gain of two or more pounds in one day or five or more pounds in one week. If you experience any difficulty breathing, please call 911 BLEEDING: Although the risk of bleeding is minimal, it can happen. If you have any bleeding from the site, apply firm pressure above the puncture site for 10-15 minutes. If the bleeding does not stop, continue manual pressure and call 911 Contact your physician if: You develop a fever greater than 101 degrees Fahrenheit Your site becomes reddened or has any drainage You have an increase in pain or burning at the site or if a large knot forms at the site. If you experience chest pain, shortness of breath, dizziness, or extreme tire dness, stop the activity and rest. Please notify your physicians office if you experience any of these symptoms and they are not relieved by rest please call 911! Referrals: Severo Ruelas CNP [Primary Care Provider] - 09/22/18 9:45 am (1) COPD (chronic obstructive pulmonary disease) Qualifiers: COPD type: unspecified COPD Qualified Code(s): J44.9 - Chronic obstructive pulmonary disease, unspecified (2) Chest pain Qualifiers: Chest pain type: unspecified Qualified Code(s): R07.9 - Chest pain, unspecified (3) Congestive heart failure Qualifiers: Heart failure type: unspecified Heart failure chronicity: unspecified Qualified Code(s): I50.9 - Heart failure, unspecified (6) Hypertension Qualifiers: Hypertension type: unspecified Qualified Code(s): I10 - Essential (primary) hypertension
[2018-09-17] MEDS: hydrOXYzine pamoate 25 MG CAPSULE PO PRN (20:21)
[2018-09-18] MEDS: Ipratropium/Albuterol Neb 3 ML IH SCH ×3 (04:08→16:20)
[2018-09-18] MEDS: *HR* Heparin 5,000 UNIT/ML VIAL SQ SCH (05:51)
[2018-09-18] MEDS: *HR* OxyCODONE/APAP 5/325 TABLET PO PRN ×2 (07:41→11:25)
[2018-09-18] MEDS: Azithromycin 500 MG in D5% in Water 250 ML IVPB SCH (07:57)
[2018-09-18] MEDS: BUSPIRONE HCL 10 MG TABLET PO SCH ×2 (08:01→16:21)
[2018-09-18] MEDS: Fenofibrate 54 MG TABLET PO SCH (08:01)
[2018-09-18] MEDS: Ranolazine 500 MG TAB.ER.12H PO SCH (08:01)
[2018-09-18] MEDS: Aspirin 81 MG TAB.CHEW PO SCH (08:02)
[2018-09-18] MEDS: Spironolactone 25 MG TABLET PO SCH (08:02)
[2018-09-18] MEDS: Gabapentin 300 MG CAPSULE PO SCH ×2 (08:02→16:22)
[2018-09-18] MEDS: *HR* Ticagrelor 90 MG TABLET PO SCH (08:02)
[2018-09-18] MEDS: Isosorbide MONOnitrate (24 HR) 60 MG TAB.ER.24H PO SCH (08:02)
[2018-09-18] MEDS: Fluticasone Propionate Nasal 50 MCG/SPRAY BOTTLE NS SCH (08:06)
[2018-09-18] MEDS ORDERED: methylPREDNISolone 125 MG/2 ML VIAL IVP SCH (09:00)
[2018-09-18] MEDS: Budesonide/Formoterol 80/4.5 MDI IH SCH (11:11)
[2018-09-18 11:58] VITALS: BP 145/83
--- NOTE | 2018-09-18 15:03 | Discharge Summary ---
- NOTES TO OUTPATIENT PROVIDER Notes to Outpatient Provider: Follow-up with PCP into 3 days-May need outpatient sleep study. Follow with cardiology in 3 weeks. Get established with industrial engineering director. Follow with general surgeon for breast abscess Date of Encounter: 09/18/18 Time of Encounter: 14:59 - Discharge Diagnosis (1) COPD (chronic obstructive pulmonary disease) Priority: Primary Status: Chronic Assessment and Plan: Acute exacerbation. Improving. Will taper prednisone slowly. 40 mg by mouth daily for 5 days then 20 mg daily for 5 days. Continue albuterol, Spiriva, oxygen supplementation. 6 minute walk test was done before discharge and she qualified for liters oxygen at rest and 6 L oxygen on ambulation. Patient needs to get established with pulmonary outpatient for further evaluation with the help of PCP. She may also need outpatient sleep study Qualifiers: COPD type: unspecified COPD Qualified Code(s): J44.9 - Chronic obstructive pulmonary disease, unspecified (2) Chest pain Priority: Primary Status: Acute Assessment and Plan: Stable angina status post on 09/14/2018.There is severe 2V CAD. EF 50% Patient had successful PTCA/Drug-Eluting Stent placement in the mid LAD. Patient had successful PTCA/Drug-Eluting Stent placement in the Ostial/Proximal RCA.DAPT (ASA and Brilinta) uninterrupted x 1 year. Continue beta sirisha statin nitrates. Right femoral access site healing well. Cardiac rehabilitation ordered. Patient is to follow with cardiology in 3-4 weeks Qualifiers: Chest pain type: unspecified Qualified Code(s): R07.9 - Chest pain, unspecified (3) Congestive heart failure Priority: Primary Status: Acute Assessment and Plan: Acute on chronic. Sending ER chest xray showed cardiomegaly with findings suggesting mild pulmonary edema. Received 40mg IV lasix at sending ER. Continue spironolactone. Patient does not appear volume overloaded Qualifiers: Heart failure type: unspecified Heart failure chronicity: unspecified Qualified Code(s): I50.9 - Heart failure, unspecified (4) Shortness of breath Priority: Primary Status: Acute Assessment and Plan: Acute on chronic. Most likely due to above. Multiple etiology cardiopulmonary. Ruled out PE (5) Tobacco abuse Priority: Secondary Status: Chronic Assessment and Plan: Cessation strongly encouraged. (6) Hypertension Priority: Primary Status: Chronic Assessment and Plan: Continue home medications Qualifiers: Hypertension type: unspecified Qualified Code(s): I10 - Essential (primary) hypertension (7) Anxiety and depression Priority: Primary Status: Chronic Assessment and Plan: Continue home medications (8) Surgical wound present Priority: Secondary Status: Chronic Assessment and Plan: Status post excision of infected subareolar duct abscess of right breast 08/10/18. Monitor site for signs of infection. Continue outpatient site instructions. Keep follow-up appointment with general surgeon Hospital course: Ms. Finch is a 48 year old female was transferred from [facility] for further evaluation of worsening shortness of breath and chest pain. During his stay patient had unstable angina and had stent placement. Patient also had COPD exacerbation and possible CHF exacerbation. Please see detail in diagnosis section and discharge summary. At the time of discharge patient is clinically hemodynamically stable. 6 minute walk done with increased oxygen requirement 4 L at rest and 6 L on ambulation. Patient was on 2-3 L home oxygen by nasal cannula at home but has been noncompliant as well. Patient is highly adamant to go home and threatening to leave A. Patient was educated to keep follow-up appointment for optimal care. Discharge discussed with: patient, nurse, social work - Time Spent with Patient Total time spent providing and/or coordinating discharge services: Time spent: Less than 30 minutes - Discharge Medications Prescriptions: New Carvedilol [Coreg] 25 mg PO BIDWM #60 tablet predniSONE [PredniSONE] 40 mg PO DAILY #15 tablet Azithromycin [Zithromax] 500 mg PO ONCE #2 tablet Continued Nitroglycerin [Nitrostat] 0.4 mg PO Q5M PRN PRN Reason: Chest Pain Fenofibrate Nanocrystallized [Tricor] 145 mg PO DAILY Pantoprazole Sodium 40 mg PO DAILY Ticagrelor [Brilinta] 90 mg PO BID #30 tablet Ranolazine [Ranexa] 500 mg PO BID #60 tab.er.12h Cetirizine HCl 10 mg PO DAILY Ondansetron HCl [Zofran] 4 mg PO Q6H PRN PRN Reason: Nausea Cyclobenzaprine [Flexeril] 10 mg PO TID PRN PRN Reason: Muscle Pain Spironolactone [Aldactone] 25 mg PO DAILY Ferrous Sulfate [Iron] 325 mg PO DAILY Tiotropium [place] [Spiriva Respimat] 2 puff IH DAILY Amitriptyline [Elavil] 25 mg PO HS BuPROPion [Wellbutrin] 75 mg PO QAM Isosorbide MONOnitrate [Isosorbide Mononitrate ER] 120 mg PO QAM Losartan Potassium [Cozaar] 100 mg PO DAILY Albuterol Sulfate [Ventolin Hfa] 2 puff IH Q4H PRN PRN Reason: Shortness Of Breath Atorvastatin Calcium [Lipitor] 80 mg PO HS Benzonatate [Tessalon] 200 mg PO TID PRN PRN Reason: Cough Cholecalciferol (Vitamin D3) [Vitamin D3] 5,000 unit PO WE hydrOXYzine HCl [Hydroxyzine HCl] 100 mg PO HS PRN PRN Reason: Anxiety OxyCODONE/APAP 5/325 [Percocet 5/325 MG] 1 tab PO Q6HR PRN PRN Reason: Pain Fluticasone Propionate Nasal [Flonase] 1 spr NS DAILY Gabapentin [Neurontin] 600 mg PO TID Mometasone/Formoterol [Dulera 100 Mcg/5 Mcg Inhaler] 2 puff IH BID Aspirin [Lo-Dose Aspirin EC] 81 mg PO DAILY Buspirone HCl [Buspar HCl] 10 mg PO TID Lidocaine Patch [Lidoderm 5% patch] 1 patch TP DAILY Discontinued Carvedilol 25 mg PO DAILY Home Medications: Fluticasone Propionate Nasal [Flonase] 1 spr NS DAILY 11/01/16 [History] Fenofibrate Nanocrystallized [Tricor] 145 mg PO DAILY 12/02/16 [History] Nitroglycerin [Nitrostat] 0.4 mg PO Q5M PRN 12/02/16 [History] Gabapentin [Neurontin] 600 mg PO TID 01/08/17 [History] Mometasone/Formoterol [Dulera 100 Mcg/5 Mcg Inhaler] 2 puff IH BID 01/08/17 [History] Aspirin [Lo-Dose Aspirin EC] 81 mg PO DAILY 04/17/17 [History] Pantoprazole Sodium 40 mg PO DAILY 06/02/17 [History] Ticagrelor [Brilinta] 90 mg PO BID #30 tablet 06/04/17 [Rx] Ranolazine [Ranexa] 500 mg PO BID #60 tab.er.12h 06/06/17 [Rx] Cetirizine HCl 10 mg PO DAILY 05/22/18 [History] Cyclobenzaprine [Flexeril] 10 mg PO TID PRN 05/22/18 [History] Ferrous Sulfate [Iron] 325 mg PO DAILY 05/22/18 [History] Ondansetron HCl [Zofran] 4 mg PO Q6H PRN 05/22/18 [History] Spironolactone [Aldactone] 25 mg PO DAILY 05/22/18 [History] Tiotropium [place] [Spiriva Respimat] 2 puff IH DAILY 05/22/18 [History] Amitriptyline [Elavil] 25 mg PO HS 08/10/18 [History] BuPROPion [Wellbutrin] 75 mg PO QAM 08/10/18 [History] Isosorbide MONOnitrate [Isosorbide Mononitrate ER] 120 mg PO QAM 08/10/18 [History] Losartan Potassium [Cozaar] 100 mg PO DAILY 08/10/18 [History] Albuterol Sulfate [Ventolin Hfa] 2 puff IH Q4H PRN 09/14/18 [History] Atorvastatin Calcium [Lipitor] 80 mg PO HS 09/14/18 [History] Benzonatate [Tessalon] 200 mg PO TID PRN 09/14/18 [History] Buspirone HCl [Buspar HCl] 10 mg PO TID 09/14/18 [History] Cholecalciferol (Vitamin D3) [Vitamin D3] 5,000 unit PO WE 09/14/18 [History] Lidocaine Patch [Lidoderm 5% patch] 1 patch TP DAILY 09/14/18 [History] OxyCODONE/APAP 5/325 [Percocet 5/325 MG] 1 tab PO Q6HR PRN 09/14/18 [History] hydrOXYzine HCl [Hydroxyzine HCl] 100 mg PO HS PRN 09/14/18 [History] Azithromycin [Zithromax] 500 mg PO ONCE #2 tablet 09/18/18 [Rx] Carvedilol [Coreg] 25 mg PO BIDWM #60 tablet 09/18/18 [Rx] predniSONE [PredniSONE] 40 mg PO DAILY #15 tablet 09/18/18 [Rx] Allergies/Adverse Reactions: Allergy/AdvReac Type Severity Reaction Status Date / Time hydromorphone [From Dilaudid] AdvReac Confusion Verified 05/22/18 21:33 Penicillins AdvReac Hives Verified 05/22/18 21:33 propoxyphene AdvReac Vomiting Verified 05/22/18 21:33 [From Darvocet-N] Date of admission: 09/16/18 10:52 Primary care physician: Severo Ruelas CNP Consults: 09/14/18 04:41 Consult to Country Printer Apprentice [CONS] Routine Reason for SW Consult: Patient presently living in her friend's garage as she is homeless 09/14/18 05:49 Consult to Cardiology [CONS] Routine Comment: Consulting Provider: Cardiology Dori Reason for Consult: Substernal chest pain improved with nitro. EKG with non specific T changes. Most recent heart cath in April 2018 with 2 stents placed. Follows regularly with [facility]. Call Completed: No 09/15/18 09:34 Consult to Cardiac Rehabilitation-Phase1 [CONS] Routine Comment: Reason for Consult: CAD s/p PCI Call Completed: No - Constitutional Vitals: Temp Pulse Resp BP Pulse Ox 97.8 F 94 18 145/83 93 09/18/18 07:27 09/18/18 11:56 09/18/18 11:56 09/18/18 11:56 09/18/18 14:14 Exam: General: In no acute distress. Obese Respiratory exam: no accessory muscle use.CTAB, Cardiovascular exam: RRR, +S1, +S2. no murmur. GI/Abdominal exam: Non-tender, Non-distended, normal bowel sounds, soft, no peritoneal signs. Extremities exam: no pedal edema, no calf tenderness. Rt groin without any signs of bleeding or hematoma. Neurological exam: CN II-XII intact, AO X3, no focal deficits. Skin exam: Has Rt breast induration medial to nipple without cellulitis or purulent drainage - Patient Status Disposition: Home, Self-Care Condition: Fair Overall status at discharge: patient is progressing back to baseline - Discharge Instructions Follow Up With: Severo Ruelas CNP [Primary Care Provider] - 09/22/18 9:45 am Additional Instructions: RISK FACTORS: STOP SMOKING: If you smoke, STOP. Smoking or tobacco use significantly increases your risk of heart disease because nicotine causes the arteries to narrow or constrict. It also causes fats to stick to the artery. Your chances of having a heart attack are greatly increased if you continue to smoke. For more information, call the education line for smoking cessation 2-940-[id number] EAT A LOW FAT/CHOLESTEROL/SODIUM DIET: This diet may help reduce your chances of having a heart attack. LIFTING: Avoid lifting anything more than 10 pounds for 5-7 days Prior to straining, laughing, sneezing and/or coughing, apply manual pressure directly over insertion site. ACTIVITY: You may walk or climb stairs as tolerated You can resume sexual activity as tolerated In general, you are encouraged to engage in a minimum of 30 minutes or more of moderate intensity physical activity, such as brisk walking, daily or at least 3-4 times weekly BATHING Do not submerge the site into water (bath tub, hot tub, swimming pool) for 1 week. This can be a source for infection into the blood stream. You may shower after 24 hours SITE CARE: After 24 hours, you may remove the dressing and leave the site open to air. Keep the site clean and dry. Clean gently and pat dry. You can expect bruising and tenderness that gradually resolve within a week or two. Return to work as instructed per your physician Resume driving as instructed per physician Keep all scheduled follow up appointments Resume medications as instructed IMPORTANT: If prescribed a Platelet Aggregation Inhibitor such as, Plavix, Brilinta or Effient: Duration of therapy is minimum one year These medications are often used in combination with Aspirin in prevention of future heart attacks Never discontinue unless consult with your Computer Technology Instructor STROKE (CVA) Risk factors for a stroke are: Age, cigarette smoking, diabetes, excessive alcohol consumption, family history, high blood pressure, overweight, physical inactivity, prior stroke, heart attack, diagnosis of carotid artery stenosis or other artery disease. Warning signs: Sudden numbness or weakness of the face, arm or leg; especially on one side of the body, sudden confusion, trouble speaking or understanding, sudden trouble seeing in one or both eyes, sudden trouble walking, dizziness, loss of balance or coordination, sudden severe headache with no cause. Call 911 or go to the Emergency Room. CONGESTIVE HEART FAILURE: If you have been diagnosed with Congestive Heart Failure (CHF) and your symptoms return, make an appointment with your physician Weigh yourself daily. Notify your physician if you have a weight gain of two or more pounds in one day or five or more pounds in one week. If you experience any difficulty breathing, please call 911 BLEEDING: Although the risk of bleeding is minimal, it can happen. If you have any bleeding from the site, apply firm pressure above the puncture site for 10-15 minutes. If the bleeding does not stop, continue manual pressure and call 911 Contact your physician if: You develop a fever greater than 101 degrees Fahrenheit Your site becomes reddened or has any drainage You have an increase in pain or burning at the site or if a large knot forms at the site. If you experience chest pain, shortness of breath, dizziness, or extreme tiredness, stop the activity and rest. Please notify your physicians office if you experience any of these symptoms and they are not relieved by rest please call 911! - Diet and Activity Activity: increase activity as tolerated Diet: low fat, low cholesterol, low salt diet
[2018-09-18] MEDS: Acetaminophen 325 MG TABLET PO PRN (16:22)
[2018-09-19] MEDS ORDERED: predniSONE 20 MG TABLET PO SCH (09:00)
== END 2018-09-18 16:45 | disposition home or self-care (01) | DRG 175 ==
LOC: 3BNU → SUATTDRO 04:09 → 2NNU 15:03 → 2NENU 09-15 22:32
PROVIDERS: ADMIT Internal Medicine; ATTEND Internal Medicine

== ENCOUNTER 2020-03-29 18:30 | Inpatient (IN) ==
[~2020-03-29 18:30] MED LIST: *HR* FentaNYL (PF) 100 MCG/2 ML VIAL ONE; *HR* Midazolam HCl 2 MG/2 ML VIAL ONE; Heparin 1,000 UNITS/500 mL 500 ML ONE; ISOVUE-370 200 ML INFUS..BTL ONE
[2020-03-29] MEDS ORDERED: Perflutren Lipid Microsphere 1.3 ML in 0.9 % Sodium Chloride 8.7 ML IVP PRN (20:01)
[2020-03-29] MEDS ORDERED: Acetaminophen 325 MG TABLET PO PRN (22:08)
[2020-03-29] MEDS ORDERED: D5% in Water 1,000 ML IVC PRN (22:18)
[2020-03-29] MEDS ORDERED: Dextrose Gel 15 GM/37.5 ML TUBE PO PRN ×2 (22:18)
[2020-03-29] MEDS ORDERED: *HR* Dextrose 50 % in Water (Vial) 50 ML VIAL IVP PRN (22:18)
[2020-03-29] MEDS ORDERED: Furosemide 40 MG/4 ML VIAL IVP ONE (23:14)
[2020-03-29] MEDS: dexAMETHasone 4 MG TABLET PO SCH (23:34)
[2020-03-29] MEDS: Insulin LISPRO 300 UNITS/3 ML VIAL SQ SCH (23:47)
[2020-03-30] MEDS ORDERED: Insulin LISPRO 300 UNITS/3 ML VIAL SQ SCH
[2020-03-30] MEDS: *HR* HYDROcodone/Acet 5/325 mg TABLET PO PRN ×4 (00:27→20:21)
[2020-03-30 02:46] LABS: Basophils % 0.2 %; Eosinophils % 0.1 %; Hematocrit 36.1 % (35.3-44.9); Hemoglobin 11.2 g/dL (11.5-15.4); Lymphocytes # 1.1 K/mcL (0.6-4.6); Lymphocytes % 7.7 %; Mean Corpuscular Hemoglobin 30.9 pg (28.0-33.3); Mean Corpuscular Volume 99.4 fL (83.0-100.0); Mean Platelet Volume 9.6 fL (9.4-12.4); Monocytes # 0.9 K/mcL (0.0-1.3); Monocytes % 6.4 %; Neutrophils # 11.6 K/mcL (1.6-8.9); Platelet Count 263 K/mcL (140-400); Red Blood Count 3.63 M/mcL (3.82-4.97); Red Cell Distribution Width 14.1 % (11.5-14.5); Segmented Neutrophils % 84.6 %; White Blood Count 13.7 K/mcL (4.3-11.1)
[2020-03-30 02:55] LABS: Alanine Aminotransferase 92 Units/L (7-52); Albumin 4.1 g/dL (3.5-5.7); Albumin/Globulin Ratio 1.2 (1.1-2.2); Alkaline Phosphatase 64 Units/L (34-104); Aspartate Amino Transferase 65 Units/L (13-39); BUN/Creatinine Ratio 17 (6-26); Bilirubin,Total 0.5 mg/dL (0.3-1.0); Blood Urea Nitrogen 11 mg/dL (6-20); Calcium 9.3 mg/dL (8.6-10.3); Carbon Dioxide 30 mEq/L (23-29); Chloride 95 mEq/L (98-107); Globulin 3.3 g/dL (2.4-3.5); Glucose 152 mg/dL (70-105); Osmolality,Calculated 280 (280-300); Potassium 4.2 mEq/L (3.5-5.1); Sodium 134 mEq/L (136-145); Total Protein 7.4 g/dL (6.4-8.9); eGFR For African Americans > 60 (> 60); eGFR For Non-African Americans > 60 (> 60)
[2020-03-30 03:12] LABS: Ferritin 350 ng/mL (10-120)
[2020-03-30] MEDS ORDERED: Albuterol 2.5 MG/3 ML NEBULIZER IH SCH (04:00)
[2020-03-30] MEDS ORDERED: Ipratropium/Albuterol Neb 3 ML IH SCH (05:00)
[2020-03-30] MEDS: Insulin LISPRO 300 UNITS/3 ML VIAL SQ SCH ×3 (05:26→17:25)
[2020-03-30] MEDS: dexAMETHasone 4 MG TABLET PO SCH (08:02)
[2020-03-30] MEDS: *HR* Ticagrelor 90 MG TABLET PO SCH ×2 (08:02→20:06)
[2020-03-30] MEDS: Gabapentin 400 MG CAPSULE PO SCH ×2 (14:23→20:07)
[2020-03-30] MEDS: Furosemide 40 MG TABLET PO SCH (17:28)
[2020-03-30] MEDS: *HR* Heparin 5,000 UNIT/ML VIAL SQ SCH (17:28)
[2020-03-30] MEDS: carvediloL 25 MG TABLET PO SCH (17:28)
[2020-03-30] MEDS: Insulin DETEMIR 100 UNIT/ML X5UNITS SQ SCH (20:07)
[2020-03-31] MEDS: Insulin LISPRO 300 UNITS/3 ML VIAL SQ SCH ×2 (00:25→05:47)
[2020-03-31] MEDS: *HR* Heparin 5,000 UNIT/ML VIAL SQ SCH (05:38)
[2020-03-31] MEDS: *HR* HYDROcodone/Acet 5/325 mg TABLET PO PRN (05:48)
[2020-03-31] MEDS ORDERED: Aspirin 81 MG TAB.CHEW PO SCH (09:00)
[2020-03-31] MEDS ORDERED: Isosorbide MONOnitrate (24 HR) 60 MG TAB.ER.24H PO SCH (09:00)
[2020-03-31] MEDS ORDERED: Ranolazine 500 MG TAB.ER.12H PO SCH (09:00)
[2020-03-31] MEDS ORDERED: lisinopriL 5 MG TABLET PO SCH (09:15)
[2020-03-31] MEDS: dexAMETHasone 4 MG TABLET PO SCH (09:33)
[2020-03-31] MEDS: Gabapentin 400 MG CAPSULE PO SCH (09:33)
[2020-03-31] MEDS: *HR* Ticagrelor 90 MG TABLET PO SCH (09:34)
[2020-03-31] MEDS: Furosemide 40 MG TABLET PO SCH (09:35)
[2020-03-31] MEDS: carvediloL 25 MG TABLET PO SCH (09:36)
[2020-03-31] MEDS: Insulin DETEMIR 100 UNIT/ML X5UNITS SQ SCH (09:38)
[2020-03-31 09:41] LABS: Alanine Aminotransferase 61 Units/L (7-52); Aspartate Amino Transferase 31 Units/L (13-39)
[2020-03-31 11:00] VITALS: BP 116/72
== END 2020-03-31 15:08 | disposition home or self-care (01) | DRG 250 ==
LOC: EDSTATUS 18:30 → EMEROOARM 18:30 → 2NENU 18:56
PROVIDERS: ADMIT Internal Medicine Cardiovascular Disease; ATTEND Internal Medicine Cardiovascular Disease

== ENCOUNTER 2020-04-02 16:09 | Observation (INO) ==
[2020-04-02] MEDS ORDERED: *HR* OxyCODONE/APAP 5/325 TABLET PO ONE (16:38)
[2020-04-02] MEDS ORDERED: Morphine Sulfate 2 MG/ML SYRINGE IVP ONE (18:07)
[2020-04-02 18:21] LABS: Basophils # 0.1 K/mcL (0.0-0.2); Basophils % 0.8 %; Eosinophils # 0.2 K/mcL (0.0-0.6); Eosinophils % 2.2 %; Hematocrit 35.7 % (35.3-44.9); Hemoglobin 11.1 g/dL (11.5-15.4); Immature Granulocytes % 1.4 % (0-4); Lymphocytes # 2.1 K/mcL (0.6-4.6); Lymphocytes % 26.6 %; Mean Corpuscular HGB Conc 31.1 g/dL (31.6-35.5); Mean Corpuscular Hemoglobin 31.1 pg (28.0-33.3); Mean Platelet Volume 9.6 fL (9.4-12.4); Monocytes # 1.2 K/mcL (0.0-1.3); Monocytes % 14.9 %; Neutrophils # 4.2 K/mcL (1.6-8.9); Platelet Count 303 K/mcL (140-400); Red Blood Count 3.57 M/mcL (3.82-4.97); Red Cell Distribution Width 13.6 % (11.5-14.5); Segmented Neutrophils % 54.1 %; White Blood Count 7.8 K/mcL (4.3-11.1)
[2020-04-02 18:27] LABS: Prothrombin Time 11.6 Seconds (9.4-12.1)
[2020-04-02 18:29] LABS: BUN/Creatinine Ratio 25 (6-26); Blood Urea Nitrogen 20 mg/dL (6-20); Calcium 9.2 mg/dL (8.6-10.3); Carbon Dioxide 26 mEq/L (23-29); Chloride 99 mEq/L (98-107); Glucose 248 mg/dL (70-105); Osmolality,Calculated 285 (280-300); Potassium 4.1 mEq/L (3.5-5.1); Sodium 132 mEq/L (136-145); eGFR For African Americans > 60 (> 60); eGFR For Non-African Americans > 60 (> 60)
[2020-04-02] MEDS ORDERED: Naloxone 0.4 MG/ML INJ IVP PRN (19:27)
[2020-04-02] MEDS ORDERED: Ondansetron 4 MG/2 ML VIAL IVP PRN (19:27)
[2020-04-02] MEDS ORDERED: D5% in Water 1,000 ML IVC PRN (19:30)
[2020-04-02] MEDS ORDERED: Dextrose Gel 15 GM/37.5 ML TUBE PO PRN ×2 (19:30)
[2020-04-02] MEDS ORDERED: *HR* Dextrose 50 % in Water (Vial) 50 ML VIAL IVP PRN (19:30)
[2020-04-02] MEDS ORDERED: Isovue-370 500 ML BOTTLE IVP ONE (19:32)
[2020-04-02] MEDS ORDERED: Ondansetron ODT 4 MG TAB.RAPDIS PO PRN (19:34)
[2020-04-02] MEDS ORDERED: Nitroglycerin 0.4 MG TAB.SUBL SL PRN (19:34)
[2020-04-02] MEDS: Ranolazine 500 MG TAB.ER.12H PO SCH (22:26)
[2020-04-02] MEDS: hydrOXYzine pamoate 25 MG CAPSULE PO SCH (22:26)
[2020-04-02] MEDS: *HR* Ticagrelor 90 MG TABLET PO SCH (22:26)
[2020-04-02] MEDS: Fluticasone Propionate Nasal 50 MCG/SPRAY BOTTLE NS SCH (22:27)
[2020-04-02] MEDS: Insulin DETEMIR 100 UNIT/ML X5UNITS SQ SCH (22:29)
[2020-04-03 02:35] LABS: BUN/Creatinine Ratio 26 (6-26); Blood Urea Nitrogen 19 mg/dL (6-20); Calcium 8.8 mg/dL (8.6-10.3); Carbon Dioxide 30 mEq/L (23-29); Chloride 97 mEq/L (98-107); Glucose 225 mg/dL (70-105); Magnesium 1.7 mg/dL (1.6-2.6); Osmolality,Calculated 285 (280-300); Phosphorous 3.8 mg/dL (2.7-4.5); Sodium 133 mEq/L (136-145); eGFR For African Americans > 60 (> 60); eGFR For Non-African Americans > 60 (> 60)
[2020-04-03] MEDS: Insulin LISPRO 300 UNITS/3 ML VIAL SQ SCH ×3 (09:08→16:36)
[2020-04-03] MEDS: Fluticasone Propionate Nasal 50 MCG/SPRAY BOTTLE NS SCH ×2 (09:30→20:02)
[2020-04-03] MEDS: Insulin DETEMIR 100 UNIT/ML X5UNITS SQ SCH ×2 (09:33→20:06)
[2020-04-03] MEDS: *HR* Ticagrelor 90 MG TABLET PO SCH ×2 (09:33→20:02)
[2020-04-03] MEDS: Aspirin Enteric Coated 81 MG Tablet PO SCH (09:33)
[2020-04-03] MEDS: Cholecalciferol (D-3) 1,000 UNIT (25MCG) TABLET PO SCH (09:33)
[2020-04-03] MEDS: Loratadine 10 MG TABLET PO SCH (09:33)
[2020-04-03] MEDS: lisinopriL 5 MG TABLET PO SCH (09:34)
[2020-04-03] MEDS: carvediloL 25 MG TABLET PO SCH ×2 (09:35→16:12)
[2020-04-03] MEDS: Ranolazine 500 MG TAB.ER.12H PO SCH ×2 (09:35→20:02)
[2020-04-03] MEDS: Isosorbide MONOnitrate (24 HR) 60 MG TAB.ER.24H PO SCH (09:37)
[2020-04-03] MEDS ORDERED: Thrombin (Bovine) 5,000 UNIT NAS.SP.SYR TP ONE (10:46)
[2020-04-03 11:00] LABS: Basophils # 0.1 K/mcL (0.0-0.2); Basophils % 0.7 %; Eosinophils # 0.2 K/mcL (0.0-0.6); Eosinophils % 2.4 %; Hematocrit 34.5 % (35.3-44.9); Hemoglobin 10.7 g/dL (11.5-15.4); Immature Granulocytes % 1.7 % (0-4); Lymphocytes # 2.1 K/mcL (0.6-4.6); Mean Corpuscular Hemoglobin 30.9 pg (28.0-33.3); Mean Corpuscular Volume 99.7 fL (83.0-100.0); Mean Platelet Volume 9.5 fL (9.4-12.4); Monocytes % 13.4 %; Neutrophils # 3.7 K/mcL (1.6-8.9); Platelet Count 282 K/mcL (140-400); Red Blood Count 3.46 M/mcL (3.82-4.97); Segmented Neutrophils % 51.8 %; White Blood Count 7.1 K/mcL (4.3-11.1)
[2020-04-03] MEDS ORDERED: Ipratropium 1 PUFF INHALER IH PRN (12:32)
[2020-04-03] MEDS: Furosemide 40 MG TABLET PO SCH (12:57)
[2020-04-03] MEDS ORDERED: *HR* HYDROcodone/Acet 5/325 mg TABLET PO PRN (15:02)
[2020-04-03 17:15] LABS: Hematocrit 35.5 % (35.3-44.9); Hemoglobin 11.2 g/dL (11.5-15.4)
[2020-04-03] MEDS: hydrOXYzine pamoate 25 MG CAPSULE PO SCH (20:02)
[2020-04-04 03:41] LABS: Basophils # 0.1 K/mcL (0.0-0.2); Basophils % 0.7 %; Eosinophils # 0.2 K/mcL (0.0-0.6); Eosinophils % 2.2 %; Hematocrit 36.5 % (35.3-44.9); Hemoglobin 11.6 g/dL (11.5-15.4); Immature Granulocytes % 2.9 % (0-4); Lymphocytes % 28.3 %; Mean Corpuscular HGB Conc 31.8 g/dL (31.6-35.5); Mean Corpuscular Hemoglobin 31.3 pg (28.0-33.3); Mean Corpuscular Volume 98.4 fL (83.0-100.0); Mean Platelet Volume 9.4 fL (9.4-12.4); Monocytes # 0.8 K/mcL (0.0-1.3); Monocytes % 10.9 %; Neutrophils # 3.9 K/mcL (1.6-8.9); Platelet Count 302 K/mcL (140-400); Red Blood Count 3.71 M/mcL (3.82-4.97); Red Cell Distribution Width 13.6 % (11.5-14.5); White Blood Count 7.1 K/mcL (4.3-11.1)
[2020-04-04 03:55] LABS: BUN/Creatinine Ratio 27 (6-26); Blood Urea Nitrogen 20 mg/dL (6-20); Calcium 9.5 mg/dL (8.6-10.3); Carbon Dioxide 32 mEq/L (23-29); Chloride 89 mEq/L (98-107); Glucose 183 mg/dL (70-105); Osmolality,Calculated 279 (280-300); Potassium 3.9 mEq/L (3.5-5.1); Sodium 131 mEq/L (136-145); eGFR For African Americans > 60 (> 60); eGFR For Non-African Americans > 60 (> 60)
[2020-04-04] MEDS: Ranolazine 500 MG TAB.ER.12H PO SCH (07:52)
[2020-04-04] MEDS: Isosorbide MONOnitrate (24 HR) 60 MG TAB.ER.24H PO SCH (07:52)
[2020-04-04] MEDS: carvediloL 25 MG TABLET PO SCH (07:53)
[2020-04-04] MEDS: Aspirin Enteric Coated 81 MG Tablet PO SCH (07:53)
[2020-04-04] MEDS: Loratadine 10 MG TABLET PO SCH (07:54)
[2020-04-04] MEDS: lisinopriL 5 MG TABLET PO SCH (07:55)
[2020-04-04] MEDS: *HR* Ticagrelor 90 MG TABLET PO SCH (07:57)
[2020-04-04] MEDS: Furosemide 40 MG TABLET PO SCH (07:58)
[2020-04-04] MEDS: Cholecalciferol (D-3) 1,000 UNIT (25MCG) TABLET PO SCH (07:58)
[2020-04-04] MEDS: Insulin LISPRO 300 UNITS/3 ML VIAL SQ SCH ×2 (07:59→12:01)
[2020-04-04] MEDS: Insulin DETEMIR 100 UNIT/ML X5UNITS SQ SCH (08:02)
[2020-04-04] MEDS ORDERED: Spironolactone 25 MG TABLET PO SCH (09:00)
[2020-04-04] MEDS: Fluticasone Propionate Nasal 50 MCG/SPRAY BOTTLE NS SCH (12:08)
[2020-04-04 12:18] VITALS: BP 97/63
== END 2020-04-04 15:05 | disposition home health service (06) ==
LOC: EMEROOARM 16:09 → 2NENU 16:09
PROVIDERS: ADMIT Internal Medicine; ATTEND Internal Medicine

== ENCOUNTER 2021-04-04 13:24 | Observation (INO) ==
[~2021-04-04 13:24] MED LIST changes: -*HR* FentaNYL (PF) 100 MCG/2 ML VIAL ONE; -*HR* Midazolam HCl 2 MG/2 ML VIAL ONE; -Heparin 1,000 UNITS/500 mL 500 ML ONE; -ISOVUE-370 200 ML INFUS..BTL ONE; +ceFAZolin 1,000 MG, Sodium Chloride IRRigation 1,000 ML IR ONE
[2021-04-04] MEDS ORDERED: Clindamycin 900 MG/50 ML 900 MG/50 ML IV.SOLN IVPB ONE (13:58)
[2021-04-04] MEDS ORDERED: Ringers Solution, Lactated 1,000 ML IVC SCH (14:00)
[2021-04-04] MEDS ORDERED: Heparin 1,000 UNITS/500 mL 500 ML ONE (14:02)
[2021-04-04] MEDS ORDERED: Lidocaine -MPF 2% 5 ML VIAL ONE (14:31)
[2021-04-04] MEDS ORDERED: Ondansetron 4 MG/2 ML VIAL ONE (14:31)
[2021-04-04] MEDS ORDERED: Lidocaine -MPF 4% 5 ML AMPUL ONE (14:31)
[2021-04-04] MEDS ORDERED: *HR* Succinylcholine 200 MG/10 ML VIAL IVP ONE (14:31)
[2021-04-04] MEDS ORDERED: *HR* Rocuronium Bromide 50 MG/5 ML VIAL ONE (14:31)
[2021-04-04] MEDS ORDERED: *HR* FentaNYL (PF) 100 MCG/2 ML VIAL ONE ×2 (14:32→16:36)
[2021-04-04] MEDS ORDERED: *HR* Propofol 200 MG/20 ML VIAL IVP ONE (14:32)
[2021-04-04] MEDS ORDERED: *HR* Midazolam HCl 2 MG/2 ML VIAL ONE ×2 (14:32→18:06)
[2021-04-04] MEDS ORDERED: *HR* Vasopressin 20 UNIT/ML VIAL ONE (14:34)
[2021-04-04] MEDS ORDERED: Lidocaine/EPI 1:100k 1% 30 ML VIAL ONE (14:49)
[2021-04-04] MEDS ORDERED: Famotidine 20 MG/2 ML VIAL IVP ONE (15:00)
[2021-04-04] MEDS ORDERED: Acetaminophen IV 1,000 MG/100 ML BAG IVPB ONE (15:00)
[2021-04-04] MEDS ORDERED: *HR* HYDROmorphone PF 0.5 MG/0.5 ML SYRINGE IVP PRN (16:26)
[2021-04-04] MEDS ORDERED: Ondansetron 4 MG/2 ML VIAL IVP PRN (16:26)
[2021-04-04] MEDS ORDERED: flumazeniL 0.5 MG/5 ML VIAL IVP ONE (17:24)
[2021-04-04] MEDS ORDERED: Naloxone 0.4 MG/ML INJ ONE (17:38)
[2021-04-04] MEDS ORDERED: Furosemide 20 MG/2 ML VIAL IVP ONE ×2 (17:55→17:56)
[2021-04-04] MEDS ORDERED: Naloxone 0.4 MG/ML INJ IVP PRN (19:14)
[2021-04-04 22:47] LABS: Hematocrit 35.6 % (35.3-44.9); Hemoglobin 11.1 g/dL (11.5-15.4); Mean Corpuscular HGB Conc 31.2 g/dL (31.6-35.5); Mean Corpuscular Hemoglobin 30.2 pg (28.0-33.3); Mean Platelet Volume 9.4 fL (9.4-12.4); Platelet Count 245 K/mcL (140-400); Red Blood Count 3.67 M/mcL (3.82-4.97); Red Cell Distribution Width 12.3 % (11.5-14.5); White Blood Count 15.1 K/mcL (4.3-11.1)
[2021-04-04] MEDS ORDERED: *HR* OxyCODONE/APAP 5/325 TABLET PO PRN (22:53)
[2021-04-04 23:04] LABS: Alanine Aminotransferase 34 Units/L (7-52); Albumin 4.1 g/dL (3.5-5.7); Albumin/Globulin Ratio 1.5 (1.1-2.2); Alkaline Phosphatase 59 Units/L (34-104); Aspartate Amino Transferase 24 Units/L (13-39); BUN/Creatinine Ratio 23 (6-26); Bilirubin,Total 0.2 mg/dL (0.3-1.0); Blood Urea Nitrogen 23 mg/dL (6-20); Carbon Dioxide 26 mEq/L (23-29); Chloride 99 mEq/L (98-107); Globulin 2.7 g/dL (2.4-3.5); Glucose 179 mg/dL (70-105); Magnesium 1.6 mg/dL (1.6-2.6); Osmolality,Calculated 282 (280-300); Phosphorous 2.9 mg/dL (2.7-4.5); Potassium 4.6 mEq/L (3.5-5.1); Sodium 132 mEq/L (136-145); Total Protein 6.8 g/dL (6.4-8.9); eGFR For African Americans > 60 (> 60); eGFR For Non-African Americans 57 (> 60)
[2021-04-04 23:05] LABS: INR 1.1; Prothrombin Time 12.6 Seconds (9.4-12.1)
[2021-04-04 23:08] LABS: Activated Partial Thrombo Time 30.9 Seconds (26.0-36.0)
[2021-04-04] MEDS ORDERED: Albuterol 2.5 MG/3 ML NEBULIZER IH PRN (23:53)
[2021-04-04] MEDS ORDERED: *HR* OxyCODONE Immed Rel 5 MG TABLET PO ONE (23:53)
[2021-04-05 11:32] VITALS: BP 131/81; PULSE 89; TEMP 98.1; O2SAT 94
== END 2021-04-05 11:41 | disposition home or self-care (01) ==
LOC: 4WAOSI 13:24 → SDCAOSI 13:24 → 4WAOSI 20:02
PROVIDERS: ADMIT Physical Medicine & Rehabilitation; ATTEND Physical Medicine & Rehabilitation

== ENCOUNTER 2021-12-25 20:26 | Inpatient (IN) ==
[2021-12-26] MEDS ORDERED: Morphine Sulfate 2 MG/ML SYRINGE IVP ONE ×2 (00:14→03:34)
[2021-12-26 00:59] LABS: Hemoglobin 12.5 g/dL (11.5-15.4); Mean Corpuscular HGB Conc 32.9 g/dL (31.6-35.5); Mean Corpuscular Hemoglobin 30.4 pg (28.0-33.3); Mean Corpuscular Volume 92.5 fL (83.0-100.0); Mean Platelet Volume 9.3 fL (9.4-12.4); Platelet Count 315 K/mcL (140-400); Red Blood Count 4.11 M/mcL (3.82-4.97); Red Cell Distribution Width 13.3 % (11.5-14.5); White Blood Count 10.9 K/mcL (4.3-11.1)
[2021-12-26 01:10] LABS: INR 1.1; Prothrombin Time 12.2 Seconds (9.4-12.1)
[2021-12-26 01:18] LABS: Calcium 9.7 mg/dL (8.6-10.3); Potassium 3.2 mEq/L (3.5-5.1)
[2021-12-26] MEDS ORDERED: Naloxone 0.4 MG/ML INJ IVP PRN (04:00)
[2021-12-26] MEDS ORDERED: Melatonin 3 MG TABLET PO PRN (04:00)
[2021-12-26] MEDS ORDERED: Ondansetron ODT 4 MG TAB.RAPDIS SL PRN (04:00)
[2021-12-26] MEDS ORDERED: D5% in Water 1,000 ML IVC PRN (04:13)
[2021-12-26] MEDS ORDERED: *HR* Dextrose 50 % in Water (Syg) 50 ML SYRINGE IVP PRN (04:13)
[2021-12-26] MEDS ORDERED: Dextrose Gel 15 GM/37.5 ML TUBE PO PRN ×2 (04:13)
[2021-12-26] MEDS: Insulin LISPRO 300 UNITS/3 ML VIAL SUBQ SCH ×2 (05:55→13:13)
[2021-12-26] MEDS: *HR* HYDROcodone/Acet 5/325 mg TABLET PO PRN ×2 (05:55→12:32)
[2021-12-26] MEDS ORDERED: carvediloL 25 MG TABLET PO SCH (08:00)
[2021-12-26] MEDS ORDERED: (Ipratropium Bromide 15 ML Spray) NS SCH (09:00)
[2021-12-26] MEDS ORDERED: BuPROPion XL (24 HR) 150 MG TABLET PO SCH (09:00)
[2021-12-26 11:16] VITALS: O2SAT 98
[2021-12-26 14:59] VITALS: BP 139/73; PULSE 68; TEMP 98.1
== END 2021-12-26 17:00 | disposition home or self-care (01) | DRG 552 ==
LOC: 4WAOSI 20:26 → EMEROOARM 20:26 → SUATTDRO 12-26 04:02 → OBSVTOIN 12-26 04:02 → 4WAOSI 12-26 05:08
PROVIDERS: ADMIT Internal Medicine; ATTEND Internal Medicine